=== PATIENT | female | born 1985 | race Caucasian/White ===

== ENCOUNTER 2019-05-31 09:02 | Emergency (ER) | payer OTHER, SELFPAY ==
[2019-05-31 09:11] VITALS: BP 127/76; PULSE 130; RESP 20; TEMP 37.6; O2SAT 99
--- NOTE | 2019-05-31 09:22 | ED.URI ---
HPI - URI/Sore Throat General Chief Complaint: Upper Respiratory Infection Stated Complaint: sore throat/diane/chills/fever/body aches Time Seen by Provider: 05/31/19 09:22 Source: patient and RN notes reviewed History of Present Illness HPI Narrative: Patient is a 34-year-old female presents the urgent care with complaints of sore throat, body aches, fever, chills. Patient states that started Tuesday night and was severe yesterday with a sore throat. Patient was recently diagnosed approximately 1 or 2 months ago with strep throat and was on amoxicillin at that time. Patient denies any nausea or vomiting. No other acute complaints. No acute distress noted. Patient read the plan of care. Related Data Home Medications Medication Instructions Recorded Confirmed buspirone 10 mg PO DAILY 05/31/19 05/31/19 cetirizine [Zyrtec] 10 mg PO DAILY 05/31/19 05/31/19 citalopram 20 mg PO DAILY 05/31/19 05/31/19 lisinopril-hydrochlorothiazide 1 tablet PO DAILY 05/31/19 05/31/19 Allergies Allergy/AdvReac Type Severity Reaction Status Date / Time etodolac Allergy Intermediate Hives Verified 05/31/19 09:12 Review of Systems Review of Systems: Narrative: CONSTITUTIONAL: Reports a fever, chills, sweats EYES: Denies visual changes, redness, or discharge. ENT: Reports of rhinorrhea, sore throat CARDIOVASCULAR: Denies chest pain, palpitations, or edema. RESPIRATORY: Denies cough or dyspnea. GASTROINTESTINAL: Denies abdominal pain, nausea, vomiting, or diarrhea. GENITOURINARY: Denies dysuria or hematuria. SKIN: Denies rash or itching. MUSCULOSKELETAL: Denies back pain, joint pain; reports of body aches NEUROLOGIC: Denies headache, numbness, or weakness. All other systems reviewed are negative, except as documented in HPI. FOR[facility]LY [facility], [facility] Family History Family History (Updated 10/17/15 @ 23:21 by DOCTOR UNKNOWN) Mother Hypertension Cerebrovascular accident Family history of elevated blood lipids Sibling Patient's sister is in good health Patient's brother is in good health Asthma Father Cerebrovascular accident Family history of diabetes mellitus in first degree relative Depression Other Family history of allergic disorder Family history of heart disease in male family member before age 55 Family history of kidney disease Social History Social History Smoking status: Never smoker Alcohol intake: never Comments At the time of my signature, I reviewed and agree with the nursing past medical, surgical, social, and family history. There is no relevant family history pertinent to the patient complaint. Exam Narrative: Exam Narrative: GENERAL: This is a well-nourished, well-developed patient, reports of fatigue HEAD: normocephalic, atraumatic. EYES: PERRL. Sclera clear/white. Vision is grossly intact. EARS: External ears normal, auditory canals clear and without drainage, TMs normal without perforation. Hearing grossly intact. NOSE: External nose normal with no obvious nasal discharge, nares without redness, clear rhinorrhea. THROAT: Mucous membranes moist, moderate erythema noted posterior oropharynx with moderate postnasal drainage and mild bilateral tonsillar edema/erythema without exudate or ulceration NECK: Neck supple, non-tender without lymphadenopathy CARDIOVASCULAR: Regular rate and rhythm without murmurs, gallops, or rubs. RESPIRATORY: Clear to auscultation. Breath sounds equal bilaterally. No wheezes, rales, or rhonchi. SKIN: warm, intact with no suspicious lesions or rash, good texture and turgor. NEURO: awake, alert, and oriented to person, place and time. There were no obvious focal neurologic abnormalities. EXTREMITIES: No clubbing, cyanosis, or edema. Course Vital Signs Vital signs: Vital Signs Temperature 99.6 F 05/31/19 09:11 Pulse Rate 130 H 05/31/19 09:11 Respiratory Rate 20 05/31/19 09:11 Blood Pressure 127/76 05/31/19 09:11 Pulse Oximetry 99 05/31/19 09:11 Temperature 99.6 F
== END 2019-05-31 09:36 | disposition home or self-care (01) ==
PROVIDERS: Emergency Provider Nurse Practitioner Family; PCP Nurse Practitioner Family
DX: J02.0 Streptococcal pharyngitis (principal); I10 Essential (primary) hypertension; J45.909 Unspecified asthma, uncomplicated; K21.9 Gastro-esophageal reflux disease without esophagitis
CPT/HCPCS: 87804; 87880; 99213; G0463

== ENCOUNTER 2019-06-02 05:53 | Emergency (ER) | payer OTHER, SELFPAY ==
--- NOTE | ~2019-06-02 | CT_ITS ---
EXAMINATION: CT soft tissue neck w con DATE: 06/02/2019 07:46 INDICATION: Severe sore throat TECHNIQUE: Computed tomography (CT) of the neck was performed with 75 cc of Omnipaque 350 intravenous contrast. The dose-length product (DLP) was 578.70 mGy-cm. Automated exposure control and iterative reconstruction technique were employed. COMPARISON: None FINDINGS: There is no evidence of abnormal fluid collection or fat stranding of the neck. There are n o pathologically enlarged lymph nodes. The airway is patent. No abnormal enhancement is identified. IMPRESSION: 1. No CT correlate for the patient's symptoms. Reviewed, dictated and finalized at location A.
[2019-06-02 05:56] VITALS: BP 147/86; PULSE 96; RESP 18; TEMP 36.1; O2SAT 100
[2019-06-02 06:11] VITALS: BP 147/86; PULSE 96; RESP 18; TEMP 36.1; O2SAT 100
--- NOTE | 2019-06-02 06:32 | ED.GENADULT ---
HPI - General Adult General Chief complaint: Dental/Oral Stated complaint: positive strep, getting worse Time Seen by Provider: 06/02/19 06:10 Source: patient Mode of arrival: ambulatory Limitations: no limitations History of Present Illness HPI narrative: 34 yo female who presents for evaluation of worsening sore throat. Patient states she was diagnosed with strep pharyngitis 2 days ago, and she was started on Keflex. She has been taking ibuprofen around the clock without relief. She states that her pain seems to be located on the right side. She has severe pain with eating and drinking. She is not sure if she is on the correct antibiotics, and she has been diagnosed with strep many times before and she states her pain has never been this severe. She denies vomiting. MD complaint: worsening sore throat Related Data Home Medications Medication Instructions Recorded Confirmed buspirone 10 mg PO DAILY 05/31/19 05/31/19 cetirizine [Zyrtec] 10 mg PO DAILY 05/31/19 05/31/19 citalopram 20 mg PO DAILY 05/31/19 05/31/19 lisinopril-hydrochlorothiazide 1 tablet PO DAILY 05/31/19 05/31/19 Allergies Allergy/AdvReac Type Severity Reaction Status Date / Time etodolac Allergy Intermediate Hives Verified 05/31/19 09:12 Review of Systems Review of Systems: All systems reviewed & are unremarkable except as noted in HPI and below Constitutional: Constitutional: Denies chills and Reports fever(s) ENT: Reports dysphagia, Denies dizziness, Denies nasal congestion and Reports sore throat Cardiovascular: Cardiovascular: Denies chest pain Respiratory: Respiratory: Denies cough and Denies dyspnea Gastrointestinal: Gastrointestinal: Denies abdominal pain [facility] Family History Family History (Updated 10/17/15 @ 23:21 by DOCTOR UNKNOWN) Mother Hypertension Cerebrovascular accident Family history of elevated blood lipids Sibling Patient's sister is in good health Patient's brother is in good health Asthma Father Cerebrovascular accident Family history of diabetes mellitus in first degree relative Depression Other Family history of allergic disorder Family history of heart disease in male family member before age 55 Family history of kidney disease Social History Social History Smoking status: Never smoker Alcohol intake: never Gender identity (if verbalized by the patient): Female Exam Const: General: no acute distress and alert Orientation/consciousness: patient oriented x3 HENMT: Head: normocephalic and atraumatic Ears: hearing grossly normal bilaterally, external ears normal and TM's normal bilaterally Face and sinus: face symmetric Mouth: Yes lip normal, Yes tongue normal, Yes moist mucous membranes, No audible dysphonia and No drooling Throat: uvula midline, posterior oropharynx abnormal erythema; no exudates and no uvular edema Eyes: Conjunctivae: conjunctivae normal Pupils: Equal, round and reactive pupils present EOM: EOMs intact bilaterally Neck: Neck: no meningeal signs Chest: Chest palpation & inspection: normal inspection of the chest Resp: Effort & Inspection: normal respiratory effort Auscultation: clear to auscultation bilaterally Skin: General skin exam: normal color Rashes: no rashes Neuro: General: patient oriented x3 and moves all extremities Psych: Mental Status: mental status grossly normal Affect: normal affect Course Reevaluation(s) Reevaluation #1: I have discussed with patient labs and CT . She request Magic mouth wash and change antibiotics to Z gricelda. Date: 06/02/19 Time: 08:31 Vital Signs Vital signs: Vital Signs Temperature 96.9 F L 06/02/19 05:56 Pulse Rate 96 06/02/19 05:56 Respiratory Rate 18 06/02/19 05:56 Blood Pressure 147/86 H 06/02/19 05:56 Pulse Oximetry 100 06/02/19 05:56 Temperature 96.9 F L 06/02/19 06:11 Pulse Rate 90 06/02/19 08:52 Respiratory Rate 16 06/02/19 08:52 Blood Pressure 139/90
[2019-06-02 06:53] LABS: Basophils Absolute Auto 0.1 K/mm3 (0.0-0.1); Basophils Percent Auto 0.7 % (0.2-1.2); Eosinophils Absolute Auto 0.6 K/mm3 (0-0.3); Eosinophils Percent Auto 7.2 % (0-4.4); Hematocrit 42.6 % (37.0-47.0); Hemoglobin 13.9 g/dL (12.0-15.0); Immature Granulocyte Absolute 0.08 K/mm3 (0.00-0.031); Immature Granulocyte Percent A 0.9 % (0-0.5); Lymphocytes Absolute Auto 2.02 K/mm3 (0.9-3.2); Lymphocytes Percent Auto 23.8 % (18.3-44.2); Mean Corpuscular HGB Conc 32.6 g/dl (32-36); Mean Corpuscular Hemoglobin 26.2 pg (26-34); Mean Corpuscular Volume 80.4 fl (80-100); Mean Platelet Volume 9.2 fl (7.4-10.4); Monocytes Absolute Auto 0.6 K/mm3 (0.1-0.6); Monocytes Percent Auto 7.1 % (2.6-8.5); Neutrophils Absolute Auto 5.1 K/mm3 (1.3-6.7); Neutrophils Percent Auto 60.3 % (45.5-73.1); Platelet Count Result 306 k/mm3 (150-375); Red Cell Distribution Width 15.2 % (11.5-14.5); White Blood Count 8.5 K/mm3 (4.5-10.0)
[2019-06-02] MEDS: LACTATED RINGERS 1,000 ML 999 ML IV CONT (06:56)
[2019-06-02 07:18] LABS: Alanine Aminotransferase 36 U/L (4-35); Albumin Level 4.4 g/dL (3.5-5.1); Alkaline Phosphatase 133 U/L (38-126); Aspartate Amino Transferase 36 U/L (14-36); Bilirubin,Total 0.5 mg/dL (0.2-1.3); Blood Urea Nitrogen 10 mg/dL (7-17); Calcium 9.1 mg/dL (8.4-10.2); Carbon Dioxide 25 mmol/L (22-30); Chloride 102 mmol/L (98-107); Estimated Glomerular Filt Rate > 60; Glucose 111 mg/dL (65-105); Potassium 3.8 mmol/L (3.4-5.0); Sodium 137 mmol/L (137-145)
[2019-06-02 07:21] LABS: CRP 13.8 mg/dL (<1.0)
[2019-06-02 08:52] VITALS: BP 139/90; PULSE 90; RESP 16; O2SAT 99
== END 2019-06-02 08:53 | disposition home or self-care (01) ==
PROVIDERS: Emergency Provider General Practice; PCP Nurse Practitioner Family
DX: J02.0 Streptococcal pharyngitis (principal)
CPT/HCPCS: 36415; 70491; 80053; 81025; 85025; 86140; 96361; 96365; 96372; 99284; J0131; J1100; J7120; Q9967

== ENCOUNTER 2019-11-09 01:39 | Emergency (ER) | payer OTHER, SELFPAY ==
--- NOTE | ~2019-11-09 | CT_ITS ---
EXAMINATION: CT abdomen pelvis w con DATE: 11/09/2019 03:04 INDICATION: Abdominal pain. TECHNIQUE: Computed tomography (CT) of the abdomen and pelvis was performed with 100 mL Omnipaque 350 intravenous contrast. Automated exposure control and iterative reconstruction technique were employe d. The dose-length product was 1471.73 mGy-cm. COMPARISON: CT abdomen and pelvis 07/25/2015 FINDINGS: The visualized portions of the lung bases demonstrate a stable 5 mm nodule in right middle lobe, likely benign. There are two 3 mm nodules in right middle lobe and a 3 mm nodule in right lower lobe, likely benign. No pleural effusion. The heart size is normal. No pericardial effusion. The zahra er and spleen are normal. The gallbladder is absent. The pancreas, adrenal glands, and kidneys are no rmal. There are no dilated loops of bowel. The appendix is normal. There are no pathologically enlarg ed lymph nodes. There is no free intraperitoneal fluid. There is mild thoracolumbar spondylosis. IMPRESSION: 1. No etiology for the patient's symptoms. Reviewed, dictated and finalized at location A.
[2019-11-09 01:41] VITALS: BP 149/103; PULSE 100; RESP 16; TEMP 36.3; O2SAT 100
[2019-11-09 02:06] LABS: Basophils Percent Auto 0.3 % (0.2-1.2); Eosinophils Absolute Auto 0.2 K/mm3 (0-0.3); Eosinophils Percent Auto 1.4 % (0-4.4); Hematocrit 43.4 % (37.0-47.0); Hemoglobin 14.6 g/dL (12.0-15.0); Immature Granulocyte Absolute 0.06 K/mm3 (0.00-0.031); Immature Granulocyte Percent A 0.5 % (0-0.5); Lymphocytes Absolute Auto 4.49 K/mm3 (0.9-3.2); Mean Corpuscular HGB Conc 33.6 g/dl (32-36); Mean Corpuscular Hemoglobin 27.4 pg (26-34); Mean Corpuscular Volume 81.6 fl (80-100); Mean Platelet Volume 9.6 fl (7.4-10.4); Monocytes Absolute Auto 0.5 K/mm3 (0.1-0.6); Monocytes Percent Auto 3.9 % (2.6-8.5); Neutrophils Absolute Auto 6.9 K/mm3 (1.3-6.7); Neutrophils Percent Auto 56.9 % (45.5-73.1); Platelet Count Result 313 k/mm3 (150-375); Red Blood Count 5.32 M/mm3 (4.2-5.4); Red Cell Distribution Width 13.7 % (11.5-14.5); White Blood Count 12.1 K/mm3 (4.5-10.0)
[2019-11-09 02:12] LABS: Add Urine Microscopic? YES; Appearance Urine Clear (Clear); Bilirubin Urine Negative (Negative); Blood Urine 1+ (Negative); Color Urine Yellow (Yellow); Glucose Urine UA Negative (Negative); Ketones Urine Negative (Negative); Leukocyte Esterase Ur Negative LEU/UL (Negative); Mucus Urine Rare /lpf; Nitrate Urine Negative (Negative); Protein Urine Negative (Negative); Specific Grav Ur 1.018 (1.001-1.035); Squamous Epithelial Cell Urine Occasional /hpf (Few); Urobilinogen Urine Negative mg/dL (<2.0); WBC Urine 0-3 /hpf
--- NOTE | 2019-11-09 02:18 | ED.ABDPAIN ---
HPI - Abdominal Pain General Chief Complaint: Abdominal Pain Stated Complaint: abdominal pain Time Seen by Provider: 11/09/19 01:48 Source: RN notes reviewed History of Present Illness HPI narrative: Patient presents emergency department from home for abdominal pain. Patient states that symptoms began proximally 2 hours ago. Pain is located across the bilateral upper abdomen and radiated around to the back. Described as burning in nature associated with nausea. Denies any fevers or chills chest pain shortness of breath vomiting diarrhea or any other symptoms. Patient does note previous cholecystectomy Related Data Home Medications Medication Instructions Recorded Confirmed buspirone 10 mg PO DAILY 05/31/19 05/31/19 cetirizine [Zyrtec] 10 mg PO DAILY 05/31/19 05/31/19 citalopram 20 mg PO DAILY 05/31/19 05/31/19 lisinopril-hydrochlorothiazide 1 tablet PO DAILY 05/31/19 05/31/19 Allergies Allergy/AdvReac Type Severity Reaction Status Date / Time etodolac Allergy Intermediate Hives Verified 11/09/19 01:48 Review of Systems Review of Systems: Narrative: Gen.: Denies fevers or chills ENT: Denies congestion Respiratory: Denies shortness of breath or cough CV: Denies chest pain or palpitations GI: See HPI denies burning, urgency, frequency or hematuria Musculoskeletal: Denies back pain or muscle pain Neuro: Denies numbness, tingling, weakness or focal weakness Skin: Denies rash Except as documented, all other systems reviewed and negative PMFSH Past Medical History Medical History (Updated 11/09/19 @ 05:19 by Haris Kelley DO) Patient denies significant medical history Surgical History Surgical History (Updated 11/09/19 @ 02:19 by Haris Kelley DO) History of cholecystectomy Family History Family History (Updated 10/17/15 @ 23:21 by DOCTOR UNKNOWN) Mother Hypertension Cerebrovascular accident Family history of elevated blood lipids Sibling Patient's sister is in good health Patient's brother is in good health Asthma Father Cerebrovascular accident Family history of diabetes mellitus in first degree relative Depression Other Family history of allergic disorder Family history of heart disease in male family member before age 55 Family history of kidney disease Social History Social History Smoking status: Never smoker Alcohol intake: never Gender identity (if verbalized by the patient): Female Exam Narrative: Exam Narrative: APPEARANCE: No acute distress, nontoxic, resting in bed HEENT: Normocephalic, atraumatic, OMM RESPIRATORY: No respiratory distress, clear to auscultation bilaterally with no rhonchi wheezing or rales CARDIOVASCULAR: RRR s murmur ABDOMINAL: Soft, nondistended, tender palpation epigastric, right upper quadrant left upper quadrant, no tenderness right lower quadrant left lower quadrant, no rebound or guarding MUSCULOSKELETAl: Moves all extremities. No clubbing, cyanosis or edema. NEURO: Awake and alert. Following commands, speech normal, no focal deficits SKIN:: Warm, dry. Normal Color PSYCHIATRIC: Normal affect/mood Course Course Emergency Course: Patient states that they are feeling much better at this time. States abdominal pain has resolved. Repeat abdominal exam shows the patient's abdomen to be soft and nontender. Discussed with patient results of workup and diagnosis. Discussed need for follow-up with primary care physician, reasons to return to the emergency department in proper use of medication. Patient understands and agrees to current treatment plan. Patient states she is on OTC Nexium at home for heartburns had no formal work-up will refer to GI and switch to Protonix Vital Signs Vital signs: Vital Signs Temperature 97.4 F L 11/09/19 01:41 Pulse Rate 100 11/09/19 01:41 Respiratory Rate 16 11/09/19 01:41 Blood Pressure 149/103 H 11/09/19 01:41 Pulse Oximetry 100 0
[2019-11-09] MEDS: ONDANSETRON INJ 4 MG/2 ML VIAL IV PUSH (02:29)
[2019-11-09] MEDS: MORPHINE SULFATE 4 MG/ML INJ IV PUSH (02:29)
[2019-11-09] MEDS: SODIUM CHLORIDE 0.9% IV 1,000 ML 999 ML IV CONT (02:30)
[2019-11-09 02:36] LABS: Alanine Aminotransferase 17 U/L (4-35); Albumin Level 4.4 g/dL (3.5-5.1); Alkaline Phosphatase 96 U/L (38-126); Anion Gap 12 mmol/L (8-16); Aspartate Amino Transferase 23 U/L (14-36); Bilirubin,Total 0.4 mg/dL (0.2-1.3); Blood Urea Nitrogen 15 mg/dL (7-17); Calcium 9.1 mg/dL (8.4-10.2); Carbon Dioxide 20 mmol/L (22-30); Chloride 104 mmol/L (98-107); Estimated CRCL calculation 135 ml/min; Estimated Glomerular Filt Rate > 60; Glucose 112 mg/dL (65-105); Lipase 59 U/L (23-300); Potassium 3.9 mmol/L (3.4-5.0); Sodium 136 mmol/L (137-145)
[2019-11-09 03:09] VITALS: BP 146/95; PULSE 88; RESP 18; O2SAT 97
[2019-11-09] MEDS: PROMETHAZINE HCL 25 MG/ML AMPUL 12.5 MG IV PUSH (04:02)
[2019-11-09] MEDS: SODIUM CHLORIDE 0.9% IV 50 ML 200 ML (04:04)
[2019-11-09 05:34] VITALS: BP 131/89; PULSE 91; RESP 18; O2SAT 96
== END 2019-11-09 05:35 | disposition home or self-care (01) ==
PROVIDERS: Emergency Provider Emergency Medicine; PCP Nurse Practitioner Family
DX: R10.13 Epigastric pain (principal)
CPT/HCPCS: 36415; 74177; 80053; 81001; 81025; 83690; 85025; 96361; 96374; 96375; 99284; A9270; J2270; J2405; J2550; J7030; Q9967

== ENCOUNTER 2019-12-12 02:20 | Outpatient (CLI) | payer OTHER, SELFPAY ==
[2019-12-12 18:39] LABS: SARS-CoV-2 RNA PCR Negative
== END 2019-12-12 02:21 | disposition home or self-care (01) ==
LOC: ANHCOVIDDT 02:20
PROVIDERS: PCP Nurse Practitioner Family; Visit Provider Internal Medicine Gastroenterology
DX: Z01.812 Encounter for preprocedural laboratory examination (principal); Z20.828 Contact with and (suspected) exposure to other viral communicable diseases
CPT/HCPCS: 87635; C9803; U0003

== ENCOUNTER 2019-12-14 01:02 | Day surgery (SDC) | payer OTHER, SELFPAY ==
[2019-12-10 13:38] VITALS: BMI 38.4
[2019-12-14] MEDS: LACTATED RINGERS 1,000 ML 150 ML IV CONT (09:08)
[2019-12-14 09:11] VITALS: BP 135/85; PULSE 93; RESP 18; TEMP 36.3; O2SAT 98; BMI 38.5
--- NOTE | 2019-12-14 09:34 | WPDANESEPPF ---
Anes - Initial Pre Proc Eval Procedure: Operation Date: 12/14/19 10:00 Proposed Procedures p Esophagogastroduodenoscopy - Jack Gonzalez MD Date/Time: 12/14/19 09:34 Surgeon: Jack Gonzalez MD Pre Op Diagnosis: abdomen pain Patient Data Age: 34 Gender: F Height: 5 ft 9 in Weight: 118.3 kg Last Vital Signs Temp 97.3 F L 12/14/19 09:11 Pulse 93 12/14/19 09:11 Resp 18 12/14/19 09:11 BP 135/85 12/14/19 09:11 Pulse Ox 98 12/14/19 09:11 Allergies Allergy/AdvReac Type Severity Reaction Status Date / Time etodolac Allergy Intermediate Hives Verified 12/14/19 09:08 Home Medications Medication Instructions Recorded Confirmed Type buspirone 10 mg PO TID 05/31/19 12/10/19 History cetirizine [Zyrtec] 10 mg PO DAILY 05/31/19 12/10/19 History citalopram 20 mg PO DAILY 05/31/19 12/10/19 History lisinopril-hydrochlorothiazide 1 tablet PO DAILY 05/31/19 12/10/19 History pantoprazole 40 mg tablet,delayed 40 mg PO HS #30 tablet 11/15/19 12/10/19 Rx release ondansetron HCl 4 mg tablet 4 mg PO Q8H PRN #90 tablet 11/23/19 12/10/19 Rx albuterol sulfate [ProAir HFA] 2 puff INHALATION QID PRN 12/10/19 12/10/19 History ipratropium-albuterol 3 ml INHALATION Q4H PRN 12/10/19 12/10/19 History Patient hx anesthesia problems: none Family hx anesthesia problems: none PMFSH Past Medical History Medical History (Updated 12/14/19 @ 09:34 by Rafael Rudolph MD) Anxiety Asthma GERD (gastroesophageal reflux disease) Hypertension Patient denies significant medical history Surgical History Surgical History (Updated 11/09/19 @ 02:19 by Haris Kelley DO) History of cholecystectomy Family History Family History (Updated 10/17/15 @ 23:21 by DOCTOR UNKNOWN) Mother Hypertension Cerebrovascular accident Family history of elevated blood lipids Sibling Patient's sister is in good health Patient's brother is in good health Asthma Father Cerebrovascular accident Family history of diabetes mellitus in first degree relative Depression Other Family history of allergic disorder Family history of heart disease in male family member before age 55 Family history of kidney disease Social History Social History Smoking status: Never smoker Alcohol intake: never Substance use: current Substance use type: marijuana Last use: 12/09/19 Living arrangements: with family Gender identity (if verbalized by the patient): Female Spiritual care concerns: No Anes - Eval Final PreProcedure Day of Procedure 12/14/19 09:34 Patient weight: obese Heart: regular rate and rhythm Lungs: clear to auscultation Airway: Mallampati scale class III Neurological: alert and oriented Last oral intake: >/= 8 hours ASA classification: III Emergent: no Anesthetic plan: proceed Anesthesia type and monitoring: general GIVS and standard monitoring Informed Consent: The patient's anesthetic plan and its attendant risks and benefits were discussed with the patient/family/POA. Questions were solicited and answers provided to the satisfaction of the patient/family/POA.
--- NOTE | 2019-12-14 09:48 | WPDHPUPDATE1 ---
History and Physical Update Update Date/Time: 12/14/19 09:48 History and Physical has been reviewed, including an updated exam of the patient. There are NO changes in the patient's condition. Risks, benefits, and alternatives have been discussed and questions answered. Patient agrees to proceed with procedure.
[2019-12-14 10:05] VITALS: BP 137/87; PULSE 90; RESP 25; O2SAT 99
[2019-12-14 10:15] VITALS: BP 131/73; PULSE 85; RESP 20; O2SAT 100
[2019-12-14 10:25] VITALS: BP 143/89; PULSE 78; RESP 18; O2SAT 100
== END 2019-12-14 10:30 | disposition home or self-care (01) ==
PROVIDERS: PCP Nurse Practitioner Family; Visit Provider Internal Medicine Gastroenterology
PROC: 0DJ08ZZ Inspection of Upper Intestinal Tract, Via Natural or Artificial Opening Endoscopic (ICD-10-PCS; CPT 43235; principal; 2019-12-14 10:00)
DX: K29.50 Unspecified chronic gastritis without bleeding (principal); K20.8 Other esophagitis; K21.9 Gastro-esophageal reflux disease without esophagitis; J45.909 Unspecified asthma, uncomplicated; I10 Essential (primary) hypertension; F41.9 Anxiety disorder, unspecified; Z90.49 Acquired absence of other specified parts of digestive tract
CPT/HCPCS: 43239; 87635; 88305; C9803; J2704; J7120; U0003

== ENCOUNTER 2020-03-04 08:56 | Outpatient (NON) | payer OTHER, MEDICAID, SELFPAY ==
[2020-03-04 22:42] LABS: SARS-CoV-2 RNA PCR Negative
== END 2020-03-04 08:57 ==
PROVIDERS: PCP Nurse Practitioner Family; Visit Provider Nurse Practitioner Family
DX: R51.9 Headache, unspecified (principal); J02.9 Acute pharyngitis, unspecified; Z20.828 Contact with and (suspected) exposure to other viral communicable diseases
CPT/HCPCS: 87635; C9803; U0003

== ENCOUNTER 2020-08-04 06:55 | Emergency (ER) | payer OTHER, MEDICAID, SELFPAY ==
[2020-08-04 06:58] VITALS: BP 154/97; PULSE 102; RESP 16; TEMP 36.2; O2SAT 98
--- NOTE | 2020-08-04 07:30 | ED.BACK ---
HPI - Back Pain/Injury General Chief Complaint: Back Pain/Injury Stated Complaint: LBP X1D Time Seen by Provider: 08/04/20 07:05 Source: RN notes reviewed History of Present Illness HPI Narrative: Patient presents emergency department from home for low back pain. Patient states she woke with the pain yesterday she denies any direct trauma or injury. Patient states pain shoots down the left leg with occasional shots of pain down the right leg pain is worse with movement. She states she took ibuprofen and Flexeril last night at 8 PM for the symptoms is taken no medication this morning she denies any fevers or chills, abdominal pain, numbness or tingling in the extremities bowel or bladder incontinence or any other symptoms. She states that 4 years ago she had back pain in the similar area and had to have a laminectomy at the back and spine [place] Related Data Home Medications Medication Instructions Recorded Confirmed buspirone 10 mg PO TID 05/31/19 12/10/19 cetirizine [Zyrtec] 10 mg PO DAILY 05/31/19 12/10/19 citalopram 20 mg PO DAILY 05/31/19 12/10/19 lisinopril-hydrochlorothiazide 1 tablet PO DAILY 05/31/19 12/10/19 albuterol sulfate [ProAir HFA] 2 puff INHALATION QID PRN 12/10/19 12/10/19 ipratropium-albuterol 3 ml INHALATION Q4H PRN 12/10/19 12/10/19 Allergies Allergy/AdvReac Type Severity Reaction Status Date / Time ketorolac Allergy Hives Verified 08/04/20 07:26 Review of Systems Review of Systems: Narrative: Gen.: Denies fevers or chills ENT: Denies congestion Respiratory: Denies shortness of breath or cough CV: Denies chest pain or palpitations GI: Denies abdominal pain nausea, emesis or diarrhea denies bowel or bladder incontinence Musculoskeletal: See HPI Neuro: Denies numbness, tingling, weakness or focal weakness Skin: Denies rash Except as documented, all other systems reviewed and negative PMFSH Past Medical History Medical History Anxiety Asthma GERD (gastroesophageal reflux disease) Hypertension Patient denies significant medical history Surgical History Surgical History (Updated 11/09/19 @ 02:19 by Haris Kelley DO) History of cholecystectomy Family History Family History (Updated 10/17/15 @ 23:21 by DOCTOR UNKNOWN) Mother Hypertension Cerebrovascular accident Family history of elevated blood lipids Sibling Patient's sister is in good health Patient's brother is in good health Asthma Father Cerebrovascular accident Family history of diabetes mellitus in first degree relative Depression Other Family history of allergic disorder Family history of heart disease in male family member before age 55 Family history of kidney disease Social History Social History Smoking status: Never smoker Alcohol intake: never Substance use: current Substance use type: marijuana Last use: 12/09/19 Gender identity (if verbalized by the patient): Female Spiritual care concerns: No Exam Narrative: Exam Narrative: APPEARANCE: No acute distress, nontoxic, resting in bed Eyes: EOMI HEENT: Normocephalic, atraumatic, CV: Regular rate and rhythm without murmur RESPIRATORY: No respiratory distress. Clear to auscultation bilaterally. Abdomen: Soft and nontender, no rebound or guarding MUSCULOSKELETAl: Moves all extremities, no clubbing cyanosis or edema Back: No midline lumbar tenderness to palpation or step-off, tender to palpation over bilateral paravertebral muscles L3-5 , pain increased with forward flexion NEURO: Awake and alert. Following commands, speech normal, no focal deficits, muscle strength 5 out of 5 bilateral lower extremities, bilateral patellar reflex 2+ SKIN:: Warm, dry. Normal Color no rash or lesions Course Course Emergency Course: Discussed with patient results of workup and diagnosis. Discussed need for follow-up with primary care,
[2020-08-04] MEDS: MORPHINE SULFATE (*CRX) 4 MG/ML INJ IM (07:33)
[2020-08-04] MEDS: predniSONE 20 MG TABLET 60 MG PO (07:35)
[2020-08-04] MEDS: IBUPROFEN 600 MG TABLET PO (07:38)
== END 2020-08-04 08:17 | disposition home or self-care (01) ==
PROVIDERS: Emergency Provider Emergency Medicine; PCP Nurse Practitioner Family
DX: M54.5 Low back pain (principal); F41.9 Anxiety disorder, unspecified; J45.909 Unspecified asthma, uncomplicated; K21.9 Gastro-esophageal reflux disease without esophagitis; I10 Essential (primary) hypertension
CPT/HCPCS: 96372; 99283; A9270; J2270; J7512

== ENCOUNTER 2020-08-20 14:24 | Outpatient (CLI) | payer OTHER, MEDICAID, SELFPAY ==
--- NOTE | 2020-08-20 14:31 | ECG_ITS ---
Measurements Intervals [place] Rate: 86 P: 18 [place]: 169 QRS: 15 QRSD: 75 T: 15 QT: 332 QTc: 399 Interpretive Statements SINUS RHYTHM POSSIBLE LEFT ATRIAL ENLARGEMENT LOW QRS VOLTAGE IN PRECORDIAL LEADS CONSIDER INFERIOR INFARCT, AGE INDETERMINATE ANTERIOR INFARCT, AGE INDETERMINATE BASELINE ARTIFACT- I, II, III, AVR, AVL, AVF ABNORMAL ECG Electronically Signed On 08-20-2020 15:54:36 CDT by Harley Chavez D.O.
[2020-08-20 15:20] LABS: Hematocrit 41.3 % (37.0-47.0); Hemoglobin 13.2 g/dL (12.0-15.0); Mean Corpuscular Volume 84.5 fl (80-100); Mean Platelet Volume 9.9 fl (7.4-10.4); Platelet Count Result 311 k/mm3 (150-375); Red Blood Count 4.89 M/mm3 (4.2-5.4); Red Cell Distribution Width 13.9 % (11.5-14.5)
[2020-08-20 15:31] LABS: Anion Gap 9 mmol/L (8-16); Blood Urea Nitrogen 15 mg/dL (7-17); Calcium 9.7 mg/dL (8.4-10.2); Carbon Dioxide 25 mmol/L (22-30); Chloride 104 mmol/L (98-107); Estimated Glomerular Filt Rate > 60; Glucose 97 mg/dL (65-105); Sodium 138 mmol/L (137-145)
== END 2020-08-20 14:25 | disposition home or self-care (01) ==
PROVIDERS: Anesthesiology; PCP Nurse Practitioner Family; Visit Provider Obstetrics & Gynecology
DX: Z01.812 Encounter for preprocedural laboratory examination (principal); I10 Essential (primary) hypertension; Z79.899 Other long term (current) drug therapy; Z20.822 Contact with and (suspected) exposure to COVID-19; U07.1 COVID-19; R94.31 Abnormal electrocardiogram [ECG] [EKG]
CPT/HCPCS: 36415; 80048; 85027; 86850; 86900; 86901; 93005

== ENCOUNTER → 2020-08-23 11:28 | Outpatient (CLI) | payer OTHER, MEDICAID, SELFPAY ==
--- NOTE | ~2020-08-23 | MR_ITS ---
EXAMINATION: MR lumbar spine wo con EXAM DATE: 08/23/2020 12:29 INDICATION: Lumbar back pain w radiculopathy affecting lower extremities lbp down perez legs-left worse - x 1 mo, prev surg 2017, no trauma . TECHNIQUE: Multi-sequential, multiplanar MR images of the lumbar spine were obtained without contrast . Sagittal T1, T2, T2 fat saturation images. Axial T2 weighted images. There is no prior study for comparison. FINDINGS: Evidence of prior right L5 laminotomy. The vertebral bodies are aligned in the AP dimension . Mild diffuse lumbar disc disease. Small annular fissures L4-5 and L5-S1. There are no suspicious ma rrow signal abnormalities. Paraspinal soft tissue is unremarkable. Level by level evaluation: T12-L1: Disc does not extend beyond the endplate margin. Facet arthropathy: Mild. Neural foraminal stenosis: No stenosis. Central canal stenosis: No stenosis. L1-L2: Disc does not extend beyond the endplate margin. Facet arthropathy: Mild. Neural foraminal stenosis: No stenosis. Central canal stenosis: No stenosis. L2-L3: There is a mild diffuse disc bulge. Facet arthropathy: Mild to moderate. Neural foraminal stenosis: No stenosis. Central canal stenosis: No stenosis. L3-L4: There is a mild to moderate diffuse disc bulge. Facet arthropathy: Mild to moderate. Neural foraminal stenosis: No stenosis. Central canal stenosis: Mild. L4-L5: There is a mild to moderate diffuse disc bulge. Facet arthropathy: Mild to moderate. Neural foraminal stenosis: Mild bilateral. Central canal stenosis: Mild. L5-S1: There is a mild to moderate diffuse disc bulge. Facet arthropathy: Mild. Neural foraminal stenosis: No stenosis. Central canal stenosis: No stenosis. IMPRESSION: 1. Mild to moderate lumbar spondylosis. Reviewed, dictated and finalized at location A.
== END ==
PROVIDERS: PCP Nurse Practitioner Family; Visit Provider Nurse Practitioner Family
DX: M47.26 Other spondylosis with radiculopathy, lumbar region (principal); R20.0 Anesthesia of skin; R20.2 Paresthesia of skin; R20.8 Other disturbances of skin sensation; Z98.890 Other specified postprocedural states; Z87.39 Personal history of other diseases of the musculoskeletal system and connective tissue
CPT/HCPCS: 72148

== ENCOUNTER → 2020-08-26 02:35 | Outpatient (CLI) | payer OTHER, MEDICAID, SELFPAY ==
[2020-08-26 23:31] LABS: SARS-CoV-2 RNA PCR Negative
== END ==
PROVIDERS: PCP Nurse Practitioner Family; Visit Provider Obstetrics & Gynecology
DX: Z01.812 Encounter for preprocedural laboratory examination (principal); Z20.822 Contact with and (suspected) exposure to COVID-19
CPT/HCPCS: C9803; U0003; U0005

== ENCOUNTER 2020-08-29 01:58 | Day surgery (SDC) | payer OTHER, MEDICAID, SELFPAY ==
[2020-08-19 09:37] VITALS: BMI 36.8
--- NOTE | 2020-08-27 07:11 | PM.IMHP ---
H&P: HPI History of Present Illness Date/Time: 08/27/20 07:11 35-year-old 2 para 2 admitted for robotic hysterectomy and bilateral salpingectomy. This patient has had a previous ablation which failed her heavy bleeding. She continues to have bleeding and pain. Risks and benefits reviewed including but not exclusive of , aspiration pneumonia, bleeding, transfusion, perforation injury to bowel, bladder, ureters, or other internal organs with need for open laparotomy and repair. She received the [employer] handout entitled hysterectomy as well as the DaVinci handout. She had all questions answered and asked to proceed Chief Complaint: pelvic pain and bleeding Review of Systems Review of Systems: All systems reviewed & are unremarkable except as noted in HPI and below PMFSH Past Medical History Medical History Anxiety Asthma GERD (gastroesophageal reflux disease) Hypertension Patient denies significant medical history Surgical History Surgical History History of cholecystectomy Family History Family History Mother Hypertension Cerebrovascular accident Family history of elevated blood lipids Sibling Patient's sister is in good health Patient's brother is in good health Asthma Father Cerebrovascular accident Family history of diabetes mellitus in first degree relative Depression Other Family history of allergic disorder Family history of heart disease in male family member before age 55 Family history of kidney disease Social History Social History Smoking status: Never smoker Alcohol intake: never Substance use: current Substance use type: marijuana Other substance usage details: vap Last use: yesterday Gender identity (if verbalized by the patient): Female Spiritual care concerns: No Meds Home Medications and Allergies Home Medications Medication Instructions Recorded Confirmed Type buspirone 15 mg PO BID 05/31/19 08/19/20 History cetirizine [Zyrtec] 10 mg PO DAILY 05/31/19 08/19/20 History citalopram 40 mg PO DAILY 05/31/19 08/19/20 History lisinopril-hydrochlorothiazide 1 tablet PO DAILY 05/31/19 08/19/20 History pantoprazole 40 mg tablet,delayed 40 mg PO HS #30 tablet 11/15/19 08/19/20 Rx release albuterol sulfate [ProAir HFA] 2 puff INHALATION QID PRN 12/10/19 08/19/20 History ipratropium-albuterol 3 ml INHALATION Q4H PRN 12/10/19 08/19/20 History Flexeril 10 mg PO HS 08/19/20 08/19/20 History Vraylar 1.5 mg PO DAILY 08/19/20 08/19/20 History acetaminophen-codeine 1 - 2 tab-cap PO PRN PRN 08/19/20 08/19/20 History ibuprofen 800 mg PO TID PRN 08/19/20 08/19/20 History Allergies Allergy/AdvReac Type Severity Reaction Status Date / Time ketorolac Allergy Hives Verified 08/19/20 09:46 Exam Const: General: no acute distress Eyes: General: appearance normal, both eyes and all related structures Neck: Neck: supple and no JVD Thyroid: thyroid normal Resp: Effort & Inspection: normal respiratory effort Auscultation: clear to auscultation bilaterally Cardio: Rate: regular rate Rhythm: regular rhythm GI: Inspection: non-distended GI Palp: Yes Soft to palpation, No Tenderness to palpation present (GI) and No Guarding due to palpation present (GI) Auscultation: normal bowel sounds : External Female Exam: normal external appearance Speculum Exam - Vagina: normal appearance of the vagina Speculum Exam - Cervix: normal appearance of the cervix Bimanual exam- vagina & uterus: enlarged and Uterine tenderness Bimanual Exam- Adnexa, other: normal adnexae Skin: General skin exam: no rashes or lesions noted Extrem: General: normal to inspection and no edema Psych: Mental Status: mental status grossly normal Affect: normal affect
--- NOTE | 2020-08-28 13:09 | WPDANESEPPF ---
Anes - Initial Pre Proc Eval Procedure: Operation Date: 08/29/20 07:30 Proposed Procedures p Robotic Assisted Total Vaginal Hysterectomy, Bilateral Salpingectomy - Hoang Taveras MD Date/Time: 08/28/20 13:09 Surgeon: Hoang Taveras MD Pre Op Diagnosis: heavy bleeding, failed ablation,pain Patient Data Age: 35 Gender: F Height: 5 ft 9 in Weight: 113 kg Allergies Allergy/AdvReac Type Severity Reaction Status Date / Time ketorolac Allergy Hives Verified 08/29/20 06:24 Home Medications Medication Instructions Recorded Confirmed Type buspirone 15 mg PO BID 05/31/19 08/29/20 History cetirizine [Zyrtec] 10 mg PO DAILY 05/31/19 08/29/20 History citalopram 40 mg PO DAILY 05/31/19 08/29/20 History lisinopril-hydrochlorothiazide 1 tablet PO DAILY 05/31/19 08/29/20 History pantoprazole 40 mg tablet,delayed 40 mg PO HS #30 tablet 11/15/19 08/29/20 Rx release albuterol sulfate [ProAir HFA] 2 puff INHALATION QID PRN 12/10/19 08/29/20 History ipratropium-albuterol 3 ml INHALATION Q4H PRN 12/10/19 08/29/20 History Flexeril 10 mg PO HS 08/19/20 08/29/20 History Vraylar 1.5 mg PO DAILY 08/19/20 08/29/20 History acetaminophen-codeine 1 - 2 tab-cap PO PRN PRN 08/19/20 08/29/20 History ibuprofen 800 mg PO TID PRN 08/19/20 08/29/20 History Patient hx anesthesia problems: none Family hx anesthesia problems: none PMFSH Past Medical History Medical History Anxiety Asthma GERD (gastroesophageal reflux disease) Hypertension Patient denies significant medical history Surgical History Surgical History History of cholecystectomy Family History Family History Mother Hypertension Cerebrovascular accident Family history of elevated blood lipids Sibling Patient's sister is in good health Patient's brother is in good health Asthma Father Cerebrovascular accident Family history of diabetes mellitus in first degree relative Depression Other Family history of allergic disorder Family history of heart disease in male family member before age 55 Family history of kidney disease Social History Social History Smoking status: Never smoker Alcohol intake: never Substance use: current Substance use type: marijuana Other substance usage details: vap Last use: yesterday Gender identity (if verbalized by the patient): Female Spiritual care concerns: No Anes - Eval Final PreProcedure Day of Procedure 08/28/20 13:09 Patient weight: morbidly obese Heart: regular rate and rhythm Lungs: clear to auscultation Airway: Mallampati scale class III Neurological: alert and oriented Last oral intake: >/= 8 hours ASA classification: III Emergent: no Anesthetic plan: proceed Anesthesia type and monitoring: general ETT and standard monitoring Informed Consent: The patient's anesthetic plan and its attendant risks and benefits were discussed with the patient/family/POA. Questions were solicited and answers provided to the satisfaction of the patient/family/POA.
[2020-08-29] VITALS (13 sets, daily range): BP systolic 118–148; BP diastolic 64–88; PULSE 84–113; RESP 16–22; TEMP 36.1–37.1; O2SAT 92–100
[2020-08-29] MEDS: ACETAMINOPHEN 500 MG TABLET 1000 MG PO (06:34)
[2020-08-29] MEDS: LACTATED RINGERS 1,000 ML 30 ML IV CONT ×2 (06:44→09:04)
--- NOTE | 2020-08-29 07:19 | WPDHPUPDATE1 ---
History and Physical Update Update Date/Time: 08/29/20 07:19 History and Physical has been reviewed, including an updated exam of the patient. There are NO changes in the patient's condition. Risks, benefits, and alternatives have been discussed and questions answered. Patient agrees to proceed with procedure.
[2020-08-29] MEDS: ceFAZolin 2 GM/D5W 50 ML 2 GM/50 ML BAG IVPB (07:27)
--- NOTE | 2020-08-29 08:54 | W.PM.PROC2 ---
Procedure Note - Detailed Date of Procedure 08/29/20 Pre-op Diagnosis heavy bleeding, failed ablation,pain Post-op Diagnosis same Procedure Performed Robotic total vaginal hysterectomy and bilateral salpingectomies Surgeon Hoang Taveras MD Postop diagnosis: Heavy bleeding/failed ablation/pelvic pain Procedure: Robotic total vaginal hysterectomy and bilateral salpingectomy. Lysis of adhesions Anesthesia: General endotracheal EBL: 100cc Findings: Enlarged uterus. Small anterior ventral hernia with omentum which was easily removed. The bladder was well adhesed to the anterior portion of the uterus. Normal-appearing ovaries were present. Tubes were status post tubal ligation. The uterus was somewhat enlarged with large blood vessels. Complications: None Description of procedure: The patient was prepped draped in the normal sterile fashion placed in dorsal lithotomy position. Under excellent general endotracheal anesthesia the weighted speculum was placed in the posterior fornix vagina. Anterior lip of the cervix grasped with single-tooth tenaculum and the uterus sounded to 9cm. Serial dilatation with fragmented dilators performed followed by passage of the 8. HERO and the 3. Cold cup. A 16 [place] catheter was placed and clear urine was noted. The weighted speculum was removed and the single-tooth was removed. The gloves were changed. A supraumbilical incision was made the Veress needle passed in the abdomen. The abdomen filled with CO2 gas [id number]. The 8mm trocar advanced in the abdomen. The downside visualized no injury seen. The patient placed in Trendelenburg and left and right lateral quadrant incisions made. The 8mm trocars advanced under direct visualization assuring no injury. A right upper quadrant incision made in the 10mm trocar advanced under direct visualization assuring no injury. The robot was docked. Attention was turned to the console. Adhesions were seen from the omentum into this small hernia ventrally. Sharp dissection was used with monopolar cautery and scissors. Once this could be visualized and the uterus was noted be enlarged and the tubes status post tubal ligation. Normal ovaries were seen. The ovary was teased away from the ovary with sharp dissection and allowed to remain attached at its junction with the uterus. This was repeated on the contralateral side. The left utero-ovarian ligament was then clamped, burned, cut. Anteriorly the bladder was adhesed well up the uterus and cervix. Layer by layer this was sharply dissected using monopolar cautery and pelvic the bladder could be dissected away and pushed caudally away from the cervix and uterus to the opposite round ligament which was clamped, burned, cut. Next conserving the left ovary the utero-ovarian ligament was clamped, burned, cut and brought to the level of the previously cut round ligament. In like fashion conserving the right ovary the utero-ovarian ligament was clamped, burned, cut and brought to the previously cut round ligament. The left cardinal and broad ligaments were then serially skeletonized clamping burning and cutting and bringing this down the lateral edge of the uterus and cervix until the uterine vessels could be seen. These were large tortuous. Each was individually clamped, burned cut. In like fashion the cardinal and broad ligaments were skeletonized clamped,, cut and brought down the lateral edge of the uterus and cervix on the right. The uterine vessels there were large and tortuous and again were individually clamped, burned, cut. Excellent blanching of the uterus was seen at that point. A colpotomy incision was made and the cervix uterus and tubes were brought through the vagina. Blood loss estimated at less or nearly 100cc at that point. The vagina was closed with continuous running 0V lock from lateral edge to lateral edge and back to the midline. Irrigation undertaken to clear. The raw surface areas wer
[2020-08-29] MEDS: HYDROmorphone HCL INJ (*CRX) 1 MG/ML SYR 0.25 MG IV PUSH ×5 (09:10→09:55)
[2020-08-29] MEDS: diphenhydrAMINE HCl INJ 50 MG/ML VIAL 12.5 MG IV PUSH ×2 (09:31→09:43)
[2020-08-29] MEDS: ONDANSETRON INJ 4 MG/2 ML VIAL IV PUSH (09:50)
[2020-08-29] MEDS: DEXTROSE 5%/LACTATED RINGERS 1,000 ML 125 ML IV CONT (10:59)
[2020-08-29] MEDS: MORPHINE SULFATE (*CRX) 4 MG/ML INJ (11:01)
[2020-08-29] MEDS: MORPHINE SULFATE (*CRX) 4 MG/ML INJ IV PUSH (14:35)
[2020-08-29] MEDS: IBUPROFEN 600 MG TABLET PO ×2 (16:24→23:15)
[2020-08-29] MEDS: HYDROcodone/acetaminophen (*CRX) 5-325 MG TABLET 1 TAB PO ×2 (16:24→23:16)
[2020-08-29] MEDS: DOCUSATE SODIUM 100 MG CAPSULE PO (16:24)
[2020-08-29] MEDS: HYDROcodone/acetaminophen (*CRX) 10-325 MG TABLET 1 TAB PO (19:28)
[2020-08-30] MEDS: HYDROcodone/acetaminophen (*CRX) 5-325 MG TABLET 1 TAB PO ×2 (04:48→10:15)
[2020-08-30] MEDS: IBUPROFEN 600 MG TABLET PO (04:49)
[2020-08-30 04:50] VITALS: BP 125/67; PULSE 96; RESP 16; TEMP 36.6; O2SAT 99
[2020-08-30 05:41] LABS: Basophils Percent Auto 0.3 % (0.2-1.2); Eosinophils Absolute Auto 0.2 K/mm3 (0-0.3); Eosinophils Percent Auto 1.5 % (0-4.4); Hemoglobin 11.9 g/dL (12.0-15.0); Immature Granulocyte Absolute 0.05 K/mm3 (0.00-0.031); Immature Granulocyte Percent A 0.4 % (0-0.5); Lymphocytes Absolute Auto 2.51 K/mm3 (0.9-3.2); Mean Corpuscular HGB Conc 32.2 g/dl (32-36); Mean Corpuscular Hemoglobin 26.7 pg (26-34); Mean Platelet Volume 9.5 fl (7.4-10.4); Monocytes Absolute Auto 0.8 K/mm3 (0.1-0.6); Monocytes Percent Auto 6.8 % (2.6-8.5); Neutrophils Absolute Auto 8.4 K/mm3 (1.3-6.7); Platelet Count Result 298 k/mm3 (150-375); Red Blood Count 4.46 M/mm3 (4.2-5.4); Red Cell Distribution Width 13.9 % (11.5-14.5)
--- NOTE | 2020-08-30 07:07 | PM.DS ---
DS: Admitting Diagnosis Admitting Diagnosis Admitting Diagnosis: abnormal uterine bleeding pelvic pain DS: Summary Hospital Course Hospital Course: Ute Childs was admitted after robotic assisted total laparoscopic hysterectomy and bilateral salpingectomy for abnormal uterine bleeding. The above procedure was performed with no complications. She is doing well post op. She states her pain is well controlled with PO medications. She reports minimal bleeding. She is ambulating up to the chair. Her kwon catheter was removed. She is tolerating PO without N/V. She reports passing flatus. Status at Discharge Overall status at discharge: patient is progressing back to baseline Time Spent with Patient Time attestation: Total time spent providing and/or coordinating discharge services: Time spent: Less than 30 minutes Exam Const: General: comfortable and no acute distress Limitations: no limitations Resp: Effort & Inspection: normal respiratory effort Auscultation: clear to auscultation bilaterally Cardio: Rate: regular rate Rhythm: regular rhythm GI: Inspection: non-distended GI Palp: Yes Soft to palpation, Yes Tenderness to palpation present (GI) (milder tenderness to deep palpation) and No Guarding due to palpation present (GI) Auscultation: normal bowel sounds Other: incisions C/D/I covered with dermabond Urinary Catheter: Urinary Catheter: urine clear Skin: General skin exam: normal color Extrem: General: normal to inspection Psych: Mental Status: mental status grossly normal Affect: normal affect DS: Data Data Completed and Pending Pending studies at discharge: Pending at discharge 08/29/20 08:43 Surgical [PTH] Routine Labs on day of discharge: Labs from last 24 hours 08/30/20 04:48 WBC 12.0 H RBC 4.46 Hgb 11.9 L Hct 37.0 MCV 83.0 MCH 26.7 MCHC 32.2 RDW 13.9 Plt Count 298 MPV 9.5 Immature Gran % (Auto) 0.4 Neut % (Auto) 70.0 Lymph % (Auto) 21.0 [place] % (Auto) 6.8 Eos % (Auto) 1.5 Baso % (Auto) 0.3 Lymph # (Auto) 2.51 [place] # (Auto) 0.8 H Eos # (Auto) 0.2 Baso # (Auto) 0.0 Abs Immat Gran (auto) 0.05 H Absolute Neuts (auto) 8.4 H Absolute Nucleated RBC 0.0 Nucleated RBC % 0.0 Discharge Plan Discharge Patient Disposition: Home, Self-Care Patient Instructions: Laparoscopic Hysterectomy (DC) Stand Alone Forms: General Discharge Instructions Follow-up/Referrals: Hoang Taveras MD [Physician] - Discharge Medications: New hydrocodone-acetaminophen 5-325 mg tablet 1 tablet PO Q4H PRN (Reason: pain) Qty: 30 RF: 0 No Action cetirizine [Zyrtec] 10 mg Tablet 10 mg PO DAILY RF: 0 citalopram 20 mg tablet 40 mg PO DAILY RF: 0 buspirone 10 mg tablet 15 mg PO BID RF: 0 lisinopril-hydrochlorothiazide 10-12.5 mg tablet 1 tablet PO DAILY RF: 0 pantoprazole [Protonix] 40 mg tablet,delayed release (DR/EC) 40 mg PO HS Qty: 30 RF: 3 ipratropium-albuterol 0.5 mg-3 mg(2.5 mg base)/3 mL solution for nebulization 3 ml INHALATION Q4H PRN (Reason: Shortness Of Breath Or Wheezing) RF: 0 albuterol sulfate [ProAir HFA] 90 mcg/actuation Hfa Aerosol Inhaler 2 puff INHALATION QID PRN (Reason: Shortness Of Breath Or Wheezing) RF: 0 ibuprofen 800 mg PO TID PRN (Reason: Pain) RF: 0 acetaminophen-codeine 1 - 2 tab-cap PO PRN PRN (Reason: Pain) RF: 0 Vraylar 1.5 mg PO DAILY RF: 0 Flexeril 10 mg PO HS RF: 0
--- NOTE | 2020-08-30 09:15 | WPDANESPN ---
Anes - Prog Note Post-Op Date/Time: 08/30/20 09:15 Cardiovascular status: normal Respiratory status: normal Airway patency: baseline Mental status: baseline Post-Op hydration status: normal Vital Signs: Last Vital Signs Temp 36.6 C 08/30/20 04:50 Pulse 96 08/30/20 04:50 Resp 16 08/30/20 04:50 BP 125/67 08/30/20 04:50 Pulse Ox 99 08/30/20 04:50 Pain Score (VAS): 2 I/O: Intake & Output 08/29/20 08/30/20 08/30/20 23:59 07:59 15:59 Intake Total 1850 300 Output Total 2600 750 Balance -750 -450 Laboratory Tests 08/30/20 04:48 08/30/20 04:48 WBC 12.0 H RBC 4.46 Hgb 11.9 L Hct 37.0 MCV 83.0 MCH 26.7 MCHC 32.2 RDW 13.9 Plt Count 298 MPV 9.5 Immature Gran % (Auto) 0.4 Neut % (Auto) 70.0 Lymph % (Auto) 21.0 [place] % (Auto) 6.8 Eos % (Auto) 1.5 Baso % (Auto) 0.3 Lymph # (Auto) 2.51 [place] # (Auto) 0.8 H Eos # (Auto) 0.2 Baso # (Auto) 0.0 Abs Immat Gran (auto) 0.05 H Absolute Neuts (auto) 8.4 H Absolute Nucleated RBC 0.0 Nucleated RBC % 0.0 Post-procedural complaints: pruritis Patient Feedback: Patient satisfied with anesthetic care.
[2020-08-30 10:00] VITALS: BP 115/66; PULSE 105; RESP 16; TEMP 36.7; O2SAT 98
[2020-08-30] MEDS: DOCUSATE SODIUM 100 MG CAPSULE PO (10:15)
[2020-08-30] MEDS: ENOXAPARIN 40 MG/0.4 ML SYRINGE SUB-Q (10:17)
== END 2020-08-30 11:18 | disposition home or self-care (01) ==
LOC: ANHSURGERY 07:21 → ANHOB2 10:41
PROVIDERS: PCP Nurse Practitioner Family; Visit Provider Obstetrics & Gynecology
PROC: (CPT 58552; principal; 2020-08-29 07:30)
DX: N93.9 Abnormal uterine and vaginal bleeding, unspecified (principal); N80.0 Endometriosis of uterus; K43.9 Ventral hernia without obstruction or gangrene; N73.6 Female pelvic peritoneal adhesions (postinfective); F41.9 Anxiety disorder, unspecified; G43.909 Migraine, unspecified, not intractable, without status migrainosus; K21.9 Gastro-esophageal reflux disease without esophagitis; I10 Essential (primary) hypertension; E66.01 Morbid (severe) obesity due to excess calories; Z68.38 Body mass index [BMI] 38.0-38.9, adult; Z71.3 Dietary counseling and surveillance
CPT/HCPCS: 58552; S2900; 36415; 80048; 85025; 85027; 86850; 86900; 86901; 88307; 93005; 99199; A9270; C9803; J0690; J1100; J1170; J1200; J1650; J2250; J2270; J2405; J2704; J2710; J3010; J7030; J7120; J7121; U0003; U0005

== ENCOUNTER 2020-09-12 11:42 | Outpatient (CLI) | payer OTHER, MEDICAID, SELFPAY ==
[2020-09-12 12:30] LABS: D Dimer 1.76 ug/mL (<0.48)
== END 2020-09-12 11:43 | disposition home or self-care (01) ==
PROVIDERS: PCP Nurse Practitioner Family; Visit Provider Registered Nurse
DX: R42 Dizziness and giddiness (principal); R06.02 Shortness of breath; Z90.710 Acquired absence of both cervix and uterus
CPT/HCPCS: 36415; 85380

== ENCOUNTER 2020-09-12 16:09 | Outpatient (CLI) | payer OTHER, MEDICAID, SELFPAY ==
--- NOTE | ~2020-09-12 | CT_ITS ---
EXAMINATION: CTA chest PE protocol DATE: 09/12/2020 17:23 INDICATION: Left chest pain. Shortness of breath. TECHNIQUE: Computed tomography angiography (CTA) of the chest was performed with 100 mL Omnipaque-350 intravenous contrast timed to evaluate the pulmonary arteries. Coronal maximum intensity projection 3D-reconstructions were created by the technologist. Automated exposure control and iterative reconst ruction technique were employed. The dose-length product was 1065.53 mGy-cm. COMPARISON: CT abdomen and pelvis 11/09/2019 FINDINGS: There is a stable 5 mm nodule in right middle lobe, likely benign. No pleural effusion. The heart size is normal. No pericardial effusion. There is no pulmonary embolus. There is mild thoracic spondylosis. There is a benign bone island in T12. IMPRESSION: 1. No pulmonary embolus. Reviewed, dictated and finalized at location A. IMPRESSION: 1. No pulmonary embolus.
[2020-09-12 17:15] LABS: Estimated Glomerular Filt Rate > 60
== END 2020-09-12 16:10 | disposition home or self-care (01) ==
LOC: ANHIMG 16:10
PROVIDERS: PCP Nurse Practitioner Family; Visit Provider Registered Nurse
DX: R00.0 Tachycardia, unspecified (principal); R79.89 Other specified abnormal findings of blood chemistry; R06.02 Shortness of breath
CPT/HCPCS: 36415; 71275; 85380; Q9967

== ENCOUNTER 2020-09-19 09:30 | Outpatient (CLI) | payer OTHER, MEDICAID, SELFPAY ==
--- NOTE | 2020-09-23 16:19 | P.PCNHOL_ITS ---
Holter/Event Monitor Holter/Event Monitor Date of procedure: 09/23/20 Holter/Event Procedure: 48 Hr Holter Monitor Diagnosis: Palpitations Indications: Palpitations Image/Tracing Quality: Good . Finding: the patient was monitored for 48 hours. The underlying rhythm was sinus with a minimum heart rate of 65 beats per minute, average heart rate of 99 beats per minute and a maximum heart rate of 156 beats per minute. There were 52 PVCs and 2 APCs. There is no atrial fibrillation, SVT, ventricular tachycardia, pauses or heart block. No symptoms were recorded. . Conclusion: Holter monitor is remarkable for high average heart rate; consider anemia, t hyrotoxicosis, syndrome of inappropriate sinus tachycardia etc.. Rare APCs and PVCs.
== END 2020-09-19 09:31 | disposition home or self-care (01) ==
PROVIDERS: PCP Nurse Practitioner Family; Visit Provider Registered Nurse
DX: R00.2 Palpitations (principal)
CPT/HCPCS: 93225; 93226

== ENCOUNTER 2023-01-28 11:49 | Emergency (ER) | payer OTHER, MEDICAID, SELFPAY ==
--- NOTE | 2023-01-28 12:07 | ED.URI ---
HPI - URI/Sore Throat General Chief Complaint: Upper Respiratory Infection Stated Complaint: Cough/Sore Throat Time Seen by Provider: 01/28/23 12:08 Source: patient Mode of arrival: ambulatory Limitations: no limitations History of Present Illness HPI Narrative: Ute is a 37-year-old female patient presenting to the clinic today with complaints of cough and sore throat times 3 days. Reports that her son is immunocompromised and she is wanting COVID, flu, and strep testing in the clinic today. Had a visit with a tele doc and was prescribed albuterol inhaler and Yeison Cleveland MD elicited complaint: cough, sore throat and nasal congestion Related Data Home Medications Medication Instructions Recorded Confirmed lisinopril 10 1 tablet PO DAILY 05/31/19 08/29/20 mg-hydrochlorothiazide 12.5 mg tablet albuterol sulfate 90 mcg/actuation 2 puff inhalation QID PRN 12/10/19 08/29/20 aerosol inhaler (ProAir HFA) Shortness Of Breath Or Wheezing ipratropium 0.5 mg-albuterol 3 mg 3 ml inhalation Q4H PRN Shortness 12/10/19 08/29/20 (2.5 mg base)/3 mL nebulization Of Breath Or Wheezing soln benzonatate 200 mg capsule mg PO 01/28/23 ibuprofen 800 mg tablet mg 01/28/23 methocarbamol 750 mg tablet mg 01/28/23 venlafaxine 75 mg capsule,extended mg PO 01/28/23 release 24 hr Allergies Allergy/AdvReac Type Severity Reaction Status Date / Time ketorolac Allergy Hives Verified 01/28/23 11:53 Review of Systems Review of Systems: Pertinent positives per HPI. Patient denies any fever, chills, rash, headache, visual changes, dizziness, shortness of breath, chest pain, palpitations, nausea, vomiting, diarrhea, constipation, abdominal pain, or any urinary issues. [facility] Past Medical History Medical History Anxiety Asthma GERD (gastroesophageal reflux disease) Hypertension Patient denies significant medical history Surgical History Surgical History History of cholecystectomy Family History Family History Mother Hypertension Cerebrovascular accident Family history of elevated blood lipids Sibling Patient's sister is in good health Patient's brother is in good health Asthma Father Cerebrovascular accident Family history of diabetes mellitus in first degree relative Depression Other Family history of allergic disorder Family history of heart disease in male family member before age 55 Family history of kidney disease Social History Social History Smoking status: Never smoker Alcohol intake: never Substance use: current Substance use type: marijuana Other substance usage details: vap Last use: yesterday Living arrangements: with family Gender identity (if verbalized by the patient): Female Spiritual care concerns: No Comments At the time of my signature, I reviewed and agree with the nursing past medical, surgical, social, and family history. There is no relevant family history pertinent to the patient complaint. Exam Narrative: General: Well-developed, obese, in no apparent distress Head: Normocephalic, atraumatic Eyes: Pupils equally round and reactive to light bilaterally, EOM intact, sclera and conjunctive clear, no discharge, lids normal Ears: TMs intact and clear, ear canals clear, no drainage, grossly hearing normal. Nose: Nares patent, clear nasal discharge, no inflammation, no sinus tenderness. Mouth: Oral pharynx red without lesions or masses, good dentition, MMM. Neck: Supple, trachea midline, enlargement of anterior cervical nodes, no thyroid masses or goiter palpable. Cardio: Regular rate and rhythm, s1 and s2 normal, no murmur appreciated. Resp: Clear to auscultation bilaterally, no rhonchi, rales, wheezing or rubs
[2023-01-28 12:09] VITALS: BP 150/88; PULSE 117; RESP 16; TEMP 36.2; O2SAT 99
== END 2023-01-28 12:25 | disposition home or self-care (01) ==
PROVIDERS: Emergency Provider Nurse Practitioner Family; PCP Nurse Practitioner Family
DX: J02.0 Streptococcal pharyngitis (principal); Z20.822 Contact with and (suspected) exposure to COVID-19; F12.90 Cannabis use, unspecified, uncomplicated; J45.909 Unspecified asthma, uncomplicated; K21.9 Gastro-esophageal reflux disease without esophagitis; I10 Essential (primary) hypertension
CPT/HCPCS: 87426; 87804; 87880; 99213; C9803; G0463

== ENCOUNTER 2023-03-23 05:14 | Emergency (ER) | payer OTHER, BC, MEDICAID, SELFPAY ==
[2023-03-23] VITALS (15 sets, daily range): BP systolic 140–160; BP diastolic 82–113; PULSE 84–108; RESP 14–27; TEMP 35.5–36.6; O2SAT 98–100
[2023-03-23 05:31] LABS: Basophils Percent Auto 0.4 % (0.2-1.2); Eosinophils Absolute Auto 0.2 K/mm3 (0-0.3); Eosinophils Percent Auto 1.8 % (0-4.4); Hemoglobin 15.8 g/dL (12.0-15.0); Immature Granulocyte Absolute 0.07 K/mm3 (0.00-0.031); Immature Granulocyte Percent A 0.7 % (0-0.5); Lymphocytes Absolute Auto 3.16 K/mm3 (0.9-3.2); Lymphocytes Percent Auto 33.2 % (18.3-44.2); Mean Corpuscular HGB Conc 34.3 g/dl (32-36); Mean Corpuscular Hemoglobin 29.4 pg (26-34); Mean Corpuscular Volume 85.5 fl (80-100); Mean Platelet Volume 9.1 fl (7.4-10.4); Monocytes Absolute Auto 0.5 K/mm3 (0.1-0.6); Monocytes Percent Auto 4.8 % (2.6-8.5); Neutrophils Absolute Auto 5.6 K/mm3 (1.3-6.7); Neutrophils Percent Auto 59.1 % (45.5-73.1); Platelet Count Result 321 k/mm3 (150-375); Red Blood Count 5.38 M/mm3 (4.2-5.4); White Blood Count 9.5 K/mm3 (4.5-10.0)
--- NOTE | 2023-03-23 05:33 | PC.NURSE ---
Patient's oral temperature was 96 degrees. ED CN aware.
[2023-03-23 05:42] LABS: Appearance Urine Cloudy (Clear); Bacteria Urine 1+ /hpf; Bilirubin Urine Negative (Negative); Blood Urine Trace (Negative); Color Urine Yellow (Yellow); Glucose Urine UA Negative (Negative); Ketones Urine Negative (Negative); Leukocyte Esterase Ur Negative LEU/UL (Negative); Nitrate Urine Negative (Negative); Non Pathogenic Casts 0-2; Protein Urine Negative (Negative); Specific Grav Ur 1.029 (1.001-1.035); Squamous Epithelial Cell Urine Moderate /hpf (Few); WBC Urine 0-5 /hpf
[2023-03-23 05:44] LABS: Alanine Aminotransferase 20 U/L (6-35); Alkaline Phosphatase 92 U/L (38-126); Anion Gap 11 mmol/L (8-16); Aspartate Amino Transferase 24 U/L (14-36); Bilirubin,Total 0.4 mg/dL (0.2-1.3); Blood Urea Nitrogen 17 mg/dL (7-17); Calcium 8.7 mg/dL (8.4-10.2); Carbon Dioxide 18 mmol/L (22-30); Chloride 108 mmol/L (98-107); Estimated CRCL calculation 150 ml/min; Estimated Glomerular Filt Rate > 60; Glucose 123 mg/dL (65-110); Lipase 55 U/L (23-300); Potassium 3.9 mmol/L (3.4-5.0); Sodium 137 mmol/L (137-145)
[2023-03-23 06:01] LABS: Add Urine Microscopic? YES
--- NOTE | 2023-03-23 07:17 | PC.NURSE ---
Report given to RADHA Ibarra at this time.
[2023-03-23] MEDS: ONDANSETRON INJ 4 MG/2 ML VIAL IV PUSH (08:03)
[2023-03-23] MEDS: SODIUM CHLORIDE 0.9% IV 1,000 ML 999 ML IV CONT (08:03)
[2023-03-23] MEDS: MORPHINE SULFATE (*CRX) 4 MG/ML INJ IV PUSH (08:03)
--- NOTE | 2023-03-23 08:40 | ED.GENADULT ---
HPI - General Adult General Chief complaint: Nausea/Vomiting/Diarrhea Stated complaint: N/V/D, upper left back pain Time Seen by Provider: 03/23/23 07:05 History of Present Illness HPI narrative: Patient is a 38-year-old female who presents ER with nausea/vomiting / diarrhea. Ongoing for 24 hours. 5-6 episodes of diarrhea with associated nausea. She has crampy left-sided abdominal pain going to the back. No urinary frequency urgency or dysuria. No blood in stool. No loss of consciousness. She has been on antibiotics for last week for an ear infection. She also had the flu and was on Tamiflu. No additional close contacts with GI symptoms. Related Data Home Medications Medication Instructions Recorded Confirmed lisinopril 10 1 tablet PO DAILY 05/31/19 08/29/20 mg-hydrochlorothiazide 12.5 mg tablet albuterol sulfate 90 mcg/actuation 2 puff inhalation QID PRN 12/10/19 08/29/20 aerosol inhaler (ProAir HFA) Shortness Of Breath Or Wheezing ipratropium 0.5 mg-albuterol 3 mg 3 ml inhalation Q4H PRN Shortness 12/10/19 08/29/20 (2.5 mg base)/3 mL nebulization Of Breath Or Wheezing soln benzonatate 200 mg capsule mg PO 01/28/23 ibuprofen 800 mg tablet mg 01/28/23 methocarbamol 750 mg tablet mg 01/28/23 venlafaxine 75 mg capsule,extended mg PO 01/28/23 release 24 hr Allergies Allergy/AdvReac Type Severity Reaction Status Date / Time ketorolac Allergy Hives Verified 01/28/23 11:53 Review of Systems Review of Systems: All systems reviewed & are unremarkable except as noted in HPI and below Constitutional: Constitutional: Denies chills, Reports fatigue and Denies fever(s) ENT: Reports system reviewed and no additional complaints, except as documented Cardiovascular: Cardiovascular: Reports no additional cardiovascular complaints Respiratory: Respiratory: Reports no additional respiratory complaints Gastrointestinal: Gastrointestinal: Reports abdominal pain, Reports diarrhea, Reports nausea and Denies vomiting Genitourinary: Genitourinary: Reports no additional female genitourinary complaints Integumentary/Breasts: Skin/Breast: Reports system reviewed and no additional complaints, except as docu [facility] Past Medical History Medical History Anxiety Asthma GERD (gastroesophageal reflux disease) Hypertension Patient denies significant medical history Surgical History Surgical History History of cholecystectomy Family History Family History Mother Hypertension Cerebrovascular accident Family history of elevated blood lipids Sibling Patient's sister is in good health Patient's brother is in good health Asthma Father Cerebrovascular accident Family history of diabetes mellitus in first degree relative Depression Other Family history of allergic disorder Family history of heart disease in male family member before age 55 Family history of kidney disease Social History Social History Smoking status: Never smoker Alcohol intake: never Substance use: current Substance use type: marijuana Other substance usage details: vap Last use: yesterday Living arrangements: with family Gender identity (if verbalized by the patient): Female Spiritual care concerns: No Exam Narrative: GENERAL: Well-appearing, well-nourished, and in no acute distress. HEAD: Normocephalic, atraumatic. ENT: Mucous membranes moist. CHEST: Clear to auscultation. No respiratory distress. HEART: Regular rate and rhythm. Normal peripheral pulses. ABDOMEN: Soft, nontender, nondistended. EXTREMITIES: Normal range of motion. No edema. SKIN: Warm, dry, no rash. NEURO: Alert and oriented x3. PSYCH: Normal mood and affect. Course Course Emergency Course:
== END 2023-03-23 09:05 | disposition home or self-care (01) ==
PROVIDERS: Student in an Organized Health Care Education/Training Program; Emergency Provider Emergency Medicine; PCP Nurse Practitioner Family
DX: K52.9 Noninfective gastroenteritis and colitis, unspecified (principal); J45.909 Unspecified asthma, uncomplicated; I10 Essential (primary) hypertension; K21.9 Gastro-esophageal reflux disease without esophagitis; F41.9 Anxiety disorder, unspecified; Z79.51 Long term (current) use of inhaled steroids; F12.90 Cannabis use, unspecified, uncomplicated
CPT/HCPCS: 36415; 80053; 81001; 81025; 83690; 85025; 96361; 96374; 96375; 99284; J2270; J2405; J7030

== ENCOUNTER 2024-06-20 14:06 | Emergency (ER) | payer BC, SELFPAY ==
[2024-06-20 14:07] VITALS: BP 129/79; PULSE 86; RESP 16; TEMP 36.4; O2SAT 97
--- OUTSIDE RECORDS SUMMARY | 2024-06-20 15:30 | XMS_ITS | Encounter Summary ---
Author Organization [facility] Address [address] [place] [address] Care Team Providers Care Data Mining Analyst Name Role Phone Fatemeh Lam Primary Care Provider [phone] Suly Colorado DYE RANGE OPERATOR Unavailable [phone] Encounter Details Date Type Department Care Team (Late st Contact Info) Description 08/06/2020 A & A Custom Cornholet Message Enc [facility] Medical Group Family & Internal Medicine [facility] [address] [place] [address] Fatemeh Lam FNP [facility] [place] [address] RE: Referral Request Social History Tobacco Use Types Packs/Day Years Used Date Smoking Tobacco: Never Smokeless Tobacco: Never Alcohol Use Standard Drinks/Week Comments No 0 (1 standard drink = 0.6 oz pur e alcohol) AUDIT-C Answer Date Recorded Frequency of Alcohol Consumption Never 03/19/2019 Average Number of Drinks Not on file 019 Frequency of Binge Drinking Not on file 02/20 PHQ-2 Answer Date Recorded PHQ-2 Score - If the patient scores above 3, please move on to questions 3-9 4 06/05/2020 Comments No Sex and Gender Information Value Date Recorded Sex Assigned at Female 04/09/2024 8:17 AM TRAINING AND DEVELOPMENT DIRECTOR Legal Sex Female 6:09 PM CDT Gender Identity Female 08/08/2021 1:37 PM CDT Sexual Orientation Straight 08/08/2021 1: 37 PM CDT COVID-19 Exposure Response Date Recorded In the last month, have you been in contact with someone who was confirmed or suspected to have Coronavirus / COVID-19? No / Unsure 08/05/2020 11:37 AM CDT documented as of this encounter Plan of Treatment Upcoming Encounters Date Type Department Care Team (Late st Contact Info) Description 06/25/2024 3:45 PM CDT Appointment [facility] [place] [address] Fatemeh Lam FNP [address] [place] [address] documented as of this encounter Visit Diagnoses Not on filedocumented in this encounter Additional Health Concerns Infection Onset Date Last Indicated Resolved Time COVID-19 Rule Out 02/07/2023 02/07/2023 02/07/2023 9:04 AM TRAINING AND DEVELOPMENT DIRECTOR COVID-19 Rule Out 12/27/2023 12/27/2023 12/27/2023 11:34 AM CDT COVID-19 Rule Out 12/27/2023 12/27/2023 12/29/2023 1:09 AM CDT Assessment Noted Time PHQ-9 Depression Total Score: 15 06/05/ 021 12:22 PM CDT documented as of this encounter Care Teams Data Mining Analyst Relationship Specialty Start Date End Date Fatemeh Lam FNP [address] [place] [address] PCP - General Nurse Practitioner Family 03/16/19 [facility]uly [place] [facility] [place] [address] NURSE PRACTITIONER 03/16/19 documented as of this encounter
--- OUTSIDE RECORDS SUMMARY | 2024-06-20 15:30 | XMS_ITS | Encounter Summary ---
Author Organization [facility] Address [address] [place] [address] Care Team Providers Care Gasoline Attendant Name Role Phone Fatemeh Lam KOTA Primary Care Provider [phone] Suly Colorado LEGAL BILLING ANALYST Unavailable [phone] Encounter Details Date Type Department Care Team (Late st Contact Info) Description 09/01/2022 Mind[employer] Message Enc [facility] Medical Group Multispecialty Care - [facility] [address] [facility], [address] [place] [id number] Karen Quezada APRN [address] [facility] [address] [place], [place] [id number] Back pain Social History Tobacco Use Types Packs/Day Years Used Date Smoking Tobacco: Never Smokeless Tobacco: Never Alcohol Use Standard Drinks/Week Comments No 0 (1 standard drink = 0.6 oz pur e alcohol) AUDIT-C Answer Date Recorded Frequency of Alcohol Consumption Never 03/19/2019 Average Number of Drinks Not on file 019 Frequency of Binge Drinking Not on file 02/20 PHQ-2 Answer Date Recorded Patient Health Questionnaire-2 Score 0 05/31/2022 Comments No Sex and Gender Information Value Date Recorded Sex Assigned at Female 04/09/2024 8:17 AM RECLAMATION FURNACE OPERATOR Legal Sex Female 6:09 PM CDT Gender Identity Female 08/08/2021 1:37 PM CDT Sexual Orientation Straight 08/08/2021 1: 37 PM CDT COVID-19 Exposure Response Date Recorded In the last 10 days, have yo u been in contact with someone who was confirmed or suspected to have Coronavirus/COVID-19? No / Unsure 09/02/2022 12:54 PM CDT documented as of this encounter Plan of Treatment Upcoming Encounters Date Type Department Care Team (Late st Contact Info) Description 06/25/2024 3:[address] [facility] [place] [address] Fatemeh Lam FNP [address] [place] [address] documented as of this encounter Visit Diagnoses Not on filedocumented in this encounter Additional Health Concerns Infection Onset Date Last Indicated Resolved Time COVID-19 Rule Out 02/07/2023 02/07/2023 02/07/2023 9:04 AM RECLAMATION FURNACE OPERATOR COVID-19 Rule Out 12/27/2023 12/27/2023 12/27/2023 11:34 AM CDT COVID-19 Rule Out 12/27/2023 12/27/2023 12/29/2023 1:09 AM CDT Assessment Noted Time PHQ-9 Depression Total Score: 0 06/01/19 23 11:42 AM CDT documented as of this encounter Care Teams Gasoline Attendant Relationship Specialty Start Date End Date Fatemeh Lam FNP [address] [place] [address] PCP - General Nurse Practitioner Family 03/16/19 Suly [place] NP [facility] [place] [address] NURSE PRACTITIONER 03/16/19 documented as of this encounter
--- OUTSIDE RECORDS SUMMARY | 2024-06-20 15:30 | XMS_ITS | Encounter Summary ---
Author Organization [facility] Address [address] [place] [address] Care Team Providers Care In School Suspension Aide Name Role Phone Fatemeh Lam Primary Care Provider Suly Colorado INVESTMENT FUND MANAGER Unavailable [phone] Encounter Details Date Type Department Care Team (Late st Contact Info) Description 04/08/2021 LendMeYourLiteracyt Message Enc [facility] Medical Group Family & Internal Medicine [facility] [address] [place] [address] Fatemeh Lam FNP [address] [place] [address] Medication update Social History Tobacco Use Types Packs/Day Years [...] 3, please move on to questions 3-9 0 09/12/2020 Comments No Sex and Gender Information Value Date Recorded Sex Assigned at Female 04/09/2024 8:17 AM FILAMENT SHAPER Legal Sex Female 6:09 PM CDT Gender Identity Female 08/08/2021 1:37 PM CDT Sexual Orientation Straight 08/08/2021 1: 37 PM CDT documented as of this encounter Plan of Treatment Upcoming Encounters Date Type Department Care Team (Late st Contact Info) Description 06/25/2024 3:[address] [facility] [place] [address] Fatemeh Lam FNP [address] [place] [address] documented as of this encounter Visit Diagnoses Not on filedocumented in this encounter Additional Health Concerns Infection Onset Date Last Indicated Resolved Time COVID-19 Rule Out 02/07/2023 02/07/2023 02/07/2023 9:04 AM FILAMENT SHAPER COVID-19 Rule Out 12/27/2023 12/27/2023 12/27/2023 11:34 AM CDT COVID-19 Rule Out 12/27/2023 12/27/2023 12/29/2023 1:09 AM CDT Assessment Noted Time PHQ-9 Depression Total Score: 4 09/13/19 9:12 AM CDT documented as of this encounter Care Teams In School Suspension Aide Relationship Specialty Start Date End Date Fatemeh Lam FNP [address] [place] [address] PCP - General Nurse Practitioner Family 03/16/19 Suly [place] [facility] [place] [address] NURSE PRACTITIONER 03/16/19 documented as of this encounter
--- OUTSIDE RECORDS SUMMARY | 2024-06-20 15:30 | XMS_ITS | Encounter Summary ---
Author Organization [facility] Address [address] [place] [address] Care Team Providers Care Welding Manager Name Role Phone Fatemeh Lam Primary Care Provider Suly Colorado TALENT ACQUISITION PARTNER Unavailable [phone] Encounter Details Date Type Department Care Team (Late st Contact Info) Description 03/07/2023 [employer] BVt Message Enc [facility] Medical Group Family & Internal Medicine [facility] [address] [place] [address] Fatemeh Lam FNP [address] [place] [address] [place] Social History Tobacco Use Types Packs/Day Years [...] Sex Assigned at Female 04/09/2024 8:17 AM RATING OFFICER Legal Sex Female 6:09 PM CDT Gender Identity Female 08/08/2021 1:37 PM CDT Sexual Orientation Straight 08/08/2021 1: 37 PM CDT documented as of this encounter Progress Notes * KOTA Lao - 03/07/2023 12:36 PM CST Can we print these please and make sure she has been seen recently. NG OFFICER documented in this encounter Plan of Treatment Upcoming Encounters Date Type Department Care Team (Late st Contact Info) Description 06/25/2024 3:45 PM CDT Appointment [facility] [place] [address] Fatemeh Lam FNP [address] [place] [address] documented as of this encounter Visit Diagnoses Not on filedocumented in this encounter Additional Health Concerns Infection Onset Date Last Indicated Resolved Time COVID-19 Rule Out 12/27/2023 12/27/2023 12/27/2023 11:34 AM CDT COVID-19 Rule Out 12/27/2023 12/27/2023 12/29/2023 1:09 AM CDT Assessment Noted Time PHQ-9 Depression Total Score: 0 06/01/19 23 11:42 AM CDT documented as of this encounter Care Teams Welding Manager Relationship Specialty Start Date End Date Fatemeh Lam FNP [address] [place] [address] PCP - General Nurse Practitioner Family 03/16/19 Suly Colorado NP [address] [place] [address] NURSE PRACTITIONER 03/16/19 documented as of this encounter
--- OUTSIDE RECORDS SUMMARY | 2024-06-20 15:30 | XMS_ITS | Clinical Summary ---
Author Organization [facility] Address [address] [facility] [place] [address] Care Team Providers Care Middleware Engineer Name Role Phone Fatemeh Lam Primary Care Provider [phone] Source Comments [facility] Affiliates and Associated Physician Practices is [facility] site organization consisting of ambulatory clinics and hospital sitesin [place], [place], [place] and [place]. This disclosure is being madepursuant to the Care Everywhere program and may not contain all information available regarding this patient. Last updated 17.[facility] Allergies Active Allergy Reactions Criticality Noted Date Comments Etodola 06/10/2016 Medications * Be aware that medications may not be up to date on this document. Alwaysverify current medications with the patient. Medication Sig Dispensed Refills Start Date End Date Status Albuterol Sulfate (VENTOLIN HFA IN) Active Cetirizine HCl (ZYRTEC ALLERGY PO) Active Citalopram Hydrobromide (CELEXA PO) Active busPIRone (BUSPAR) 5 MG tablet Take 5 mg by mouth 3 times daily Active labetalol (NORMODYNE; TRANDATE) 200 MG tablet Take 200 mg by mouth every 12 hours Active Active Problems No known active problems Social History Tobacco Use Types Packs/Day Years Used Date Smoking Tobacco: Never Smokeless Tobacco: Never Sex and Gender Information Value Date Recorded Sex Assigned at Female 01/08/2021 8:47 AM CDT Gender Identity Female 01/08/2021 8:47 AM CDT Sexual Orientation Straight 01/08/2021 8: 47 AM CDT Last Filed Vital Signs Vital Sign Reading Time Taken Comments Blood Pressure 134/86 12/15/2018 8:59 AM CDT Pulse 101 12/15/2018 8:59 AM CDT Temperature 36.9 C (98.4 F) 12/15/2018 8:59 AM CDT Respiratory Rate 16 12/15/2018 8:59 AM CDT Oxygen Saturation 97% 12/15/2018 8:59 AM CDT Inhaled Oxygen Concentration - - Weight 113.4 kg (250 lb) 12/15/2018 8:59 AM CDT Height 175.3 cm (5' 9 ) 12/15/2018 8:59 AM CDT Body Mass Index 36.92 12/15/2018 8:59 AM CDT Plan of Treatment Health Maintenance Due Date Last Done Comments PAP SMEAR 1986 HIV SCREENING 2001 HEPATITIS C SCREENING 02/16/2004 DTAP/TDAP/TD VACCINES (1 - Tdap) 2005 HEPATITIS B VACCINE (1 of 3 - 19+ 3-dose series) 2005 COVID-19 VACCINE (2 - season) 2023 09/22/2020 DEPRESSION SCREENING 03/21/2024 INFLUENZA VACCINE (Season Ended) 2024 02/06/2019, 12/09/2016, 12/08/2016, Additional history exists ZOSTER VACCINE (1 of 2) 02/21/2036 HIB VACCINE Aged Out No longer eligi ble based on patient's age to complete this topic HPV VACCINE Aged Out No longer eligi ble based on patient's age to complete this topic MENINGOCOCCAL (Group B) VACCINE SHARED DECISION-MAKING Aged Out No longer eligible based on patient's age to complete this topic MENINGOCOCCAL GROUPS A/C/Y/W VACCINE Aged Out No longer eligible based on patient's age to complete this topic PNEUMOCOCCAL VACCINE Aged Out No long er eligible based on patient's age to complete this topic Care Teams Middleware Engineer Relationship Specialty Start Date End Date Fatemeh Lam APRN-DREW [address] [place] [id number] PCP - General Nurse Practitioner 09/29/23
--- OUTSIDE RECORDS SUMMARY | 2024-06-20 15:30 | XMS_ITS | Encounter Summary ---
Author Organization [facility] Address [address] [place] [address] Care Team Providers Care Homicide Squad Sergeant Name Role Phone Fatemeh Lam Primary Care Provider Suly Colorado INDEPENDENT LIVING INSTRUCTOR Unavailable [phone] Encounter Details Date Type Department Care Team (Late st Contact Info) Description 03/12/2024 ProcessUnityt Message Enc [facility] Medical Group Family & Internal Medicine [facility] [address] [place] [address] Fatemeh Lam FNP [address] [place], [place] [id number] Muscle spasm Social History Tobacco Use Types Packs/Day Years Used Date Smoking Tobacco: Never Passive Smoke Exposure: Never Smokeless Tobacco: Never Alcohol Use Standard Drinks/Week Comments Not Currently 0 (1 standard drink = 0.6 oz pur e alcohol) 1-2 drinks per year max AUDIT-C Answer Date Recorded Frequency of Alcohol Consumption Never 03/19/2019 Average Number of Drinks Not on file 019 Frequency of Binge Drinking Not on file 02/20 PHQ-2 Answer Date Recorded Patient Health Questionnaire-2 Score 0 04/29/2023 Comments No Sex and Gender Information Value Date Recorded Sex Assigned at Female 04/09/2024 8:17 AM MUSEUM SERVICE SCHEDULER Legal Sex Female 6:09 PM CDT Gender Identity Female 08/08/2021 1:37 PM CDT Sexual Orientation Straight 08/08/2021 1: 37 PM CDT documented as of this encounter Plan of Treatment Upcoming Encounters Date Type Department Care Team (Late st Contact Info) Description 06/25/2024 3:[address] [place] [address] Fatemeh Lam FNP [address] [place] [address] documented as of this encounter Visit Diagnoses Not on filedocumented in this encounter Additional Health Concerns Assessment Noted Time PHQ-9 Depression Total Score: 0 04/29/19 24 1:33 PM MUSEUM SERVICE SCHEDULER documented as of this encounter Care Teams Homicide Squad Sergeant Relationship Specialty Start Date End Date Fatemeh Lam FNP [address] [place] [address] PCP - General Nurse Practitioner Family 03/16/19 Suly [place] NP [address] [place] [address] NURSE PRACTITIONER 03/16/19 documented as of this encounter
--- OUTSIDE RECORDS SUMMARY | 2024-06-20 15:30 | XMS_ITS | Encounter Summary ---
Author Organization [facility] Address [address] [place] [address] Care Team Providers Care Commercial Agent Name Role Phone Fatemeh Lam KOTA Primary Care Provider [phone] Suly Colorado OPERATIONS SUPPORT SPECIALIST Unavailable [phone] Encounter Details Date Type Department Care Team (Late st Contact Info) Description 03/07/2023 2d2ct Message Enc [facility] Medical Group Multispecialty Care - [facility] [address] [facility], [address] [place] [id number] Karen Quezada APRN [address] [facility] [address] [place], [place] [id number] ADA back Pain Social History Tobacco Use Types Packs/Day Years [...] Sex Assigned at Female 04/09/2024 8:17 AM CRACKLING PRESS OPERATOR Legal Sex Female 6:09 PM CDT Gender Identity Female 08/08/2021 1:37 PM CDT Sexual Orientation Straight 08/08/2021 1: 37 PM CDT documented as of this encounter Plan of Treatment Upcoming Encounters Date Type Department Care Team (Late st Contact Info) Description 06/25/2024 3:45 PM CDT Appointment [facility] [place] [address] Fatemeh Lam FNP [address] [place] [address] documented as of this encounter Visit Diagnoses Not on filedocumented in this encounter Additional Health Concerns Infection Onset Date Last Indicated Resolved Time COVID-19 Rule Out 12/27/2023 12/27/2023 12/27/2023 11:34 AM CDT COVID-19 Rule Out 12/27/2023 12/27/2023 12/29/2023 1:09 AM CDT Assessment Noted Time PHQ-9 Depression Total Score: 0 06/01/19 11:42 AM CDT documented as of this encounter Care Teams Commercial Agent Relationship Specialty Start Date End Date Fatemeh Lam FNP [address] [place] [address] PCP - General Nurse Practitioner Family 03/16/19 Suly [place] [facility] [place] [address] NURSE PRACTITIONER 03/16/19 documented as of this encounter
--- OUTSIDE RECORDS SUMMARY | 2024-06-20 15:30 | XMS_ITS | Encounter Summary ---
Author Organization [facility] Address [address] [place] [address] Care Team Providers Care Partner Integration Planner Name Role Phone Fatemeh Lam KOTA Primary Care Provider [phone] Suly Colorado SALES ASSISTANT DISPLAYS Unavailable [phone] Encounter Details Date Type Department Care Team (Late st Contact Info) Description 09/15/2022 OLED-T Message Enc [facility] Medical Group - [facility] [address] [place] [address] [employer], [facility] Provider Air Quality Message Social History Tobacco Use Types Packs/Day Years [...] Sex Assigned at Female 04/09/2024 8:17 AM ELECTRICIAN CONTROL EQUIPMENT Legal Sex Female 6:09 PM CDT Gender [...] PM CDT Appointment [facility] [place] [address] Fatemeh Lam FNP [address] [place] [address] documented as of this encounter Visit Diagnoses Not on filedocumented in this encounter Additional Health Concerns Infection Onset Date Last Indicated Resolved Time COVID-19 Rule Out 02/07/2023 02/07/2023 02/07/2023 9:04 AM ELECTRICIAN CONTROL EQUIPMENT COVID-19 Rule Out 12/27/2023 12/27/2023 12/27/2023 11:34 AM CDT COVID-19 Rule Out 12/27/2023 12/27/2023 12/29/2023 1:09 AM CDT Assessment Noted Time PHQ-9 Depression Total Score: 0 06/01/19 11:42 AM CDT documented as of this encounter Care Teams Partner Integration Planner Relationship Specialty Start Date End Date Fatemeh Lam FNP [address] [place] [address] PCP - General Nurse Practitioner Family 03/16/19 Suly [place] [facility] [place] [address] NURSE PRACTITIONER 03/16/19 documented as of this encounter
--- OUTSIDE RECORDS SUMMARY | 2024-06-20 15:30 | XMS_ITS | CONTINUITY OF CARE DOCUMENT ---
Author Name cy benoit Address Unknown Organization [facility] Address [address] [facility] [address] [place] [address] Phone [phone] Care Team Providers Care Chick Room Supervisor Name Role Phone Jason Gross MD Unavailable [phone] Jason Gross MD Unavailable [phone] INSURANCE PROVIDERS Payer name Policy type / Coverage type [place] ID [facility] [id number] Other [id number]
--- OUTSIDE RECORDS SUMMARY | 2024-06-20 15:30 | XMS_ITS | Encounter Summary ---
Author Organization [facility] Address [address] [place] [id number] Care Team Providers Care Jackscrew Man Name Role Phone Fatemeh Lam Primary Care Provider Suly [place] PETROLEUM BLENDING PLANT OPERATOR Unavailable [phone] Encounter Details Date Type Department Care Team (Late st Contact Info) Description 06/20/2024 GetThist Message Enc [facility] Family & Internal Medicine [facility] [address] [place] [address] Fatemeh Lam FNP [address] [place], [place] [id number] Flu test Social History Tobacco Use Types Packs/Day Years Used Date Smoking Tobacco: Never Passive Smoke Exposure: Never Smokeless Tobacco: Never Alcohol Use Standard Drinks/Week Comments Not Currently 0 (1 standard drink = 0.6 oz pur e alcohol) does not drink any longer AUDIT-C Answer Date Recorded Frequency of Alcohol Consumption Never 03/19/2019 Average Number of Drinks Not on file 019 Frequency of Binge Drinking Not on file 02/20 PHQ-2 Answer Date Recorded Patient Health Questionnaire-2 Score 0 06/13/2024 Comments No Sex and Gender Information Value Date Recorded Sex Assigned at Female 04/09/2024 8:17 AM HEALTH INSURANCE ASSESSOR Legal Sex Female 6:09 PM CDT Gender Identity Female 08/08/2021 1:37 PM CDT Sexual Orientation Straight 08/08/2021 1: 37 PM CDT documented as of this encounter Progress Notes * Nicole Meléndez MA - 06/20/2024 2:26 PM CDT Rx sent to pharmacy, [facility] for patient. 06/20/2024 2:26 PM * KOTA Lao - 06/20/2024 1:55 PM CDT We can send out tamiflu 75 mg bid x5d documented in this encounter Plan of Treatment Upcoming Encounters Date Type Department Care Team (Late st Contact Info) Description 06/25/2024 3:45 PM CDT Appointment [facility] [place] [address] Fatemeh Lam FNP [address] [place] [address] documented as of this encounter Visit Diagnoses Diagnosis Influenza B- Primary Influenza with other respiratory manifestations documented in this encounter Additional Health Concerns Assessment Noted Time PHQ-9 Depression Total Score: 0 04/29/19 24 1:33 PM HEALTH INSURANCE ASSESSOR documented as of this encounter Care Teams Jackscrew Man Relationship Specialty Start Date End Date Fatemeh Lam FNP [address] [place] [address] PCP - General Nurse Practitioner Family 03/16/19 Suly [place] NP [address] [place] [address] NURSE PRACTITIONER 03/16/19 documented as of this encounter
--- OUTSIDE RECORDS SUMMARY | 2024-06-20 15:30 | XMS_ITS | Encounter Summary ---
Author Organization [facility] Address [address] [place] [address] Care Team Providers Care Tents Assembler Name Role Phone Fatemeh Lam Primary Care Provider [phone] Suly [place] DIESEL LOCOMOTIVE FIRER Unavailable [phone] Encounter Details Date Type Department Care Team (Late st Contact Info) Description 07/12/2022 Buildingeyet Message Enc [facility] Medical Group Family & Internal Medicine [facility] [address] [place] [address] Fatemeh Lam FNP [address] [place] [address] Ear pain Social History Tobacco Use Types Packs/Day [...] Sex Assigned at Female 04/09/2024 8:17 AM JUDO INSTRUCTOR Legal Sex Female 6:09 PM CDT Gender Identity Female 08/08/2021 1:37 PM CDT Sexual Orientation Straight 08/08/2021 1: 37 PM CDT COVID-19 Exposure Response Date Recorded In the last 10 days, have yo u been in contact with someone who was confirmed or suspected to have Coronavirus/COVID-19? No / Unsure 06/15/2022 9:46 AM CDT documented as of this encounter Plan of Treatment Upcoming Encounters Date Type Department Care Team (Late st Contact Info) Description 06/25/2024 3:45 PM CDT Appointment [facility] [place] [address] Fatemeh Lam FNP [address] [place] [address] documented as of this encounter Visit Diagnoses Not on filedocumented in this encounter Additional Health Concerns Infection Onset Date Last Indicated Resolved Time COVID-19 Rule Out 02/07/2023 02/07/2023 02/07/2023 9:04 AM JUDO INSTRUCTOR COVID-19 Rule Out 12/27/2023 12/27/2023 12/27/2023 11:34 AM CDT COVID-19 Rule Out 12/27/2023 12/27/2023 12/29/2023 1:09 AM CDT Assessment Noted Time PHQ-9 Depression Total Score: 0 06/01/19 23 11:42 AM CDT documented as of this encounter Care Teams Tents Assembler Relationship Specialty Start Date End Date Fatemeh Lam FNP [address] [place] [address] PCP - General Nurse Practitioner Family 03/16/19 Suly [place] NP [facility] [place] [address] NURSE PRACTITIONER 03/16/19 documented as of this encounter
--- OUTSIDE RECORDS SUMMARY | 2024-06-20 15:30 | XMS_ITS | Clinical Summary ---
Author Organization [facility] Address [address] [place] [address] Care Team Providers Care Corporate Safety Director Name Role Phone Fatemeh Lam KOTA Primary Care Provider [phone] [place] ACCOUNT INSTALLER Unavailable [phone] Allergies Active Allergy Reactions Criticality Noted Date Comments Etodolac Rash Low 06/10/2016 Medications cetirizine 10 MG tablet Take by mouth daily. Active ipratropium-albut trina 0.5-2.5 (3) MG/3ML SolutionIndicatio ns:Wheezing,Cough ,Moderate persistent asthma, unspecified whether complicated (HHS/HCC) INHALE THE CONTENTS OF 1 VIAL VIA NEBULIZATION ROUTE EVERY 6 HOURS NEEDED 360 mL 3 021 Active albuterol sulfate HFA (PROAIR HFA) 108 (90 Base) MCG/ACT inhalerIndication s:Mild persistent asthma without complication (HHS/HCC) Inhale 2 puffs into the lungs every 6 (six) hours as needed for Wheezing. 54 g 2 024 Active rizatriptan (MAXALT) 10 MG tabletIndications :Migraine TAKE 1 TABLET BY MOUTH NEEDED FOR MIGRAINE.MAY REPEAT IN 2 HOURS IF NEEDED. MAX 2 TABS/24HOURS 10 tablet 6 024 Active ibuprofen (MOTRIN) 800 MG tabletIndications :Muscle spasm take 1 tablet by mouth every 8 hours as needed 90 tablet 024 Active valACYclovir (VALTREX) 500 MG tabletIndications :Herpes simplex vulvovaginitis Take 1 tablet (500 mg total) by mouth 2 (two) times daily. 60 tablet 2 024 Active hydrOXYzine (ATARAX) 25 MG tabletIndications :Anxiety Take 1 tablet (25 mg total) by mouth every 8 (eight) hours as needed. 30 tablet 1 024 Active ondansetron (ZOFRAN-ODT) 4 MG disintegrating tablet Take 1 tablet (4 mg total) by mouth every 8 (eight) hours as needed. 20 tablet 024 Active fluticasone propionate (FLONASE) 50 MCG/ACT nasal sprayIndications: Uncontrolled asthma ([facility]) SPRAY 1 SPRAY INTO EACH NOSTRIL EVERY DAY 48 mL 024 Active metoprolol succinate ER (TOPROL-XL) 25 MG 24 hr tablet Take 1 tablet (25 mg total) by mouth daily. NEW DOSE 90 tablet 1 025 Active lisinopril-hydroC HLOROthiazide (ZESTORETIC) 20-12.5 MG tabletIndications :Primary hypertension TAKE 1 TABLET BY MOUTH EVERY DAY 90 tablet 3 025 Active venlafaxine XR (EFFEXOR-XR) 75 MG 24 hr capsuleIndication s:Anxiety TAKE 1 CAPSULE BY MOUTH EVERY DAY IN THE MORNING 90 capsule 2 025 Active naproxen (NAPROSYN) 500 MG tabletIndications :Muscle spasm Take 1 tablet (500 mg total) by mouth 2 (two) times daily with meals. 60 tablet 025 Active pantoprazole EC (PROTONIX) 40 MG tabletIndications :GERD (gastroesophageal reflux disease) TAKE 1 TABLET BY MOUTH EVERY DAY 90 tablet 025 Active sertraline (ZOLOFT) 100 MG tabletIndications :Anxiety TAKE 1 TABLET BY MOUTH EVERY DAY IN THE MORNING 90 tablet 025 Active busPIRone (BUSPAR) 30 MG tabletIndications :Anxiety TAKE 1 TABLET BY MOUTH TWICE A DAY 180 tablet 025 Active ramelteon (ROZEREM) 8 MG tabletIndications :Insomnia TAKE 1 TABLET BY MOUTH NIGHTLY AT BEDTIME. 90 tablet 025 Active predniSONE (DELTASONE) 10 mg tabletIndications :Polyarthralgia 4 tabs x 3d, 3 tabs x3d, 2 tabs x3d, 1 tab x3d 30 tablet 025 Active oseltamivir (TAMIFLU) 75 MG capsuleIndication s:Influenza B Take 1 capsule (75 mg total) by mouth 2 (two) times daily for 5 days. 10 capsule 025 2024 Active pantoprazole EC (PROTONIX) 40 MG tabletIndications :GERD (gastroesophageal reflux disease) Take 1 tablet (40 mg total) by mouth daily. 90 tablet 2 024 2024 Discontinued busPIRone (BUSPAR) 30 MG tabletIndications :Anxiety take 1 tablet by mouth twice a day 180 tablet 024 2024 Discontinued sertraline (ZOLOFT) 100 MG tabletIndications :Anxiety TAKE 1 TABLET BY MOUTH EVERY DAY IN THE MORNING 90 tablet 024 2024 Discontinued fluticasone-salme terol (ADVAIR DISKUS) 100-50 MCG/ACT inhalerIndication s:Moderate persistent asthma, unspecified whether complicated (HHS/HCC) INHALE 1 PUFF INTO THE LUNGS TWICE A DAY 180 each 2 025 2024 Discontinued(P t. elected to discontinue med) ramelteon (ROZEREM) 8 MG tabletIndications :Insomnia Take 1 tablet (8 mg total) by mouth nightly at bedtime. 30 tablet 025 2024 Discontinued Active Problems Problem Noted Date Diagnosed Date Visual changes 06/13/2024 Raised intraocular pressure of both eyes Irritable bowel syndrome wit h both constipation and diarrhea 06/13/2024 Ptosis of eyelid, left 04/17/2024 Polycythemia 10/28/2023 Bright red blood per rectum 10/13/2023 Exotropia 09/01/2023 Overview (09/09/2023): Last Assessment & Plan: Mild exo posture that is comitant and stable. Likely decompensation, rarely symptomatic. Defer prism at this time. Send myasthenia labs, TSH normal recently. Monitor closely. 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 Excellent afferent function. Monitor closely for changes. Spec Rx old and pt over-minused. No EOM restrictions or visually significant strab measurements. Update specs. RTC STAT/ED any vision loss, diplopia, or new neurologic symptoms Mild obstructive sleep apnea 06/08/2023 Recurrent streptococcal tonsillitis 05/10/2023 Recurrent otitis media, bilateral 05/10/2023 Recurrent otitis externa of both ears 05/10/2023 Chronic pharyngitis 05/10/2023 Excessive daytime sleepiness 05/10/2023 Snoring 05/10/2023 Large tonsils 05/10/2023 Sacroiliitis 11/20/2020 History of lumbar discectomy 11/20/2020 Lumbar radiculopathy 11/20/2020 Spinal stenosis of lumbar re gion without neurogenic claudication 11/20/2020 Other intervertebral disc degeneration, lumbar r egion 11/20/2020 Other intervertebral disc displacement, lumbar r egion 11/20/2020 Decreased sensation of lower extremity Hx of laminectomy 08/05/2020 Hx of spinal stenosis 08/05/2020 History of UTI 07/13/2020 Lumbar back pain with radicu lopathy affecting right lower extremity 07/13/2020 Mood disorder 06/23/2020 Chronic migraine without aur a without status migrainosus, not intractable 06/05/2020 Chronic left shoulder pain 04/23/2019 Vitamin B12 deficiency 04/23/2019 Joint swelling 04/23/2019 Class 2 severe obesity due t o excess calories with serious comorbidity and body mass index (BMI) of 38.0 to 38.9 in adult 03/19/2019 Hypertension 03/19/2019 Asthma (HHS/HCC) 03/19/2019 Anxiety 03/19/2019 Polyarthralgia 03/19/2019 Family history of rheumatoid arthritis 9 Vitamin D deficiency 03/19/2019 Fibrosis of uterus 06/24/2017 Endometriosis 06/24/2017 Resolved Problems Problem Noted Date Diagnosed Date Resolved Date Antibiotic-induced yeast infection 01/31/2023 05/10/2023 Encounter for medical examin ation to establish care 03/19/2019 11/30/2019 Cough 03/19/2019 05/10/2023 Wheezing 03/19/2019 05/10/2023 Encounter for lipid screenin g for cardiovascular disease 03/19/2019 11/30/2019 Encounters Date Type Department Care Team Description 06/20/2024 MyChart Message Enc [facility] Family & Internal [address] [address] Fatemeh Lam FNP Flu test 06/13/2024 1:20 PM CDT Office Visit [facility] Internal [address] [address] Fatemeh Lam FNP Joint Pain (Patient c/o pain in most of her joints. Patient states this flare up has lasted a few weeks . ) 06/13/2024 - 06/13/2024 11:59 PM CDT Hospital Encounter [facility] [address] [place] [address] Fatemeh Lam FNP Discharge Disposition: Home or Self Care (Routine Discharge) 06/13/2024 Travel 06/04/2024 MyChart Message Enc [facility] Internal [address] [phone] [facility] Provider Insomnia 06/01/2024 MyChart Message Enc [facility] Family Internal [address] [address] Fatemeh Lam FNP Insomnia 05/11/[address] [address] Fatemeh Lam FNP Lab Results 05/10/2024 10:20 AM ASSOCIATE PROFESSOR OF PHYSICS Laboratory Only [facility] Internal [address] [address] Fatemeh Lam FNP 05/10/2024 Travel 04/30/2024 MyChart Message Enc [facility] Family & Internal Medicine [address] [phone] Fatemeh Lam FNP Back spasm 04/09/2024 8:15 AM ASSOCIATE PROFESSOR OF PHYSICS Office Visit [facility], [address] [address] Chavez Dotson MD Palpitations (Follow up) 04/09/2024 Travel from Last 3 Months Immunizations Name Administration Dates Next Due FLUCELVAX (ccIIV3, TRIVALENT, 0.5mL) 12/01/2023 Flucelvax 6 Months+ (Prefilled Syringe) 11/13/19 16 Influenza (Generic) 02/06/2019 Influenza Adult (Generic) 12/08/2016 Influenza Virus, Split 6-35 Mo 11/02/2014 PFIZER COVID-19 (ORIGINAL FO RMULATION, PURPLE CAP) mRNA, LNP-S, PF, 30 MCG/0.3 ML DOSE 09/22/2020 Pneumococcal (Prevnar 20) 12/01/2023 Tdap (Boostrix) 05/03/2018,04/25/2014 Tdap (Generic) 04/04/2014 Family History Medical History Relation Comments Alcohol Abuse Father Depression Father Diabetes Father Drug Abuse Father Hyperlipidemia Father Mental Health Father Arthritis Maternal Grandfather Heart Disease Maternal Grandfather Thyroid Maternal Grandfather Asthma Mother Diabetes Mother Early Hearing Loss Mother One ear. Her and her 3 sister went deaf or had severe hearing loss in one ear Hyperlipidemia Mother Hypertension Mother Cancer Paternal Grandfather Lupus Paternal Grandmother Asthma Sister Diabetes Sister Retardation/Learning Difficulties Son 1 Autism Retardation/Learning Difficulties Son 2 Leukodystrophy Relation Status Comments Father Alive Maternal Grandfather Mother Alive Paternal Grandfather Paternal Grandmother Sister Son 1 Son 2 Social History Tobacco Use Types Packs/Day Years Used Date Smoking Tobacco: Never Passive Smoke Exposure: Never Smokeless Tobacco: Never Tobacco Cessation:Counseling Given: Not Answered Alcohol Use Standard Drinks/Week Comments Not Currently [...] Sex Assigned at Female 04/09/2024 8:17 AM ASSOCIATE PROFESSOR OF PHYSICS Legal Sex Female 6:09 PM CDT Gender Identity Female 08/08/2021 1:37 PM CDT Sexual Orientation Straight 08/08/2021 1: 37 PM CDT Last Filed Vital Signs Vital Sign Reading Time Taken Comments Blood Pressure 156/98 06/13/2024 1:16 PM CDT Pulse 95 06/13/2024 1:16 PM CDT Temperature 36.7 C (98.1 F) 06/13/2024 1:16 PM CDT Respiratory Rate 18 01/17/2024 12:2 1 PM CDT Oxygen Saturation 98% 06/13/2024 1:16 PM CDT Inhaled Oxygen Concentration - - Weight 127.6 kg (281 lb 3.2 oz) 06/13/2024 1:16 PM CDT Height 175.3 cm (5' 9 ) 06/13/2024 1:16 PM CDT Body Mass Index 41.53 06/13/2024 1:16 PM CDT Plan of Treatment Upcoming Encounters Date Type Department Care Team (Late st Contact Info) Description 06/25/2024 3:45 PM CDT Appointment [facility] [place] [address] Fatemeh Lam, KOTA [address] [place] [address] Health Maintenance Due Date Last Done Comments Hepatitis C 02/21/2004 Hepatitis B Vaccines (1 of 3 - 19+ 3-dose series) 2005 Annual Physical 07/10/2021 07/10/2020 COVID-19 Vaccine (3 - 2023-2 5 season) 2023 10/13/2020, 09/22/2020 DTaP, Tdap and Td Vaccines ( 4 - Td or Tdap) 05/03/2028 05/03/2018, 04/25/2014, 04/04/2014 Pneumococcal Vaccine: Pediatrics (0 to 5 Years) and At-Risk Patients (6 to 64 Years) Completed 12/01/2023 PHQ-2 (Physician [place]) Completed 06/13/2024 HPV Vaccines Aged Out No longer eligi ble based on patient's age to complete this topic Meningococcal B Vaccine Aged Out No l onger eligible based on patient's age to complete this topic Meningococcal Vaccine Aged Out No [place] shobha eligible based on patient's age to complete this topic RSV Immunizations Under 20 Months Aged Out No longer eligible b ased on patient's age to complete this topic Procedures Procedure Name Priority Date/Time Associated Diagnosis Comments ANTINUCLEAR ANTIBODY WI RFX Routine 06/13/2024 2:27 PM CDT Polyarthralgia Family history of lupus erythematosus ENA2 (SSA & SSB) Routine 06/13/2024 2:27 PM CDT Polyarthralgia Family history of lupus erythematosus RHEUMATOID FACTOR, QUANT Routine 06/13/2024 2:27 PM CDT Polyarthralgia Family history of lupus erythematosus C-REACTIVE PROTEIN Routine 06/13/2024 2: 27 PM CDT Polyarthralgia Family history of lupus erythematosus SED RATE, ERYTHROCYTE (ESR) Routine 06/13/2024 2:27 PM CDT Polyarthralgia Family history of lupus erythematosus THYROID STIM HORMONE TSH Routine 06/13/2024 2:27 PM CDT Polyarthralgia THYROXINE, FREE (FT4) Routine 06/13/2024 2:27 PM CDT Polyarthralgia THYROID PEROXIDASE ANTIBODY Routine 06/13/2024 2:27 PM CDT Polyarthralgia VITAMIN D, 25 OH Routine 06/13/2024 2:27 PM CDT Vitamin D deficiency MAGNESIUM Routine 06/13/2024 2:27 PM CDT Polyarthralgia Anxiety COMPREHENSIVE METABOLIC PANEL Routine 06/13/2024 2:27 PM CDT Polyarthralgia VITAMIN B-12 Routine 06/13/2024 2:27 PM CDT Vitamin B12 deficiency Anxiety CYCLIC CITRULLINATED PEPTIDE (CCP)ANTIBODY(IGG) Routine 06/13/2024 2:14 PM CDT Polyarthralgia Family history of lupus erythematosus FOLIC ACID SERUM Routine 06/13/2024 2:14 PM CDT Vitamin B12 deficiency Anxiety COLLECTION VENOUS BLOOD VENIPUNCTURE Routine 06/13/2024 1:42 PM CDT Vitamin D deficiency Vitamin B12 deficiency Polyarthralgia Family history of lupus erythematosus Anxiety URINALYSIS AUTO DIP Routine 06/13/2024 Nocturia Urinary urgency COLLECTION VENOUS BLOOD VENIPUNCTURE Routine 05/10/2024 10:23 AM ASSOCIATE PROFESSOR OF PHYSICS Chronic pain of left knee Redness and swelling of knee COMPREHENSIVE METABOLIC PANEL Routine 05/10/2024 10:23 AM ASSOCIATE PROFESSOR OF PHYSICS Chronic pain of left knee Redness and swelling of knee URIC ACID BLOOD Routine 05/10/2024 10:23 AM ASSOCIATE PROFESSOR OF PHYSICS Chronic pain of left knee Redness and swelling of knee from Last 3 Months Results * ANTINUCLEAR ANTIBODY WI RFX (CATALINA) (06/13/2024 2:27 PM CDT) [place]INA 0.3 06/14/2024 3:05 PM CDT [facility] Comment: NEGATIVE: <0.7 RATIO CATALINA PROFILE AND TITER NOT PERFORMED THE [place]INA SCREEN TESTS FOR THE FOLLOWING ANTIBODIES BY EIA: SSA1 (RO), SSB1 (LA), POST, SCL70, JO1, CENTROMERE, EAR FLAP BINDER HISTONE MUST BE ORDERED SEPARATELY DNA (DS) ANTIBODY <0.6 IU/ML 025 3:05 PM CDT [facility] Comment: NEGATIVE: <10 IU/mL EQUIVOCAL: 10 to 15 IU/mL POSITIVE: >15 IU/mL THIS QUANTITATIVE ASSAY IS CALIBRATED TO THE [employer]'S WO/80 STANDARD. THE LEVEL OF dsDNA AUTOANTIBODY GERERALLY CORRELATES WITH THE LEVEL OF DISEASE ACTIVITY IN SYSTEMIC LUPUS ERYTHMATOSUS 06/13/2024 2:27 PM CDT us Fatemeh Lam [facility] Final Result Performing Organization Address [facility]/ZIP Co de Phone Number [facility] [address] [place] [address], [phone] * RHEUMATOID FACTOR, QUANT (06/13/2024 2:27 PM CDT) RHEUMATOID FACTOR <10 <15 IU/ML 06/13/2024 9:21 PM CDT [facility] 06/13/2024 2:27 PM CDT Fatemeh Lam [facility] Final Result Performing Organization Address [facility] de Phone Number [facility] [address] [place] [address], [place] [phone] * THYROID PEROXIDASE ANTIBODY (06/13/2024 2:27 PM CDT) THYROID PEROXIDASE MICROSOMAL AB <4 IU/ML 06/14/2024 3:05 PM CDT [facility] Comment: NEGATIVE: < 25 IU/ML EQUIVOCAL: 25 to 35 IU/ML POSITIVE: > 35 IU/ML 06/13/2024 2:27 PM CDT Fatemeh Bartholomewzer [facility] Final Result Performing Organization Address [facility] Co de Phone Number [facility] [address] [place] [address], [place] [phone] * ENA2 (SSA & SSB) (06/13/2024 2:27 PM CDT) SSA ANTIBODY <0.4 0.0 - 6.9 U/mL 06/20/2024 11:55 AM CDT [facility] Comment: NEGATIVE: <7 U/mL EQUIVOCAL: 7 to 10 u/mL POSITIVE: >10 U/mL SSA AND/OR SSB AUTOANTIBODIES ARE DETECTED IN 60% TO 90% OF PATIENTS WITH SJOGREN'S SYNDROME AND IN 20% TO 40% OF PATIENTS WITH SYSTEMIC LUPUS ERYTHEMATOSUS. SSB ANTIBODY <0.4 0.0 - 6.9 U/mL 06/20/2024 11:55 AM CDT [facility] Comment: NEGATIVE: <7 U/mL EQUIVOCAL: 7 to 10 u/mL POSITIVE: >10 U/mL SSA AND/OR SSB AUTOANTIBODIES ARE DETECTED IN 60% TO 90% OF PATIENTS WITH SJOGREN'S SYNDROME AND IN 20% TO 40% OF PATIENTS WITH SYSTEMIC LUPUS ERYTHEMATOSUS. 06/13/2024 2:27 PM CDT Fatemeh Lam [facility] Final Result Performing Organization Address City/[facility]/ZIP Co de Phone Number [facility] [address] [place] [address], [place] [phone] * VITAMIN B-12 (06/13/2024 2:27 PM CDT) Pathologist [facility] VITAMIN B12 S/P/B 648 193 - 986 PG/ML 06/14/2024 11:19 AM CDT [facility] 06/13/2024 2:27 PM CDT [facility] Final Result [facility] [address] [place] [address], [place] [phone] * (ABNORMAL) SED RATE, ERYTHROCYTE (ESR) (06/13/2024 2:27 PM CDT) ESR 20(H) 0 - 19 MM/HR 06/13/2024 7:35 PM CDT [facility] 06/13/2024 2:27 PM CDT Fatemeh Lam [facility] Final Result -[facility] [address] [place] [address], [place] [phone] * (ABNORMAL) COMPREHENSIVE METABOLIC PANEL (06/13/2024 2:27 PM CDT) Only the most recent of2 resultswithin the time period is included. Pathologist [facility] SODIUM S/P/B 137 136 - 145 MMOL/L 06/14/2024 11:19 AM CDT -[facility] POTASSIUM S/P/B 4.3 3.5 - 5.1 MMOL/L 06/14/2024 11:19 AM CDT [facility] CHLORIDE S/P/B 101 98 - 107 MMOL/L 06/14/2024 11:19 AM CDT -[facility] CO2 25.2 21 - 32 MMOL/L 06/14/2024 11:19 AM CDT -[facility] GLUCOSE 94 70 - 99 MG/DL 06/14/2024 11:19 AM CDT -[facility] BUN 18 7 - 18 MG/DL 06/14/2024 11:19 AM CDT [facility] CREATININE S/P/B 0.74 0.55 - 1.02 MG/DL 06/14/2024 11:19 AM CDT -[facility] CALCIUM S/P/B 9.8 8.4 - 10.5 MG/DL 06/14/2024 11:19 AM CDT [facility] BILIRUBIN TOTAL S/P/B 0.3 0.2 - 1.0 MG/DL 06/14/2024 11:19 AM CDT [facility] ALKALINE PHOSPHATASE S/P/B 115(H) 37 - 98 U/L 06/14/2024 11:19 AM CDT [place] [facility] AST 15 15 - 37 U/L 06/14/2024 11:19 AM CDT [facility] ALT 28 14 - 59 U/L 06/14/2024 11:19 AM CDT [facility] [place] TOTAL PROTEIN S/P/B 7.7 6.4 - 8.2 G/DL 06/14/2024 11:19 AM T [facility] [place] ALBUMIN S/P/B 4.2 3.4 - 5.0 G/DL 06/14/2024 11:19 AM CDT [facility] ANION GAP 10.8 5 - 15 MMOL/L 06/14/2024 11:19 AM T [facility] Comment:REFERENCE RANGE NOT ESTABLISHED OSMOLALITY (CALC) 286 MOSM/KG 025 11:19 AM T [place] [facility] Comment:REFERENCE RANGE NOT ESTABLISHED GFR ESTIMATE >90 >90 ML/MIN/1. 73 M2 06/14/2024 11:19 AM T [facility] [place] GFR NOTES GFR REFERENCE S: 06/14/2024 11:19 AM [facility] [place] [place] [facility] Comment: THE ESTIMATED GFR IS CALCULATED USING THE 2020 CKD-EPI EQUATION. THE FOLLOWING CATEGORIES FOR GRADING RENAL FUNCTION ARE RECOMMENDED BY THE INTERNATIONAL SOCIETY OF NEPHROLOGY (KDIGO 2012 CLINICAL PRACTICE GUIDELINE). G1,NORMAL OR HIGH: >89 ml/min/1.73 m2 G2,MILDLY DECREASED: 60-89 ml/min/1.73 m2 G3A,MILDLY TO MODERATELY DECREASED: 45-59 ml/min/1.73 m2 G3B,MODERATELY TO SEVERELY DECREASED: 30-44 ml/min/1.73 m2 G4,SEVERELY DECREASED: 15-29 ml/min/1.73 m2 G5,KIDNEY FAILURE: <15 ml/min/1.73 m2 06/13/2024 2:27 PM CDT us Fatemeh [facility] Final Result [facility] [address] [place] [address], * (ABNORMAL) C-REACTIVE PROTEIN (06/13/2024 2:27 PM CDT) [facility] C-REACTIVE PROTEIN 2.18(H) <0.30 mg/dL 06/14/2024 11:19 AM CDT [facility] 06/13/2024 2:27 PM CDT Fatemeh Bartholomewfarhad [facility] Final Result Performing Organization Address City/[facility]/ZIP Co de Phone Number [address] [address], * THYROXINE, FREE (FT4) (06/13/2024 2:27 PM CDT) [facility] FREE T4 1.02 0.76 - 1.46 NG/DL 06/13/2024 9:21 PM CDT [facility] 06/13/2024 2:27 PM CDT Fatemeh BizArkfarhad [facility] Final Result Performing Organization Address City/[facility]/ZIP Co de Phone Number [facility] [address] [place] [address], [phone] * THYROID STIM HORMONE TSH (06/13/2024 2:27 PM CDT) [facility] TSH 1.498 0.358 - 3.740 uIU/ML 06/14/2024 11:19 AM CDT [facility] 06/13/2024 2:27 PM CDT Fatemeh BizArkfarhad [facility] Final Result Performing Organization Address City/[facility]/ZIP Co de Phone Number [address] [place] [address], * (ABNORMAL) VITAMIN D 25 OH (06/13/2024 2:27 PM CDT) [facility] VITAMIN D 25 HYDROXY TOTAL S/P/B 14.0(L) 30 - 100 NG/ML 06/14/2024 11:19 AM CDT [facility] Comment: DEFICIENT <20 INSUFFICIENT 20-30 SUFFICIENT 30-100 06/13/2024 2:27 PM CDT Fatemeh Lam [facility] Final Result [address] [address], * MAGNESIUM (06/13/2024 2:27 PM CDT) [facility] MAGNESIUM 1.8 1.8 - 2.4 MG/DL 06/14/2024 11:19 AM CDT [facility] 06/13/2024 2:27 PM CDT Fatemeh Lam [facility] Final Result [address] [address], * CYCLIC CITRULLINATED PEPTIDE (CCP)ANTIBODY(IGG) (06/13/2024 2:14 PM CDT) [facility] CITRULLINE PEPTIDE ANTIBODY <16 UNITS [facility] Comment: Reference Range Negative: <20 Weak Positive: 20-39 Moderate Positive: 40-59 Strong Positive: >59 06/13/2024 2:14 PM CDT 06/15/2024 5:19 AM CDT Narrative Resulting Agency Comment Performing Organization Information: Site ID: [id number] Name: [employer] [facility] Address: [address] [place] [address] Director: Artie Rai MD Fat[facility] Final Result [facility] [address] [facility] [address], * FOLIC ACID SERUM (06/13/2024 2:14 PM CDT) FOLATE 10.2 8.6 - 58.9 NG/ML 06/13/2024 7:56 PM CDT [facility] 06/13/2024 2:14 PM CDT Fatemeh [facility] Final Result Performing Organization Address [facility]/ZIP Co de Phone Number [facility] [address] [place] [address], * (ABNORMAL) URINALYSIS AUTO DIP (06/13/2024) COLOR (U) PALE YELLOW YELLOW [facility] TRANSPARENCY CLEAR CLEAR [facility] GLUCOSE (U) NEGATIVE NEGATIVE MG/DL [facility] BILIRUBIN (U) NEGATIVE NEGATIVE [facility] KET[facility] MG/DL (U) NEGATIVE NEGATIVE MG/DL [facility] SPECIFIC GRAVITY (U) 1.020 1.001 - 1.035 [facility] BLOOD (U) SMALL (1+, Non Hemolyzed)(A ) NEGATIVE [facility] U PH 6.0 5.0 - 9.0 [facility] PROTEIN (U) NEGATIVE NEGATIVE mg/dL [facility] UROBILINOGEN 0.2 0.2 - 1.0 EU/dL = mg/dL [facility] NITRITES NEGATIVE NEGATIVE MG/DL [facility] LEUKOCYTES (U) NEGATIVE NEGATIVE [facility] URINE SPECIMEN OBTAINED BY CLEAN CATCH PROCEDURE / Unknown 06/13/2024 Fatemeh ESCUDERO URINE ORDERABLES Final Result Performing Organization Address City/[facility]/ZIP Co de Phone Number [facility] [address] [place] [address], [place] * URIC ACID BLOOD (05/10/2024 10:23 AM ASSOCIATE PROFESSOR OF PHYSICS) URIC ACID 5.0 2.6 - 6.0 MG/DL 05/10/2024 3:25 PM [facility]OCIATE PROF[facility]OR OF PHYSICS [facility] 05/10/2024 10:2 3 AM ASSOCIATE PROFESSOR OF PHYSICS Fatemehshilpa Bartholomewfarhad [facility] Final Result Performing Organization Address City/[facility] Co de Phone Number [facility] [address] [place] [address], from Last 3 Months Insurance Care Teams Corporate Safety Director Relationship Specialty Start Date End Date Fatemeh Lam FNP [address] [place] [address] PCP - General Nurse Practitioner Family 03/16/19 Suly [place] [facility] [place] [address] NURSE PRACTITIONER 03/16/19
--- OUTSIDE RECORDS SUMMARY | 2024-06-20 15:30 | XMS_ITS | Encounter Summary ---
Author Organization [facility] Address [address] [place] [address] Care Team Providers Care Foundation Relations Manager Name Role Phone Fatemeh Lam KOTA Primary Care Provider [phone] Sluy [place] STUDIO OWNER Unavailable [phone] Encounter Details Date Type Department Care Team ([facility] Contact Info) Description 06/04/2024 CHROMAom Message Enc [facility] Medical Group Family & Internal Medicine [address] [address] [facility] Insomnia Social History Tobacco Use Types Packs/Day Years [...] Sex Assigned at Female 04/09/2024 8:17 AM DISTANCE LEARNING PROGRAM COORDINATOR Legal Sex Female 6:09 PM CDT Gender Identity Female 08/08/2021 1:37 PM CDT Sexual Orientation Straight 08/08/2021 1: 37 PM CDT documented as of this encounter Plan of Treatment Upcoming Encounters Date Type Department Care Team (Late st Contact Info) Description 06/25/2024 3:45 PM CDT Appointment [place] [address] Fatemeh Lam FNP [address] [place] [address] documented as of this encounter Visit Diagnoses Not on filedocumented in this encounter Additional Health Concerns Assessment Noted Time PHQ-9 Depression Total Score: 0 04/29/19 24 1:33 PM DISTANCE LEARNING PROGRAM COORDINATOR documented as of this encounter Care Teams Foundation Relations Manager Relationship Specialty Start Date End Date Fatemeh Lam FNP [address] [place] [address] PCP - General Nurse Practitioner Family 03/16/19 Suly [place] [facility] [place] [address] NURSE PRACTITIONER 03/16/19 documented as of this encounter
--- OUTSIDE RECORDS SUMMARY | 2024-06-20 15:30 | XMS_ITS | Encounter Summary ---
Author Organization [facility] Address [address] [place] [address] Care Team Providers Care Worm Grower Name Role Phone Fatemeh Lam Primary Care Provider Suly [place] AUTOMOTIVE SERVICE ADVISOR Unavailable [phone] Encounter Details Date Type Department Care Team (Late st Contact Info) Description 07/11/2020 Vubiquityt Message Enc [facility] Medical Group Family & Internal Medicine [facility] [address] [place] [address] Fatemeh Lam FNP [address] [place] [address] Follow Up/Update Social History Tobacco Use Types Packs/Day Years [...] Sex Assigned at Female 04/09/2024 8:[address]ER Legal Sex Female 6:09 PM CDT Gender Identity Female 08/08/2021 1:37 PM CDT Sexual Orientation Straight 08/08/2021 1: 37 PM CDT COVID-19 Exposure Response Date Recorded In the last month, have you been in contact with someone who was confirmed or suspected to have Coronavirus / COVID-19? No / Unsure 07/10/2020 11:28 AM CDT documented as of this encounter Progress Notes * KOTA Lao - 07/11/2020 8:08 AM CDT She will need a stat ct of her abdomen and pelvis today without contrast for hematuria ( we did a ua yesterday) and flank pain documented in this encounter Plan of Treatment Upcoming Encounters Date Type Department Care Team (Late st Contact Info) Description 06/25/2024 3:[address] [facility] [place] [address] Fatemeh Lam FNP [facility] [place] [address] documented as of this encounter Visit Diagnoses Not on filedocumented in this encounter Additional Health Concerns Infection Onset Date Last Indicated Resolved Time COVID-19 Rule Out 02/07/2023 02/07/2023 02/07/2023 9:[address]ADER COVID-19 Rule Out 12/27/2023 12/27/2023 12/27/2023 11:34 AM CDT COVID-19 Rule Out 12/27/2023 12/27/2023 12/29/2023 1:09 AM CDT Assessment Noted Time PHQ-9 Depression Total Score: 15 06/05/2 021 12:22 PM CDT documented as of this encounter Care Teams Worm Grower Relationship Specialty Start Date End Date Fatemeh Lam FNP [address] [place] [address] PCP - General Nurse Practitioner Family 03/16/19 Suly [place] NP [address] [place] [address] NURSE PRACTITIONER 03/16/19 documented as of this encounter
--- OUTSIDE RECORDS SUMMARY | 2024-06-20 15:30 | XMS_ITS | Encounter Summary ---
Author Organization [facility] Address [address] [place] [address] Care Team Providers Care Press Hand Supervisor Name Role Phone Fatemeh Lam Primary Care Provider Suly [place] GLAZE CARRIER Unavailable [phone] Encounter Details Date Type Department Care Team (Late st Contact Info) Description 10/30/2020 BankFacilt Message Enc [facility] Medical Group Family & Internal Medicine [facility] [address] [place] [address] Fatemeh Lam FNP [address] [place] [address] RE: Medication Questions Social History Tobacco Use Types Packs/Day Years [...] Sex Assigned at Female 04/09/2024 8:17 AM PROJECT SURVEYOR Legal Sex Female 6:09 PM CDT Gender Identity Female 08/08/2021 1:37 PM CDT Sexual Orientation Straight 08/08/2021 1: 37 PM CDT documented as of this encounter Plan of Treatment Upcoming Encounters Date Type Department Care Team (Late st Contact Info) Description 06/25/2024 3:[address] [place] [place] [address] Fatemeh Lam FNP [address] [place] [address] documented as of this encounter Visit Diagnoses Not on filedocumented in this encounter Additional Health Concerns Infection Onset Date Last Indicated Resolved Time COVID-19 Rule Out 02/07/2023 02/07/2023 02/07/2023 9:04 AM PROJECT SURVEYOR COVID-19 Rule Out 12/27/2023 12/27/2023 12/27/2023 11:34 AM CDT COVID-19 Rule Out 12/27/2023 12/27/2023 12/29/2023 1:09 AM CDT Assessment Noted Time PHQ-9 Depression Total Score: 4 09/13/19 21 9:12 AM CDT documented as of this encounter Care Teams Press Hand Supervisor Relationship Specialty Start Date End Date Fatemeh Lam FNP [address] [place] [address] PCP - General Nurse Practitioner Family 03/16/19 Suly [place] NP [facility] [place] [address] NURSE PRACTITIONER 03/16/19 documented as of this encounter
--- OUTSIDE RECORDS SUMMARY | 2024-06-20 15:30 | XMS_ITS | Encounter Summary ---
Author Organization [facility] Address [address] [place] [address] Care Team Providers Care Drop Count Associate Name Role Phone Fatemeh Lam Primary Care Provider Suly [place] MERCURY WASHER Unavailable [phone] Encounter Details Date Type Department Care Team (Late st Contact Info) Description 08/14/2020 Tu Fábrica de Eventost Message Enc [facility] Medical Group Family & Internal Medicine [facility] [address] [place] [address] Fatemeh Lam FNP [facility] [place] [address] RE: FW: Referral Request Social History Tobacco Use Types [...] Sex Assigned at Female 04/09/2024 8:17 AM FAMILY COACH Legal Sex Female 6:09 PM CDT Gender [...] Info) Description 06/25/2024 3:45 PM CDT Appointment [facility] [place] [address] Fatemeh Lam FNP [address] [place] [address] documented as of this encounter Visit Diagnoses Not on filedocumented in this encounter Additional Health Concerns Infection Onset Date Last Indicated Resolved Time COVID-19 Rule Out 02/07/2023 02/07/2023 02/07/2023 9:04 AM FAMILY COACH COVID-19 Rule Out 12/27/2023 12/27/2023 12/27/2023 11:34 AM CDT COVID-19 Rule Out 12/27/2023 12/27/2023 12/29/2023 1:09 AM CDT Assessment Noted Time PHQ-9 Depression Total Score: 15 06/05/ 021 12:22 PM CDT documented as of this encounter Care Teams Drop Count Associate Relationship Specialty Start Date End Date Fatemeh Lam FNP [address] [place] [address] PCP - General Nurse Practitioner Family 03/16/19 Suly [place] NP [facility] [place] [address] NURSE PRACTITIONER 03/16/19 documented as of this encounter
--- OUTSIDE RECORDS SUMMARY | 2024-06-20 15:30 | XMS_ITS | Encounter Summary ---
Author Organization [facility] Address [address] [place] [address] Care Team Providers Care Associate Professor Of Violin Name Role Phone Fatemeh Lam KOTA Primary Care Provider [phone] Suly [place] SYRUP MAKER Unavailable [phone] Reason for Visit * Reason Onset Date Comments Results 10/24/2023 Encounter Details Date Type Department Care Team (Late st Contact Info) Description 10/24/2023 Wireless Generation Message Enc [facility] [address] [place], [place] [id number] Chavez Dotson MD [facility] [address] [place] [address] Monitor Social History Tobacco Use Types Packs/Day Years [...] Sex Assigned at Female 04/09/2024 8:17 AM GUEST SERVICE REPRESENTATIVE Legal Sex Female 6:09 PM CDT Gender Identity Female 08/08/2021 1:37 PM CDT Sexual Orientation Straight 08/08/2021 1: 37 PM CDT documented as of this encounter Progress Notes * Ute Olivera RN - 10/25/2023 11:48 AM CDT Symptomatic sinus tachycardia noted. Above message from Dr. Dotson. ST. Offer low dose Toprol XL 12.5mg daily if she would like. Will need to hold prior to stress testing. Above message from Lydia CARDOSO. I left a voicemail for the patient to call our office. The office number and my extension were provided. 12:41pm - I informed the patient of the above information from Dr. Dotson and Fatemeh RUSSELL. I informed the patient that Toprol will help lower the HR but could lower BP. I instructed the patient to monitor for increase in fatigue. I informed the patient that she may take Metoprolol in the morning or at night. I instructed the patient to hold Metoprolol 24 hours prior to her stress test. The patient verbalized understanding and had no further questions. Message to the ironing machine operator. documented in this encounter Plan of Treatment Upcoming Encounters Date Type Department Care Team (Late st Contact Info) Description 06/25/2024 3:45 PM CDT Appointment [facility] [place] [address] Fatemeh Lam FNP [address] [place] [address] documented as of this encounter Visit Diagnoses Not on filedocumented in this encounter Additional Health Concerns Infection Onset Date Last Indicated Resolved Time COVID-19 Rule Out 12/27/2023 12/27/2023 12/27/2023 11:34 AM CDT COVID-19 Rule Out 12/27/2023 12/27/2023 12/29/2023 1:09 AM CDT Assessment Noted Time PHQ-9 Depression Total Score: 0 04/29/19 24 1:33 PM GUEST SERVICE REPRESENTATIVE documented as of this encounter Care Teams Associate Professor Of Violin Relationship Specialty Start Date End Date Fatemeh Lam FNP [facility] [place] [address] PCP - General Nurse Practitioner Family 03/16/19 Suly [place] NP [address] [place] [address] NURSE PRACTITIONER 03/16/19 documented as of this encounter
--- OUTSIDE RECORDS SUMMARY | 2024-06-20 15:30 | XMS_ITS | Referral Summary ---
Author Organization [facility] Address [address] [place] [address] Phone Care Team Providers Care Vest Presser Name Role Phone Jacob Vázquez MD Primary Care Provider [phone] Encounters Date Type Department Care Team Description 05/31/2024 Telephone [facility] Medical Group ENT Specialists - [facility] [address] [facility] [address] [place] [address] Lalo Bolanos 04/17/2024 1:30 PM RN INFUSION Office Visit [facility] [address] [facility] [address] [place] [address] Aisha Monroy, OD Ptosis of eyelid, left (Primary Dx); Pseudopapilledema of both optic discs; Exotropia 04/13/2024 Telephone [facility] Medical [facility] Specialists - [facility] [address] [facility] [address] [place] [address] Marguerite Theodore MA Scheduling Appointments 04/11/2024 Telephone [facility] [address] [facility] [address], [address] [facility] [place] [address] Yakov Elam, OD 04/03/2024 4:02 PM RN INFUSION - 04/03/2024 11:59 PM RN INFUSION Hospital Encounter [facility] [address] [place] [address] Sore throat Discharge Disposition: Discharge to home or self care 04/03/2024 10:30 AM RN INFUSION Office Visit [facility] Medical [facility] at [address] [address] Cande Gandhi, JANAE Sore throat (Primary Dx) from Last 3 Months Allergies Active Allergy Reactions Criticality Noted Date Comments Etodolac Rash Medium 06/10/2016 Medications albuterol HFA (VENTOLIN HFA) 90 mcg/actuation inhaler Inhale. Active pantoprazole DR (PROTONIX) 40 mg EC tablet daily. Active busPIRone (BUSPAR) 30 mg tablet Take 1 tablet (30 mg total) by mouth 2 (two) times a day 4 Active clonazePAM (KlonoPIN) 0.5 mg tablet Take 1 tablet (0.5 mg total) by mouth 2 (two) times a day as needed 4 Active hydrOXYzine (ATARAX) 25 mg tablet Take 1 tablet (25 mg total) by mouth every 8 (eight) hours as needed 4 Active ipratropium-alb uteroL (DUO-NEB) 0.5-2.5 mg/3 mL nebulizer solution INHALE THE CONTENTS OF 1 VIAL VIA NEBULIZATION ROUTE EVERY 6 HOURS NEEDED 1 Active propranoloL (INDERAL) 10 mg tablet Take 1 tablet (10 mg total) by mouth 2 (two) times a day 4 Active rizatriptan (MAXALT) 10 mg tablet TAKE 1 TABLET BY MOUTH NEEDED FOR MIGRAINE.MAY REPEAT IN 2 HOURS IF NEEDED. MAX 2 TABS/24HOURS 4 Active sertraline (ZOLOFT) 100 mg tablet Take 1 tablet (100 mg total) by mouth human resources director before breakfast 4 Active triamcinolone (KENALOG) 0.1 % ointment Apply topically 2 (two) times a day 4 Active venlafaxine XR (EFFEXOR-XR) 75 mg 24 hr capsule Take 1 capsule (75 mg total) by mouth every morning Active lisinopril-hydr oCHLOROthiazide (ZESTORETIC) 20-12.5 mg per tablet Take 1 tablet by mouth daily 4 Active ergocalciferol (VITAMIN D) 50,000 unit capsule Active ibuprofen (ADVIL,MOTRIN) 800 mg tablet Take 1 tablet (800 mg total) by mouth every 8 (eight) hours as needed 4 Active metaxalone (SKELAXIN) 800 mg tablet TAKE 1 TABLET BY MOUTH 3 TIMES DAILY NEEDED FOR PAIN AND MUSCLE SPASMS 4 Active metoprolol XL (TOPROL-XL) 25 mg extended release tablet Take 0.5 tablets (12.5 mg total) by mouth daily Active lidocaine viscous (XYLOCAINE) 2 % solutionIndicat ions:Sore throat Apply 10 mL to the mouth or throat every 6 (six) hours as needed (sore throat) May mix with 30 ml of Mylanta 100 mL 5 Active Active Problems Problem Noted Date Diagnosed Date Ptosis of eyelid, left 04/17/2024 Assessment & Plan (04/17/2024 4:37 PM RN INFUSION): Acute onset of intermittent ptosis left eye (OS), as well as increased intermittent diplopia associated with bilateral tingling sensation in the fingers. Stable exam today, normal vision, no ptosis noted left eye (OS) as well as normal pupils. Visual acuity (VA) os improved with new refraction. Pt has 400 arc stereo, and normal color visio ou. Optic nerve (ON) oct is stable from photos, pt does have elevated ONH both eyes (OU) with blurred margins nasally without heme or exudate. Wood visual field (HVF) were unreliable with non specific defects centrally. Pt has had mysthenia labs which were negative. Due suspicious onh appearance, her acute onset of recent symptoms, history of poorly controlled blood pressure and BMI will send pt to ED to rule out IIH, compressive mass,thromboembolic etiology of increased diplopia and ptosis . Exotropia 09/01/2023 Assessment & Plan (04/17/2024 4:31 PM RN INFUSION): Stable on exam today Monitor Assessment & Plan (09/01/2023 3:27 PM CDT): Mild exo posture that is comitant and stable. Likely decompensation, rarely symptomatic. Defer prism at this time. Send myasthenia labs, TSH normal recently. Monitor closely. 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 RO IIH due to BMI. Assessment & Plan (09/01/2023 3:26 PM CDT): Myopic without disc edema, excellent afferent function and improved blur with new specs. Mild XT component, Base-In measurements are stable and comitant. No EOM restrictions. Recent TSH normal. Will send myasthenia labs out of abundance of caution. Discussed likely mild decompensation, but with rare symptoms will defer prism. Educated should worsen prism or strab sx could be considered. Advised to RTC STAT/ED with any sudden worsening of diplopia, pain on eye movement, vision loss, or new neurologic symptoms. Close f/u otherwise 3mo if myasthenia labs normal Assessment & Plan (06/21/2023 5:06 PM CDT): Myopic in appearance, no disc edema. Excellent afferent function. Monitor closely for changes. Spec Rx old and pt over-minused. No EOM restrictions or visually significant strab measurements. Update specs. 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 Social History Tobacco Use Types Packs/Day Years Used Date Smoking Tobacco: Never Smokeless Tobacco: Never Alcohol Use Standard Drinks/Week Comments Yes 0 (1 standard drink = 0.6 oz pur e alcohol) rarely Comments No Sex and Gender Information Value Date Recorded Sex Assigned at Not on file Legal Sex Female 11:12 AM RN INFUSION Gender Identity Not on file Sexual Orientation Not on file Last Filed Vital Signs Vital Sign Reading Time Taken Comments Blood Pressure 176/109 04/03/2024 10:56 AM RN INFUSION Pulse 96 04/03/2024 10:56 AM RN INFUSION Temperature 36.6 C (97.9 F) 04/03/2024 10:56 AM RN INFUSION Respiratory Rate 18 04/03/2024 10:5 6 AM RN INFUSION Oxygen Saturation 98% 04/03/2024 10: 56 AM RN INFUSION Inhaled Oxygen Concentration - - Weight 125.8 kg (277 lb 4.8 oz) 025 10:56 AM RN INFUSION Height 175.3 cm (5' 9.02 ) 04/03/2024 1 0:56 AM RN INFUSION Body Mass Index 40.93 04/03/2024 10:56 AM RN INFUSION Plan of Treatment Not on file Procedures Procedure Name Priority Date/Time Associated Diagnosis Comments WOOD VISUAL FIELD - OU - BOTH EYES Routine 04/17/2024 4:41 PM RN INFUSION Pseudopapilledema of both optic discs OCT, OPTIC NERVE - OU - BOTH EYES Routine 04/17/2024 4:38 PM RN INFUSION Pseudopapilledema of both optic discs THROAT CULTURE Routine 04/03/2024 4:02 PM RN INFUSION Sore throat POCT RAPID STREP Routine 04/03/2024 10:5 9 AM RN INFUSION Sore throat from Last 3 Months Results * Wood Visual Field - OU - Both Eyes (04/17/2024 4:41 PM RN INFUSION) Pattern Deviation OS 2.35 dB CONTINUUM Pattern Deviation OD 1.46 dB CONTINUUM Mean Deviation OS -2.93 dB CONTINUUM Mean Deviation OD -0.79 dB CONTINUUM Anatomical Region Laterality Modality Head Visual Field Narrative 04/17/2024 4:41 PM RN INFUSION Right Eye Fixation was good. Cooperation was good. Reliability was good. Progression has been stable. Foveal threshold was normal. Findings include normal observations, non-specific defects. Mean Deviation was -0.79 dB. Pattern Deviation was 1.46 dB. Left Eye Fixation was good. Cooperation was good. Reliability was good. Progression has been stable. Foveal threshold was normal. Findings include normal observations, non-specific defects. Mean Deviation was -2.93 dB. Pattern Deviation was 2.35 dB. Notes Stable inferior defect left eye (OS) Non specific central changes both eyes (OU) - most likely stable us Aisha Monroy OD OPHTH VISUAL FIELD Final Result * OCT, Optic Nerve - OU - Both Eyes (04/17/2024 4:38 PM RN INFUSION) RNFL OS 71 micrometers CONTINUUM RNFL OD 87 micrometers CONTINUUM Anatomical Region Laterality Modality Head Optical Coherenc e Tomography Narrative 04/17/2024 4:38 PM RN INFUSION Right Eye Reliability was poor. Temporal progression was stable. Temporal thickness was showing abnormal thinning. Superior progression was stable. Superior thickness was normal. Nasal progression was stable. Nasal thickness was showing abnormal thinning. Inferior progression was stable. Inferior thickness was showing abnormal thinning. Average RNFL thickness 87 micrometers. Left Eye Reliability was poor. Temporal progression was stable. Temporal thickness was normal. Superior progression was stable. Superior thickness was showing abnormal thinning. Nasal progression was stable. Nasal thickness was showing abnormal thinning. Inferior progression was stable. Inferior thickness was normal. Average RNFL thickness 71 micrometers. Notes Stable optic nerve (ON) oct Poor Ss ( 5/10 and 4/10) us Aisha Monroy OD OPHTH TOMOGRAPHY Final Result * Throat culture Throat (04/03/2024 4:02 PM RN INFUSION) Report Final Report: No growth of pathogens. Comment:Testing performed by : [facility], [address] [facility] [place] [address] Throat 04/03/2024 4:02 PM RN INFUSION 04/04/2024 12:24 AM RN INFUSION Narrative [facility] - 04/04/2024 7:53 PM RN INFUSION Testing performed by [facility] Microbiology Laboratory ([phone]). us Cande Gandhi DIRECTOR FURNITURE LAB MICROBIOLOGY - GENERAL ORDERABLES Final Result [facility] [id number] [address] Department [place] [address] * POCT rapid strep A (04/03/2024 10:59 AM RN INFUSION) Pathologist [facility] Rapid Strep A, POC Negative Negative Swab 04/03/2024 10:5 9 AM RN INFUSION Cande Gandhi DIRECTOR FURNITURE POINT OF CARE TEST ORDERAB LES Final Result from Last 3 Months Insurance [employer] ACCESS CHOICE [email or web address] ACCESS CHOICE Care Teams Vest Presser Relationship Specialty Start Date End Date Jacob Vázquez MD [address] [facility] [address] [place] [address] PCP - General Family Medicine 04/06/24
--- OUTSIDE RECORDS SUMMARY | 2024-06-20 15:30 | XMS_ITS | Encounter Summary ---
Author Organization [facility] Address [address] [place] [address] Care Team Providers Care Notched Blade Loader Name Role Phone Fatemeh Lam KOTA Primary Care Provider [phone] Suly [place] HEARING AID MECHANIC Unavailable [phone] Encounter Details Date Type Department Care Team (Latest Contact Info) Description 05/17/2023 Azuro Message Enc [facility] Medical Group Multispecialty Care - [facility] [address] [facility] [facility], [address] [place] [id number] Karen Quezada APRN [address] [facility] [address] [place], [place] [id number] Pain management injections Social History Tobacco Use Types Packs/Day Years [...] Sex Assigned at Female 04/09/2024 8:17 AM CHEF Legal Sex Female 6:09 PM CDT Gender Identity Female 08/08/2021 1:37 PM CDT Sexual Orientation Straight 08/08/2021 1: 37 PM CDT documented as of this encounter Plan of Treatment Upcoming Encounters Date Type Department Care Team (Late st Contact Info) Description 06/25/2024 3:45 PM CDT Appointment [facility] [place] [address] Fatemeh Lam FNP [address] [place] [address] documented as of this encounter Visit Diagnoses Not on filedocumented in this encounter Additional Health Concerns Infection Onset Date Last Indicated Resolved Time COVID-19 Rule Out 12/27/2023 12/27/2023 12/27/2023 11:34 AM CDT COVID-19 Rule Out 12/27/2023 12/27/2023 12/29/2023 1:09 AM CDT Assessment Noted Time PHQ-9 Depression Total Score: 0 04/29/19 24 1:33 PM CHEF documented as of this encounter Care Teams Notched Blade Loader Relationship Specialty Start Date End Date Fatemeh Lam FNP [address] [place] [address] PCP - General Nurse Practitioner Family 03/16/19 [facility]uly [place] [facility] [place] [address] NURSE PRACTITIONER 03/16/19 documented as of this encounter
--- OUTSIDE RECORDS SUMMARY | 2024-06-20 15:30 | XMS_ITS | Encounter Summary ---
Author Organization [facility] Address [address] [place] [address] Care Team Providers Care Registrar Assistant Name Role Phone Art Lam Primary Care Provider Suly Colorado TAPE MAKING MACHINE OPERATOR Unavailable [phone] Encounter Details Date Type Department Care Team (Late st Contact Info) Description 06/18/2022 ScreenHitst Message Enc [facility] Medical Group Family & Internal Medicine [facility] [address] [place] [address] Art Lam FNP [facility] [place] [place] [address] Blood test Social History Tobacco Use Types Packs/Day [...] Sex Assigned at Female 04/09/2024 8:17 AM PERSONNEL GENERALIST MANAGER Legal Sex Female 6:09 PM CDT Gender Identity Female 08/08/2021 1:37 PM CDT Sexual Orientation Straight 08/08/2021 1: 37 PM CDT COVID-19 Exposure Response Date Recorded In the last 10 days, have yo u been in contact with someone who was confirmed or suspected to have Coronavirus/COVID-19? No / Unsure 06/15/2022 9:46 AM CDT documented as of this encounter Progress Notes * Kristina Trotter NP - 06/21/2022 8:02 AM CDT Lab results received. Call placed to patient to discuss lab results. Left voicemail for return call. * KOTA Lao - 06/18/2022 3:18 PM CDT Have not seen any * Kristina Trotter NP - 06/18/2022 12:42 PM CDT I have not seen any results come through yet. Were they given to art? documented in this encounter Plan of Treatment Upcoming Encounters Date Type Department Care Team (Late st Contact Info) Description 06/25/2024 3:[address] [facility] [address] Art Lam FNP [address] [place] [address] documented as of this encounter Visit Diagnoses Not on filedocumented in this encounter Additional Health Concerns Infection Onset Date Last Indicated Resolved Time COVID-19 Rule Out 02/07/2023 02/07/2023 02/07/2023 9:04 AM PERSONNEL GENERALIST MANAGER COVID-19 Rule Out 12/27/2023 12/27/2023 12/27/2023 11:34 AM CDT COVID-19 Rule Out 12/27/2023 12/27/2023 12/29/2023 1:09 AM CDT Assessment Noted Time PHQ-9 Depression Total Score: 0 06/01/19 23 11:42 AM CDT documented as of this encounter Care Teams Registrar Assistant Relationship Specialty Start Date End Date Art Lam FNP [address] [place] [address] PCP - General Nurse Practitioner Family 03/16/19 Suly [place] NP [address] [place], [place] [address] [address] NURSE PRACTITIONER 03/16/19 documented as of this encounter
--- OUTSIDE RECORDS SUMMARY | 2024-06-20 15:30 | XMS_ITS | Encounter Summary ---
Author Organization [facility] Address [address] [place] [address] Care Team Providers Care Sports Betting Manager Name Role Phone Fatemeh Lam Primary Care Provider Suly Colorado FAN BLADE ALIGNER Unavailable [phone] Encounter Details Date Type Department Care Team (Late st Contact Info) Description 06/14/2022 FoundationDBt Message Enc [facility] Medical Group Family & Internal Medicine [facility] [address] [place] [address] Fatemeh Lam FNP [address] [place] [address] Ear and throat pain Social History Tobacco Use Types Packs/Day [...] Sex Assigned at Female 04/09/2024 8:17 AM EPILEPSY PHYSICIAN Legal Sex Female 6:09 PM CDT Gender [...] Info) Description 06/25/2024 3:45 PM CDT Appointment [facility] [place] [address] Fatemeh Lam FNP [address] [place] [address] documented as of this encounter Visit Diagnoses Not on filedocumented in this encounter Additional Health Concerns Infection Onset Date Last Indicated Resolved Time COVID-19 Rule Out 02/07/2023 02/07/2023 02/07/2023 9:04 AM EPILEPSY PHYSICIAN COVID-19 Rule Out 12/27/2023 12/27/2023 12/27/2023 11:34 AM CDT COVID-19 Rule Out 12/27/2023 12/27/2023 12/29/2023 1:09 AM CDT Assessment Noted Time PHQ-9 Depression Total Score: 0 06/01/19 11:42 AM CDT documented as of this encounter Care Teams Sports Betting Manager Relationship Specialty Start Date End Date Fatemeh Lam FNP [address] [place] [address] PCP - General Nurse Practitioner Family 03/16/19 Suly [place] NP [facility] [place] [address] NURSE PRACTITIONER 03/16/19 documented as of this encounter
--- OUTSIDE RECORDS SUMMARY | 2024-06-20 15:30 | XMS_ITS | Encounter Summary ---
Author Organization [facility] Address [address] [place] [address] Care Team Providers Care Training And Documentation Specialist Name Role Phone Fatemeh Lam Primary Care Provider Suly Colorado SLAB LIFTING ENGINEER Unavailable [phone] Encounter Details Date Type Department Care Team (Late st Contact Info) Description 08/08/2020 The Bully Trackert Message Enc [facility] Medical Group Family & Internal Medicine [facility] [address] [place] [address] Fatemeh Lam FNP [facility] [place] [address] RE: Referral Request Social History [...] Sex Assigned at Female 04/09/2024 8:17 AM UNIX ADMINISTRATOR Legal Sex Female 6:09 PM CDT Gender [...] Info) Description 06/25/2024 3:45 PM CDT Appointment [facility] [place] [address] Fatemeh Lam FNP [address] [place] [address] documented as of this encounter Visit Diagnoses Not on filedocumented in this encounter Additional Health Concerns Infection Onset Date Last Indicated Resolved Time COVID-19 Rule Out 02/07/2023 02/07/2023 02/07/2023 9:04 AM UNIX ADMINISTRATOR COVID-19 Rule Out 12/27/2023 12/27/2023 12/27/2023 11:34 AM CDT COVID-19 Rule Out 12/27/2023 12/27/2023 12/29/2023 1:09 AM CDT Assessment Noted Time PHQ-9 Depression Total Score: 15 06/05/ 021 12:22 PM CDT documented as of this encounter Care Teams Training And Documentation Specialist Relationship Specialty Start Date End Date Fatemeh Lam FNP [address] [place] [address] PCP - General Nurse Practitioner Family 03/16/19 [facility]uly [place] [facility] [place] [address] NURSE PRACTITIONER 03/16/19 documented as of this encounter
--- OUTSIDE RECORDS SUMMARY | 2024-06-20 15:30 | XMS_ITS | Encounter Summary ---
Author Organization [facility] Address [address] [place] [address] Phone Care Team Providers Care Air Operations Manager Name Role Phone No, Physician Primary Care Provider Sarah Montero Primary Care Provider + No, Physician Primary Care Provider [phone] Sarah Montero Primary Care Provider + No, Physician Primary Care Provider [phone] Physician, Millaecesther BERNSTEIN Primary Care Provider Un available Sarah Montero Primary Care Provider + Fatemeh Lam NP Primary Care Provider + [phone] Jacob Vázquez MD Primary Care Provider + [phone] Encounter Details Date Type Department Care Team (Latest Contact Info) Description 06/28/2017 Orders Only [facility] CONVERSION Scanning, Provider Social History Tobacco Use Types Packs/Day Years Used Date Smoking Tobacco: Never Comments Unknown Sex and Gender Information Value Date Recorded Sex Assigned at Not on file Legal Sex Female 11:12 AM METAL REED TUNER Gender Identity Not on file Sexual Orientation Not on file documented as of this encounter Plan of Treatment Not on file documented as of this encounter Procedures Procedure Name Priority Date/Time Associated Diagnosis Comments OBSTETRIC/GYNECOLOGY ULTRASONOGRAPHY REPORT 06/28/2017 3:01 PM CDT documented in this encounter Results * OBSTETRIC/GYNECOLOGY ULTRASONOGRAPHY REPORT (06/28/2017 3:01 PM CDT) Anatomical Region Laterality Modality Ultrasound us Provider Scanning IMG OB US PROCEDURES Final Res ult documented in this encounter Visit Diagnoses Not on filedocumented in this encounter Care Teams Air Operations Manager Relationship Specialty Start Date End Date No, Physician PCP - General 06/28/17 07/10/17 Sarah Montero PA PCP - General 07/11/17 07/12/17 No, Physician PCP - General 07/13/17 07/20/17 Sarah Montero PA PCP - General 07/21/17 07/21/17 No, Physician PCP - General 07/22/17 08/07/17 Vincent Rosario MD PCP - General 08/08/17 08/08/17 Sarah Montero PA PCP - General 08/09/17 04/17/23 Fatemeh Lam NP PCP - General Nurse Practitioner 04/18/23 04/05/24 Jacob Vázquez MD [address] [address] PCP - General Family Medicine 04/06/24 documented as of this encounter
--- OUTSIDE RECORDS SUMMARY | 2024-06-20 15:30 | XMS_ITS | Encounter Summary ---
Author Organization [facility] Address [address] [place] [address] Care Team Providers Care Charter Representative Name Role Phone Fatemeh Lam Primary Care Provider Suly Colorado ROLLER BILLET MILL Unavailable [phone] Encounter Details Date Type Department Care Team (Late st Contact Info) Description 08/19/2020 Onestop Internett Message Enc [facility] Medical Group Family & Internal Medicine [facility] [address] [place] [address] Fatemeh Lam FNP [address] [place] [address] RE: FW: Question Social History Tobacco Use Types Packs/Day Years [...] Sex Assigned at Female 04/09/2024 8:17 AM DEMOLITION EXPERT Legal Sex Female 6:09 PM CDT Gender [...] Info) Description 06/25/2024 3:45 PM CDT Appointment [facility] [place] [address] Fatemeh Lam FNP [address] [place] [address] documented as of this encounter Visit Diagnoses Not on filedocumented in this encounter Additional Health Concerns Infection Onset Date Last Indicated Resolved Time COVID-19 Rule Out 02/07/2023 02/07/2023 02/07/2023 9:04 AM DEMOLITION EXPERT COVID-19 Rule Out 12/27/2023 12/27/2023 12/27/2023 11:34 AM CDT COVID-19 Rule Out 12/27/2023 12/27/2023 12/29/2023 1:09 AM CDT Assessment Noted Time PHQ-9 Depression Total Score: 15 06/05/ 021 12:22 PM CDT documented as of this encounter Care Teams Charter Representative Relationship Specialty Start Date End Date Fatemeh Lam FNP [address] [place] [address] PCP - General Nurse Practitioner Family 03/16/19 Suly [place] NP [facility] [place] [address] NURSE PRACTITIONER 03/16/19 documented as of this encounter
--- OUTSIDE RECORDS SUMMARY | 2024-06-20 15:30 | XMS_ITS | Clinical Summary ---
Author Organization [facility] [employer] [facility] Address [address] [place] [address] Phone Care Team Providers Care It Admin Name Role Phone Jacob Vázquez MD Primary Care Provider [phone] Allergies Active Allergy Reactions Criticality Noted Date [...] 1 tablet (100 mg total) by mouth early childhood teacher before breakfast 4 Active triamcinolone (KENALOG) 0.1 [...] 04/17/2024 Assessment & Plan (04/17/2024 4:37 PM WATER CARTER): Acute onset of intermittent ptosis left eye [...] 09/01/2023 Assessment & Plan (04/17/2024 4:31 PM WATER CARTER): Stable on exam today Monitor Assessment & Plan (09/01/2023 3:27 PM CDT): Mild exo posture that is comitant and stable. Likely decompensation, rarely symptomatic. Defer prism at this time. Send myasthenia labs, TSH normal recently. Monitor closely. 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 [address] [facility] [address] [place] [address] Aisha Monroy, OD Ptosis of eyelid, left (Primary Dx); Pseudopapilledema of both optic discs; Exotropia 04/13/2024 Telephone [facility] Medical [facility] ENT Specialists - [address] [place] [address] Marguerite Theodore MA Scheduling Appointments 04/11/2024 Telephone [facility] [address] [facility] 6th Floor, [address] [facility] [place] [place] [address] Yakov Elam, OD 04/03/2024 4:02 PM WATER CARTER - 04/03/2024 11:59 PM WATER CARTER Hospital Encounter [facility] [address] [place] [address] Sore throat Discharge Disposition: Discharge to home or self care 04/03/2024 10:30 AM WATER CARTER Office Visit [facility] Medical Group [facility] [address] [address] Cande Gandhi, JANAE Sore throat (Primary Dx) from Last 3 Months Surgical History Surgery Date Site/Laterality Comments IA CHOLECSTOT/CHOLECSTOST W/ EXPL DRG/RMVL ST1 SPX Cholecystotomy - (Added by TW Conv) BACK SURGERY Back Surgery - (Added by TW Conv) IA DILATION & CURETTAGE DX&/ THER NONOBSTETRIC Dilation And Curettage - (Added by TW Conv) LAPAROSCOPIC ENDOMETRIOSIS FULGURATION Medical History Medical History Date Comments Personal history of other di seases of the respiratory system History of asthma - (Added b y TW Conv) Personal history of other di seases of the circulatory system History of hypertension - (A dded by TW Conv) Personal history of other di seases of the musculoskeletal system and connective tissue History of arthritis - (Adde d by TW Conv) Personal history of other di seases of the musculoskeletal system and connective tissue History of joint pain - (Add ed by TW Conv) High myopia, 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 Pseudopapilledema 2018 Family History Medical History Relation Name Comments Diabetes Father Family history of diabetes mellitus - (Added by TW Conv) Diabetes Mother Family history of diabetes mellitus - (Added by AMILCAR Conv) Hypertension Mother Family history of hypertension - (Added by AMILCAR Conv) Relation Name Status Comments Father Mother Social History Tobacco Use Types Packs/Day Years Used Date Smoking Tobacco: Never Smokeless Tobacco: Never Alcohol Use Standard Drinks/Week Comments Yes 0 (1 standard drink = 0.6 oz pur e alcohol) rarely Comments No Sex and Gender Information Value Date Recorded Sex Assigned at Not on file Legal Sex Female 11:12 AM WATER CARTER Gender Identity Not on file Sexual Orientation Not on file Obstetrics History Para Term AB IAB SAB Ectopic Multiple Livin g Live Births 1 1 Date Outcome GA Total Labor Labor/2nd/3rd Weight Sex Type Anes PTL Lorena A1 A5 Name Clin 2014 Term 3.459 kg (7 lb 10 oz) M Vag-S pont Epidura l Y Living Complications:None Last Filed Vital Signs Vital Sign Reading Time Taken Comments Blood Pressure 176/109 04/03/2024 10:56 AM WATER CARTER Pulse 96 04/03/2024 10:56 AM WATER CARTER Temperature 36.6 C (97.9 F) 04/03/2024 10:56 AM WATER CARTER Respiratory Rate 18 04/03/2024 10:5 6 AM WATER CARTER Oxygen Saturation 98% 04/03/2024 10: 56 AM WATER CARTER Inhaled Oxygen Concentration - - Weight 125.8 kg (277 lb 4.8 oz) 025 10:56 AM WATER CARTER Height 175.3 cm (5' 9.02 ) 04/03/2024 1 0:56 AM WATER CARTER Body Mass Index 40.93 04/03/2024 10:56 AM WATER CARTER Plan of Treatment Health Maintenance Due Date Last Done Comments Cervical Cancer Screening 1986 Depression Screening 1986 Hepatitis C Screening 1986 Varicella Vaccines (1 of 2 - 13+ 2-dose series) 1999 Hepatitis B Screening 02/21/2004 Regular Well Visit/Exam 18-64 02/21/2004 Pneumococcal vaccine <65 (1 of 2 - PCV) 2005 Covid-19 Vaccine ( season) 2023 10/13/2020, 09/22/2020 DTaP/Tdap/Td Vaccine (4 - Td or Tdap) 05/03/2028 05/03/2018, 04/25/2014, 04/04/2014 Influenza Vaccine Completed 12/01/2023, , 02/06/2019, Additional history exists HPV Vaccines Aged Out No longer eligi ble based on patient's age to complete this topic Procedures Procedure Name Priority Date/Time Associated Diagnosis Comments WOOD VISUAL FIELD - OU - BOTH EYES Routine 04/17/2024 4:41 PM WATER CARTER Pseudopapilledema of both optic discs OCT, OPTIC NERVE - OU - BOTH EYES Routine 04/17/2024 4:38 PM WATER CARTER Pseudopapilledema of both optic discs THROAT CULTURE Routine 04/03/2024 4:02 PM WATER CARTER Sore throat POCT RAPID STREP Routine 04/03/2024 10:5 9 AM WATER CARTER Sore throat from Last 3 Months Results * Wood Visual Field - OU - Both Eyes (04/17/2024 4:41 PM WATER CARTER) Pathologist [facility] Pattern Deviation OS 2.35 dB CONTINUUM Pattern Deviation OD 1.46 dB CONTINUUM Mean Deviation OS -2.93 dB CONTINUUM Mean Deviation OD -0.79 dB CONTINUUM Anatomical Region Laterality Modality Head Visual Field Narrative 04/17/2024 4:41 PM WATER CARTER Right Eye Fixation was good. Cooperation was [...] both eyes (OU) - most likely stable Aisha Monroy OD OPHTH VISUAL FIELD Final Result * OCT, Optic Nerve - OU - Both Eyes (04/17/2024 4:38 PM WATER CARTER) [facility] RNFL OS 71 micrometers CONTINUUM RNFL OD 87 micrometers CONTINUUM Anatomical Region Laterality Modality Head Optical Coherenc e Tomography Narrative 04/17/2024 4:38 PM WATER CARTER Right Eye Reliability was poor. Temporal progression [...] oct Poor Ss ( 5/10 and 4/10) Aisha Monroy OD OPHTH TOMOGRAPHY Final Result * Throat culture Throat (04/03/2024 4:02 PM WATER CARTER) [facility] Report Final Report: No growth of pathogens. Comment:Testing performed by : [facility], [address] [facility] [place]., [address] Throat 04/03/2024 4:02 PM WATER CARTER 04/04/2024 12:24 AM WATER CARTER Narrative AMADO - 04/04/2024 7:53 PM WATER CARTER Testing performed by [facility] Microbiology Laboratory ([phone]). Cande Gandhi NP LAB MICROBIOLOGY - GENERAL ORDERABLES Final Result [facility] [address] [address] Department [place] [address] * POCT rapid strep A (04/03/2024 10:59 AM WATER CARTER) [facility] Rapid Strep A, POC Negative Negative Swab 04/03/2024 10:5 9 AM WATER CARTER Cande Gandhi STONE GANG [place] POINT OF CARE TEST ORDERAB LES Final Result from Last 3 Months Insurance [employer] ACCESS CHOICE [employer] ACC[employer] CHOICE Care Teams It Admin Relationship Specialty Start Date End Date Jacob Vázquez MD [address] [address] PCP - General Family Medicine 04/06/24
--- OUTSIDE RECORDS SUMMARY | 2024-06-20 15:30 | XMS_ITS | Encounter Summary ---
Author Organization [facility] Address [address] [place] [address] Care Team Providers Care Franchise Sales Director Name Role Phone Fatemeh Lam Primary Care Provider Suly Colorado UPHOLSTERY BUNDLER Unavailable [phone] Encounter Details Date Type Department Care Team (Late st Contact Info) Description 01/05/2024 DubMeNowt Message Enc [facility] Medical Group Family & Internal Medicine [facility] [address] [place] [address] Fatemeh Lam FNP [address] [place], [place] [id number] Illness follow up Social History Tobacco Use Types Packs/Day Years [...] Sex Assigned at Female 04/09/2024 8:[address] CLERK Legal Sex Female 6:09 PM CDT Gender Identity Female 08/08/2021 1:37 PM CDT Sexual Orientation Straight 08/08/2021 1: 37 PM CDT documented as of this encounter Progress Notes * KOTA Lao - 01/06/2024 12:06 PM CDT Ill send adviar for her to use twice a day, everyday documented in this encounter Plan of Treatment Upcoming Encounters Date Type Department Care Team (Late st Contact Info) Description 06/25/2024 3:45 PM CDT Appointment [facility] [place] [address] Fatemeh Lam FNP [address] [place] [address] documented as of this encounter Visit Diagnoses Not on filedocumented in this encounter Additional Health Concerns Assessment Noted Time PHQ-9 Depression Total Score: 0 04/29/19 24 1:[address] CLERK documented as of this encounter Care Teams Franchise Sales Director Relationship Specialty Start Date End Date Fatemeh Lam FNP [address] [place] [address] PCP - General Nurse Practitioner Family 03/16/19 Suly [place] NP [address] [place] [address] NURSE PRACTITIONER 03/16/19 documented as of this encounter
--- OUTSIDE RECORDS SUMMARY | 2024-06-20 15:30 | XMS_ITS | Encounter Summary ---
Author Organization [facility] Address [address] [place] [address] Care Team Providers Care Equine Intern Name Role Phone Fatemeh Lam KOTA Primary Care Provider Suly Colorado ASSISTANT FARM OPERATIONS MANAGER Unavailable [phone] Encounter Details Date Type Department Care Team (Late st Contact Info) Description 09/15/2020 BookFresht Message Enc [facility] Medical Group Family & Internal Medicine [facility] [address] [place] [address] Carlee Mackay APNP [address] [place], [place] [id number] Follow Up/Update Social History Tobacco Use Types [...] Sex Assigned at Female 04/09/2024 8:17 AM FITNESS CONSULTANT Legal Sex Female 6:09 PM CDT Gender Identity Female 08/08/2021 1:37 PM CDT Sexual Orientation Straight 08/08/2021 1: 37 PM CDT COVID-19 Exposure Response Date Recorded In the last month, have you been in contact with someone who was confirmed or suspected to have Coronavirus / COVID-19? No / Unsure 09/12/2020 7:39 AM CDT documented as of this encounter Plan of Treatment Upcoming Encounters Date Type Department Care Team (Late st Contact Info) Description 06/25/2024 3:45 PM CDT Appointment [facility] [place] [address] Fatemeh Lam FNP [address] [place] [address] documented as of this encounter Visit Diagnoses Not on filedocumented in this encounter Additional Health Concerns Infection Onset Date Last Indicated Resolved Time COVID-19 Rule Out 02/07/2023 02/07/2023 02/07/2023 9:04 AM FITNESS CONSULTANT COVID-19 Rule Out 12/27/2023 12/27/2023 12/27/2023 11:34 AM CDT COVID-19 Rule Out 12/27/2023 12/27/2023 12/29/2023 1:09 AM CDT Assessment Noted Time PHQ-9 Depression Total Score: 4 09/13/19 21 9:12 AM CDT documented as of this encounter Care Teams Equine Intern Relationship Specialty Start Date End Date Fatemeh Lam FNP [address] [place] [address] PCP - General Nurse Practitioner Family 03/16/19 [facility] [place] [facility] [place] [address] NURSE PRACTITIONER 03/16/19 documented as of this encounter
--- OUTSIDE RECORDS SUMMARY | 2024-06-20 15:30 | XMS_ITS | Encounter Summary ---
Author Organization [facility] Address [address] [place] [address] Care Team Providers Care Train Driver Name Role Phone Fatemeh Lam Primary Care Provider Suly [place] FURNITURE SERVICER Unavailable [phone] Encounter Details Date Type Department Care Team (Late st Contact Info) Description 06/08/2022 College Book Rentert Message Enc [facility] Family & Internal Medicine [facility] [address] [place] [address] Fatemeh Lam FNP [address] [place] [address] Sore throat and neck pain Social History Tobacco Use Types Packs/Day [...] Sex Assigned at Female 04/09/2024 8:17 AM HYPNOTHERAPIST Legal Sex Female 6:09 PM CDT Gender Identity Female 08/08/2021 1:37 PM CDT Sexual Orientation Straight 08/08/2021 1: 37 PM CDT COVID-19 Exposure Response Date Recorded In the last 10 days, have yo u been in contact with someone who was confirmed or suspected to have Coronavirus/COVID-19? No / Unsure 06/09/2022 9:56 AM CDT documented as of this encounter Plan of Treatment Upcoming Encounters Date Type Department Care Team (Late st Contact Info) Description 06/25/2024 3:[address] [facility] [place] [address] Fatemeh Lam FNP [address] [place] [address] documented as of this encounter Visit Diagnoses Not on filedocumented in this encounter Additional Health Concerns Infection Onset Date Last Indicated Resolved Time COVID-19 Rule Out 02/07/2023 02/07/2023 02/07/2023 9:04 AM HYPNOTHERAPIST COVID-19 Rule Out 12/27/2023 12/27/2023 12/27/2023 11:34 AM CDT COVID-19 Rule Out 12/27/2023 12/27/2023 12/29/2023 1:09 AM CDT Assessment Noted Time PHQ-9 Depression Total Score: 0 06/01/19 23 11:42 AM CDT documented as of this encounter Care Teams Train Driver Relationship Specialty Start Date End Date Fatemeh Lam FNP [address] [place] [address] PCP - General Nurse Practitioner Family 03/16/19 Suly [place] NP [facility] [place] [address] NURSE PRACTITIONER 03/16/19 documented as of this encounter
--- OUTSIDE RECORDS SUMMARY | 2024-06-20 15:31 | XMS_ITS | Encounter Summary ---
Author Organization [facility] Address [address] [place] [address] Care Team Providers Care Lift Truck Operator Name Role Phone Fatemeh Lam Primary Care Provider Suly Colorado FAN MAIL EDITOR Unavailable [phone] Encounter Details Date Type Department Care Team (Late st Contact Info) Description 08/24/2021 Cantargiat Message Enc [facility] Medical [facility] Family & Internal Medicine [facility] [address] [place] [address] Fatemeh Lam FNP [address] [place], [place] [id number] Urine culture Social History Tobacco Use Types Packs/Day Years [...] Sex Assigned at Female 04/09/2024 8:17 AM MEDICATION NURSE Legal Sex Female 6:09 PM CDT Gender Identity Female 08/08/2021 1:37 PM CDT Sexual Orientation Straight 08/08/2021 1: 37 PM CDT COVID-19 Exposure Response Date Recorded In the last 10 days, have [place] u been in contact with someone who was confirmed or suspected to have Coronavirus/COVID-19? No / Unsure 08/24/2021 12:03 PM CDT documented as of this encounter Progress Notes * KOTA Loa - 08/24/2021 10:53 AM CDT She is on the correct abx She can come in for rocephin injection 1 gram IM documented in this encounter Plan of Treatment Upcoming Encounters Date Type Department Care Team (Late st Contact Info) Description 06/25/2024 3:45 PM CDT Appointment [facility] [place] [address] Fatemeh Lam FNP [address] [place] [address] documented as of this encounter Visit Diagnoses Not on filedocumented in this encounter Additional Health Concerns Infection Onset Date Last Indicated Resolved Time COVID-19 Rule Out 02/07/2023 02/07/2023 02/07/2023 9:04 AM MEDICATION NURSE COVID-19 Rule Out 12/27/2023 12/27/2023 12/27/2023 11:34 AM CDT COVID-19 Rule Out 12/27/2023 12/27/2023 12/29/2023 1:09 AM CDT Assessment Noted Time PHQ-9 Depression Total Score: 4 09/13/19 21 9:12 AM CDT documented as of this encounter Care Teams Lift Truck Operator Relationship Specialty Start Date End Date Fatemeh Lam FNP [address] [place] [address] PCP - General Nurse Practitioner Family 03/16/19 Suly [place] NP [address] [place] [address] NURSE PRACTITIONER 03/16/19 documented as of this encounter
--- OUTSIDE RECORDS SUMMARY | 2024-06-20 15:31 | XMS_ITS | Encounter Summary ---
Author Organization [facility] Address [address] [place] [address] Care Team Providers Care Fish Salter Name Role Phone Fatemeh Lam Primary Care Provider Suly Colorado DIRECTOR OF COLLECTIONS AND ARCHIVES Unavailable [phone] Encounter Details Date Type Department Care Team (Late st Contact Info) Description 09/15/2021 Nu-Med Plust Message Enc [facility] Medical Group Family & Internal Medicine [facility] [address] [place] [address] Fatemeh Lam FNP [address] [place] [address] Sleep study Social History Tobacco Use Types Packs/Day Years [...] Sex Assigned at Female 04/09/2024 8:17 AM PIPE BUFFER Legal Sex Female 6:09 PM CDT Gender [...] encounter Progress Notes * KOTA Lao - 09/16/2021 7:29 AM CDT It is not us, it is her insurance company. We did send the letter, right? documented in this encounter Plan of Treatment Upcoming Encounters Date Type Department Care Team (Late st Contact Info) Description 06/25/2024 3:45 PM CDT Appointment [facility] [place] [address] Fatemeh Lam FNP [address] [place] [address] documented as of this encounter Visit Diagnoses Not on filedocumented in this encounter Additional Health Concerns Infection Onset Date Last Indicated Resolved Time COVID-19 Rule Out 02/07/2023 02/07/2023 02/07/2023 9:04 AM PIPE BUFFER COVID-19 Rule Out 12/27/2023 12/27/2023 12/27/2023 11:34 AM CDT COVID-19 Rule Out 12/27/2023 12/27/2023 12/29/2023 1:09 AM CDT Assessment Noted Time PHQ-9 Depression Total Score: 4 09/13/19 9:12 AM CDT documented as of this encounter Care Teams Fish Salter Relationship Specialty Start Date End Date Fatemeh Lam FNP [address] [place] [address] PCP - General Nurse Practitioner Family 03/16/19 uSly [place] NP [address] [place] [address] NURSE PRACTITIONER 03/16/19 documented as of this encounter
--- OUTSIDE RECORDS SUMMARY | 2024-06-20 15:31 | XMS_ITS | Encounter Summary ---
Author Organization [facility] Address [address] [place] [address] Care Team Providers Care Ocean Freight Forwarder Name Role Phone Fatemeh Lam Primary Care Provider [phone] Suly [place] ZOO KEEPER Unavailable [phone] Encounter Details Date Type Department Care Team (Late st Contact Info) Description 12/14/2021 PageStitcht Message Enc [facility] Medical Group Family & Internal Medicine [facility] [address] [place] [address] Fatemeh Lam FNP [address] [place] [address] [place] Social History Tobacco Use Types Packs/Day Years [...] Sex Assigned at Female 04/09/2024 8:17 AM AIR GRINDER Legal Sex Female 6:09 PM CDT Gender Identity Female 08/08/2021 1:37 PM CDT Sexual Orientation Straight 08/08/2021 1: 37 PM CDT documented as of this encounter Plan of Treatment Upcoming Encounters Date Type Department Care Team (Late st Contact Info) Description 06/25/2024 3:[address] [facility] [place] [address] Fatemeh Lam FNP [address] [place] [address] documented as of this encounter Visit Diagnoses Not on filedocumented in this encounter Additional Health Concerns Infection Onset Date Last Indicated Resolved Time COVID-19 Rule Out 02/07/2023 02/07/2023 02/07/2023 9:04 AM AIR GRINDER COVID-19 Rule Out 12/27/2023 12/27/2023 12/27/2023 11:34 AM CDT COVID-19 Rule Out 12/27/2023 12/27/2023 12/29/2023 1:09 AM CDT Assessment Noted Time PHQ-9 Depression Total Score: 4 09/13/19 9:12 AM CDT documented as of this encounter Care Teams Ocean Freight Forwarder Relationship Specialty Start Date End Date Fatemeh Lam FNP [address] [place] [address] PCP - General Nurse Practitioner Family 03/16/19 [facility]uly [place] [facility] [place] [address] NURSE PRACTITIONER 03/16/19 documented as of this encounter
--- OUTSIDE RECORDS SUMMARY | 2024-06-20 15:31 | XMS_ITS | Data Portability ---
Author Organization [facility] KVNGJoon [facility] Address [address] [place] [address] Care Team Providers Care Violin Maker Hand Name Role Phone LASHAE CASTRO Nodulizer [phone] Assessment No assessment recorded. Plan of Treatment Reminders Order Date Submit Date Provider Last Modified By Organization Details Last Modified Time Details Appointments None recorded. Lab test, urine 2017 018 [facility] In-Office Order, Internal Use Only DO Not Attach Compendium DO Not Attach Compendium, Do Not Delete/merge, [id number] 8 11:25:45 CMP, serum or plasma 2016 017 [facility], [address] [place] [address], [address], [place], [address], 7 10:13:16 lipid panel, serum 2016 017 [facility], [address] [place] [address], [facility] [address], [place], [address], 7 10:13:17 microalbum in/creatin ine, mass ratio, urine 2016 017 [facility], [address] [place] [address], [address], [place], [address], 7 10:13:17 Referral orthopedic referral - Please call patient to schedule appt. thank you 2016 017 mai Gann MD, 4 [facility] , [address], [address], 7 13:47:41 Procedures None recorded. Surgeries None recorded. Imaging None recorded. Medication Orders azithromyc in 250 mg tablet 2017 018 [facility] #[id number], [address], [place], [address], 8 12:19:11 Medrol (Deni) 4 mg tablets in a dose pack 2017 018 [facility]acy #[id number], [address], [place], [address], 8 12:28:15 fluticason e propionate 50 mcg/actuat ion nasal spray,susp ension 2017 018 [facility]/Pharmacy #[id number], [address] [place], [address], 8 12:09:13 ProAir HFA 90 mcg/actuat ion aerosol inhaler 2017 018 [facility]acy #[id number], [address] [place], [address], 8 10:33:40 Qvar RediHaler 40 mcg/actuat ion HFA breath activated aerosol 2017 018 [facility]/Pharmacy #[id number], [address] [place], [address], 8 12:18:31 montelukas t 10 mg tablet 2017 018 [facility]/Pharmacy #[id number], [address] [place], [address], 8 11:51:59 cyclobenza jamaal 10 mg tablet 2017 018 [facility]/Pharmacy #[id number], [address] [place], [address], 8 11:51:17 meloxicam 15 mg tablet 2017 018 [id number], [address], [place], [address], 8 11:51:47 pantoprazo le 40 mg tablet,del ayed release 2017 018 [id number], [address], [place], [address], 8 11:52:36 Sprintec (28) 0.25 mg-0.035 mg tablet 2017 018 [id number], [address] [place], [address], 8 12:09:45 lisinopril 10 mg-hydroch lorothiazi de 12.5 mg tablet 2017 018 [id number], [address] [place], [address], 8 12:09:26 Proventil HFA 90 mcg/actuat ion aerosol inhaler 2016 017 [id number], [address] [place], [address], 8 09:50:39 lisinopril 10 mg-hydroch lorothiazi de 12.5 mg tablet 2016 017 [id number], [address] [place], [address], 8 12:09:26 gabapentin 300 mg capsule 2016 017 [id number], [address] [place], [address], 7 10:17:23 Patient TargetsNo targets recorded. Patient Instructions Encounter Date Encounter Id Patient Instructions Last Modified By Organization Details Last Modified Time 05/18/2017 [id number] RTC 6 months eewig Not available 10:17:59 Fasting labs at next visit eewig Not available 05/18/2017 10:16:24 08/02/2017 [id number] start flonase, singulair, and qvar continue zyrtec return if using proair more than 2-3 times per week f/u at next appt [email or web address] Not available 08/02/2017 11:00:51 f/u asthma [email or web address] Not available 08/02 11:00:56 Reason for Referral Orthopedic Referral for Prol apsed lumbar intervertebral disc Please call patient to schedule appt. thank you Referring Physician: Sarah Montero, Family Medicine, Encounter Date: 01/24/2017 Results Created Date Observation Date Name Description Value Unit Range Abnormal Flag Note LastModifiedBy Organization Detail LastModifiedTime 01/25/20 17 01/25/2017 CMP, serum or plasm a glucose, serum 98 mg/dL 65-99 Not Available [facility] ([facility]) [address] [place], [address], 01/25/2017 10:13:16 01/25/20 17 01/25/2017 CMP, serum or plasm a BUN 17 mg/dL 6-20 Not Available [facility] ([facility]) [address] [place], [address], 01/25/2017 10:13:16 01/25/20 17 01/25/2017 CMP, serum or plasm a creatinine, serum 0.71 mg/dL 0.57-1 .00 Not Available [facility] ([facility]) [address] [place], [address], 01/25/2017 10:13:16 01/25/20 17 01/25/2017 CMP, serum or plasm a BUN/creatini ne ratio 24 9-23 above high normal Not Available [facility] ([facility]) [address] [place], [address], 01/25/2017 10:13:16 01/25/20 17 01/25/2017 CMP, serum or plasm a sodium, serum 139 mmol/ L 134-14 4 Not Available [facility] ([facility]) [address] [place] [address], [address], 01/25/2017 10:13:16 01/25/20 17 01/25/2017 CMP, serum or plasm a potassium, serum 5.0 mmol/ L 3.5-5. 2 Not Available [facility] ([facility]) [address] [place] [address], [address], 01/25/2017 10:13:16 01/25/20 17 01/25/2017 CMP, serum or plasm a chloride, serum 97 mmol/ L 96-106 Not Available [facility] ([facility]) [address] [place] [address], [address], 01/25/2017 10:13:16 01/25/20 17 01/25/2017 CMP, serum or plasm a carbon dioxide, total 22 mmol/ L 18-29 Not Available [facility] ([facility]) [address] [place] [address], [address], 01/25/2017 10:13:16 01/25/20 17 01/25/2017 CMP, serum or plasm a calcium, serum 9.8 mg/dL 8.7-10 .2 Not Available [facility] ([facility]) [address] [place] [address], [address], 01/25/2017 10:13:16 01/25/20 17 01/25/2017 CMP, serum or plasm a protein, total, serum 7.9 g/dL 6.0-8. 5 Not Available [facility] ([facility]) [address] [place] [address], [address], 01/25/2017 10:13:16 01/25/20 17 01/25/2017 CMP, serum or plasm a albumin, serum 4.8 g/dL 3.5-5. 5 Not Available [facility] ([facility]) [address] [facility] [place], [address], 01/25/2017 10:13:16 01/25/20 17 01/25/2017 CMP, serum or plasm a globulin, total 3.1 g/dL 1.5-4. 5 Not Available [facility] ([facility]) [address] [facility] [place], [address], 01/25/2017 10:13:16 01/25/20 17 01/25/2017 CMP, serum or plasm a A/G ratio 1.5 1.2-2. 2 Not Available [facility] ([facility]) [address] [facility] [place], [address], 01/25/2017 10:13:16 01/25/20 17 01/25/2017 CMP, serum or plasm a bilirubin, total 0.2 mg/dL 0.0-1. 2 Not Available [facility] ([facility]) [address] [facility] [place], [address], 01/25/2017 10:13:16 01/25/20 17 01/25/2017 CMP, serum or plasm a alkaline phosphatase, S 103 IU/L 39-117 Not Available [facility] ([facility]) [address] [facility] [place], [address], 01/25/2017 10:13:16 01/25/20 17 01/25/2017 CMP, serum or plasm a AST (SGOT) 17 IU/L 0-40 Not Available [facility] ([facility]) [address] [facility] [place], [address], 01/25/2017 10:13:16 01/25/20 17 01/25/2017 CMP, serum or plasm a ALT (SGPT) 21 IU/L 0-32 Not Available [facility] ([facility]) [address] [place], [address], 01/25/2017 10:13:16 01/25/20 17 01/25/2017 lipid panel , serum cholesterol, total 250 mg/dL 100-19 9 above high normal Not Available [facility] ([facility]) [address] [facility], [place], [address], 01/25/2017 10:13:17 01/25/20 17 01/25/2017 lipid panel , serum triglyceride s 171 mg/dL 0-149 above high normal Not Available [facility] ([facility]) [address] [facility], [place], [address], 01/25/2017 10:13:17 01/25/20 17 01/25/2017 lipid panel , serum HDL cholesterol 49 mg/dL >39 Not Available [facility] ([facility]) [address] [facility], [place], [address], 01/25/2017 10:13:17 01/25/20 17 01/25/2017 lipid panel , serum VLDL cholesterol abby 34 mg/dL 5-40 Not Available [facility] ([facility]) [address] [facility], [place], [address], 01/25/2017 10:13:17 01/25/20 17 01/25/2017 lipid panel , serum LDL cholesterol calc 167 mg/dL 0-99 above high normal Not Available [facility] ([facility]) [address] [facility], [place], [address], 01/25/2017 10:13:17 01/25/20 17 01/25/2017 lipid panel , serum comment: [employer] Not Available [facility] ([facility]) [address] [facility], [place], [address], 01/25/2017 10:13:17 01/25/20 17 01/25/2017 lipid panel , serum T. chol/HDL ratio 5.1 ratio _unit s 0.0-4. 4 above high normal T. Chol/ HDL Ratio Men Women 1/2 Avg.R isk 3.4 3.3 Avg.R isk 5.0 4.4 2X Avg.R isk 9.6 7.1 3X Avg.R isk 23.4 11.0 Not Available [facility] ([facility]) [address] [facility], [place], [address], 01/25/2017 10:13:17 01/25/20 17 01/25/2017 micro album in/cr eatin ine, mass ratio , urine creatinine, urine 73.9 mg/dL not estab. Not Available [facility] ([facility]) [address] [place] [address], [place], [address], 01/25/2017 10:13:17 01/25/20 17 01/25/2017 micro album in/cr eatin ine, mass ratio , urine microalbumin , urine 3.6 ug/mL not estab. Not Available [facility] ([facility]) [address] [place] [address], [place], [address], 01/25/2017 10:13:17 01/25/20 17 01/25/2017 micro album in/cr eatin ine, mass ratio , urine microalb/cre at ratio 4.9 mg/g_ creat 0.0-30 .0 Not Available [facility] ([facility]) [address] [place] [address], [place], [address], 01/25/2017 10:13:17 05/21/19 18 05/20/2017 pregn jessie test, urine HCG negati ve Not Available In-Office Order Internal Use Only DO Not Attach Compendium DO Not Attach Compendium, Do Not Delete/merge, [id number] 05/18/2017 09:53:13 03/25/19 17 03/22/2016 XR, lumba r spine No observ ation record ed. BARCODE Not Available 2016 17:18:23 03/26/19 17 XR, lumba r spine No observ ation record ed. [email or web address] Not Available 2016 12:02:53 04/01/19 17 04/01/2016 MRI, lumba r spine , w/o contr ast No observ ation record ed. [email or web address] [facility] [address] [place], [address], 04/06/2016 11:53:46 04/13/19 17 04/12/2016 CT, abdom en + pelvi s, w/o contr ast No observ ation record ed. [facility] (Imaging) [address] [place], [address], 04/13/2016 14:05:12 01/22/20 17 01/21/2017 XR, lumba r spine No observ ation record ed. [facility] (Imaging) [address] [place], [address], 01/24/2017 10:14:46 Result Notes None recorded. Problems Name Problem SNOMED Code Status Onset Date Resolution Date Notes Provider Name and Address Organization Details Recorded Time Colitis 39157570 Active 2016 Sarah Montero PA-C Attn: Accounting ,[address] [place], [address] , [facility] 8 09:50:59 Body mass index 30+ - obesity 334470984 Active 2017 Sarah Montero PA-C Attn: Accounting ,[address] [place], [address] , [facility] 8 09:54:40 Gastroesophag eal reflux disease without esophagitis 997409253 Active 2017 Sarah Montero PA-C Attn: Accounting ,[address] [place], [address] , [place] [facility] 8 09:54:53 Family planning surveillance Active 2017 Sarah Montero PA-C Attn: Accounting ,[address] [place], [address] , [place] [facility] 8 10:03:16 Obesity 527714118 Active Sarah Montero PA-C Attn: Accounting ,[address] [place], [address] , [place] [facility] 8 09:50:59 Gastroesophag eal reflux disease 800861270 Active Sarah Montero PA-C Attn: Accounting ,[address] [place], [address] , [place] [facility] 8 09:50:59 Allergic disposition 593937622 Active Sarah Montero PA-C Attn: Accounting ,[address] [place], [address] , [place] [facility] 8 09:50:59 Laceration of finger 082885747 Active Sarah Montero PA-C Attn: Accounting ,[address] [place], [address] , [place] [facility] 8 09:50:59 Hyperlipidemi a 85100723 Active Sarah Montero PA-C Attn: Accounting ,[address] [place], [address] , [place] [facility] 8 09:50:59 Essential hypertension 66095586 Active 2016 Sarah Montero PA-C Attn: Accounting ,[address] [place], [address] , [place] [facility] 8 09:50:59 Pain radiating to right leg 800506960 Active 2016 Sarah Montero PA-C Attn: Accounting ,[address] [place], [address] , [place] [facility] 8 09:50:59 Prolapsed lumbar intervertebra l disc 327119724 Active 2016 Sarah Montero PA-C Attn: Accounting ,[address] [place], [address] , [place] [facility] 8 09:50:59 Tachycardia 8382739 Active 2016 Sarah Montero PA-C Attn: Accounting ,[address] [place], [address] , [place] [facility] 8 09:50:59 Pigmented skin lesion 018666024 Active 2016 Sarah Montero PA-C Attn: Accounting ,[address] , [place], [address] , [facility] 8 09:50:59 Problem Notes None recorded. Procedures Surgical History Date Name Laterality Status Provider Name and Address Organization Details Recorded Time 05/11/19 14 Cholecystectomy completed Sarah Montero PA-C Attn: Accounting, [address] , [place], [address], [facility] 08/12/2015 10:37:36 Imaging Results Imaging Date Name Status LastModified by Organiz ation Details LastModified Time 03/22/2016 XR, lumbar spine completed BARCODE Information not available 03/25/2016 17:18:23 03/26/2016 XR, lumbar spine completed wig Information not available 03/26/2016 12:02:53 04/01/2016 MRI, lumbar spine, w/o contrast completed [address] [place], [address], 04/06/2016 11:53:46 04/12/2016 CT, abdomen + pelvis, w/o contrast completed [facility] ([facility]) [address] [place], [address], 04/13/2016 14:05:12 01/21/2017 XR, lumbar spine completed [facility] ([facility]) [address] [place], [address], 01/24/2017 10:14:46 Procedure Notes None recorded. Medical Equipment None Reported. Allergies Allergen ID Allergen Name Allergen Category Reaction Reaction Severity Criticality Documentation Date Start Date Code Code System Note Provider Name and Address Organization Details Recorded Time 13832 etodolac medicatio n rash Not available Not available 08/12/2015 21913 RxNorm Not Available Not Available Not Available Medications Name Sig Start Date Stop Date Status Note LastModified by Organization Details LastModified Time cyclobenzap rine 10 mg tablet Take 1 tablet twice a day by oral route as needed for 5 days. 02/22 completed Not Available Not Available Not Available methocarbam ol 500 mg tablet active Not Available Not Available Not Available buspirone 5 mg tablet active Not Available Not Available No t Available prednisone 10 mg tablet active Not Available Not Available Not Available cetirizine 10 mg tablet TAKE 1 TABLET(S) EVERY DAY BY ORAL ROUTE. 02/22 completed OTC Not Available Not Available Not Available azithromyci n 250 mg tablet TAKE 2 TABLETS (500 MG) BY ORAL ROUTE ONCE DAILY FOR 1 DAY THEN 1 TABLET (250 MG) BY ORAL ROUTE ONCE DAILY FOR 4 DAYS 2017 active Not Available Not Available Not Avai lable ibuprofen 800 mg tablet TAKE 1 TABLET BY MOUTH 3 TIMES DAILY NEEDED WITH FOOD active Not Available Not Available No t Available fluconazole 150 mg tablet active Not Available Not Available Not Available hydrocodone 5 mg-acetamin ophen 325 mg tablet Take 1 tablet twice a day by oral route for 10 days. 01/24 completed Not Available Not Available Not Available meloxicam 15 mg tablet Take 1 tablet every day by oral route. 02/22 completed Not Available Not Available Not Available promethazin e 12.5 mg tablet 02/22 completed Not Available Not Available Not Available ondansetron HCl 4 mg tablet active Not Available Not Available Not Available Medrol (Deni) 4 mg tablets in a dose pack Take as prescribe d on package 2017 active Not Available Not Available Not Avai lable prednisone 20 mg tablet 03/30 completed Not Available Not Available Not Available acetaminoph en 300 mg-codeine 30 mg tablet active Not Available Not Available Not Available tramadol 50 mg tablet 02/22 completed Not Available Not Available Not Available meloxicam 7.5 mg tablet active Not Available Not Available Not Available oxycodone-a cetaminophe n 5 mg-325 mg tablet 02/22 completed Not Available Not Available Not Available amoxicillin 875 mg tablet 02/22 completed Not Available Not Available Not Available citalopram 20 mg tablet Take 1 tablet every day by oral route. active Not Available Not Available No t Available pantoprazol e 40 mg tablet,trinidad yed release Take 1 tablet every day by oral route. 02/22 completed Not Available Not Available Not Available ranitidine 150 mg tablet TAKE 1 TABLET(S) TWICE A DAY BY ORAL ROUTE. 01/24 completed Not Available Not Available Not Available lisinopril 10 mg tablet Take 1 tablet every day by oral route. 01/24 completed Not Available Not Available Not Available polymyxin B sulfate 10,000 unit-trimet hoprim 1 mg/mL eye drops 02/22 completed Not Available Not Available Not Available gabapentin 300 mg capsule Take 1 capsule twice a day by oral route as needed. 01/24 completed Not Available Not Available Not Available montelukast 10 mg tablet Take 1 tablet every day by oral route. 02/22 completed Not Available Not Available Not Available ergocalcife rol (vitamin D2) 1,250 mcg (50,000 unit) capsule active Not Available Not Available Not Available lisinopril 10 mg-hydrochl orothiazide 12.5 mg tablet Take 1 tablet every day by oral route. 02/22 completed Not Available Not Available Not Available ibuprofen 600 mg tablet 02/22 completed Not Available Not Available Not Available labetalol 100 mg tablet Take 1 tablet twice a day by oral route. active Not Available Not Available No t Available ondansetron 4 mg disintegrat ing tablet 02/22 completed Not Available Not Available Not Available fluticasone propionate 50 mcg/actuati on nasal spray,suspe nsion SPRAY 2 SPRAY BY INTRANASA L ROUTE EVERY DAY IN EACH NOSTRIL 02/22 completed Not Available Not Available Not Available metoclopram gunnar 10 mg tablet 02/22 completed Not Available Not Available Not Available Ventolin HFA 90 mcg/actuati on aerosol inhaler Inhale 2 puffs every 4 hours by inhalatio n route as needed. active Not Available Not Available No t Available Sprintec (28) 0.25 mg-0.035 mg tablet Take 1 tablet every day by oral route. 02/22 completed Not Available Not Available Not Available Zyrtec 10 mg capsule Take 10 mg by oral route. 05/18 completed Not Available Not Available Not Available Multi For Her 02/22 completed OTC Not Available Not Available Not Available CAR SPOTTER-PNV-DHA 28 mg iron-1 mg-200 mg capsule active Not Available Not Available Not Available Qvar RediHaler 40 mcg/actuati on HFA breath activated aerosol Inhale 2 puffs twice a day by inhalatio n route. 02/22 completed Not Available Not Available Not Available Vitals Date Recorded Body height Body mass index (BMI) Body weight Oxygen saturation Oxygen saturation in Arterial blood by Pulse oximetry Heart rate Respiratory rate Body temperature Systolic blood pressure Diastolic blood pressure Provider Name and Address Organization Details Last Updated DateTime 8 173.99 cm 39.8 kg/m2 308285. 78 g 98 % 98 % 117 /min 18 /min 99 [degF] 126 mm[Hg] 82 mm[Hg] Kristina Christina MA [facility] 8 09:39:19 Date Recorded Body height Body mass index (BMI) Body weight Oxygen saturation Oxygen saturation in Arterial blood by Pulse oximetry Heart rate Body temperature Systolic blood pressure Diastolic blood pressure Provider Name and Address Organization Details Last Updated DateTime 8 173.99 cm 39.6 kg/m2 820354. 39 g 99 % 99 % 102 /min 98.1 [degF] 116 mm[Hg] 80 mm[Hg] Anitra Roth MA [facility] 8 10:26:15 Date Recorded Body height Body mass index (BMI) Body weight Oxygen saturation Oxygen saturation in Arterial blood by Pulse oximetry Heart rate Body temperature Systolic blood pressure Diastolic blood pressure Provider Name and Address Organization Details Last Updated DateTime 8 173.99 cm 38.6 kg/m2 684986. 04 g 99 % 99 % 121 /min 98.4 [degF] 126 mm[Hg] 80 mm[Hg] Anitra Roth MA [facility] 8 12:08:26 Date Recorded Body height Body weight Body mass index (BMI) Oxygen saturation Oxygen saturation in Arterial blood by Pulse oximetry Heart rate Respiratory rate Body temperature Systolic blood pressure Diastolic blood pressure Provider Name and Address Organization Details Last Updated DateTime 7 173.99 cm 804634. 04 g 38.6 kg/m2 100 % 100 % 98 /min 80 /min 98.6 [degF] 126 mm[Hg] 80 mm[Hg] Sumaya Matamoros [facility] 7 10:44:15 Date Recorded Body height Body mass index (BMI) Body weight Oxygen saturation Oxygen saturation in Arterial blood by Pulse oximetry Heart rate Respiratory rate Body temperature Systolic blood pressure Diastolic blood pressure Provider Name and Address Organization Details Last Updated DateTime 7 173.99 cm 39.9 kg/m2 372067. 29 g 97 % 97 % 116 /min 16 /min 98 [degF] 120 mm[Hg] 90 mm[Hg] Tara Patel [facility] 7 09:57:16 Date Recorded Systolic blood pressure Diastolic blood pressure Provider Name and Address Organization Details Last Updated DateTime 01/24/2017 124 mm[Hg] 84 mm[Hg] Sarah Montero PA-C Attn: Accounting,[address] [place], [address] 01/24/2017 10:21:14 Social History Question Answer Notes LastModified by Organizat ion Details LastModified Time Tobacco Smoking Status Never Smoker Sarah Montero PA-C Attn: Accounting,[address] [place], [address] 08/12/2015 10:33:30 What Is Your Level Of Alcohol Consumption? Occasional Beer Information not available 08/12/2015 What Is Your Level Of Caffeine Consumption? None Information not available 08/12/2015 How Much Tobacco Do You Chew? None Information not available 08/12/2015 Are You Currently Employed? Yes Information not available 08/12/2015 What Type Of Diet Are You Following? REGULAR Information not available 08/12/2015 Which Illicit Or Recreational Drugs Have You Used? 0 Information not available 08/12/2015 Education 12 Information no t available 08/12/2015 Hard Of Hearing Or Deaf In One Or Both Ears? No Information not available 08/12/2015 Legally Blind In One Or Both Eyes? No Information not available 08/12/2015 Live Alone Or With Others? With Others , Mother, Child Information not available 08/12/2015 What Was The Date Of Your Most Recent Tobacco Screening? 05/18/2017 Information not available 10/12/2018 How Many Children Do You Have? 1 Information not available 08/12/2015 Do You Use Protection During Sex? No Information not available 08/12/2015 Seat Belts Used Routinely Yes Information not available 08/12/2015 Are You Sexually Active? Yes Information not available 08/12/2015 Smoke Alarm In Home Yes Information not available 08/12/2015 Are You Passively Exposed To Smoke? Yes And Mother Smoke Outside Of Home Information not available 08/12/2015 How Much Tobacco Do You Smoke? No Information not available 04/08/2016 General Stress Level Medium Information not available 08/12/2015 Sex: Unknown Functional Status Question Answer Note LastModified by Organization D etails LastModified Time What is your exercise level? Moderate Information not available 08/12/2015 Mental Status None recorded. Family History Relationship Description Onset Age of this Age Resolved Age Notes LastModified by Organization Details LastModified Time Mother Essential hypertension Not available 14:29:20 Mother Hyperlipidem ia Not available 2015 14:29:20 Mother Asthma Not available 08/12/2015 14:29:20 Father Diabetes mellitus Not available 2015 14:29:20 Father Alcohol abuse Not available 2015 14:29:20 Paternal Grandfather Leukemia 62 62 eewig Not available 08/11 10:34:16 Sister Asthma Not available 08/12/2015 14:29:20 Medical History Condition Response Coronary Artery Disease N Other N Atrial Fibrillation N High Blood Pressure N Kidney or Bladder Problems N Thyroid Problems N GI Problems N Depression N COPD N Blood Clots N Skin Problems Y Anemia N Heart Attack (GA) N Anxiety Disorder Y Diabetes N Muscle, Joint, or Bone Problems N Seizures/Epilepsy N Acid Reflux (GERD) Y Cancer N Stroke N Asthma Y Allergies Y High Cholesterol N Hepatitis N Liver Disease N Headaches N Heart Failure N Osteoporosis N Gynecological History Statement/Question Response Flow Moderate Date of LMP 10/17/2017 Frequency of Cycle (Q days) 28 Menses Monthly Y Duration of Flow (days) 4 Age at Menarche 16 Current Control Method BCPs Age at First Child 29 LMP Definite Obstetrics History GPAL:G 0 P 0 0 0 0 Immunizations Vaccine Type Date Status Note Provider Nam e and Address Organization Details Recorded Time influenza, unspecified formulation 5 completed Sarah Montero PA-C Attn: Accounting,[address] [facility], [place], [address], [facility] 05/18/2017 09:51:06 Tdap 5 completed Sarah Montero PA-C Attn: Accounting,[address] [place], [address], [facility] 05/18/2017 09:51:06 Influenza, split virus, quadrivalent, preservative 7 completed Sarah Montero PA-C Attn: Accounting[address] [place], [address], [facility] 05/18/2017 09:51:06 Past Encounters Encounter ID Performer Location Encounter Start Date Encounter Closed Date Diagnosis/Indication Diagnosis SNOMED-CT Code Diagnosis ICD10 Code Diagnosis Note [id number] JAYA Vivar (Adult Med) [address] [place] [address] 17228-253 0 08/12/2015 09:49:05 08/12/2015 10:46:49 Obesity 983869810 E66.9 Advised to get 150 minutes of exercise daily Advised to not drink calories She has a gym membership so encouraged to keep up going to the gym 4-5 days/week Advised to download the [employer] Torin in order to track her calories. [facility] 094421116 Z00.01 30YO female here to establish care. She is here to f/u on going to [place] [facility] for diarrhea. Gastroesop hageal reflux disease 705126465 K21.9 Allergic disposition 609 578137 Z91.09 [id number] JAYA Vivar (Adult Med) [address] [place] [address] 51896-005 0 09/04/2015 08:59:40 09/04/2015 10:43:49 Laceration of finger 143203385 S61.215A ER f/u Bandaid with Neosporin applied to laceration Advised to keep clean and keep open to air as much as possible when not work Advised that if it becomes erythemato us, warm, pain, begins to drain RTC RTC as needed [id number] JAYA Vivar (Adult Med) [address] [place] [address] [id number] 0 03/25/2016 13:47:35 03/25/2016 14:30:53 Obesity 715591278 E66.9 Will readdress at next visit Essential hypertension 17409498 I10 has a cuff at homestates that it is running 145/90will initiate lisinopril 10mg QD d/t her numbers in the recent monthsAdvi sed low salt dietPartia lly elevated as well d/t radiating right leg pain Pain radia ting to right leg 802242490 M79.604 no MOA - woke up 4 days ago with excruciati ng pain radiating down posterior right leg to right calfWill begin meloxicam 15mg QD - advised to stop motrin at this timefinish prednisone advise to walkcontin ue with icing ever 1.5 hoursTake Isabella as prescribed prior to bedtimeWil l begin with MRI and possibly PT - advised to contact insurance to see where she can complete MRIRTC in 4 days with and for FMLA paperwork Will determine tx course based on MRI results [id number] JAYA Vivar (Adult Med) [address] [place] [address] [id number] 0 03/30/2016 11:57:36 03/30/2016 12:43:30 Essential hypertension 75967894 I10 138/72 - WNL - c/w lisinopirl 10mghas a cuff at homestates that it is running 145/90will initiate lisinopril 10mg QD d/t her numbers in the recent monthsAdvi sed low salt dietPartia lly elevated as well d/t radiating right leg pain Pain radia ting to right leg 555880050 M79.604 MRI scheduled for tomorrowAd vised to RTC with FMLA paperworka dvise to walkcontin ue with icing ever 1.5 hoursTake Isabella as prescribed PRN Will determine tx course based on MRI resultsPat ient saw chiropract or 3 times last week with minimal relief Obesity 781337799 E66.9 Will readdress at next visit once back pain has improved [id number] JAYA Vivar [facility] (Adult Med) [address] [place] [address] [id number] 0 04/08/2016 10:30:23 04/08/2016 11:11:31 Pain radiating to right leg 059544368 M79.604 Completed FMLA paperworkC ontinue with icing ever 1.5 hoursTake Isabella as prescribed PRN Given number for Dr. Spencer's office for neurosurge ry referral Advised taht she needs to see neurosurge ry prior to determinin g when she can return to work because they need to decide the course of treatment that is appropriat e for her since she is standing all day at work Obesity 853116251 E66.9 Will readdress at next visit once back pain has improved [id number] JAYA Vivar (Peds) [address] [place] [id number] 0 01/24/2017 09:41:49 01/25/2017 09:06:13 Prolapsed lumbar intervertebral disc 906182026 M51.26 Will refer to ortho at this timec/w methocarba mol and meloxicam out of Urgent Care Patient is tachycardi ac at appointmen t - will follow but likely 2/2 back pain Essential hypertension 53489909 I10 124/84 - WNL - will change back to lisinopil 10mg and add on HCTZ 12.5mg d/t swellingha s a cuff at homeAdvise d goal is <140/90 Advised that ESTHELA-I can cause defects - patient to restart OCPs Advised low salt diet Partially elevated as well d/t radiating right leg pain Obesity 075807316 E66.9 Advised 30 minutes of exercise 5 days/week Advised to not drink her calories Advised 3 balanced meals/day with plenty of fruits and vegetables Allergic disposition 609 964495 Z91.09 Hyperlipidemia 67533935 E78.5 Will reheck labs today Tachycardia 9276414 R00. 0 Pulse 116Likely 2/2 low back painWill readdress at next visit [id number] JAYA Vivar (Adult Med) [address] [place] [address] [phone] 0 05/18/2017 09:17:27 05/18/2017 10:45:02 Essential hypertension 81790391 I10 128/82 - c/w lisinopil 10mg and add on HCTZ 12.5mg d/t swellingha s a cuff at homeAdvise d goal is <140/90 Advised that ESTHELA-I can cause defects - patient to restart OCPs Advised low salt diet Partially elevated as well d/t radiating right leg pain Family agnes nning surveillance 238904294 Z30.09 Body mass index 30+ - obesity 732770732 Z68.39 Advised 30 minutes of exercise 5 days/week Advised to not drink her calories Advised 3 balanced meals/day with plenty of fruits and vegetables Gastroesop hageal reflux disease without esophagitis 832673082 K21.9 Advised to stay away from spicy and greasy foodsAdvis ed to stay away from fatty foodsDo not eat within 2 hours of going to bedStay sitting up after mealsNo smoking Prolapsed lumbar intervertebral disc 918120920 M51.26 Patient reschedule d at neurosurge ry Patient is tachycardi ac at [facility] t - will follow but likely 2/2 anxiety Patient advised NSAIDs can increase the likelihood of cardiovasc ular events Strain of neck muscle 36 0619696 S16.1XXA Will initiate muscle relaxer PRN [id number] FELIX PRASADC Kristan (Adult Med) [address] [place] [address] [phone] 0 08/02/2017 10:11:24 08/02/2017 10:39:02 Mild intermittent asthma 596008031 J45.20 asthma triggered by allergiesl ungs CTA today start Qvar redihaler 2 puffs BIDstart singulair dailystart flonase 2 sprays dailyconti nue zyrtec-dis cussed possibly increasing to BIDfollow up if not improving in 2-3 days on new medicinesf /u on asthma at next visit [id number] JAYA Vivar (Adult Med) [address] [place] [address] [phone] 0 02/22/2018 11:49:23 02/22/2018 12:29:05 Acute bronchitis 16698233 J20.9 Take abx and steroid pack as prescribed - I consulted Dr. Ellis as to these medication s being ok during and she advised they are safeAdvise d to drink plenty of watertylen ol for painRestif sx's worsen, you develop SOB, CP please go directly to the ER f/u with OBGYN for any furthering of issues Mild inter mittent asthma 622557073 J45.20 29750613 Z33.1 18 weeks at this time - followed by OBGYN Health Concerns Section Related Observation LastModified by Organization Detai ls LastModified Time None Recorded Concern Status LastModified by Organization Details LastModified Time None Recorded Advance Directives Directive None Recorded Payers Encounter Date Sequence Insurance Name Policy Number Policy Stone Covered Member ID Stone Member ID Guarantor Name 04/08/2016 1 [facility] [id number] Ute Childs [id number] Ute Childs 01/24/2017 1 [facility] [id number] Ute Childs [id number] Ute Childs 05/18/2017 1 [facility] [id number] Ute Childs [id number] Ute Childs 08/02/2017 1 [facility] [id number] Ute Childs [id number] Ute Childs 02/22/2018 1 [facility] [id number] Ute Childs [id number] Ute Childs Notes Date Note Type Note Provider Name and Address Organization Details Recorded Time 7 text/html Back PainReported bypatient.Location:pain radiating to the legs(right posterior leg to posterior calf); states that there is a lot of tingling Quality:sharp Severity:pain level 10/10(at its worst);moderate (5-7)(right now);interference with sleep Alleviating Factors:chiropractor seems to be helping PT didn't help Aggravating Factors:movement/positio phillip Associated Symptoms:no fever; no weak limbs; no numbness of the legs/feet; no tingling; no incontinence; no shortness of breathNotes:States that her leg pain is improving when she sits still - has people helping her with taking care of her son - she is not lifting anything at this time or bending overSaw chiropractor 3 times last weekNorco 2 tabs prior to bed to be able to sleep PRN Has not yet heard from neurosurgery Here for FMLA paperwork Sarah Montero PA-C Attn: Accounting,[address] [facility] , [place], [address], [place] [facility] 04/08/2016 11:11:19 7 text/html Back PainReported bypatient.Location:pain radiating to the legs(right posterior leg to posterior calf); states that there is a lot of tingling Quality:sharp Severity:pain level 10/10(at its worst);moderate (5-7)(right now);interference with sleep Alleviating Factors:acupuncture seemed to be helping PT didn't help Aggravating Factors:movement/positio phillip Associated Symptoms:no fever; no weak limbs; no numbness of the legs/feet; no tingling; no incontinence; no shortness of breathNotes:She is currently on methocarbamol and meloxicam from Urgent careHypertension F/UReported bypatient.Associated Symptoms:no dizziness; no lightheadedness; no chest pain; no shortness of breath; no palpitations; no edema; no calf pain with exertion Lifestyle:regular exercise;high salt intake Medications:taking medications as directed; no side effects from medicationNotes:labetalo l 100mg BID by Dr. Kaiser 31YO obese Cuacasian female present c/o worsening chronic low back pain and Urgent care f/u x 3 days. She has the xray from Urgent care here in office. States that this last year she went to the [facility] for her back pain and they did a laminectomy and she was doing well and had been recently doing acupuncture for her back pain and was feeling great but then last week out of the blue her back pain returned with a vengeance like it had one year ago and she feels like she is back where she started.She states that this time instead of the pain radiating down the later side of her right leg, it is radiating down the posterior aspect of her right leg. Patient states that she and her were talking about trying to get , so her OBGYN, Dr. Kaiser had put on her labetalol 100mb BID; however, she liked the lisinopril better and now with her back pain is nowhere on her radar and she would like to restart the lisinopril and is going to contact Dr. Kaiser to restart OCPs. Sarah oMntero PA-C Attn: Accounting,[address] [facility], [place], [address], [place] [facility] 01/24/2017 15:05:31 8 text/html Back PainReported bypatient.Location:pain radiating to the legs(right posterior leg to posterior calf); states that there is a lot of tingling Quality:sharp Severity:moderate (5-7);interference with sleep Duration:chronic Context:trauma; overuse Alleviating Factors:rest; acupuncture seemed to be helping PT didn't help Aggravating Factors:movement/positio phillip Associated Symptoms:no fever; no weak limbs; no numbness of the legs/feet; no tingling; no incontinence; no shortness of breathNotes:Was supposed to have a neurosurgery appointment today but it was cancelled and rescheduledIs requesting a refill of the meloxicam 15mgStates that she and her brother recently redid all of the floors in her house and her neck is extremely painful and stiff and feels she needs a muscle relaxer. States that she is having trouble turning her neck from one side to anotherHypertension F/UReported bypatient.Associated Symptoms:no dizziness; no lightheadedness; no chest pain; no shortness of breath; no palpitations; no edema; no calf pain with exertion Lifestyle:regular exercise;high salt intake Medications:taking medications as directed; no side effects from medicationNotes:lisinopr il 10mg/HCTZ 12.5mg 31YO obese female presents for medication refill. Sarah Montero PA-C Attn: Accounting,[address] [facility], [place], [address], [place] [facility] 05/18/2017 10:18:38 8 text/html pt presents for asthma issuesstates has had asthma since childhood and is always worse during spring allergies taking zyrtec daily, sometimes 12 hour sudafedhas also used benadryl at bedtimehas used steroid nasal spray, qvar, and asmanex in the pastcurrently using proair 2-4 times per day for last 2 weeksreports sx of coughing, sob, wheezing, chest tightnesssx relieved by proair inhalerno ED or visits for asthma DINA PRASAD Attn: Accounting,[address] [place], [address], [facility] 08/02/2017 11:01:10 8 text/html Upper Respiratory SymptomsReported bypatient.Location:chest Quality:congested;hackin g cough Severity:mild Duration:2 days Context:no foreign travel; non-smoker;sick contact(son sick with bronchitis and double ear infection) Associated Symptoms:no wheezing; no change in number of pillows needed to sleep at night; no sweats; no fever; no significant weight gain; no significant weight loss; no morning cough; no vomiting; no diarrhea; no rash;yellow sputum;shortness of breath;fatigue;sore throat;nausea(from ) Sarah Montero PA-C Attn: Accounting,[address] [place], [address], [facility] 02/22/2018 12:38:16 OBGyn Episode No OBEpisode recorded.
--- OUTSIDE RECORDS SUMMARY | 2024-06-20 15:31 | XMS_ITS | Encounter Summary ---
Author Organization [facility] Address [address] [place] [address] Care Team Providers Care Training Developer Name Role Phone Fatemeh Lam Primary Care Provider Suly Colorado MACHINE BOOKKEEPER Unavailable [phone] Encounter Details Date Type Department Care Team (Late st Contact Info) Description 08/19/2021 swabrt Message Enc [facility] Family & Internal Medicine [facility] [address] [place] [address] Fatemeh Lam FNP [address] [place] [address] Uti Social History Tobacco Use Types Packs/Day Years [...] Sex Assigned at Female 04/09/2024 8:17 AM EMERGENCY VEHICLE DRIVER Legal Sex Female 6:09 PM CDT Gender Identity Female 08/08/2021 1:37 PM CDT Sexual Orientation Straight 08/08/2021 1: 37 PM CDT COVID-19 Exposure Response Date Recorded In the last 10 days, have yo u been in contact with someone who was confirmed or suspected to have Coronavirus/COVID-19? No / Unsure 08/20/2021 8:08 AM CDT documented as of this encounter Progress Notes * Nayely Babb MA - 08/21/2021 7:52 AM CDT You already addressed this in a result note. * KOTA Lao - 08/21/2021 7:28 AM CDT Was there suppose to be something attached to this? documented in this encounter Plan of Treatment Upcoming Encounters Date Type Department Care Team (Late st Contact Info) Description 06/25/2024 3:45 PM CDT Appointment [facility] [place] [address] Fatemeh Lam FNP [address] [place] [address] documented as of this encounter Visit Diagnoses Not on filedocumented in this encounter Additional Health Concerns Infection Onset Date Last Indicated Resolved Time COVID-19 Rule Out 02/07/2023 02/07/2023 02/07/2023 9:04 AM EMERGENCY VEHICLE DRIVER COVID-19 Rule Out 12/27/2023 12/27/2023 12/27/2023 11:34 AM CDT COVID-19 Rule Out 12/27/2023 12/27/2023 12/29/2023 1:09 AM CDT Assessment Noted Time PHQ-9 Depression Total Score: 4 09/13/19 9:12 AM CDT documented as of this encounter Care Teams Training Developer Relationship Specialty Start Date End Date Fatemeh Lam FNP [address] [place] [address] PCP - General Nurse Practitioner Family 03/16/19 Suly [place] NP [facility] [place] [address] NURSE PRACTITIONER 03/16/19 documented as of this encounter
--- OUTSIDE RECORDS SUMMARY | 2024-06-20 15:31 | XMS_ITS | Encounter Summary ---
Author Organization [facility] Address [address] [place] [address] Care Team Providers Care Cable Television Access Coordinator Name Role Phone Fatemeh Lam Primary Care Provider Suly Colorado CUTCH CLEANER Unavailable [phone] Encounter Details Date Type Department Care Team (Late st Contact Info) Description 10/03/2023 Telikt Message Enc [facility] Medical Group Family & Internal Medicine [facility] [address] [place] [address] Fatemeh Lam FNP [address] [place], [place] [phone] Endocrinology Social History Tobacco Use Types Packs/Day Years [...] Sex Assigned at Female 04/09/2024 8:17 AM TRANSPORTATION MANAGER Legal Sex Female 6:09 PM CDT Gender Identity Female 08/08/2021 1:37 PM CDT Sexual Orientation Straight 08/08/2021 1: 37 PM CDT documented as of this encounter Plan of Treatment Upcoming Encounters Date Type Department Care Team (Late st Contact Info) Description 06/25/2024 3:[address] [facility] [place] [address] Fatemeh Lam FNP [address] [place] [address] documented as of this encounter Visit Diagnoses Not on filedocumented in this encounter Additional Health Concerns Infection Onset Date Last Indicated Resolved Time COVID-19 Rule Out 12/27/2023 12/27/2023 12/27/2023 11:34 AM CDT COVID-19 Rule Out 12/27/2023 12/27/2023 12/29/2023 1:09 AM CDT Assessment Noted Time PHQ-9 Depression Total Score: 0 04/29/19 24 1:33 PM TRANSPORTATION MANAGER documented as of this encounter Care Teams Cable Television Access Coordinator Relationship Specialty Start Date End Date Fatemeh Lam FNP [address] [place] [address] PCP - General Nurse Practitioner Family 03/16/19 Suly [place] NP [address] [place] [address] NURSE PRACTITIONER 03/16/19 documented as of this encounter
--- OUTSIDE RECORDS SUMMARY | 2024-06-20 15:31 | XMS_ITS | Encounter Summary ---
Author Organization [facility] Address [address] [place] [address] Phone Care Team Providers Care Drawbridge Tender Name Role Phone Fatemeh Lam APRN, CNP Primary Care Provider Tu Parks MD Unavailable Encounter Details Date Type Department Care Team (Late st Contact Info) Description 03/22/2024 Telephone [facility] [address] [address] Tu Parks MD [address] [address] Social History Tobacco Use Types Packs/Day Years Used Date Smoking Tobacco: Never Smokeless Tobacco: Never Alcohol Use Standard Drinks/Week Comments Never 0 (1 standard drink = 0.6 oz pur e alcohol) Comments Unknown Sex and Gender Information Value Date Recorded Sex Assigned at Female 10/28/2023 1:45 PM CDT Legal Sex Female 1:47 PM CDT Gender Identity Female 10/28/2023 1:45 PM CDT Sexual Orientation Not on file documented as of this encounter Miscellaneous Notes * Telephone Encounter - Rosio Soto Derek - 03/22/2024 3:22 PM CST Called patient about missed appt wasn't able to reach [facility] to return call to office for reschedulingsent reminder letter out. IAL AGENT IN CHARGE documented in this encounter Plan of Treatment Not on file documented as of this encounter Visit Diagnoses Not on filedocumented in this encounter Care Teams Drawbridge Tender Relationship Specialty Start Date End Date Fatemeh Lam, FRAN, AUTOMATION AND CONTROLS SUPERVISOR [address] [place] [address] PCP - General Internal Medicine 09/23/23 Tu Parks MD [address] [place] [address] Consulting Physician Oncology 09/23/23 documented as of this encounter
--- OUTSIDE RECORDS SUMMARY | 2024-06-20 15:31 | XMS_ITS | Clinical Summary ---
Author Organization [facility] Address [address], [facility] [place] [address] Phone Care Team Providers Care Head School Custodian Name Role Phone Fatemeh Lam APRN, DREW Primary Care Provider Tu aPrks MD Unavailable [phone] Allergies Active Allergy Reactions Criticality Noted Date Comments Etodolac Rash Medium 06/10/2016 Medications cetirizine (ZyrTEC) 10 MG Tablet Take by mouth daily. Active busPIRone HCl (BUSPAR) 30 MG Tablet Take 1 Tablet by mouth 2 times daily. 05/24/2023 Active lisinopril-hydr oCHLOROthiazide (PRINZIDE, ZESTORETIC) 20-12.5 MG Tablet Take 1 Tablet by mouth daily. 04/28/2023 Active venlafaxine (EFFEXOR-XR) 75 MG CAPSULE SR 24 HR Take 1 Capsule by mouth every morning. 07/25/2023 Active pantoprazole (PROTONIX) 40 MG Tablet Delayed Response Take 40 mg by mouth daily. 08/26/2023 Active metoprolol Succinate (TOPROL-XL) 25 MG TABLET SR 24 HR Take 12.5 mg by mouth. 10/25/2023 Active hydrOXYzine (ATARAX) 25 MG Tablet Take 25 mg by mouth. 05/20/2023 Active sertraline (ZOLOFT) 100 MG Tablet Take 100 mg by mouth. 04/11/2023 Active Active Problems Problem Noted Date Diagnosed Date Polycythemia 10/28/2023 Encounters Date Type Department Care Team Description 03/22/2024 Telephone [facility] [address] [address] Tu Parks MD from Last 3 Months Family History Medical History Relation Name Comments Diabetes Father Diabetes Mother Diabetes Sister Relation Name Status Comments Child Alive Luekodystrophy Father Alive Mother Alive Sister Alive Social History Tobacco Use Types Packs/Day Years Used Date Smoking Tobacco: Never Smokeless Tobacco: Never Tobacco Cessation:Counseling Given: Not Answered Alcohol Use Standard Drinks/Week Comments Never 0 (1 standard drink = 0.6 oz pur e alcohol) Comments Unknown Sex and Gender Information Value Date Recorded Sex Assigned at Female 10/28/2023 1:45 PM CDT Legal Sex Female 1:47 PM CDT Gender Identity Female 10/28/2023 1:45 PM CDT Sexual Orientation Not on file Last Filed Vital Signs Vital Sign Reading Time Taken Comments Blood Pressure 142/84 12/22/2023 1:34 PM CDT Pulse 104 12/22/2023 1:34 PM CDT Temperature 36.7 C (98 F) 12/22/2023 1:34 PM CDT Respiratory Rate 18 12/22/2023 1:34 PM CDT Oxygen Saturation 99% 12/22/2023 1:34 PM CDT Inhaled Oxygen Concentration - - Weight 123.5 kg (272 lb 3.2 oz) 12/22/2023 1:34 PM CDT Height 175.3 cm (5' 9 ) 12/22/2023 1:34 PM CDT Body Mass Index 40.2 12/22/2023 1:34 PM CDT Plan of Treatment Health Maintenance Due Date Last Done Comments Hepatitis C Virus (HCV) Screening 1986 Hepatitis B Immunization (1 of 3 - 19+ 3-dose series) 2005 Pap Smear 2007 Cervical Cancer Screening (CCS) 02/21/2016 HPV/Cotest 02/21/2016 SARS-COV-2 Immunization ( season) 2023 10/13/2020, 09/22/2020 Respiratory Syncytial Virus (RSV) Immunization (Adult) (1 - -dose 75+ series) 2061 TdaP Immunization Completed 05/03/2018, , 04/04/2014 Influenza Immunization Completed , 12/30/2020, 02/06/2019, Additional history exists Pneumococcal Immunization Combined Aged Out 12/01/2023 No longer eligible based on patient's age to complete this topic Meningococcal Immunization (ACWY) Aged Out No longer eligible based on patient's age to complete this topic Rotavirus Immunization Aged Out No lo nger eligible based on patient's age to complete this topic Insurance [facility] MEDICAID [place] Care Teams Head School Custodian Relationship Specialty Start Date End Date Fatemeh Lam APRN, NOTCHING PRESS OPERATOR [address] [place] [address] PCP - General Internal Medicine 09/23/23 Tu Parks MD [address] [place] [phone] Consulting Physician Oncology 09/23/23
--- OUTSIDE RECORDS SUMMARY | 2024-06-20 15:31 | XMS_ITS | Encounter Summary ---
Author Organization [facility] Address [address] [place] [address] Phone Care Team Providers Care Nursing Associate Name Role Phone Fatemeh Lam APRN, CNP Primary Care Provider Tu Parks MD Unavailable Encounter Details Date Type Department Care Team (Late st Contact Info) Description 11/18/2023 Telephone [facility] [address] [address] Tu Parks MD [address] [address] Social History Tobacco Use Types [...] Telephone Encounter - Rosio Soto Derek - 11/18/2023 1:10 PM CDT Called patient regarding missed appt lvm to call office for rescheduling sent reminder letter out. documented in this encounter Plan of Treatment Not on file documented as of this encounter Visit Diagnoses Not on filedocumented in this encounter Care Teams Nursing Associate Relationship Specialty Start Date End Date Fatemeh Lam APRN, DREW [address] [place] [address] PCP - General Internal Medicine 09/23/23 Tu Parks MD [address] [place] [phone] Consulting Physician Oncology 09/23/23 documented as of this encounter
--- OUTSIDE RECORDS SUMMARY | 2024-06-20 15:31 | XMS_ITS | Encounter Summary ---
Author Organization [facility] Address Count includes the [facility] [place] [address] Care Team Providers Care Test Borer Name Role Phone Fatemeh Lam KOTA Primary Care Provider [phone] Suly [place] MEAT CLERK Unavailable [phone] Reason for Visit * Auth/Cert (Routine) Specialty Diagnoses / Procedures Referred By Contac t Referred To Contact Diagnoses Sacroiliitis Spinal stenosis of lumbar region without neurogenic claudication Sacroiliitis (CMS/HCC) [M46.1] Spinal stenosis of lumbar region without neurogenic claudication [M48.061] Procedures BLOCK SACROILIAC JOINT Candice Moreira MD [address] [facility] [address] [place] [address] Phone: tel: fax: Referral ID Status Reason Start Date Expiration Date Visits Re quested Visits Authorized [id number] 1 1 Encounter Details Date Type Department Care Team (Late st Contact Info) Description 10/18/2023 Hospital Encounter [facility] [address] [place], [place] [id number] Candice Moreira MD [facility] [address] [place] [address] Social History Tobacco Use Types Packs/Day Years [...] Sex Assigned at Female 04/09/2024 8:17 AM DEBT COUNSELOR Legal Sex Female 6:09 PM CDT Gender Identity Female 08/08/2021 1:37 PM CDT Sexual Orientation Straight 08/08/2021 1: 37 PM CDT documented as of this encounter Plan of Treatment Upcoming Encounters Date Type Department Care Team (Late st Contact Info) Description 06/25/2024 3:45 PM CDT Appointment [facility] [place] [address] Fatemeh Lam FNP [address] [place] [address] documented as of this encounter Visit Diagnoses Not on filedocumented in this encounter Additional Health Concerns Infection Onset Date Last Indicated Resolved Time COVID-19 Rule Out 12/27/2023 12/27/2023 12/27/2023 11:34 AM CDT COVID-19 Rule Out 12/27/2023 12/27/2023 12/29/2023 1:09 AM CDT Assessment Noted Time PHQ-9 Depression Total Score: 0 04/29/19 24 1:33 PM DEBT COUNSELOR documented as of this encounter Care Teams Test Borer Relationship Specialty Start Date End Date Fatemeh Lam FNP [address] [place] [address] PCP - General Nurse Practitioner Family 03/16/19 Suly [place] NP [address] [place] [address] NURSE PRACTITIONER 03/16/19 documented as of this encounter
--- OUTSIDE RECORDS SUMMARY | 2024-06-20 15:31 | XMS_ITS | Encounter Summary ---
Author Organization [facility] Address [address] [place] [address] Care Team Providers Care Public Housing Manager Name Role Phone Fatemeh Lam KOTA Primary Care Provider [phone] Suly [place] GEODETIC TECHNICIAN Unavailable [phone] Encounter Details Date Type Department Care Team (Late st Contact Info) Description 08/30/2023 American Giant Message Enc [facility] Multispecialty Care - [facility] [address] [facility], [address] [place] [id number] Karen Quezada APRN [address] [facility] [address] [place], [place] [phone] Pain management Social History Tobacco Use Types Packs/Day Years [...] Sex Assigned at Female 04/09/2024 8:17 AM WORKERS' COMPENSATION CLAIMS SUPERVISOR Legal Sex Female 6:09 PM CDT Gender Identity Female 08/08/2021 1:37 PM CDT Sexual Orientation Straight 08/08/2021 1: 37 PM CDT documented as of this encounter Plan of Treatment Upcoming Encounters Date Type Department Care Team (Late st Contact Info) Description 06/25/2024 3:45 PM CDT Appointment [facility] [place] [address] Fatemeh Lam FNP [address] [place] [address] documented as of this encounter Visit Diagnoses Not on filedocumented in this encounter Additional Health Concerns Infection Onset Date Last Indicated Resolved Time COVID-19 Rule Out 12/27/2023 12/27/2023 12/27/2023 11:34 AM CDT COVID-19 Rule Out 12/27/2023 12/27/2023 12/29/2023 1:09 AM CDT Assessment Noted Time PHQ-9 Depression Total Score: 0 04/29/19 24 1:33 PM WORKERS' COMPENSATION CLAIMS SUPERVISOR documented as of this encounter Care Teams Public Housing Manager Relationship Specialty Start Date End Date Fatemeh Lam FNP [address] [place] [address] PCP - General Nurse Practitioner Family 03/16/19 Suly [place] NP [facility] [place] [address] NURSE PRACTITIONER 03/16/19 documented as of this encounter
--- OUTSIDE RECORDS SUMMARY | 2024-06-20 15:31 | XMS_ITS | Encounter Summary ---
Author Organization [facility] Address [address] [place] [address] Care Team Providers Care Customer Sales Distributor Name Role Phone Fatemeh Lam Primary Care Provider [phone] Suly [place] LANDS RESOURCE MANAGER Unavailable [phone] Encounter Details Date Type Department Care Team (Late st Contact Info) Description 09/27/2023 NetWitnesst Message Enc [facility] Medical Group Family & Internal Medicine [facility] [address] [place] [address] Fatemeh Lam FNP [address] [place], [place] [phone] Refill Social History Tobacco Use Types Packs/Day Years [...] Sex Assigned at Female 04/09/2024 8:17 AM PRODUCTION MECHANIC TIN CANS Legal Sex Female 6:09 PM CDT Gender Identity Female 08/08/2021 1:37 PM CDT Sexual Orientation Straight 08/08/2021 1: 37 PM CDT documented as of this encounter Progress Notes * KOTA Lao - 09/28/2023 12:55 PM CDT Ill send it * Nayely Babb MA - 09/28/2023 12:00 PM CDT No 1000 mg either * KOTA Lao - 09/28/2023 11:47 AM CDT You can send the 1000 mg take 2 tabs bid dsp 120 with refill * Nayely Babb MA - 09/28/2023 9:56 AM CDT Can not find 500 mg * KOTA Lao - 09/28/2023 9:10 AM CDT Acyclovir 500 mg bid dsp 60 1 refill documented in this encounter Plan of Treatment Upcoming Encounters Date Type Department Care Team (Late st Contact Info) Description 06/25/2024 3:45 PM CDT Appointment [place] [address] Fatemeh Lam FNP [address] [place] [address] documented as of this encounter Visit Diagnoses Not on filedocumented in this encounter Additional Health Concerns Infection Onset Date Last Indicated Resolved Time COVID-19 Rule Out 12/27/2023 12/27/2023 12/27/2023 11:34 AM CDT COVID-19 Rule Out 12/27/2023 12/27/2023 12/29/2023 1:09 AM CDT Assessment Noted Time PHQ-9 Depression Total Score: 0 04/29/19 24 1:33 PM PRODUCTION MECHANIC TIN CANS documented as of this encounter Care Teams Customer Sales Distributor Relationship Specialty Start Date End Date Fatemeh Lam FNP [address] [place] [address] PCP - General Nurse Practitioner Family 03/16/19 [place] [address] [place], [place] [address] [place] [address] NURSE PRACTITIONER 03/16/19 documented as of this encounter
[2024-06-20] MEDS: SODIUM CHLORIDE 0.9% IV 1,000 ML 999 ML IV CONT (15:45)
[2024-06-20] MEDS: ONDANSETRON INJ 4 MG/2 ML VIAL IV PUSH (15:45)
--- NOTE | 2024-06-20 16:11 | ED.NAVMDI ---
HPI - Nausea/Vomiting/Diarrhea General Chief complaint: Nausea/Vomiting/Diarrhea Stated complaint: N/V Time Seen by Provider: 06/20/24 14:51 Source: patient Mode of arrival: EMS Limitations: no limitations History of Present Illness HPI Narrative: Patient is a 39-year-old female, with past medical history of POTS, who presents to the ED via EMS with report of N/V. Patient reports she began feeling ill overnight with sore throat, headache, body aches, fevers. Tested herself this morning and was positive for Influenza B. Began having nausea and vomiting throughout the day and was unable to keep down any food or drink. Notes that when she becomes dehydrated, this causes problems with her POTS. Does still feel nauseous currently. Denies significant abdominal pain. Related Data Home Medications ?Medication ?Instructions ?Recorded ?Confirmed ?Last Taken ?Type lisinopril 10 1 tablet PO DAILY 05/31/19 08/29/20 08/28/20 History mg-hydrochlorothiazide 12.5 mg tablet albuterol sulfate 90 mcg/actuation 2 puff inhalation QID PRN 12/10/19 08/29/20 08/28/20 History aerosol inhaler (ProAir HFA) Shortness Of Breath Or Wheezing ipratropium 0.5 mg-albuterol 3 mg 3 ml inhalation Q4H PRN Shortness 12/10/19 08/29/20 Unknown History (2.5 mg base)/3 mL nebulization Of Breath Or Wheezing soln benzonatate 200 mg capsule mg PO 01/28/23 Unknown History ibuprofen 800 mg tablet mg 01/28/23 Unknown History methocarbamol 750 mg tablet mg 01/28/23 Unknown History venlafaxine 75 mg capsule,extended mg PO 01/28/23 Unknown History release 24 hr Allergies Allergy/AdvReac Type Severity Reaction Status Date / Time ketorolac Allergy Hives Verified 06/20/24 14:10 Review of Systems Review of Systems: All systems reviewed & are unremarkable except as noted in HPI. All systems reviewed & are unremarkable except as noted in HPI and below PMFSH Past Medical History Medical History Anxiety Asthma GERD (gastroesophageal reflux disease) Hypertension Patient denies significant medical history Surgical History Surgical History History of cholecystectomy Family History Family History Mother Hypertension Cerebrovascular accident Family history of elevated blood lipids Sibling Patient's sister is in good health Patient's brother is in good health Asthma Father Cerebrovascular accident Family history of diabetes mellitus in first degree relative Depression Other Family history of allergic disorder Family history of heart disease in male family member before age 55 Family history of kidney disease Social History Social History Smoking status: Never smoker Alcohol intake: never Substance use: current Substance use type: marijuana Other substance usage details: vap Last use: yesterday Living arrangements: with family Gender identity (if verbalized by the patient): Female Spiritual care concerns: No Exam Narrative: GENERAL: Well appearing, morbidly obese with BMI of 40.7, non-toxic, in no acute distress. HEAD: Normocephalic, atraumatic. RESPIRATORY: Airway patent, respirations nonlabored. Clear to auscultation bilaterally, no rales, rhonchi, wheezing. CARDIOVASCULAR: Regular rate and rhythm without murmurs, rubs, or gallops. ABDOMINAL: Soft, no significant focal tenderness in abdomen, nondistended. Normoactive BS. MUSCULOSKELETAL: Moves all extremities. No gross deformities. SKIN: Warm, dry, normal color. NEURO: A&O X3. Speech clear. PSYCHIATRIC: Appropriate mood and affect. Normal interaction. Course Vital Signs Vital signs: Vital Signs Temperature 97.5 F L 06/20/24 14:07 Pulse Rate 86 06/20/24 14:07 Respiratory Rate 16 06/20/24 14:07 Blood Pressure 129/79 06/20/24 14:07 Pulse Oximetry 97 06/20/24 14:07 Temperature 97.5 F L 06/20/24 14:07 Pulse Rate 86 06/20/24 14:07 Respiratory Rate 16 06/20/24 14:07 Blood Pressure 129/79 06/20/24 14:07 Pulse Oximetry 97 06/20/24 14:07 MDM - Nausea/Vomiting/Diarrhea MDM Narrative Medical decision making narrative: Patient presented to ED with nausea, vomiting, diagnosed herself via home test with influenza B this morning. Vital signs are stable upon arrival. No tachycardia. Afebrile. Will give fluids and nausea medicine, re-evaluate. Patient feeling much better after 1 L full bolus and Zofran. Ready to go home. Will send home with prescription for oral Zofran. Advised plenty of rest and fluids, given return precautions. D/C in stable condition. Medical Records Attestation: I reviewed the patient's medical records. Discharge Plan Discharge Clinical Impression: Influenza B Nausea and vomiting Qualifiers: Vomiting type: unspecified Qualified Code(s): R11.2 - Nausea with vomiting, unspecified Patient Disposition: Home, Self-Care Condition: Stable Instructions: Antibiotic Form, Influenza (ED), Acute Nausea and Vomiting (ED) Additional Instructions: Isolate at home as you are contagious. Utilize Zofran as needed for further nausea. Stay well-hydrated at home. Recommend electrolyte rich fluids, Gatorade, Pedialyte, body armor. Recommend Tylenol and Ibuprofen for discomfort and/or fevers. Recommend phit-xyy-sdapjqo cough and cold medicines for symptom relief, Delsym, Mucinex, DayQuil, NyQuil, Sudafed, Robitussin, TheraFlu. Follow with primary care doctor upon resolution of symptoms. Return to the ED if you experience chest pain, difficulty breathing, unable to keep down food or drink, severe pain, or any other symptoms of concern. Patient Language: Tamazight Prescriptions: New ondansetron 4 mg tablet,disintegrating 4 mg PO Q8H PRN (Reason: nausea and vomiting) Qty: 15 0RF No Action lisinopril-hydrochlorothiazide 10-12.5 mg tablet 1 tablet PO DAILY benzonatate 200 mg capsule PO venlafaxine 75 mg capsule,extended release 24hr PO ibuprofen 800 mg tablet methocarbamol 750 mg tablet amoxicillin 500 mg capsule 500 mg PO Q12H 10 Days Qty: 20 0RF pantoprazole [Protonix] 40 mg tablet,delayed release (DR/EC) 40 mg PO HS Qty: 30 3RF ipratropium-albuterol 0.5 mg-3 mg(2.5 mg base)/3 mL solution for nebulization 3 ml INHALATION Q4H PRN (Reason: Shortness Of Breath Or Wheezing) Patient Comments: Pt as not used in months albuterol sulfate [ProAir HFA] 90 mcg/actuation Hfa Aerosol Inhaler 2 puff INHALATION QID PRN (Reason: Shortness Of Breath Or Wheezing) dicyclomine 20 mg tablet 20 mg PO QID Qty: 20 0RF ondansetron 4 mg tablet,disintegrating 4 mg PO Q6H PRN (Reason: nausea and vomiting) Qty: 10 0RF Follow-up/Referrals: SCOUT,FRAN TORRES [Primary Care Provider] - Time of Disposition: 16:51
--- OUTSIDE RECORDS SUMMARY | 2024-06-20 16:23 | XMS_ITS | Encounter Summary ---
Author Organization [facility] Address [address] [place] [address] Care Team Providers Care Delivery Table Feeder Name Role Phone Fatemeh Lam KOTA Primary Care Provider [phone] Suly [place] EXCELLENCE COACH Unavailable [phone] Encounter Details Date Type Department Care Team ([facility] Contact Info) Description 06/04/2024 POKKT Message Enc [facility] Medical Group Family & Internal Medicine [address] [address] [facility] Insomnia Social History Tobacco Use Types [...] Sex Assigned at Female 04/09/2024 8:17 AM TELEPHONE TECHNICIAN Legal Sex Female 6:09 PM CDT Gender Identity Female 08/08/2021 1:37 PM CDT Sexual Orientation Straight 08/08/2021 1: 37 PM CDT documented as of this encounter Plan of Treatment Upcoming Encounters Date Type Department Care Team (Late st Contact Info) Description 06/25/2024 3:45 PM CDT Appointment [facility] [place] [address] Fatemeh Lam FNP [address] [place] [address] documented as of this encounter Visit Diagnoses Not on filedocumented in this encounter Additional Health Concerns Assessment Noted Time PHQ-9 Depression Total Score: 0 04/29/19 24 1:33 PM TELEPHONE TECHNICIAN documented as of this encounter Care Teams Delivery Table Feeder Relationship Specialty Start Date End Date Fatemeh Lam FNP [address] [place] [address] PCP - General Nurse Practitioner Family 03/16/19 Suly [place] [facility] [place] [address] NURSE PRACTITIONER 03/16/19 documented as of this encounter
--- OUTSIDE RECORDS SUMMARY | 2024-06-20 16:23 | XMS_ITS | Encounter Summary ---
Author Organization [facility] Address [address] [place] [address] Care Team Providers Care Analyst Geochemical Prospecting Name Role Phone Fatemeh Lam Primary Care Provider [phone] Suly [place] REAL ESTATE TEACHER Unavailable [phone] Encounter Details Date Type Department Care Team (Late st Contact Info) Description 06/14/2022 Kalila Medicalt Message Enc [facility] Medical Group Family & Internal Medicine [facility] [address] [place] [address] Fatemeh Lam FNP [address] [place] [address] Ear and throat pain Social [...] Sex Assigned at Female 04/09/2024 8:17 AM BALL MAKER Legal Sex Female 6:09 PM CDT Gender [...] Info) Description 06/25/2024 3:45 PM CDT Appointment [facility] [place] [address] Fatemeh Lam FNP [address] [place] [address] documented as of this encounter Visit Diagnoses Not on filedocumented in this encounter Additional Health Concerns Infection Onset Date Last Indicated Resolved Time COVID-19 Rule Out 02/07/2023 02/07/2023 02/07/2023 9:04 AM BALL MAKER COVID-19 Rule Out 12/27/2023 12/27/2023 12/27/2023 11:34 AM CDT COVID-19 Rule Out 12/27/2023 12/27/2023 12/29/2023 1:09 AM CDT Assessment Noted Time PHQ-9 Depression Total Score: 0 06/01/19 11:42 AM CDT documented as of this encounter Care Teams Analyst Geochemical Prospecting Relationship Specialty Start Date End Date Fatemeh Lam FNP [address] [place] [address] PCP - General Nurse Practitioner Family 03/16/19 Suly [place] NP [facility] [place] [address] NURSE PRACTITIONER 03/16/19 documented as of this encounter
--- OUTSIDE RECORDS SUMMARY | 2024-06-20 16:23 | XMS_ITS | CONTINUITY OF CARE DOCUMENT ---
Author Name cy benoit Address Unknown Organization [facility] Address [address] [address] [facility] [address] [place] [address] Phone [phone] Care Team Providers Care Nurse'S Aides Teacher Name Role Phone Jason Gross MD Unavailable [phone] Jason Gross MD Unavailable [phone] INSURANCE PROVIDERS Payer name Policy type / Coverage type [place] red republican ID [facility] [id number] Other [id number]
--- OUTSIDE RECORDS SUMMARY | 2024-06-20 16:23 | XMS_ITS | Encounter Summary ---
Author Organization [facility] Address [address] [place] [address] Care Team Providers Care Box Maker Wood Name Role Phone Fatemeh Lam KOTA Primary Care Provider Suly Colorado EXPRESSIVE MUSIC THERAPIST Unavailable [phone] Encounter Details Date Type Department Care Team (Late st Contact Info) Description 09/15/2020 ENDOGENXt Message Enc [facility] Medical Group Family & Internal Medicine [facility] [address] [place] [address] Carlee Mackay APNP [address] [place], [place] [phone] Follow Up/Update Social History Tobacco Use Types [...] Sex Assigned at Female 04/09/2024 8:17 AM DRAFTER MARINE Legal Sex Female 6:09 PM CDT Gender [...] Info) Description 06/25/2024 3:45 PM CDT Appointment [facility] [place] [address] Fatemeh Lam FNP [address] [place] [address] documented as of this encounter Visit Diagnoses Not on filedocumented in this encounter Additional Health Concerns Infection Onset Date Last Indicated Resolved Time COVID-19 Rule Out 02/07/2023 02/07/2023 02/07/2023 9:04 AM DRAFTER MARINE COVID-19 Rule Out 12/27/2023 12/27/2023 12/27/2023 11:34 AM CDT COVID-19 Rule Out 12/27/2023 12/27/2023 12/29/2023 1:09 AM CDT Assessment Noted Time PHQ-9 Depression Total Score: 4 09/13/19 21 9:12 AM CDT documented as of this encounter Care Teams Box Maker Wood Relationship Specialty Start Date End Date Fatemeh Lam FNP [address] [place] [address] PCP - General Nurse Practitioner Family 03/16/19 [facility]uly [place] [facility] [place] [address] NURSE PRACTITIONER 03/16/19 documented as of this encounter
--- OUTSIDE RECORDS SUMMARY | 2024-06-20 16:23 | XMS_ITS | Encounter Summary ---
Author Organization [facility] Address [address] [place] [address] Care Team Providers Care Bullet Maker Name Role Phone Fatemeh Lam KOTA Primary Care Provider [phone] Suly [place] CARDIAC SPECIALIST Unavailable [phone] Encounter Details Date Type Department Care Team (Late st Contact Info) Description 03/07/2023 CXt Message Enc [facility] Medical Group Multispecialty Care - [facility] [address], [address] [place] [id number] Karen Quezada APRN [address] [facility] [address] [place], [place] [id number] ADA back Pain Social History Tobacco Use [...] Sex Assigned at Female 04/09/2024 8:17 AM COOKER CHIP Legal Sex Female 6:09 PM CDT Gender Identity Female 08/08/2021 1:37 PM CDT Sexual Orientation Straight 08/08/2021 1: 37 PM CDT documented as of this encounter Plan of Treatment Upcoming Encounters Date Type Department Care Team (Late st Contact Info) Description 06/25/2024 3:45 PM CDT Appointment [place] [address] Fatemeh Lam FNP [address] [place] [address] documented as of this encounter Visit Diagnoses Not on filedocumented in this encounter Additional Health Concerns Infection Onset Date Last Indicated Resolved Time COVID-19 Rule Out 12/27/2023 12/27/2023 12/27/2023 11:34 AM CDT COVID-19 Rule Out 12/27/2023 12/27/2023 12/29/2023 1:09 AM CDT Assessment Noted Time PHQ-9 Depression Total Score: 0 06/01/19 11:42 AM CDT documented as of this encounter Care Teams Bullet Maker Relationship Specialty Start Date End Date Fatemeh Lam FNP [address] [place] [address] PCP - General Nurse Practitioner Family 03/16/19 Suly [place] [facility] [place] [address] NURSE PRACTITIONER 03/16/19 documented as of this encounter
--- OUTSIDE RECORDS SUMMARY | 2024-06-20 16:23 | XMS_ITS | Encounter Summary ---
Author Organization [facility] Address [address] [place] [address] Care Team Providers Care Safety And Security Manager Name Role Phone Fatemeh Lam Primary Care Provider Suly [place] MOVIE PRODUCER Unavailable [phone] Encounter Details Date Type Department Care Team (Late st Contact Info) Description 06/08/2022 Car Rentals Markett Message Enc [facility] Medical Group Family & Internal Medicine [facility] [address] [place] [address] Fatemeh Lam FNP [address] [place] [address] Sore throat and neck pain [...] Sex Assigned at Female 04/09/2024 8:17 AM STRIPPER COLOR Legal Sex Female 6:09 PM CDT Gender [...] Info) Description 06/25/2024 3:45 PM CDT Appointment [facility] [place] [address] Fatemeh Lam FNP [address] [place] [address] documented as of this encounter Visit Diagnoses Not on filedocumented in this encounter Additional Health Concerns Infection Onset Date Last Indicated Resolved Time COVID-19 Rule Out 02/07/2023 02/07/2023 02/07/2023 9:04 AM STRIPPER COLOR COVID-19 Rule Out 12/27/2023 12/27/2023 12/27/2023 11:34 AM CDT COVID-19 Rule Out 12/27/2023 12/27/2023 12/29/2023 1:09 AM CDT Assessment Noted Time PHQ-9 Depression Total Score: 0 06/01/19 23 11:42 AM CDT documented as of this encounter Care Teams Safety And Security Manager Relationship Specialty Start Date End Date Fatemeh Lam FNP [address] [place] [address] PCP - General Nurse Practitioner Family 03/16/19 Suly [place] NP [facility] [place] [address] NURSE PRACTITIONER 03/16/19 documented as of this encounter
--- OUTSIDE RECORDS SUMMARY | 2024-06-20 16:23 | XMS_ITS | Encounter Summary ---
Author Organization [facility] Address [address] [place] [address] Care Team Providers Care Dry Kiln Loader Name Role Phone Fatemeh Lam Primary Care Provider Suly [place] FIRE PREVENTION CHIEF Unavailable [phone] Encounter Details Date Type Department Care Team (Late st Contact Info) Description 07/11/2020 Acacia Interactivet Message Enc [facility] Medical Group Family & Internal Medicine [facility] [address] [place] [address] Fatemeh Lam FNP [address] [place] [address] Follow Up/Update Social History Tobacco [...] Sex Assigned at Female 04/09/2024 8:17 AM CLINICAL SERVICES DIRECTOR Legal Sex Female 6:09 PM CDT [...] Info) Description 06/25/2024 3:45 PM CDT Appointment [facility] [address] Fatemeh Lam FNP [place] [facility] [place] [address] documented as of this encounter Visit Diagnoses Not on filedocumented in this encounter Additional Health Concerns Infection Onset Date Last Indicated Resolved Time COVID-19 Rule Out 02/07/2023 02/07/2023 02/07/2023 9:04 AM CLINICAL SERVICES DIRECTOR COVID-19 Rule Out 12/27/2023 12/27/2023 12/27/2023 11:34 AM CDT COVID-19 Rule Out 12/27/2023 12/27/2023 12/29/2023 1:09 AM CDT Assessment Noted Time PHQ-9 Depression Total Score: 15 06/05/2 021 12:22 PM CDT documented as of this encounter Care Teams Dry Kiln Loader Relationship Specialty Start Date End Date Fatemeh Lam FNP [address] [place] [address] PCP - General Nurse Practitioner Family 03/16/19 Suly [place] NP [address] [place] [address] NURSE PRACTITIONER 03/16/19 documented as of this encounter
--- OUTSIDE RECORDS SUMMARY | 2024-06-20 16:23 | XMS_ITS | Encounter Summary ---
Author Organization [facility] Address [address] [place] [address] Care Team Providers Care Machine Cell Tuber Name Role Phone Fatemeh Lam Primary Care Provider Suly [place] CELL GENETICIST Unavailable [phone] Encounter Details Date Type Department Care Team (Late st Contact Info) Description 07/12/2022 u.sitt Message Enc [facility] Medical Group Family & Internal Medicine [facility] [address] [place] [address] Fatemeh Lam FNP [address] [place] [address] Ear pain Social History Tobacco [...] Sex Assigned at Female 04/09/2024 8:17 AM OPERATIONS AGENT Legal Sex Female 6:09 PM CDT Gender [...] Info) Description 06/25/2024 3:45 PM CDT Appointment [facility] [place] [address] Fatemeh Lam FNP [address] [place] [address] documented as of this encounter Visit Diagnoses Not on filedocumented in this encounter Additional Health Concerns Infection Onset Date Last Indicated Resolved Time COVID-19 Rule Out 02/07/2023 02/07/2023 02/07/2023 9:04 AM OPERATIONS AGENT COVID-19 Rule Out 12/27/2023 12/27/2023 12/27/2023 11:34 AM CDT COVID-19 Rule Out 12/27/2023 12/27/2023 12/29/2023 1:09 AM CDT Assessment Noted Time PHQ-9 Depression Total Score: 0 06/01/19 23 11:42 AM CDT documented as of this encounter Care Teams Machine Cell Tuber Relationship Specialty Start Date End Date Fatemeh Lam FNP [address] [place] [address] PCP - General Nurse Practitioner Family 03/16/19 Suly [place] NP [facility] [place] [address] NURSE PRACTITIONER 03/16/19 documented as of this encounter
--- OUTSIDE RECORDS SUMMARY | 2024-06-20 16:23 | XMS_ITS | Encounter Summary ---
Author Organization [facility] Address [address] [place] [address] Care Team Providers Care Java Analyst Name Role Phone Fatemeh Lam Primary Care Provider [phone] Suly [place] MANAGER SOLUTION Unavailable [phone] Encounter Details Date Type Department Care Team (Late st Contact Info) Description 08/19/2020 Placelingt Message Enc [facility] Medical Group Family & Internal Medicine [facility] [address] [place] [address] Fatemeh Lam FNP [address] [place] [address] RE: FW: Question Social History [...] Sex Assigned at Female 04/09/2024 8:17 AM CAGE FIGHTER Legal Sex Female 6:09 PM CDT Gender [...] PM CDT Appointment [facility] [address] Fatemeh Lam FNP [address] [place] [address] documented as of this encounter Visit Diagnoses Not on filedocumented in this encounter Additional Health Concerns Infection Onset Date Last Indicated Resolved Time COVID-19 Rule Out 02/07/2023 02/07/2023 02/07/2023 9:04 AM CAGE FIGHTER COVID-19 Rule Out 12/27/2023 12/27/2023 12/27/2023 11:34 AM CDT COVID-19 Rule Out 12/27/2023 12/27/2023 12/29/2023 1:09 AM CDT Assessment Noted Time PHQ-9 Depression Total Score: 15 06/05/ 021 12:22 PM CDT documented as of this encounter Care Teams Java Analyst Relationship Specialty Start Date End Date Fatemeh Lam FNP [address] [place] [address] PCP - General Nurse Practitioner Family 03/16/19 Suly [place] NP [facility] [place] [address] NURSE PRACTITIONER 03/16/19 documented as of this encounter
--- OUTSIDE RECORDS SUMMARY | 2024-06-20 16:23 | XMS_ITS | Encounter Summary ---
Author Organization [facility] Address [address] [place] [address] Care Team Providers Care Monitor Tech Name Role Phone Art Lam Primary Care Provider [phone] Suly [place] ROCK WOOL INSULATOR Unavailable [phone] Encounter Details Date Type Department Care Team (Late st Contact Info) Description 06/18/2022 Exposed Vocalst Message Enc [facility] Medical Group Family & Internal Medicine [facility] [address] [place] [address] Art Lam FNP [facility] [place] [address] Blood test Social History Tobacco [...] Sex Assigned at Female 04/09/2024 8:17 AM AGRONOMY INSTRUCTOR Legal Sex Female 6:09 PM CDT [...] Info) Description 06/25/2024 3:45 PM CDT Appointment [facility] [place] [address] Art Lam FNP [address] [place] [address] documented as of this encounter Visit Diagnoses Not on filedocumented in this encounter Additional Health Concerns Infection Onset Date Last Indicated Resolved Time COVID-19 Rule Out 02/07/2023 02/07/2023 02/07/2023 9:04 AM AGRONOMY INSTRUCTOR COVID-19 Rule Out 12/27/2023 12/27/2023 12/27/2023 11:34 AM CDT COVID-19 Rule Out 12/27/2023 12/27/2023 12/29/2023 1:09 AM CDT Assessment Noted Time PHQ-9 Depression Total Score: 0 06/01/19 23 11:42 AM CDT documented as of this encounter Care Teams Monitor Tech Relationship Specialty Start Date End Date Art Lam FNP [address] [place] [address] PCP - General Nurse Practitioner Family 03/16/19 Suly [place] NP [address] [place], [place] [address] [place] [address] NURSE PRACTITIONER 03/16/19 documented as of this encounter
--- OUTSIDE RECORDS SUMMARY | 2024-06-20 16:23 | XMS_ITS | Encounter Summary ---
Author Organization [facility] Address [address] [place] [address] Phone Care Team Providers Care X Ray Tech Name Role Phone No, Physician Primary Care Provider Sarah Montero Primary Care Provider + No, Physician Primary Care Provider [phone] Sarah Montero Primary Care Provider + No, Physician Primary Care Provider Physician, Millaecesther BERNSTEIN Primary Care Provider Un available Sarah Montero Primary Care Provider + Fatemeh Lam NP Primary Care Provider [phone] Jacob Vázquez MD Primary Care Provider [phone] Encounter Details Date Type Department Care Team (Latest Contact Info) Description 06/28/2017 Orders Only [facility] CONVERSION Scanning, Provider Social History Tobacco Use Types Packs/Day Years Used Date Smoking Tobacco: Never Comments Unknown Sex and Gender Information Value Date Recorded Sex Assigned at Not on file Legal Sex Female 11:12 AM SPRING BENDER Gender Identity Not on file Sexual Orientation [...] on filedocumented in this encounter Care Teams X Ray Tech Relationship Specialty Start Date End Date No, [...] Practitioner 04/18/23 04/05/24 Jacob Vázquez MD [address] [address] PCP - General Family Medicine 04/06/24 documented as of this encounter
--- OUTSIDE RECORDS SUMMARY | 2024-06-20 16:23 | XMS_ITS | Encounter Summary ---
Author Organization [facility] Address [address] [place] [address] Care Team Providers Care Brush Cutter Name Role Phone Fatemeh Lam Primary Care Provider [phone] Suly [place] BILLING REP Unavailable [phone] Encounter Details Date Type Department Care Team (Late st Contact Info) Description 06/20/2024 Real Estate Cozmeticst Message Enc [facility] Medical Group Family & Internal Medicine [facility] [address] [place] [address] Fatemeh Lam FNP [address] [place], [place] [id number] Flu test Social History Tobacco Use Types [...] Sex Assigned at Female 04/09/2024 8:[address] USHER Legal Sex Female 6:09 PM CDT Gender Identity Female 08/08/2021 1:37 PM CDT Sexual Orientation Straight 08/08/2021 1: 37 PM CDT documented as of this encounter Progress Notes * Nicole Meléndez MA - 06/20/2024 2:26 PM CDT Rx sent to pharmacy, [facility] for patient. 06/20/2024 2:26 PM * KOTA Lao - 06/20/2024 1:55 PM CDT We can send out tamiflu 75 mg bid x5d documented in this encounter Plan of Treatment Upcoming Encounters Date Type Department Care Team (Late st Contact Info) Description 06/25/2024 3:45 PM CDT Appointment [facility] [place] [address] Fatemeh Lam FNP [address] [place] [address] documented as of this encounter Visit Diagnoses Diagnosis Influenza B- Primary Influenza with other respiratory manifestations documented in this encounter Additional Health Concerns Assessment Noted Time PHQ-9 Depression Total Score: 0 04/29/19 24 1:[address] USHER documented as of this encounter Care Teams Brush Cutter Relationship Specialty Start Date End Date Fatemeh Lam FNP [address] [place] [address] PCP - General Nurse Practitioner Family 03/16/19 Suly [place] NP [address] [place] [address] NURSE PRACTITIONER 03/16/19 documented as of this encounter
--- OUTSIDE RECORDS SUMMARY | 2024-06-20 16:23 | XMS_ITS | Encounter Summary ---
Author Organization [facility] Address [address] [place] [address] Care Team Providers Care Fuel Operator Name Role Phone Fatemeh Lam KOTA Primary Care Provider [phone] Suly [place] CEMENT GRINDING MILL OPERATOR Unavailable Encounter Details Date Type Department Care Team (Late st Contact Info) Description 09/15/2022 [email or web address] Message Enc [facility] Medical Group - [facility] [address] [place] [address] CookistosvenWebshoz, [facility] Provider Air Quality Message Social History Tobacco [...] Sex Assigned at Female 04/09/2024 8:17 AM FIRE WATCHMAN Legal Sex Female 6:09 PM CDT Gender [...] PM CDT Appointment [facility] [place] [address] Fatemeh Lam FNP [address] [place] [address] documented as of this encounter Visit Diagnoses Not on filedocumented in this encounter Additional Health Concerns Infection Onset Date Last Indicated Resolved Time COVID-19 Rule Out 02/07/2023 02/07/2023 02/07/2023 9:04 AM FIRE WATCHMAN COVID-19 Rule Out 12/27/2023 12/27/2023 12/27/2023 11:34 AM CDT COVID-19 Rule Out 12/27/2023 12/27/2023 12/29/2023 1:09 AM CDT Assessment Noted Time PHQ-9 Depression Total Score: 0 06/01/19 11:42 AM CDT documented as of this encounter Care Teams Fuel Operator Relationship Specialty Start Date End Date Fatemeh Lam FNP [address] [place] [address] PCP - General Nurse Practitioner Family 03/16/19 Suly [place] [facility] [place] [address] NURSE PRACTITIONER 03/16/19 documented as of this encounter
--- OUTSIDE RECORDS SUMMARY | 2024-06-20 16:23 | XMS_ITS | Referral Summary ---
Author Organization [facility] Address [address] [place] [address] Phone Care Team Providers Care Post Acute Care Nurse Practitioner Name Role Phone Jacob Vázquez MD Primary Care Provider Encounters Date Type Department Care Team Description 05/31/2024 Telephone [facility] Medical Group ENT Specialists - [facility] [address] [facility] [address] [place] [address] Lalo Bolanos 04/17/2024 1:30 PM PUTTY AND CAULKING SUPERVISOR Office Visit [facility] [address] [place] [address] Aisha Monroy, OD Ptosis of eyelid, left (Primary Dx); Pseudopapilledema of both optic discs; Exotropia 04/13/2024 Telephone [facility] Medical [facility] ENT Specialists - [facility] [address] [facility] [facility] [address] [place] [address] Marguerite Theodore MA Scheduling Appointments 04/11/2024 Telephone [facility]hthalmology [address] 6th [address], [address] [facility] [place] [address] Yakov Elam, OD 04/03/2024 4:02 PM PUTTY AND CAULKING SUPERVISOR - 04/03/2024 11:59 PM PUTTY AND CAULKING SUPERVISOR Hospital Encounter [facility] [address] [place] [address] Sore throat Discharge Disposition: Discharge to home or self care 04/03/2024 10:30 AM PUTTY AND CAULKING SUPERVISOR Office Visit [facility] Medical [facility] at [address] [address] Cande Gandhi, JANAE Sore throat [...] 1 tablet (100 mg total) by mouth guest history clerk before breakfast 4 Active triamcinolone (KENALOG) 0.1 [...] 04/17/2024 Assessment & Plan (04/17/2024 4:37 PM PUTTY AND CAULKING SUPERVISOR): Acute onset of intermittent ptosis left eye [...] 09/01/2023 Assessment & Plan (04/17/2024 4:31 PM PUTTY AND CAULKING SUPERVISOR): Stable on exam today Monitor Assessment & Plan (09/01/2023 3:27 PM CDT): Mild exo posture that is comitant and stable. Likely decompensation, rarely symptomatic. Defer prism at this time. Send myasthenia labs, TSH normal recently. Monitor closely. 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 Assessment & Plan (04/17/2024 4:34 PM PUTTY AND CAULKING SUPERVISOR): Suspicious ONH appearance with mild visual field [...] on file Legal Sex Female 11:12 AM PUTTY AND CAULKING SUPERVISOR Gender Identity Not on file Sexual Orientation Not on file Last Filed Vital Signs Vital Sign Reading Time Taken Comments Blood Pressure 176/109 04/03/2024 10:56 AM PUTTY AND CAULKING SUPERVISOR Pulse 96 04/03/2024 10:56 AM PUTTY AND CAULKING SUPERVISOR Temperature 36.6 C (97.9 F) 04/03/2024 10:56 AM PUTTY AND CAULKING SUPERVISOR Respiratory Rate 18 04/03/2024 10:5 6 AM PUTTY AND CAULKING SUPERVISOR Oxygen Saturation 98% 04/03/2024 10: 56 AM PUTTY AND CAULKING SUPERVISOR Inhaled Oxygen Concentration - - Weight 125.8 kg (277 lb 4.8 oz) 025 10:56 AM PUTTY AND CAULKING SUPERVISOR Height 175.3 cm (5' 9.02 ) 04/03/2024 1 0:56 AM PUTTY AND CAULKING SUPERVISOR Body Mass Index 40.93 04/03/2024 10:56 AM PUTTY AND CAULKING SUPERVISOR Plan of Treatment Not on file Procedures Procedure Name Priority Date/Time Associated Diagnosis Comments WOOD VISUAL FIELD - OU - BOTH EYES Routine 04/17/2024 4:41 PM PUTTY AND CAULKING SUPERVISOR Pseudopapilledema of both optic discs OCT, OPTIC NERVE - OU - BOTH EYES Routine 04/17/2024 4:38 PM PUTTY AND CAULKING SUPERVISOR Pseudopapilledema of both optic discs THROAT CULTURE Routine 04/03/2024 4:02 PM PUTTY AND CAULKING SUPERVISOR Sore throat POCT RAPID STREP Routine 04/03/2024 10:5 9 AM PUTTY AND CAULKING SUPERVISOR Sore throat from Last 3 Months Results * Wood Visual Field - OU - Both Eyes (04/17/2024 4:41 PM PUTTY AND CAULKING SUPERVISOR) Pattern Deviation OS 2.35 dB CONTINUUM Pattern Deviation OD 1.46 dB CONTINUUM Mean Deviation OS -2.93 dB CONTINUUM Mean Deviation OD -0.79 dB CONTINUUM Anatomical Region Laterality Modality Head Visual Field Narrative 04/17/2024 4:41 PM PUTTY AND CAULKING SUPERVISOR Right Eye Fixation was good. Cooperation was [...] OU - Both Eyes (04/17/2024 4:38 PM PUTTY AND CAULKING SUPERVISOR) RNFL OS 71 micrometers CONTINUUM RNFL OD 87 micrometers CONTINUUM Anatomical Region Laterality Modality Head Optical Coherenc e Tomography Narrative 04/17/2024 4:38 PM PUTTY AND CAULKING SUPERVISOR Right Eye Reliability was poor. Temporal progression [...] * Throat culture Throat (04/03/2024 4:02 PM PUTTY AND CAULKING SUPERVISOR) Report Final Report: No growth of pathogens. Comment:Testing performed by : [facility], [address] [facility] [place] [address] Throat 04/03/2024 4:02 PM PUTTY AND CAULKING SUPERVISOR 04/04/2024 12:24 AM PUTTY AND CAULKING SUPERVISOR Narrative [facility] - 04/04/2024 7:53 PM PUTTY AND CAULKING SUPERVISOR Testing performed by [facility] Microbiology Laboratory ([phone]). us Cande Gandhi RADIOLOGY TRANSPORTER LAB MICROBIOLOGY - GENERAL ORDERABLES Final Result AMADO [address] [address] Department [place] [address] * POCT rapid strep A (04/03/2024 10:59 AM PUTTY AND CAULKING SUPERVISOR) Pathologist [facility] Rapid Strep A, POC Negative Negative Swab 04/03/2024 10:5 9 AM PUTTY AND CAULKING SUPERVISOR Cande Gandhi RADIOLOGY TRANSPORTER POINT OF CARE TEST ORDERAB LES Final Result from Last 3 Months Insurance ANTHEM ACCESS CHOICE ANTHTastemaker ACCESS CHOICE Care Teams Post Acute Care Nurse Practitioner Relationship Specialty Start Date End Date Jacob Vázquez MD [address] [facility] [address] [place] [address] PCP - General Family Medicine 04/06/24
--- OUTSIDE RECORDS SUMMARY | 2024-06-20 16:23 | XMS_ITS | Clinical Summary ---
Author Organization [facility] Address [address] [facility] [place] [address] Care Team Providers Care Parts Counter Associate Name Role Phone Fatemeh Lam Primary Care Provider [phone] Source Comments [facility],non-[facility] Affiliates and Associated Physician Practices is [facility] organization consisting of ambulatory clinics and hospital sitesin [place], [place], [place] and [place]. This disclosure is being madepursuant to the Care Everywhere program and may not contain all information available regarding this patient. Last updated 17.[facility] Allergies Active Allergy Reactions Criticality Noted Date [...] age to complete this topic Care Teams Parts Counter Associate Relationship Specialty Start Date End Date Fatemeh Lam APRN-DREW [address] [place] [id number] PCP - General Nurse Practitioner 09/29/23
--- OUTSIDE RECORDS SUMMARY | 2024-06-20 16:23 | XMS_ITS | Encounter Summary ---
Author Organization [facility] Address [address] [place] [address] Care Team Providers Care Clipper Machine Name Role Phone Fatemeh Lam Primary Care Provider Suly [place] ENERGY OPERATIONS VICE PRESIDENT Unavailable [phone] Encounter Details Date Type Department Care Team (Late st Contact Info) Description 08/08/2020 BIO-IVT Groupt Message Enc [facility] Medical Group Family & Internal Medicine [facility] [address] [place] [address] Fatemeh Lam FNP [facility] [place] [address] RE: Referral Request Social History [...] Sex Assigned at Female 04/09/2024 8:17 AM MOBILE PRODUCT MANAGER Legal Sex Female 6:09 PM CDT [...] Info) Description 06/25/2024 3:45 PM CDT Appointment [facility] [place] [address] Fatemeh Lam FNP [address] [place] [address] documented as of this encounter Visit Diagnoses Not on filedocumented in this encounter Additional Health Concerns Infection Onset Date Last Indicated Resolved Time COVID-19 Rule Out 02/07/2023 02/07/2023 02/07/2023 9:04 AM MOBILE PRODUCT MANAGER COVID-19 Rule Out 12/27/2023 12/27/2023 12/27/2023 11:34 AM CDT COVID-19 Rule Out 12/27/2023 12/27/2023 12/29/2023 1:09 AM CDT Assessment Noted Time PHQ-9 Depression Total Score: 15 06/05/ 021 12:22 PM CDT documented as of this encounter Care Teams Clipper Machine Relationship Specialty Start Date End Date Fatemeh Lam FNP [address] [place] [address] PCP - General Nurse Practitioner Family 03/16/19 [place]uly [place] [facility] [place] [address] NURSE PRACTITIONER 03/16/19 documented as of this encounter
--- OUTSIDE RECORDS SUMMARY | 2024-06-20 16:23 | XMS_ITS | Encounter Summary ---
Author Organization [facility] Address [address] [place] [address] Care Team Providers Care Stapler Coil Unit Name Role Phone Fatemeh Lam KOTA Primary Care Provider [phone] Suly [place] GLOBAL REGULATORY LEAD Unavailable [phone] Reason for Visit * Reason Onset Date Comments Results 10/24/2023 Encounter Details Date Type Department Care Team (Late st Contact Info) Description 10/24/2023 Cyclos Semiconductor Message Enc [facility] [address] [place], [place] [id number] Chavez Dotson MD [facility]. [facility] [address] [place] [address] Monitor Social History Tobacco Use [...] Sex Assigned at Female 04/09/2024 8:17 AM COMMUNITY ENGAGEMENT COORDINATOR Legal Sex Female 6:09 PM CDT [...] had no further questions. Message to the appraiser timber. documented in this encounter Plan of Treatment Upcoming Encounters Date Type Department Care Team (Late st Contact Info) Description 06/25/2024 3:45 PM CDT Appointment [facility] [place] [address] Fatemeh Lam FNP [address] [place] [address] documented as of this encounter Visit Diagnoses Not on filedocumented in this encounter Additional Health Concerns Infection Onset Date Last Indicated Resolved Time COVID-19 Rule Out 12/27/2023 12/27/2023 12/27/2023 11:34 AM CDT COVID-19 Rule Out 12/27/2023 12/27/2023 12/29/2023 1:09 AM CDT Assessment Noted Time PHQ-9 Depression Total Score: 0 04/29/19 24 1:33 PM COMMUNITY ENGAGEMENT COORDINATOR documented as of this encounter Care Teams Stapler Coil Unit Relationship Specialty Start Date End Date Fatemeh Lam FNP [facility]1 [place] [address] PCP - General Nurse Practitioner Family 03/16/19 Suly [place] NP [address] [place] [address] NURSE PRACTITIONER 03/16/19 documented as of this encounter
--- OUTSIDE RECORDS SUMMARY | 2024-06-20 16:23 | XMS_ITS | Encounter Summary ---
Author Organization [facility] Address [address] [place] [address] Care Team Providers Care Ambulatory Care Nurse Name Role Phone Fatemeh Lam Primary Care Provider Suly Colorado WASTE DISPOSAL PLANT OPERATOR Unavailable [phone] Encounter Details Date Type Department Care Team (Late st Contact Info) Description 03/12/2024 NCLCt Message Enc [facility] Medical Group Family & Internal Medicine [facility] [address] [place] [address] Fatemeh Lam FNP [address] [place], [place] [id number] Muscle spasm Social History Tobacco Use Types [...] Sex Assigned at Female 04/09/2024 8:17 AM TELEVISION NEWS PHOTOGRAPHER Legal Sex Female 6:09 PM CDT Gender Identity Female 08/08/2021 1:37 PM CDT Sexual Orientation Straight 08/08/2021 1: 37 PM CDT documented as of this encounter Plan of Treatment Upcoming Encounters Date Type Department Care Team (Late st Contact Info) Description 06/25/2024 3:[address] [place] [address] Fatemeh Lam FNP [address] [place] [address] documented as of this encounter Visit Diagnoses Not on filedocumented in this encounter Additional Health Concerns Assessment Noted Time PHQ-9 Depression Total Score: 0 04/29/19 24 1:33 PM TELEVISION NEWS PHOTOGRAPHER documented as of this encounter Care Teams Ambulatory Care Nurse Relationship Specialty Start Date End Date Fatemeh Lam FNP [address] [place] [address] PCP - General Nurse Practitioner Family 03/16/19 Suly [place] NP [address] [place] [address] NURSE PRACTITIONER 03/16/19 documented as of this encounter
--- OUTSIDE RECORDS SUMMARY | 2024-06-20 16:23 | XMS_ITS | Encounter Summary ---
Author Organization [facility] Address [address] [place] [address] Care Team Providers Care Residential Sales Associate Name Role Phone Fatemeh Lam KOTA Primary Care Provider [phone] Suly [place] RICE DRYER MECHANIC Unavailable [phone] Encounter Details Date Type Department Care Team (Late st Contact Info) Description 09/01/2022 Flixel Photost Message Enc [facility] Medical Group Multispecialty Care - [facility] [address] [facility], [address] [place] [address] Karen Quezada APRN 3 [facility] [address] [place], [place] [phone] Back pain Social History Tobacco Use Types [...] Sex Assigned at Female 04/09/2024 8:17 AM COMMODITY BUYER Legal Sex Female 6:09 PM CDT Gender [...] Info) Description 06/25/2024 3:45 PM CDT Appointment [facility] [place] [address] Fatemeh Lam FNP [address] [place] [address] documented as of this encounter Visit Diagnoses Not on filedocumented in this encounter Additional Health Concerns Infection Onset Date Last Indicated Resolved Time COVID-19 Rule Out 02/07/2023 02/07/2023 02/07/2023 9:04 AM COMMODITY BUYER COVID-19 Rule Out 12/27/2023 12/27/2023 12/27/2023 11:34 AM CDT COVID-19 Rule Out 12/27/2023 12/27/2023 12/29/2023 1:09 AM CDT Assessment Noted Time PHQ-9 Depression Total Score: 0 06/01/19 23 11:42 AM CDT documented as of this encounter Care Teams Residential Sales Associate Relationship Specialty Start Date End Date Fatemeh Lam FNP [address] [place] [address] PCP - General Nurse Practitioner Family 03/16/19 Suly Colorado NP [facility] [place] [address] NURSE PRACTITIONER 03/16/19 documented as of this encounter
--- OUTSIDE RECORDS SUMMARY | 2024-06-20 16:23 | XMS_ITS | Encounter Summary ---
Author Organization [facility] Address [address] [place] [address] Care Team Providers Care Event Management Consultant Name Role Phone Fatemeh Lam Primary Care Provider Suly [place] BRASS ROLLER Unavailable [phone] Encounter Details Date Type Department Care Team (Late st Contact Info) Description 08/06/2020 Aunt Kitchent Message Enc [facility] Medical Group Family & Internal Medicine [facility] [address] [place] [address] Fatemeh Lam FNP [facility]1 [place] [address] RE: Referral Request Social History [...] Sex Assigned at Female 04/09/2024 8:17 AM SHEET CATCHER Legal Sex Female 6:09 PM CDT Gender [...] Info) Description 06/25/2024 3:45 PM CDT Appointment [facility] [place] [address] Fatemeh Lam FNP [address] [place] [address] documented as of this encounter Visit Diagnoses Not on filedocumented in this encounter Additional Health Concerns Infection Onset Date Last Indicated Resolved Time COVID-19 Rule Out 02/07/2023 02/07/2023 02/07/2023 9:04 AM SHEET CATCHER COVID-19 Rule Out 12/27/2023 12/27/2023 12/27/2023 11:34 AM CDT COVID-19 Rule Out 12/27/2023 12/27/2023 12/29/2023 1:09 AM CDT Assessment Noted Time PHQ-9 Depression Total Score: 15 06/05/ 021 12:22 PM CDT documented as of this encounter Care Teams Event Management Consultant Relationship Specialty Start Date End Date Fatemeh Lam FNP [address] [place] [address] PCP - General Nurse Practitioner Family 03/16/19 Suly [place] [facility] [place] [place] [address] NURSE PRACTITIONER 03/16/19 documented as of this encounter
--- OUTSIDE RECORDS SUMMARY | 2024-06-20 16:23 | XMS_ITS | Encounter Summary ---
Author Organization [facility] Address [address] [place] [address] Care Team Providers Care Senior Executive Compensation Analyst Name Role Phone Fatemeh Lam KOTA Primary Care Provider [phone] Suly [place] GUN PERFORATOR Unavailable [phone] Encounter Details Date Type Department Care Team (Latest Contact Info) Description 05/17/2023 twago - teamwork across global offices Message Enc [facility] Medical Group Multispecialty Care - [facility] 3 [facility], [address] [place] [phone] Karen Quezada APRN 3 [facility] [address] [place], [place] [phone] Pain management injections Social History Tobacco Use [...] Sex Assigned at Female 04/09/2024 8:17 AM BILINGUAL TEACHER ASSISTANT Legal Sex Female 6:09 PM CDT Gender Identity Female 08/08/2021 1:37 PM CDT Sexual Orientation Straight 08/08/2021 1: 37 PM CDT documented as of this encounter Plan of Treatment Upcoming Encounters Date Type Department Care Team (Late st Contact Info) Description 06/25/2024 3:45 PM CDT Appointment [facility] [place] [address] Fatemeh Lam FNP [address] [place] [address] documented as of this encounter Visit Diagnoses Not on filedocumented in this encounter Additional Health Concerns Infection Onset Date Last Indicated Resolved Time COVID-19 Rule Out 12/27/2023 12/27/2023 12/27/2023 11:34 AM CDT COVID-19 Rule Out 12/27/2023 12/27/2023 12/29/2023 1:09 AM CDT Assessment Noted Time PHQ-9 Depression Total Score: 0 04/29/19 24 1:33 PM BILINGUAL TEACHER ASSISTANT documented as of this encounter Care Teams Senior Executive Compensation Analyst Relationship Specialty Start Date End Date Fatemeh Lam FNP [address] [place] [address] PCP - General Nurse Practitioner Family 03/16/19 Suly [place] [facility] [place] [address] NURSE PRACTITIONER 03/16/19 documented as of this encounter
--- OUTSIDE RECORDS SUMMARY | 2024-06-20 16:23 | XMS_ITS | Encounter Summary ---
Author Organization [facility] Address [address] [place] [address] Care Team Providers Care Boxing Machine Operator Name Role Phone Fatemeh Lam Primary Care Provider [phone] Suly [place] FRONT FACER Unavailable [phone] Encounter Details Date Type Department Care Team (Late st Contact Info) Description 08/14/2020 Decision Rockett Message Enc [facility] Medical Group Family & Internal Medicine [facility] [address] [place] [address] Fatemeh Lam FNP [facility]1 [place] [address] RE: FW: Referral Request Social [...] Sex Assigned at Female 04/09/2024 8:17 AM SKI EDGE PAINTER Legal Sex Female 6:09 PM CDT Gender [...] Info) Description 06/25/2024 3:45 PM CDT Appointment [facility] [place] [address] Fatemeh Lam FNP [address] [place] [address] documented as of this encounter Visit Diagnoses Not on filedocumented in this encounter Additional Health Concerns Infection Onset Date Last Indicated Resolved Time COVID-19 Rule Out 02/07/2023 02/07/2023 02/07/2023 9:04 AM SKI EDGE PAINTER COVID-19 Rule Out 12/27/2023 12/27/2023 12/27/2023 11:34 AM CDT COVID-19 Rule Out 12/27/2023 12/27/2023 12/29/2023 1:09 AM CDT Assessment Noted Time PHQ-9 Depression Total Score: 15 06/05/ 021 12:22 PM CDT documented as of this encounter Care Teams Boxing Machine Operator Relationship Specialty Start Date End Date Fatemeh Lam FNP [address] [place] [address] PCP - General Nurse Practitioner Family 03/16/19 Suly [place] NP [facility] [place] [address] NURSE PRACTITIONER 03/16/19 documented as of this encounter
--- OUTSIDE RECORDS SUMMARY | 2024-06-20 16:23 | XMS_ITS | Encounter Summary ---
Author Organization [facility] Address [address] [place] [address] Care Team Providers Care Mail Processor Name Role Phone Fatemeh Lam Primary Care Provider Suly [place] SOUND CONTROLLER Unavailable [phone] Encounter Details Date Type Department Care Team (Late st Contact Info) Description 01/05/2024 LawnStartert Message Enc [facility] Medical Group Family & Internal Medicine [facility] [address] [place] [address] Fatemeh Lam FNP [address] [place], [place] [phone] Illness follow up Social History Tobacco Use [...] Sex Assigned at Female 04/09/2024 8:17 AM WEBMETHODS CONSULTANT Legal Sex Female 6:09 PM CDT [...] Appointment [facility] [place] [address] Fatemeh Lam FNP [address] [place] [address] documented as of this encounter Visit Diagnoses Not on filedocumented in this encounter Additional Health Concerns Assessment Noted Time PHQ-9 Depression Total Score: 0 04/29/19 24 1:33 PM WEBMETHODS CONSULTANT documented as of this encounter Care Teams Mail Processor Relationship Specialty Start Date End Date Fatemeh Lam FNP [address] [place] [address] PCP - General Nurse Practitioner Family 03/16/19 Suly [place] NP [address] [place] [address] NURSE PRACTITIONER 03/16/19 documented as of this encounter
--- OUTSIDE RECORDS SUMMARY | 2024-06-20 16:23 | XMS_ITS | Clinical Summary ---
Author Organization [facility] Address [address] [place] [address] Phone Care Team Providers Care Chief Relay Tester Name Role Phone Jacob Vázquez MD Primary Care Provider Allergies Active Allergy Reactions Criticality Noted Date [...] 1 tablet (100 mg total) by mouth electrification adviser before breakfast 4 Active triamcinolone (KENALOG) 0.1 [...] 04/17/2024 Assessment & Plan (04/17/2024 4:37 PM CHIEF TECHNOLOGY OFFICER): Acute onset of intermittent ptosis left eye [...] 09/01/2023 Assessment & Plan (04/17/2024 4:31 PM CHIEF TECHNOLOGY OFFICER): Stable on exam today Monitor Assessment & Plan (09/01/2023 3:27 PM CDT): Mild exo posture that is comitant and stable. Likely decompensation, rarely symptomatic. Defer prism at this time. Send myasthenia labs, TSH normal recently. Monitor closely. 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 Assessment & Plan (04/17/2024 4:34 PM CHIEF TECHNOLOGY OFFICER): Suspicious ONH appearance with mild visual field [...] Type Department Care Team Description 05/31/[address] [facility] Medical Group [facility]NT Specialists - [facility] [address] [facility] [address] [place] [address] Lalo Bolanos 04/17/2024 1:30 PM CHIEF TECHNOLOGY OFFICER Office Visit [facility] [address] [facility] [address] [place] [address] Aisha Monroy, OD Ptosis of eyelid, left (Primary Dx); Pseudopapilledema of both optic discs; Exotropia 04/13/[address] [facility] Medical Group ENT Specialists - [address] [place] [address] Marguerite Theodore MA Scheduling Appointments 04/11/[address] [facility] Ophthalmology [address] [facility] 6th Floor, [address] [facility] [place] [address] Yakov Elam, OD 04/03/2024 4:02 PM CHIEF TECHNOLOGY OFFICER - 04/03/2024 11:59 PM CHIEF TECHNOLOGY OFFICER Hospital Encounter [facility] [id number] [place] [address] Sore throat Discharge Disposition: Discharge to home or self care 04/03/2024 10:30 AM CHIEF TECHNOLOGY OFFICER Office Visit [facility] Medical Group [facility] at [address] [address] Cande Gandhi, JANAE Sore throat (Primary Dx) from Last 3 Months Surgical History Surgery Date Site/Laterality Comments [place] CHOLECSTOT/CHOLECSTOST W/ EXPL DRG/RMVL ST1 SPX Cholecystotomy - (Added by TW Conv) BACK SURGERY Back Surgery - (Added by TW Conv) [place] DILATION & CURETTAGE DX&/ THER NONOBSTETRIC Dilation [...] on file Legal Sex Female 11:12 AM CHIEF TECHNOLOGY OFFICER Gender Identity Not on file Sexual Orientation [...] Comments Blood Pressure 176/109 04/03/2024 10:56 AM CHIEF TECHNOLOGY OFFICER Pulse 96 04/03/2024 10:56 AM CHIEF TECHNOLOGY OFFICER Temperature 36.6 C (97.9 F) 04/03/2024 10:56 AM CHIEF TECHNOLOGY OFFICER Respiratory Rate 18 04/03/2024 10:5 6 AM CHIEF TECHNOLOGY OFFICER Oxygen Saturation 98% 04/03/2024 10: 56 AM CHIEF TECHNOLOGY OFFICER Inhaled Oxygen Concentration - - Weight 125.8 kg (277 lb 4.8 oz) 025 10:56 AM CHIEF TECHNOLOGY OFFICER Height 175.3 cm (5' 9.02 ) 04/03/2024 1 0:56 AM CHIEF TECHNOLOGY OFFICER Body Mass Index 40.93 04/03/2024 10:56 AM CHIEF TECHNOLOGY OFFICER Plan of Treatment Health Maintenance Due Date [...] - BOTH EYES Routine 04/17/2024 4:41 PM CHIEF TECHNOLOGY OFFICER Pseudopapilledema of both optic discs OCT, OPTIC NERVE - OU - BOTH EYES Routine 04/17/2024 4:38 PM CHIEF TECHNOLOGY OFFICER Pseudopapilledema of both optic discs THROAT CULTURE Routine 04/03/2024 4:02 PM CHIEF TECHNOLOGY OFFICER Sore throat POCT RAPID STREP Routine 04/03/2024 10:5 9 AM CHIEF TECHNOLOGY OFFICER Sore throat from Last 3 Months Results * Wood Visual Field - OU - Both Eyes (04/17/2024 4:41 PM CHIEF TECHNOLOGY OFFICER) Pathologist [facility] Pattern Deviation OS 2.35 dB CONTINUUM Pattern Deviation OD 1.46 dB CONTINUUM Mean Deviation OS -2.93 dB CONTINUUM Mean Deviation OD -0.79 dB CONTINUUM Anatomical Region Laterality Modality Head Visual Field Narrative 04/17/2024 4:41 PM CHIEF TECHNOLOGY OFFICER Right Eye Fixation was good. Cooperation was [...] OU - Both Eyes (04/17/2024 4:38 PM CHIEF TECHNOLOGY OFFICER) [facility] RNFL OS 71 micrometers CONTINUUM RNFL OD 87 micrometers CONTINUUM Anatomical Region Laterality Modality Head Optical Coherenc e Tomography Narrative 04/17/2024 4:38 PM CHIEF TECHNOLOGY OFFICER Right Eye Reliability was poor. Temporal progression [...] * Throat culture Throat (04/03/2024 4:02 PM CHIEF TECHNOLOGY OFFICER) [facility] Report Final Report: No growth of pathogens. Comment:Testing performed by : [facility], [address] [place] [address] Throat 04/03/2024 4:02 PM CHIEF TECHNOLOGY OFFICER 04/04/2024 12:24 AM CHIEF TECHNOLOGY OFFICER Narrative AMADO - 04/04/2024 7:53 PM CHIEF TECHNOLOGY OFFICER Testing performed by [facility] Microbiology Laboratory ([phone]). Cande Gandhi NP LAB MICROBIOLOGY - GENERAL ORDERABLES Final Result [facility] [address] [address] [place] [address] * POCT rapid strep A (04/03/2024 10:59 AM CHIEF TECHNOLOGY OFFICER) [facility] Rapid Strep A, POC Negative Negative Swab 04/03/2024 10:5 9 AM CHIEF TECHNOLOGY OFFICER Cande Gandhi SEAM RUBBING MACHINE OPERATOR POINT OF CARE TEST ORDERAB LES Final Result from Last 3 Months Insurance Artimi ACCESS CHOICE Artimi ACCESS CHOICE Care Teams Chief Relay Tester Relationship Specialty Start Date End Date Jacob Vázquez MD [address] [address] PCP - General Family Medicine 04/06/24
--- OUTSIDE RECORDS SUMMARY | 2024-06-20 16:23 | XMS_ITS | Encounter Summary ---
Author Organization [facility] Address [address] [place] [address] Care Team Providers Care Aviation Consultant Name Role Phone Fatemeh Lam Primary Care Provider Suly [place] AUTOMOTIVE WELDER Unavailable [phone] Encounter Details Date Type Department Care Team (Late st Contact Info) Description 03/07/2023 L & C Groceryt Message Enc [facility] Medical Group Family & Internal Medicine [facility] [address] [place] [address] Fatemeh Lam FNP [address] [place] [address] [place] Social History Tobacco Use [...] Sex Assigned at Female 04/09/2024 8:17 AM SECURITY GUARD Legal Sex Female 6:09 PM CDT Gender Identity Female 08/08/2021 1:37 PM CDT Sexual Orientation Straight 08/08/2021 1: 37 PM CDT documented as of this encounter Progress Notes * KOTA Lao - 03/07/2023 12:36 PM CST Can we print these please and make sure she has been seen recently. RITY GUARD documented in this encounter Plan of Treatment Upcoming Encounters Date Type Department Care Team (Late st Contact Info) Description 06/25/2024 3:45 PM CDT Appointment [facility] [place] [address] Fatemeh Lam FNP [address] [place] [address] documented as of this encounter Visit Diagnoses Not on filedocumented in this encounter Additional Health Concerns Infection Onset Date Last Indicated Resolved Time COVID-19 Rule Out 12/27/2023 12/27/2023 12/27/2023 11:34 AM CDT COVID-19 Rule Out 12/27/2023 12/27/2023 12/29/2023 1:09 AM CDT Assessment Noted Time PHQ-9 Depression Total Score: 0 06/01/19 23 11:42 AM CDT documented as of this encounter Care Teams Aviation Consultant Relationship Specialty Start Date End Date Fatemeh Lam FNP [address] [place] [address] PCP - General Nurse Practitioner Family 03/16/19 Suly oClor[place] NP [address] [place] [address] NURSE PRACTITIONER 03/16/19 documented as of this encounter
--- OUTSIDE RECORDS SUMMARY | 2024-06-20 16:24 | XMS_ITS | Encounter Summary ---
Author Organization [facility] Address [address] [place] [address] Care Team Providers Care Fruit Pitter Name Role Phone Fatemeh Lam Primary Care Provider Suly [place] TIE MAKER Unavailable [phone] Encounter Details Date Type Department Care Team (Late st Contact Info) Description 10/30/2020 REEL Qualifiedt Message Enc [facility] Medical Group Family & Internal Medicine [facility] [address] [place] [address] Fatemeh Lam FNP [address] [place] [address] RE: Medication Questions Social History [...] Sex Assigned at Female 04/09/2024 8:17 AM COMPRESSOR STATIONS SUPERINTENDENT Legal Sex Female 6:09 PM CDT Gender Identity Female 08/08/2021 1:37 PM CDT Sexual Orientation Straight 08/08/2021 1: 37 PM CDT documented as of this encounter Plan of Treatment Upcoming Encounters Date Type Department Care Team (Late st Contact Info) Description 06/25/2024 3:[address] [place] [address] Fatemeh Lam FNP [address] [place] [address] documented as of this encounter Visit Diagnoses Not on filedocumented in this encounter Additional Health Concerns Infection Onset Date Last Indicated Resolved Time COVID-19 Rule Out 02/07/2023 02/07/2023 02/07/2023 9:04 AM COMPRESSOR STATIONS SUPERINTENDENT COVID-19 Rule Out 12/27/2023 12/27/2023 12/27/2023 11:34 AM CDT COVID-19 Rule Out 12/27/2023 12/27/2023 12/29/2023 1:09 AM CDT Assessment Noted Time PHQ-9 Depression Total Score: 4 09/13/19 21 9:12 AM CDT documented as of this encounter Care Teams Fruit Pitter Relationship Specialty Start Date End Date Fatemeh Lam FNP [address] [place] [address] PCP - General Nurse Practitioner Family 03/16/19 Suly [place] NP [facility] [place] [address] NURSE PRACTITIONER 03/16/19 documented as of this encounter
--- OUTSIDE RECORDS SUMMARY | 2024-06-20 16:24 | XMS_ITS | Clinical Summary ---
Author Organization [facility] Address [address], [facility] [address] [place] [address] Phone Care Team Providers Care Sheet Rock Hanger Name Role Phone Fatemeh Lam APRN, DREW Primary Care Provider Tu Parks MD Unavailable [phone] Allergies Active Allergy Reactions Criticality Noted Date [...] Description 03/22/2024 Telephone [facility] [address] [address] Tu Parks MD from Last [...] patient's age to complete this topic Insurance [facility] MEDICAID [place] Care Teams Sheet Rock Hanger Relationship Specialty Start Date End Date Fatemeh Lam APRN, GENERAL FOUNDRY WORKER [address] [place] [address] PCP - General Internal Medicine 09/23/23 Tu Parks MD [address] [place] [phone] Consulting Physician Oncology 09/23/23
--- OUTSIDE RECORDS SUMMARY | 2024-06-20 16:24 | XMS_ITS | Encounter Summary ---
Author Organization [facility] Address [address] [place] [address] Care Team Providers Care Ladle Repairer Name Role Phone Fatemeh Lam Primary Care Provider Suly [place] ART FRAMING MANAGER Unavailable [phone] Encounter Details Date Type Department Care Team (Late st Contact Info) Description 09/15/2021 Process Data Controlt Message Enc [facility] Medical Group Family & Internal Medicine [facility] [address] [place] [address] Fatemeh Lam FNP [address] [place] [address] Sleep study Social History Tobacco [...] Sex Assigned at Female 04/09/2024 8:17 AM FARM PRODUCT PURCHASER Legal Sex Female 6:09 PM CDT Gender [...] Info) Description 06/25/2024 3:45 PM CDT Appointment [facility] [place] [address] Fatemeh Lam FNP [address] [place] [address] documented as of this encounter Visit Diagnoses Not on filedocumented in this encounter Additional Health Concerns Infection Onset Date Last Indicated Resolved Time COVID-19 Rule Out 02/07/2023 02/07/2023 02/07/2023 9:04 AM FARM PRODUCT PURCHASER COVID-19 Rule Out 12/27/2023 12/27/2023 12/27/2023 11:34 AM CDT COVID-19 Rule Out 12/27/2023 12/27/2023 12/29/2023 1:09 AM CDT Assessment Noted Time PHQ-9 Depression Total Score: 4 09/13/19 9:12 AM CDT documented as of this encounter Care Teams Ladle Repairer Relationship Specialty Start Date End Date Fatemeh Lam FNP [address] [place] [address] PCP - General Nurse Practitioner Family 03/16/19 Suly [place] NP [address] [place] [address] NURSE PRACTITIONER 03/16/19 documented as of this encounter
--- OUTSIDE RECORDS SUMMARY | 2024-06-20 16:24 | XMS_ITS | Encounter Summary ---
Author Organization [facility] Address [address] [place] [address] Phone Care Team Providers Care Tree Marker Name Role Phone Fatemeh Lam APRN, CNP Primary Care Provider Tu Parks MD Unavailable [phone] Encounter Details Date Type Department Care Team (Late st Contact Info) Description 11/18/2023 Telephone [facility] [address] [address] Tu Parks MD [address] [address] Social History Tobacco Use Types [...] on filedocumented in this encounter Care Teams Tree Marker Relationship Specialty Start Date End Date Fatemeh Lam APRN, DREW [address] [place] [address] PCP - General Internal Medicine 09/23/23 Tu Parks MD [address] [place] [phone] Consulting Physician Oncology 09/23/23 documented as of this encounter
--- OUTSIDE RECORDS SUMMARY | 2024-06-20 16:24 | XMS_ITS | Encounter Summary ---
Author Organization [facility] Address [address] [place] [address] Care Team Providers Care Career Guidance Counselor Name Role Phone Fatemeh Lam Primary Care Provider Suly [place] SCREENING TECH Unavailable [phone] Encounter Details Date Type Department Care Team (Late st Contact Info) Description 08/24/2021 R&T Enterprisest Message Enc [facility] Medical Group Family & Internal Medicine [facility] [address] [place] [address] Fatemeh Lam FNP [address] [place], [place] [phone] Urine culture Social History Tobacco Use Types [...] Sex Assigned at Female 04/09/2024 8:17 AM PASSPORT APPLICATION EXAMINER Legal Sex Female 6:09 PM CDT Gender [...] encounter Progress Notes * KOTA Lao - 08/24/2021 10:53 AM CDT She is on the correct abx She can come in for rocephin injection 1 gram IM documented in this encounter Plan of Treatment Upcoming Encounters Date Type Department Care Team (Late st Contact Info) Description 06/25/2024 3:45 PM CDT Appointment [facility] [place] [address] Fatemeh Lam FNP [address] [place] [address] documented as of this encounter Visit Diagnoses Not on filedocumented in this encounter Additional Health Concerns Infection Onset Date Last Indicated Resolved Time COVID-19 Rule Out 02/07/2023 02/07/2023 02/07/2023 9:04 AM PASSPORT APPLICATION EXAMINER COVID-19 Rule Out 12/27/2023 12/27/2023 12/27/2023 11:34 AM CDT COVID-19 Rule Out 12/27/2023 12/27/2023 12/29/2023 1:09 AM CDT Assessment Noted Time PHQ-9 Depression Total Score: 4 09/13/19 21 9:12 AM CDT documented as of this encounter Care Teams Career Guidance Counselor Relationship Specialty Start Date End Date Fatemeh Lam FNP [address] [place] [address] PCP - General Nurse Practitioner Family 03/16/19 Suly [place] NP [address] [place] [address] NURSE PRACTITIONER 03/16/19 documented as of this encounter
--- OUTSIDE RECORDS SUMMARY | 2024-06-20 16:24 | XMS_ITS | Encounter Summary ---
Author Organization [facility] Address [address] [place] [address] Care Team Providers Care Knockup Worker Name Role Phone Fatemeh Lam Primary Care Provider Suly [place] BLUEPRINT TRACER Unavailable [phone] Encounter Details Date Type Department Care Team (Late st Contact Info) Description 08/19/2021 Solar Capture Technologiest Message Enc [facility] Medical Group Family & Internal Medicine [facility] [address] [place] [address] Fatemeh Lam FNP [address] [place] [address] Uti Social History Tobacco Use [...] Sex Assigned at Female 04/09/2024 8:17 AM DISPATCHER REFINERY Legal Sex Female 6:09 PM CDT Gender [...] Info) Description 06/25/2024 3:45 PM CDT Appointment [facility] [place] [address] Fatemeh Lam FNP [address] [place] [address] documented as of this encounter Visit Diagnoses Not on filedocumented in this encounter Additional Health Concerns Infection Onset Date Last Indicated Resolved Time COVID-19 Rule Out 02/07/2023 02/07/2023 02/07/2023 9:04 AM DISPATCHER REFINERY COVID-19 Rule Out 12/27/2023 12/27/2023 12/27/2023 11:34 AM CDT COVID-19 Rule Out 12/27/2023 12/27/2023 12/29/2023 1:09 AM CDT Assessment Noted Time PHQ-9 Depression Total Score: 4 09/13/19 9:12 AM CDT documented as of this encounter Care Teams Knockup Worker Relationship Specialty Start Date End Date Fatemeh Lam FNP [address] [place] [address] PCP - General Nurse Practitioner Family 03/16/19 Suly [place] NP [facility] [place] [address] NURSE PRACTITIONER 03/16/19 documented as of this encounter
--- OUTSIDE RECORDS SUMMARY | 2024-06-20 16:24 | XMS_ITS | Encounter Summary ---
Author Organization [facility] Address [address] [place] [address] Care Team Providers Care Operations Representative Name Role Phone Fatemeh Lam KOTA Primary Care Provider [phone] Suly [place] MACHINE FELLER Unavailable [phone] Encounter Details Date Type Department Care Team (Late st Contact Info) Description 08/30/2023 Synaptic Digital Message Enc [facility] Medical Group Multispecialty Care - [facility] [address] [facility], [address] [place] [phone] Karen Quezada APRN [address] [facility] [address] [place], [place] [phone] Pain management Social History Tobacco Use Types [...] Sex Assigned at Female 04/09/2024 8:17 AM PUTTY PATCHER Legal Sex Female 6:09 PM CDT Gender Identity Female 08/08/2021 1:37 PM CDT Sexual Orientation Straight 08/08/2021 1: 37 PM CDT documented as of this encounter Plan of Treatment Upcoming Encounters Date Type Department Care Team (Late st Contact Info) Description 06/25/2024 3:45 PM CDT Appointment [place] [facility] [address] Fatemeh Lam FNP [address] [place] [address] documented as of this encounter Visit Diagnoses Not on filedocumented in this encounter Additional Health Concerns Infection Onset Date Last Indicated Resolved Time COVID-19 Rule Out 12/27/2023 12/27/2023 12/27/2023 11:34 AM CDT COVID-19 Rule Out 12/27/2023 12/27/2023 12/29/2023 1:09 AM CDT Assessment Noted Time PHQ-9 Depression Total Score: 0 04/29/19 24 1:33 PM PUTTY PATCHER documented as of this encounter Care Teams Operations Representative Relationship Specialty Start Date End Date Fatemeh Lam FNP [address] [place] [address] PCP - General Nurse Practitioner Family 03/16/19 Suly [place] NP [facility] [place] [address] NURSE PRACTITIONER 03/16/19 documented as of this encounter
--- OUTSIDE RECORDS SUMMARY | 2024-06-20 16:24 | XMS_ITS | Encounter Summary ---
Author Organization [facility] Address [address] [place] [address] Care Team Providers Care Machine Fixer Name Role Phone Fatemeh Lam Primary Care Provider Suly [place] COMBAT ENGINEER Unavailable [phone] Encounter Details Date Type Department Care Team (Late st Contact Info) Description 10/03/[address] [facility] Medical Group Family & Internal Medicine [facility] [address] [place] [address] Fatemeh Lam FNP [address] [place], [place] [phone] Endocrinology Social History Tobacco Use Types Packs/Day [...] Sex Assigned at Female 04/09/2024 8:17 AM PRODUCT MGMT DEV MANAGER Legal Sex Female 6:09 PM CDT Gender Identity Female 08/08/2021 1:37 PM CDT Sexual Orientation Straight 08/08/2021 1: 37 PM CDT documented as of this encounter Plan of Treatment Upcoming Encounters Date Type Department Care Team (Late st Contact Info) Description 06/25/2024 3:[address] [facility] [place] [address] Fatemeh Lam FNP [address] [place] [address] documented as of this encounter Visit Diagnoses Not on filedocumented in this encounter Additional Health Concerns Infection Onset Date Last Indicated Resolved Time COVID-19 Rule Out 12/27/2023 12/27/2023 12/27/2023 11:34 AM CDT COVID-19 Rule Out 12/27/2023 12/27/2023 12/29/2023 1:09 AM CDT Assessment Noted Time PHQ-9 Depression Total Score: 0 04/29/19 24 1:33 PM PRODUCT MGMT DEV MANAGER documented as of this encounter Care Teams Machine Fixer Relationship Specialty Start Date End Date Fatemeh Lam FNP [address] [place] [address] PCP - General Nurse Practitioner Family 03/16/19 Suly [place] NP [address] [place] [address] NURSE PRACTITIONER 03/16/19 documented as of this encounter
--- OUTSIDE RECORDS SUMMARY | 2024-06-20 16:24 | XMS_ITS | Clinical Summary ---
Author Organization [facility] Address [address] [place] [address] Care Team Providers Care Pourer Name Role Phone Fatemeh Lam KOTA Primary Care Provider [phone] Suly [place] BAG PRESSER Unavailable [phone] Allergies Active Allergy Reactions Criticality Noted Date [...] (FLONASE) 50 MCG/ACT nasal sprayIndications: Uncontrolled asthma ([facility]) SPRAY 1 SPRAY INTO EACH NOSTRIL EVERY [...] Care Team Description 06/20/2024 MyChart Message Enc [facility] Family & Internal [address] [address] Fatemeh Lam FNP Flu test 06/13/2024 1:20 PM CDT Office Visit [facility] Internal [address] [address] Fatemeh Lam FNP Joint Pain (Patient c/o pain in most of her joints. Patient states this flare up has lasted a few weeks . ) 06/13/2024 - 06/13/2024 11:59 PM CDT Hospital Encounter [facility] [address] [place] [address] Fatemeh Lam FNP Discharge Disposition: Home or Self Care (Routine Discharge) 06/13/2024 Travel 06/04/2024 MyChart Message Enc [facility] Internal [address] [address] [facility] Provider Insomnia 06/01/2024 MyChart Message Enc [facility] Family Internal [address] [address] Fatemeh Lam FNP Insomnia 05/11/[address] [address] Fatemeh Lam FNP Lab Results 05/10/2024 10:20 AM SORTER/ASSAY TECH Laboratory Only [facility] Internal [address] [address] Fatemeh Lam FNP 05/10/2024 Travel 04/30/2024 MyChart Message Enc [facility] Medical Group Family & Internal Medicine [address] [address] Fatemeh Lam FNP Back spasm 04/09/2024 8:15 AM SORTER/ASSAY TECH Office Visit [facility], [address] [address] Chavez Dotson MD Palpitations (Follow up) 04/09/2024 [...] Sex Assigned at Female 04/09/2024 8:17 AM SORTER/ASSAY TECH Legal Sex Female 6:09 PM CDT Gender [...] 06/25/2024 3:45 PM CDT Appointment [facility] [place] [address] Fatemeh Lam, KOTA [address] [place] [address] Health Maintenance Due Date Last Done Comments [...] to 64 Years) Completed 12/01/2023 PHQ-2 (Physician [place]) Completed 06/13/2024 HPV Vaccines Aged Out No [...] VENOUS BLOOD VENIPUNCTURE Routine 05/10/2024 10:23 AM SORTER/ASSAY TECH Chronic pain of left knee Redness and swelling of knee COMPREHENSIVE METABOLIC PANEL Routine 05/10/2024 10:23 AM SORTER/ASSAY TECH Chronic pain of left knee Redness and swelling of knee URIC ACID BLOOD Routine 05/10/2024 10:23 AM SORTER/ASSAY TECH Chronic pain of left knee Redness and [...] (RO), SSB1 (LA), POST, SCL70, JO1, CENTROMERE, CARD CUTTER HISTONE MUST BE ORDERED SEPARATELY DNA (DS) [...] 06/13/2024 2:27 PM CDT us Fatemeh Lam [facility] Final Result Performing Organization Address [facility]/ZIP Co de Phone Number [facility] [address] [place] [address], [phone] * RHEUMATOID FACTOR, QUANT (06/13/2024 2:27 PM CDT) RHEUMATOID FACTOR <10 <15 IU/ML 06/13/2024 9:21 PM CDT [facility] 06/13/2024 2:27 PM CDT Fatemeh Lam [facility] Final Result Performing Organization Address [facility] de Phone Number [facility] [address] [place] [address], [place] [phone] * THYROID PEROXIDASE ANTIBODY (06/13/2024 2:27 PM CDT) THYROID PEROXIDASE MICROSOMAL AB <4 IU/ML 06/14/2024 3:05 PM CDT [facility] Comment: NEGATIVE: < 25 IU/ML EQUIVOCAL: 25 to 35 IU/ML POSITIVE: > 35 IU/ML 06/13/2024 2:27 PM CDT Fatemeh Bartholomewzer [facility] Final Result Performing Organization Address [facility] Co de Phone Number [facility] [address] [place] [address], [place] [phone] * ENA2 (SSA & SSB) (06/13/2024 2:27 [...] ERYTHEMATOSUS. 06/13/2024 2:27 PM CDT Fatemeh Lam [facility] Final Result Performing Organization Address City/[facility]/ZIP Co de Phone Number [facility] [address] [place] [address], [place] [phone] * VITAMIN B-12 (06/13/2024 2:27 PM CDT) Pathologist [facility] VITAMIN B12 S/P/B 648 193 - 986 PG/ML 06/14/2024 11:19 AM CDT [facility] 06/13/2024 2:27 PM CDT [facility] Final Result [facility] [address] [place] [address], [place] [phone] * (ABNORMAL) SED RATE, ERYTHROCYTE (ESR) (06/13/2024 2:27 PM CDT) ESR 20(H) 0 - 19 MM/HR 06/13/2024 7:35 PM CDT [facility] 06/13/2024 2:27 PM CDT Fatemeh Lam [facility] Final Result -[place] [address] [place] [address], [place] [phone] * (ABNORMAL) COMPREHENSIVE METABOLIC PANEL (06/13/2024 2:27 PM CDT) Only the most recent of2 resultswithin the time period is included. Pathologist [facility] SODIUM S/P/B 137 136 - 145 MMOL/L 06/14/2024 11:19 AM CDT -[facility] POTASSIUM S/P/B 4.3 3.5 - 5.1 MMOL/L 06/14/2024 11:19 AM CDT [facility] CHLORIDE S/P/B 101 98 - 107 MMOL/L 06/14/2024 11:19 AM CDT -[facility] CO2 25.2 21 - 32 MMOL/L 06/14/2024 11:19 AM CDT -[facility] GLUCOSE 94 70 - 99 MG/DL 06/14/2024 11:19 AM CDT -[facility] BUN 18 7 - 18 MG/DL 06/14/2024 11:19 AM CDT [facility] CREATININE S/P/B 0.74 0.55 - 1.02 MG/DL 06/14/2024 11:19 AM CDT -[facility] CALCIUM S/P/B 9.8 8.4 - 10.5 MG/DL 06/14/2024 11:19 AM CDT [facility] BILIRUBIN TOTAL S/P/B 0.3 0.2 - 1.0 MG/DL 06/14/2024 11:19 AM CDT [facility] ALKALINE PHOSPHATASE S/P/B 115(H) 37 - 98 U/L 06/14/2024 11:19 AM CDT [place] AST 15 15 - 37 U/L 06/14/2024 11:19 AM CDT [facility] ALT 28 14 - 59 U/L 06/14/2024 11:19 AM CDT [facility] TOTAL PROTEIN S/P/B 7.7 6.4 - 8.2 G/DL 06/14/2024 11:19 AM T [facility] ALBUMIN S/P/B 4.2 3.4 - 5.0 G/DL 06/14/2024 11:19 AM CDT [facility] ANION GAP 10.8 5 - 15 MMOL/L 06/14/2024 11:19 AM T [facility] Comment:REFERENCE RANGE NOT ESTABLISHED OSMOLALITY (CALC) 286 MOSM/KG 025 11:19 AM T [place] Comment:REFERENCE RANGE NOT ESTABLISHED GFR ESTIMATE >90 >90 ML/MIN/1. 73 M2 06/14/2024 11:19 AM T [facility] GFR NOTES GFR REFERENCE S: 06/14/2024 11:[address] [facility] [place] [facility] Comment: THE ESTIMATED GFR IS [...] CDT us Fatemeh [facility] Final Result [facility] [address] [place] [address], * (ABNORMAL) C-REACTIVE PROTEIN (06/13/2024 2:27 PM CDT) [facility] C-REACTIVE PROTEIN 2.18(H) <0.30 mg/dL 06/14/2024 11:19 AM CDT [facility] 06/13/2024 2:27 PM CDT Fatemeh Bartholomewfarhad [facility] Final Result Performing Organization Address City/[facility]/ZIP Co de Phone Number [address] [address], * THYROXINE, FREE (FT4) (06/13/2024 2:27 PM CDT) [facility] FREE T4 1.02 0.76 - 1.46 NG/DL 06/13/2024 9:21 PM CDT [facility] 06/13/2024 2:27 PM CDT Fatemeh Ensendafarhad [facility] Final Result Performing Organization Address City/[facility]/ZIP Co de Phone Number [facility] [address] [place] [address], [phone] * THYROID STIM HORMONE TSH (06/13/2024 2:27 PM CDT) [facility] TSH 1.498 0.358 - 3.740 uIU/ML 06/14/2024 11:19 AM CDT [facility] 06/13/2024 2:27 PM CDT Fatemeh Ensendafarhad [facility] Final Result Performing Organization Address City/[facility]/ZIP Co de Phone Number [address] [place] [address], * (ABNORMAL) VITAMIN D 25 OH (06/13/2024 2:27 PM CDT) [facility] VITAMIN D 25 HYDROXY TOTAL S/P/B 14.0(L) 30 - 100 NG/ML 06/14/2024 11:19 AM CDT [facility] Comment: DEFICIENT <20 INSUFFICIENT 20-30 SUFFICIENT 30-100 06/13/2024 2:27 PM CDT Fatemeh Lam [facility] Final Result [address] [address], * MAGNESIUM (06/13/2024 2:27 PM CDT) [facility] MAGNESIUM 1.8 1.8 - 2.4 MG/DL 06/14/2024 11:19 AM CDT [facility] 06/13/2024 2:27 PM CDT Fatemeh Lam [facility] Final Result [address] [address], * CYCLIC CITRULLINATED PEPTIDE (CCP)ANTIBODY(IGG) (06/13/2024 2:14 PM CDT) [facility] CITRULLINE PEPTIDE ANTIBODY <16 UNITS [facility] Comment: Reference Range Negative: <20 Weak Positive: 20-39 Moderate Positive: 40-59 Strong Positive: >59 06/13/2024 2:14 PM CDT 06/15/2024 5:19 AM CDT Narrative Resulting Agency Comment Performing Organization Information: Site ID: [id number] Name: [facility] Address: [address] [facility] [place] [address] Director: Artie Rai MD Fatemeh [facility] Final Result [facility] [address] [facility] [place] [address], * FOLIC ACID SERUM (06/13/2024 2:14 PM CDT) FOLATE 10.2 8.6 - 58.9 NG/ML 06/13/2024 7:56 PM CDT [facility] 06/13/2024 2:14 PM CDT Fatemeh [facility] Final Result Performing Organization Address [facility]/ZIP Co de Phone Number [facility] [address] [place] [address], * (ABNORMAL) URINALYSIS AUTO DIP (06/13/2024) COLOR (U) PALE YELLOW YELLOW [facility] TRANSPARENCY CLEAR CLEAR [facility] GLUCOSE (U) NEGATIVE NEGATIVE MG/DL [facility] BILIRUBIN (U) NEGATIVE NEGATIVE [facility] MG/DL (U) NEGATIVE NEGATIVE MG/DL [facility] SPECIFIC GRAVITY (U) 1.020 1.001 - 1.035 [facility] BLOOD (U) SMALL (1+, Non Hemolyzed)(A ) NEGATIVE [facility] U PH 6.0 5.0 - 9.0 [facility] PROTEIN (U) NEGATIVE NEGATIVE mg/dL [facility] UROBILINOGEN 0.2 0.2 - 1.0 EU/dL = mg/dL [facility] NITRITES NEGATIVE NEGATIVE MG/DL [facility] LEUKOCYTES (U) NEGATIVE NEGATIVE MG-SO [facility] URINE SPECIMEN OBTAINED BY CLEAN CATCH PROCEDURE / Unknown 06/13/2024 Fatemeh ESCUDERO URINE ORDERABLES Final Result Performing Organization Address City/[facility]/ZIP Co de Phone Number [facility] [address] [place] [address], [place] * URIC ACID BLOOD (05/10/2024 10:23 AM SORTER/ASSAY TECH) URIC ACID 5.0 2.6 - 6.0 MG/DL 05/10/2024 3:25 PM SORTER/ASSAY TECH [facility] 05/10/2024 10:2 3 AM SORTER/ASSAY TECH Fatemheshilpa Bartholomewfarhad [facility] Final Result Performing Organization Address City/[facility] Co de Phone Number [facility] [address] [place] [address], from Last 3 Months Insurance Care Teams Pourer Relationship Specialty Start Date End Date Fatemeh Lam FNP [address] [place] [address] PCP - General Nurse Practitioner Family 03/16/19 [place] [facility] [place] [address] NURSE PRACTITIONER 03/16/19
--- OUTSIDE RECORDS SUMMARY | 2024-06-20 16:24 | XMS_ITS | Encounter Summary ---
Author Organization [facility] Address [address] [place] [address] Care Team Providers Care Faculty Criminal Justice Name Role Phone Fatemeh Lam Primary Care Provider Suly [place] ROUSTABOUT PUSHER Unavailable [phone] Encounter Details Date Type Department Care Team (Late st Contact Info) Description 09/27/2023 Repairogent Message Enc [facility] Family & Internal Medicine [facility] [address] [place] [address] Fatemeh Lam FNP [address] [place], [place] [phone] Refill Social History Tobacco Use Types Packs/Day [...] Sex Assigned at Female 04/09/2024 8:17 AM BENDER HAND Legal Sex Female 6:09 PM CDT Gender [...] Info) Description 06/25/2024 3:45 PM CDT Appointment [place] [address] Fatemeh Lam FNP [address] [place] [address] documented as of this encounter Visit Diagnoses Not on filedocumented in this encounter Additional Health Concerns Infection Onset Date Last Indicated Resolved Time COVID-19 Rule Out 12/27/2023 12/27/2023 12/27/2023 11:34 AM CDT COVID-19 Rule Out 12/27/2023 12/27/2023 12/29/2023 1:09 AM CDT Assessment Noted Time PHQ-9 Depression Total Score: 0 04/29/19 24 1:33 PM BENDER HAND documented as of this encounter Care Teams Faculty Criminal Justice Relationship Specialty Start Date End Date Fatemeh Lam FNP [address] [place] [address] PCP - General Nurse Practitioner Family 03/16/19 [place] [address] [place], [place] [address] [place] [address] NURSE PRACTITIONER 03/16/19 documented as of this encounter
--- OUTSIDE RECORDS SUMMARY | 2024-06-20 16:24 | XMS_ITS | Encounter Summary ---
Author Organization [facility] Address [address] [place] [address] Phone Care Team Providers Care Church Supervisor Name Role Phone Fatemeh Lam APRN, CNP Primary Care Provider Tu Parks MD Unavailable Encounter Details Date Type Department Care Team (Late st Contact Info) Description 03/22/2024 Telephone [facility] [address] [address] Tu Parks MD [address] [address] Social History Tobacco Use Types [...] about missed appt wasn't able to reach [facility] to return call to office for reschedulingsent reminder letter out. CTURAL STEEL DETAILER documented in this encounter Plan of Treatment Not on file documented as of this encounter Visit Diagnoses Not on filedocumented in this encounter Care Teams Church Supervisor Relationship Specialty Start Date End Date Fatemeh Lam, FRAN, TRIM MACHINE OPERATOR [address] [place] [address] PCP - General Internal Medicine 09/23/23 Tu Parks MD [address] [place] [address] Consulting Physician Oncology 09/23/23 documented as of this encounter
--- OUTSIDE RECORDS SUMMARY | 2024-06-20 16:24 | XMS_ITS | Encounter Summary ---
Author Organization [facility] Address [address] [place] [address] Care Team Providers Care Survey Manager Name Role Phone Fatemeh Lam Primary Care Provider Suly Colorado MANAGER DAIRY Unavailable [phone] Encounter Details Date Type Department Care Team (Late st Contact Info) Description 12/14/2021 Expertt Message Enc [facility] Medical Group Family & Internal Medicine [facility] [address] [place] [address] Fatemeh Lam FNP [address] [place] [address] [place] Social History Tobacco Use [...] Sex Assigned at Female 04/09/2024 8:17 AM UNDERWRITING SERVICE REPRESENTATIVE Legal Sex Female 6:09 PM CDT Gender Identity Female 08/08/2021 1:37 PM CDT Sexual Orientation Straight 08/08/2021 1: 37 PM CDT documented as of this encounter Plan of Treatment Upcoming Encounters Date Type Department Care Team (Late st Contact Info) Description 06/25/2024 3:[address] [facility] [place] [address] Fatemeh Lam FNP [address] [place] [address] documented as of this encounter Visit Diagnoses Not on filedocumented in this encounter Additional Health Concerns Infection Onset Date Last Indicated Resolved Time COVID-19 Rule Out 02/07/2023 02/07/2023 02/07/2023 9:04 AM UNDERWRITING SERVICE REPRESENTATIVE COVID-19 Rule Out 12/27/2023 12/27/2023 12/27/2023 11:34 AM CDT COVID-19 Rule Out 12/27/2023 12/27/2023 12/29/2023 1:09 AM CDT Assessment Noted Time PHQ-9 Depression Total Score: 4 09/13/19 9:12 AM CDT documented as of this encounter Care Teams Survey Manager Relationship Specialty Start Date End Date Fatemeh Lam FNP [address] [place] [address] PCP - General Nurse Practitioner Family 03/16/19 [facility]uly [place] [facility] [place] [address] NURSE PRACTITIONER 03/16/19 documented as of this encounter
--- OUTSIDE RECORDS SUMMARY | 2024-06-20 16:24 | XMS_ITS | Encounter Summary ---
Author Organization [facility] Address [facility] [place] [address] Care Team Providers Care Pesticide Control Inspector Name Role Phone Fatemeh Lam KOTA Primary Care Provider [phone] Suly Colorado DIRECTOR OF CAREER SERVICES Unavailable [phone] Reason for Visit * Auth/Cert (Routine) Specialty Diagnoses / Procedures Referred By Contac t Referred To Contact Diagnoses Sacroiliitis Spinal stenosis of lumbar region without neurogenic claudication Sacroiliitis (CMS/HCC) [M46.1] Spinal stenosis of lumbar region without neurogenic claudication [M48.061] Procedures BLOCK SACROILIAC JOINT Candice Moreira MD [address] [facility] [address] [place] [address] Phone: tel: fax: Referral ID Status Reason Start Date Expiration Date Visits Re quested Visits Authorized [id number] 1 1 Encounter Details Date Type Department Care Team (Late st Contact Info) Description 10/18/2023 Hospital Encounter [facility] [address] [place], [place] [id number] Candice Moreira MD [facility] [address] [place] [address] Social History Tobacco Use Types Packs/Day [...] Sex Assigned at Female 04/09/2024 8:17 AM PLASTERING SUPERVISOR Legal Sex Female 6:09 PM CDT Gender Identity Female 08/08/2021 1:37 PM CDT Sexual Orientation Straight 08/08/2021 1: 37 PM CDT documented as of this encounter Plan of Treatment Upcoming Encounters Date Type Department Care Team (Late st Contact Info) Description 06/25/2024 3:45 PM CDT Appointment [facility] [place] [address] Fatemeh Lam FNP [address] [place] [address] documented as of this encounter Visit Diagnoses Not on filedocumented in this encounter Additional Health Concerns Infection Onset Date Last Indicated Resolved Time COVID-19 Rule Out 12/27/2023 12/27/2023 12/27/2023 11:34 AM CDT COVID-19 Rule Out 12/27/2023 12/27/2023 12/29/2023 1:09 AM CDT Assessment Noted Time PHQ-9 Depression Total Score: 0 04/29/19 24 1:33 PM PLASTERING SUPERVISOR documented as of this encounter Care Teams Pesticide Control Inspector Relationship Specialty Start Date End Date Fatemeh Lam FNP [address] [place] [address] PCP - General Nurse Practitioner Family 03/16/19 Suly Colorado NP [address] [place] [address] NURSE PRACTITIONER 03/16/19 documented as of this encounter
--- OUTSIDE RECORDS SUMMARY | 2024-06-20 16:24 | XMS_ITS | Encounter Summary ---
Author Organization [facility] Address [address] [place] [address] Care Team Providers Care Swing Grinder Name Role Phone Fatemeh Lam Primary Care Provider Suly Colorado HAMMER REPAIRER Unavailable [phone] Encounter Details Date Type Department Care Team (Late st Contact Info) Description 04/08/2021 Fighterst Message Enc [facility] Medical Group Family & Internal Medicine [facility] [address] [place] [address] Fatemeh Lam FNP [address] [place] [address] Medication update Social History Tobacco [...] Sex Assigned at Female 04/09/2024 8:17 AM PLUG CUTTER Legal Sex Female 6:09 PM CDT Gender Identity Female 08/08/2021 1:37 PM CDT Sexual Orientation Straight 08/08/2021 1: 37 PM CDT documented as of this encounter Plan of Treatment Upcoming Encounters Date Type Department Care Team (Late st Contact Info) Description 06/25/2024 3:[address] [facility] [place] [address] Fatemeh Lam FNP [address] [place] [address] documented as of this encounter Visit Diagnoses Not on filedocumented in this encounter Additional Health Concerns Infection Onset Date Last Indicated Resolved Time COVID-19 Rule Out 02/07/2023 02/07/2023 02/07/2023 9:04 AM PLUG CUTTER COVID-19 Rule Out 12/27/2023 12/27/2023 12/27/2023 11:34 AM CDT COVID-19 Rule Out 12/27/2023 12/27/2023 12/29/2023 1:09 AM CDT Assessment Noted Time PHQ-9 Depression Total Score: 4 09/13/19 9:12 AM CDT documented as of this encounter Care Teams Swing Grinder Relationship Specialty Start Date End Date Fatemeh Lam FNP [address] [place] [address] PCP - General Nurse Practitioner Family 03/16/19 [facility]uly [place] [facility] [place] [address] NURSE PRACTITIONER 03/16/19 documented as of this encounter
--- NOTE | 2024-06-20 16:43 | PC.NURSE ---
Reports feeling better after IVF.
== END 2024-06-20 17:10 | disposition home or self-care (01) ==
PROVIDERS: Emergency Provider Physician Assistant; PCP Nurse Practitioner Family
DX: J10.2 Influenza due to other identified influenza virus with gastrointestinal manifestations (principal); R11.2 Nausea with vomiting, unspecified; J45.909 Unspecified asthma, uncomplicated; I10 Essential (primary) hypertension; E66.01 Morbid (severe) obesity due to excess calories; Z68.41 Body mass index [BMI] 40.0-44.9, adult; G90.A Postural orthostatic tachycardia syndrome [POTS]; K21.9 Gastro-esophageal reflux disease without esophagitis; F41.9 Anxiety disorder, unspecified; Z90.49 Acquired absence of other specified parts of digestive tract; Z79.899 Other long term (current) drug therapy
CPT/HCPCS: 96361; 96374; 99284; J2405; J7030

== ENCOUNTER 2024-08-26 20:35 | Emergency (ER) | payer BC, SELFPAY ==
--- NOTE | ~2024-08-26 | CT_ITS ---
CT of the Abdomen and Pelvis: Indication: Sepsis Technique: 2.5 mm axial scans were obtained through the abdomen and pelvis following intravenous adm inistration of 100 cc of Omnipaque 350. Dose reduction technique was used on this scan by utilizing a utomated exposure control and iterative reconstruction technique. The dose-length product (DLP) was 1 669.35 mGy-cm. COMPARISON: 07/04/2024 Findings: Scans through the lung bases demonstrate a few tiny stable right middle lobe pulmonary nod ules.. There is diffuse hepatic steatosis. Gallbladder absent. The spleen, pancreas, adrenals and kidneys ar e within normal limits. No evidence of aortic aneurysm. No lymphadenopathy. No bowel obstruction or bowel wall thickening. There is no evidence to suggest acute appendicitis. Images through the pelvis were performed. Urinary bladder unremarkable. No pelvic mass seen. Status p ost hysterectomy. No ascites. Impression: No acute abnormality. Diffuse hepatic steatosis. Reviewed, dictated and finalized at location . Impression: No acute abnormality. Diffuse hepatic steatosis.
--- NOTE | ~2024-08-26 | XR_ITS ---
Portable chest x-ray Comparison: 07/04/2024 Clinical History: Sepsis Findings: Lungs are clear, without focal consolidation or pleural effusion. Cardiomediastinal silho uette is stable. Bones and soft tissues are unremarkable. Impression: Normal chest. Reviewed, dictated and finalized at location . Impression: Normal chest.
--- OUTSIDE RECORDS SUMMARY | 2024-08-26 20:37 | XMS_ITS | Encounter Summary ---
Author Organization [facility] Address [address] [place] [address] Phone Care Team Providers Care Election Assistant Name Role Phone Ftaemeh Lam APRN, CNP Primary Care Provider Tu Parks MD Unavailable Encounter Details Date Type Department Care Team (Late st Contact Info) Description 03/22/2024 Telephone [facility] [address] [address] Tu Parks MD [address] [address] Social History Tobacco Use Types [...] about missed appt wasn't able to reach [facility] to return call to office for reschedulingsent reminder letter out. ACT REPRESENTATIVE documented in this encounter Plan of Treatment Not on file documented as of this encounter Visit Diagnoses Not on filedocumented in this encounter Care Teams Election Assistant Relationship Specialty Start Date End Date Fatemeh Lam, FRAN, INVESTIGATION LIEUTENANT [address] [place] [address] PCP - General Internal Medicine 09/23/23 Tu Parks MD [address] [place] [address] Consulting Physician Oncology 09/23/23 documented as of this encounter
--- OUTSIDE RECORDS SUMMARY | 2024-08-26 20:37 | XMS_ITS | Clinical Summary ---
Author Organization [facility] Address [address], [facility] [address] [place] [address] Phone Care Team Providers Care Service Observer Name Role Phone Fatemeh Lam APRN, RN INTERNAL MEDICINE Primary Care Provider Tu Parks MD Unavailable [phone] Allergies Active Allergy Reactions Criticality Noted Date [...] Problem Noted Date Diagnosed Date Polycythemia 10/28/2023 Family History Medical History Relation Name Comments [...] 1:34 PM CDT Height 175.3 cm (5' 9) 12/22/2023 1:34 PM CDT Body Mass Index [...] Syncytial Virus (RSV) Immunization (Adult) (1 - 1-dose 75+ series) 2061 TdaP Immunization Completed 05/03/2018, , 04/04/2014 Influenza Immunization Completed , 12/30/2020, 02/06/2019, Additional history exists Pneumococcal Immunization Combined Aged Out 12/01/2023 No longer eligible based on patient's age to complete this topic Human Papillomavirus (HPV) Immunization Aged Out No longer eligible based on patient's age to complete this topic Meningococcal Immunization (ACWY) Aged Out No longer eligible based on patient's age to complete this topic Rotavirus Immunization Aged Out No lo nger eligible based on patient's age to complete this topic Insurance [facility] Care Teams Service Observer Relationship Specialty Start Date End Date Fatemeh Lam, MACHINE WOODWORKING SANDER, RN INTERNAL MEDICINE [address] [place] [address] PCP - General Internal Medicine 09/23/23 Tu Parks MD [address] [place] [phone] Consulting Physician Oncology 09/23/23
--- OUTSIDE RECORDS SUMMARY | 2024-08-26 20:37 | XMS_ITS | Continuity of Care Document ---
Author Organization [facility] Address [address] [employer] [place] [address] [place] [address] Phone Care Team Providers Care Erp Engineer Name Role Phone Jacob Vázquez MD Unavailable Unavailable Advance Directives Directive Yes / No Effective Date File Name No Information Encounters Encounter Description Practice Location Reason(s) For Visit Diagnoses Date Provider Providers Copied on Encounter [facility] [place], [address] [place], [id number], [place] tel:[phone] [facility] [place] No Information Gurpreet James. [address] [place], [place], [id number], [place]. tel:[phone] Family History Family Member Type Diagnosis Age At Onset No Information Payers Payer name Insurance type Covered alliance party ID Authoriza tion(s) No Information Social History Type Description Quantity Date Captured Comments Sex Female Smoking Status No Information Chief Complaint And Reason For Visit No Information Plan Of Treatment Date Type Action Status No Information History Of Present Illness Encounter Date Complaint History Of Prese nt Illness No Information Instructions Date Instruction Additional Infor mation No Information Assessments Type Assessment Date No Information
--- OUTSIDE RECORDS SUMMARY | 2024-08-26 20:37 | XMS_ITS | Clinical Summary ---
Author Organization [facility] [employer] Address [address] [facility] [place] [address] Care Team Providers Care Grinder Set Up Operator Universal Name Role Phone Fatemeh Lam Primary Care Provider [phone] Source Comments [facility] [employer],non-[facility] Affiliates and Associated Physician Practices is amultiple site organization consisting of ambulatory clinics and hospital sitesin [place], [place], [place] and [place]. This disclosure is being madepursuant to the Care Everywhere program and may not contain all information available regarding this patient. Last updated 17.[facility] [employer] Allergies Active Allergy Reactions Criticality Noted Date Comments Etodolac 06/10/2016 Medications * Be aware that medications may not be up to date on this document. Alwaysverify current medications with the patient. Albuterol Sulfate (VENTOLIN HFA IN) Ac tive Cetirizine HCl (ZYRTEC ALLERGY PO) Active Citalopram Hydrobromide (CELEXA PO) Active busPIRone (BUSPAR) 5 MG tablet Take 5 mg by mouth 3 times daily Active labetalol (NORMODYNE; TRANDATE) 200 MG tablet Take 200 mg by mouth every 12 hours Active Active Problems No known active problems Social History Tobacco Use Types Packs/Day Years Used Date Smoking Tobacco: Never Smokeless Tobacco: Never Comments No Sex and Gender Information Value Date Recorded Sex Assigned at Female 01/08/2021 8:47 AM CDT Legal Sex Female 8:16 AM CDT Gender Identity Female 01/08/2021 8:47 [...] 8:59 AM CDT Height 175.3 cm (5' 9) 12/15/2018 8:59 AM CDT Body Mass Index [...] patient's age to complete this topic Insurance [facility] MEDICAID - OUT OF STATE [facility] Care Teams Grinder Set Up Operator Universal Relationship Specialty Start Date End Date Fatemeh Lam APRN-DREW [address] [place] [address] PCP - General Nurse Practitioner 09/29/23
--- OUTSIDE RECORDS SUMMARY | 2024-08-26 20:37 | XMS_ITS | Encounter Summary ---
Author Organization [facility] Address [address] [place] [address] Phone Care Team Providers Care Finger Grip Machine Operator Name Role Phone Fatemeh Lam APRN, CNP Primary Care Provider Tu Parks MD Unavailable [phone] Encounter Details Date Type Department Care Team (Late st Contact Info) Description 11/18/2023 Telephone [facility] [address] [address] Tu Parks MD [address] [address] Social History Tobacco Use Types [...] on filedocumented in this encounter Care Teams Finger Grip Machine Operator Relationship Specialty Start Date End Date Fatemeh Lam APRN, DREW [address] [place] [address] PCP - General Internal Medicine 09/23/23 Tu Parks MD [address] [place] [phone] Consulting Physician Oncology 09/23/23 documented as of this encounter
--- OUTSIDE RECORDS SUMMARY | 2024-08-26 20:37 | XMS_ITS | CONTINUITY OF CARE DOCUMENT ---
Author Name cy benoit Address Unknown Organization [facility] Address [address] [facility] [address] [place] [address] Phone [phone] Care Team Providers Care Green Belt Name Role Phone Jason Gross MD Unavailable [phone] Jason Gross MD Unavailable [phone] INSURANCE PROVIDERS Payer name Policy type / Coverage type [employer] red green party ID [facility] [id number] Other [id number]
--- OUTSIDE RECORDS SUMMARY | 2024-08-26 20:37 | XMS_ITS | Clinical Summary ---
Author Organization [facility] Address [address] [place] [address] Phone Care Team Providers Care 3Rd Grade Teacher Name Role Phone Jacob Vázquez MD Primary [...] 1 tablet (100 mg total) by mouth maintenance shop laborer before breakfast 4 Active triamcinolone (KENALOG) 0.1 [...] 04/17/2024 Assessment & Plan (04/17/2024 4:37 PM ROCKET ASSEMBLY OPERATOR): Acute onset of intermittent ptosis left eye [...] 09/01/2023 Assessment & Plan (04/17/2024 4:31 PM ROCKET ASSEMBLY OPERATOR): Stable on exam today Monitor Assessment & Plan (09/01/2023 3:27 PM CDT): Mild exo posture that is comitant and stable. Likely decompensation, rarely symptomatic. Defer prism at this time. Send myasthenia labs, TSH normal recently. Monitor closely. 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 Assessment & Plan (04/17/2024 4:34 PM ROCKET ASSEMBLY OPERATOR): Suspicious ONH appearance with mild visual field [...] Type Department Care Team Description 05/31/2024 Telephone [facility] Special[facility] - [address] [place] [address] Lalo Bolanos from Last 3 Months Surgical History Surgery Date Site/Laterality Comments CO CHOLECSTOT/CHOLECSTOST W/ EXPL DRG/RMVL ST1 SPX Cholecystotomy - (Added by TW Conv) BACK SURGERY Back Surgery - (Added by TW Conv) CO DILATION & CURETTAGE DX&/ THER NONOBSTETRIC Dilation [...] diabetes mellitus - (Added by TW Conv) Hypertension Mother Family history of hypertension - (Added by TW Conv) Relation Name Status Comments Father Mother Social History Tobacco Use Types Packs/Day Years Used Date Smoking Tobacco: Never Smokeless Tobacco: Never Alcohol Use Standard Drinks/Week Comments Yes 0 (1 standard drink = 0.6 oz pur e alcohol) rarely Comments No Sex and Gender Information Value Date Recorded Sex Assigned at Not on file Legal Sex Female 11:12 AM ROCKET ASSEMBLY OPERATOR Gender Identity Not on file Sexual Orientation Not on file Obstetrics History Para Term AB IAB SAB Ectopic Multiple Livin g Live Births 1 1 1 1 1 Date Outcome GA Total Labor Labor/2nd/3rd Weight Sex Type Anes PTL Lorena A1 A5 Name Clin 2014 Term 3.459 kg (7 lb 10 oz) M Vag-S pont Epidura l Y Living Complications:None Last Filed Vital Signs Vital Sign Reading Time Taken Comments Blood Pressure 176/109 04/03/2024 10:56 AM ROCKET ASSEMBLY OPERATOR Pulse 96 04/03/2024 10:56 AM ROCKET ASSEMBLY OPERATOR Temperature 36.6 C (97.9 F) 04/03/2024 10:56 AM ROCKET ASSEMBLY OPERATOR Respiratory Rate 18 04/03/2024 10:5 6 AM ROCKET ASSEMBLY OPERATOR Oxygen Saturation 98% 04/03/2024 10: 56 AM ROCKET ASSEMBLY OPERATOR Inhaled Oxygen Concentration - - Weight 125.8 kg (277 lb 4.8 oz) 025 10:56 AM ROCKET ASSEMBLY OPERATOR Height 175.3 cm (5' 9.02) 04/03/2024 1 0:56 AM ROCKET ASSEMBLY OPERATOR Body Mass Index 40.93 04/03/2024 10:56 AM ROCKET ASSEMBLY OPERATOR Plan of Treatment Health Maintenance Due Date [...] patient's age to complete this topic Insurance [employer] CHOICE ANTHEM ACCESS CHOICE Care Teams 3Rd Grade Teacher Relationship Specialty Start Date End Date Jacob Vázquez MD [address] [facility] [address] [place] [phone] PCP - General Family Medicine 04/06/24
--- OUTSIDE RECORDS SUMMARY | 2024-08-26 20:37 | XMS_ITS | Encounter Summary ---
Author Organization [facility] Address [address] [place] [address] Phone Care Team Providers Care Plunger Scoop Operator Name Role Phone No, Physician Primary Care Provider Sarah Monetro Primary Care Provider + No, Physician Primary Care Provider [phone] Sarah Montero Primary Care Provider + No, Physician Primary Care Provider Physician, Millaecesther BERNSTEIN Primary Care Provider Un available Sarah Montero Primary Care Provider + Fatemeh Lam NP Primary Care Provider [phone] Jacob Vázquez MD Primary Care Provider + [phone] Encounter Details Date Type Department Care Team (Latest Contact Info) Description 06/28/2017 Orders Only [facility] CONVERSION Scanning, Provider Social History Tobacco Use Types Packs/Day Years Used Date Smoking Tobacco: Never Comments Unknown Sex and Gender Information Value Date Recorded Sex Assigned at Not on file Legal Sex Female 11:12 AM BELT WEAVER Gender Identity Not on file Sexual Orientation [...] on filedocumented in this encounter Care Teams Plunger Scoop Operator Relationship Specialty Start Date End Date No, [...] Practitioner 04/18/23 04/05/24 Jacob Vázquez MD [address] [address] PCP - General Family Medicine 04/06/24 documented as of this encounter
--- OUTSIDE RECORDS SUMMARY | 2024-08-26 20:37 | XMS_ITS | Referral Summary ---
Author Organization [facility] of [facility] Address [address] [place] [address] Phone Care Team Providers Care Steel Pan Form Placing Supervisor Name Role Phone Jacob Vázquez MD Primary Care Provider Encounters Date Type Department Care Team Description 05/31/2024 Telephone [facility] - [address] [place] [address] Lalo Bolanos from Last 3 Months Allergies Active Allergy [...] 1 tablet (100 mg total) by mouth botany professor before breakfast 4 Active triamcinolone (KENALOG) 0.1 [...] 04/17/2024 Assessment & Plan (04/17/2024 4:37 PM MANAGER INDUSTRIAL): Acute onset of intermittent ptosis left eye [...] 09/01/2023 Assessment & Plan (04/17/2024 4:31 PM MANAGER INDUSTRIAL): Stable on exam today Monitor Assessment & Plan (09/01/2023 3:27 PM CDT): Mild exo posture that is comitant and stable. Likely decompensation, rarely symptomatic. Defer prism at this time. Send myasthenia labs, TSH normal recently. Monitor closely. 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 Assessment & Plan (04/17/2024 4:34 PM MANAGER INDUSTRIAL): Suspicious ONH appearance with mild visual field [...] on file Legal Sex Female 11:12 AM MANAGER INDUSTRIAL Gender Identity Not on file Sexual Orientation Not on file Last Filed Vital Signs Vital Sign Reading Time Taken Comments Blood Pressure 176/109 04/03/2024 10:56 AM MANAGER INDUSTRIAL Pulse 96 04/03/2024 10:56 AM MANAGER INDUSTRIAL Temperature 36.6 C (97.9 F) 04/03/2024 10:56 AM MANAGER INDUSTRIAL Respiratory Rate 18 04/03/2024 10:5 6 AM MANAGER INDUSTRIAL Oxygen Saturation 98% 04/03/2024 10: 56 AM MANAGER INDUSTRIAL Inhaled Oxygen Concentration - - Weight 125.8 kg (277 lb 4.8 oz) 025 10:56 AM MANAGER INDUSTRIAL Height 175.3 cm (5' 9.02) 04/03/2024 1 0:56 AM MANAGER INDUSTRIAL Body Mass Index 40.93 04/03/2024 10:56 AM MANAGER INDUSTRIAL Plan of Treatment Not on file Insurance [employer] ACCESS CHOICE ANTHEM ACCESS CHOICE Care Teams Steel Pan Form Placing Supervisor Relationship Specialty Start Date End Date Jacob Vázquez MD [address] [facility] [address] [place], [place] [id number] PCP - General Family Medicine 04/06/24
--- OUTSIDE RECORDS SUMMARY | 2024-08-26 20:37 | XMS_ITS | Data Portability ---
Author Organization [facility] KVNGJoon [facility] Address [address] [place] [address] Care Team Providers Care Flue Cleaner Name Role Phone LASHAE CASTRO Supervisor Liquid Yeast Assessment No assessment recorded. Plan of Treatment Reminders Order Date Submit Date Provider Last Modified By Organization Details Last Modified Time Details Appointments None recorded. Lab test, urine 2017 018 [facility] In-Office Order, Internal Use Only DO Not Attach Compendium DO Not Attach Compendium, Do Not Delete/merge, [id number] 8 11:25:45 CMP, serum or plasma 2016 017 [facility], [address] [place] [address], [address], [place], [address], 7 10:13:16 lipid panel, serum 2016 017 [facility], [address] [place] [address], [facility] [address], [place], [address], 7 10:13:17 microalbum in/creatin ine, mass ratio, urine 2016 017 [facility], [address] [place] [address], [address], [place], [address], 7 10:13:17 Referral orthopedic referral - Please call patient to schedule appt. thank you 2016 017 mai Gann MD, 4 [facility] , [address], [address], 7 13:47:41 Procedures None recorded. Surgeries None recorded. Imaging None recorded. Medication Orders azithromyc in 250 mg tablet 2017 018 [facility] #[id number], [address], [place], [address], 8 12:19:11 Medrol (Deni) 4 mg tablets in a dose pack 2017 018 [facility]acy #[id number], [address], [place], [address], 8 12:28:15 fluticason e propionate 50 mcg/actuat ion nasal spray,susp ension 2017 018 [facility]/Pharmacy #[id number], [address] [place], [address], 8 12:09:13 ProAir HFA 90 mcg/actuat ion aerosol inhaler 2017 018 [facility]/Pharmacy #[id number], [address] [place], [address], 8 10:33:40 Qvar RediHaler 40 mcg/actuat ion HFA breath activated aerosol 2017 018 [facility]/Pharmacy #[id number], [address] [place], [address], 8 12:18:31 montelukas t 10 mg tablet 2017 018 [facility]/Pharmacy #[id number], [address] [place], [address], 8 11:51:59 cyclobenza jamaal 10 mg tablet 2017 018 [facility]/Pharmacy #[id number], [address] [place], [address], 8 11:51:17 meloxicam 15 mg tablet 2017 018 [id number], [address], [place], [address], 8 11:51:47 pantoprazo le 40 mg tablet,del ayed release 2017 018 [id number], [address], [place], [address], 8 11:52:36 Sprintec (28) 0.25 mg-0.035 mg tablet 2017 018 [id number], [address] [place], [address], 8 12:09:45 lisinopril 10 mg-hydroch lorothiazi de 12.5 mg tablet 2017 018 [id number], [address] [place], [address], 8 12:09:26 Proventil HFA 90 mcg/actuat ion aerosol inhaler 2016 017 [id number] [address] [place], [address], 8 09:50:39 lisinopril 10 mg-hydroch lorothiazi de 12.5 mg tablet 2016 017 [id number], [address] [place], [address], 8 12:09:26 gabapentin 300 mg capsule 2016 017 [id number], [address] [place], [address], 7 10:17:23 Patient TargetsNo targets recorded. Patient Instructions Encounter Date Encounter Id Patient Instructions Last Modified By Organization Details Last Modified Time 05/18/2017 [id number] RTC 6 months eewig Not available 10:17:59 Fasting labs at next visit eewig Not available 05/18/2017 10:16:24 08/02/2017 [id number] start flonase, singulair, and qvar continue zyrtec [...] 98 mg/dL 65-99 Not Available [facility] ([facility]) [address] [place], [address], 01/25/2017 10:13:16 01/25/20 17 01/25/2017 CMP, serum or plasm a BUN 17 mg/dL 6-20 Not Available [facility] ([facility]) [address] [place], [address], 01/25/2017 10:13:16 01/25/20 17 01/25/2017 CMP, serum or plasm a creatinine, serum 0.71 mg/dL 0.57-1 .00 Not Available [facility] ([facility]) [address] [place], [address], 01/25/2017 10:13:16 01/25/20 17 01/25/2017 CMP, serum or plasm a BUN/creatini ne ratio 24 9-23 above high normal Not Available [facility] ([facility]) [address] [place], [address], 01/25/2017 10:13:16 01/25/20 17 01/25/2017 CMP, serum or plasm a sodium, serum 139 mmol/ L 134-14 4 Not Available [facility] ([facility]) [address] [place] [address], [address], 01/25/2017 10:13:16 01/25/20 17 01/25/2017 CMP, serum or plasm a potassium, serum 5.0 mmol/ L 3.5-5. 2 Not Available [facility] ([facility]) [address] [place] [address], [address], 01/25/2017 10:13:16 01/25/20 17 01/25/2017 CMP, serum or plasm a chloride, serum 97 mmol/ L 96-106 Not Available [facility] ([facility]) [address] [place] [address], [address], 01/25/2017 10:13:16 01/25/20 17 01/25/2017 CMP, serum or plasm a carbon dioxide, total 22 mmol/ L 18-29 Not Available [facility] ([facility]) [address] [place] [address], [address], 01/25/2017 10:13:16 01/25/20 17 01/25/2017 CMP, serum or plasm a calcium, serum 9.8 mg/dL 8.7-10 .2 Not Available [facility] ([facility]) [address] [place] [address], [address], 01/25/2017 10:13:16 01/25/20 17 01/25/2017 CMP, serum or plasm a protein, total, serum 7.9 g/dL 6.0-8. 5 Not Available [facility] ([facility]) [address] [place] [address], [address], 01/25/2017 10:13:16 01/25/20 17 01/25/2017 CMP, serum or plasm a albumin, serum 4.8 g/dL 3.5-5. 5 Not Available [facility] ([facility]) [address] [facility] [place], [address], 01/25/2017 10:13:16 01/25/20 17 01/25/2017 CMP, serum or plasm a globulin, total 3.1 g/dL 1.5-4. 5 Not Available [facility] ([facility]) [address] [facility] [place], [address], 01/25/2017 10:13:16 01/25/20 17 01/25/2017 CMP, serum or plasm a A/G ratio 1.5 1.2-2. 2 Not Available [facility] ([facility]) [address] [facility] [place], [address], 01/25/2017 10:13:16 01/25/20 17 01/25/2017 CMP, serum or plasm a bilirubin, total 0.2 mg/dL 0.0-1. 2 Not Available [facility] ([facility]) [address] [facility] [place], [address], 01/25/2017 10:13:16 01/25/20 17 01/25/2017 CMP, serum or plasm a alkaline phosphatase, S 103 IU/L 39-117 Not Available [facility] ([facility]) [address] [facility] [place], [address], 01/25/2017 10:13:16 01/25/20 17 01/25/2017 CMP, serum or plasm a AST (SGOT) 17 IU/L 0-40 Not Available [facility] ([facility]) [address] [facility] [place], [address], 01/25/2017 10:13:16 01/25/20 17 01/25/2017 CMP, serum or plasm a ALT (SGPT) 21 IU/L 0-32 Not Available [facility] ([facility]) [address] [place], [address], 01/25/2017 10:13:16 01/25/20 17 01/25/2017 lipid panel , serum cholesterol, total 250 mg/dL 100-19 9 above high normal Not Available [facility] ([facility]) [address] [facility], [place], [address], 01/25/2017 10:13:17 01/25/20 17 01/25/2017 lipid panel , serum triglyceride s 171 mg/dL 0-149 above high normal Not Available [facility] ([facility]) [address] [facility], [place], [address], 01/25/2017 10:13:17 01/25/20 17 01/25/2017 lipid panel , serum HDL cholesterol 49 mg/dL >39 Not Available [facility] ([facility]) [address] [facility], [place], [address], 01/25/2017 10:13:17 01/25/20 17 01/25/2017 lipid panel , serum VLDL cholesterol abby 34 mg/dL 5-40 Not Available [facility] ([facility]) [address] [facility], [place], [address], 01/25/2017 10:13:17 01/25/20 17 01/25/2017 lipid panel , serum LDL cholesterol calc 167 mg/dL 0-99 above high normal Not Available [facility] ([facility]) [address] [facility], [place], [address], 01/25/2017 10:13:17 01/25/20 17 01/25/2017 lipid panel , serum comment: PERSONAL SUPPORT WORKER Not Available [facility] ([facility]) [address] [facility], [place], [address], 01/25/2017 10:13:17 01/25/20 17 01/25/2017 lipid panel , serum T. chol/HDL ratio 5.1 ratio _unit s 0.0-4. 4 above high normal T. Chol/ HDL Ratio Men Women 1/2 Avg.R isk 3.4 3.3 Avg.R isk 5.0 4.4 2X Avg.R isk 9.6 7.1 3X Avg.R isk 23.4 11.0 Not Available [facility] ([facility]) [address] [facility], [place], [address], 01/25/2017 10:13:17 01/25/20 17 01/25/2017 micro album in/cr eatin ine, mass ratio , urine creatinine, urine 73.9 mg/dL not estab. Not Available [facility] ([facility]) [address] [place] [address], [place], [address], 01/25/2017 10:13:17 01/25/20 17 01/25/2017 micro album in/cr eatin ine, mass ratio , urine microalbumin , urine 3.6 ug/mL not estab. Not Available [facility] ([facility]) [address] [place] [address], [place], [address], 01/25/2017 10:13:17 01/25/20 17 01/25/2017 micro album in/cr eatin ine, mass ratio , urine microalb/cre at ratio 4.9 mg/g_ creat 0.0-30 .0 Not Available [facility] ([facility]) [address] [place] [address], [place], [address], 01/25/2017 10:13:17 05/21/19 18 05/20/2017 pregn jessie test, urine HCG negati ve Not Available In-Office Order Internal Use Only DO Not Attach Compendium DO Not Attach Compendium, Do Not Delete/merge, [id number] 05/18/2017 09:53:13 03/25/19 17 03/22/2016 XR, lumba r spine No observ ation record ed. BARCODE Not Available 2016 17:18:23 03/26/19 17 XR, lumba r spine No observ ation record ed. eewig Not Available 2016 12:02:53 04/01/19 17 04/01/2016 MRI, lumba r spine , w/o contr ast No observ ation record ed. [email or web address] [facility] [address] [place], [address], 04/06/2016 11:53:46 04/13/19 17 04/12/2016 CT, abdom en + pelvi s, w/o contr ast No observ ation record ed. [facility] (Imaging) [address] [place], [address], 04/13/2016 14:05:12 01/22/20 17 01/21/2017 XR, lumba r spine No observ ation record ed. [facility] (Imaging) [address] [place], [address], 01/24/2017 10:14:46 Result Notes None recorded. Problems Name Problem SNOMED Code Status Onset Date Resolution Date Notes Provider Name and Address Organization Details Recorded Time Colitis 34921152 Active 2016 Sarah Montero PA-C Attn: Accounting ,[address] [place], [address] , [facility] 8 09:50:59 Body mass index 30+ - obesity 896820127 Active 2017 Sarah Montero PA-C Attn: Accounting ,[address] [place], [address] , [facility] 8 09:54:40 Gastroesophag eal reflux disease without esophagitis 747883375 Active 2017 Sarah Montero PA-C Attn: Accounting ,[address] [place], [address] , [place] [facility] 8 09:54:53 Family planning surveillance Active 2017 Sarah Montero PA-C Attn: Accounting ,[address] [place], [address] , [place] [facility] 8 10:03:16 Obesity 660254763 Active Sarah Montero PA-C Attn: Accounting ,[address] [place], [address] , [place] [facility] 8 09:50:59 Gastroesophag eal reflux disease 898566329 Active Sarah Montero PA-C Attn: Accounting ,[address] [place], [address] , [place] [facility] 8 09:50:59 Allergic disposition 700623617 Active Sarah Montero PA-C Attn: Accounting ,[address] [place], [address] , [place] [facility] 8 09:50:59 Laceration of finger 922413615 Active Sarah Montero PA-C Attn: Accounting ,[address] [place], [address] , [place] [facility] 8 09:50:59 Hyperlipidemi a 67653099 Active Sarah Montero PA-C Attn: Accounting ,[address] [place], [address] , [place] [facility] 8 09:50:59 Essential hypertension 30937912 Active 2016 Sarah Montero PA-C Attn: Accounting ,[address] [place], [address] , [place] [facility] 8 09:50:59 Pain radiating to right leg 805461312 Active 2016 Sarah Montero PA-C Attn: Accounting ,[address] [place], [address] , [place] [facility] 8 09:50:59 Prolapsed lumbar intervertebra l disc 168564560 Active 2016 Sarah Montero PA-C Attn: Accounting ,[address] [place], [address] , [place] [facility] 8 09:50:59 Tachycardia 3254923 Active 2016 Sarah Montero PA-C Attn: Accounting ,[address] [place], [address] , [place] [facility] 8 09:50:59 Pigmented skin lesion 456936024 Active 2016 Sarah Montero PA-C Attn: Accounting ,[address] [place], [address] , [facility] 8 09:50:59 Problem Notes None recorded. Procedures Surgical History Date Name Laterality Status Provider Name and Address Organization Details Recorded Time 05/11/19 14 Cholecystectomy completed Sarah Montero PA-C Attn: Accounting, [place], [address], [facility] 08/12/2015 10:37:36 Imaging Results None recorded. Procedure Notes None recorded. Medical Equipment None Reported. Allergies Allergen ID Allergen Name Allergen Category Reaction Reaction Severity Criticality Documentation Date Start Date Code Code System Note Provider Name and Address Organization Details Recorded Time 87366 etodolac medicatio n rash Not available Not available 08/12/2015 28066 RxNorm Sumaya Matamoros MA [facility], [facility] 6 10:24:25 Medications Name Sig Start Date Stop Date [...] OTC Not Available Not Available Not Available LOFT PATTERNMAKER-PNV-DHA 28 mg iron-1 mg-200 mg capsule active Not Available Not Available Not Available Qvar RediHaler 40 mcg/actuati on HFA breath activated aerosol Inhale 2 puffs twice a day by inhalatio n route. 02/22 completed Not Available Not Available Not Available Vitals Date Recorded Body height Body weight Body mass index (BMI) Oxygen saturation Oxygen saturation in Arterial blood by Pulse oximetry Heart rate Respiratory rate Body temperature Systolic blood pressure Diastolic blood pressure Provider Name and Address Organization Details Last Updated DateTime 7 173.99 cm 509518. 04 g 38.6 kg/m2 100 % 100 % 98 /min 80 /min 98.6 [degF] 126 mm[Hg] 80 mm[Hg] Sumaya Matamoros [place] [facility] 7 10:44:15 Date Recorded Body height Body mass index (BMI) Body weight Oxygen saturation Oxygen saturation in Arterial blood by Pulse oximetry Heart rate Respiratory rate Body temperature Systolic blood pressure Diastolic blood pressure Provider Name and Address Organization Details Last Updated DateTime 8 173.99 cm 39.8 kg/m2 014600. 78 g 98 % 98 % 117 /min 18 /min 99 [degF] 126 mm[Hg] 82 mm[Hg] Kristinaamina Christina MA [facility] 8 09:39:19 Date Recorded Body height Body mass index (BMI) Body weight Oxygen saturation Oxygen saturation in Arterial blood by Pulse oximetry Heart rate Body temperature Systolic blood pressure Diastolic blood pressure Provider Name and Address Organization Details Last Updated DateTime 8 173.99 cm 39.6 kg/m2 748086. 39 g 99 % 99 % 102 /min 98.1 [degF] 116 mm[Hg] 80 mm[Hg] Anitra Roth MA [facility] 8 10:26:15 Date Recorded Systolic blood pressure Diastolic blood pressure Provider Name and Address Organization Details Last Updated DateTime 01/24/2017 124 mm[Hg] 84 mm[Hg] Sarah Montero PA-C Attn: Accounting,[address] [place], [address], [facility] 01/24/2017 10:21:14 Date Recorded Body height Body mass index (BMI) Body weight Oxygen saturation Oxygen saturation in Arterial blood by Pulse oximetry Heart rate Respiratory rate Body temperature Systolic blood pressure Diastolic blood pressure Provider Name and Address Organization Details Last Updated DateTime 7 173.99 cm 39.9 kg/m2 363633. 29 g 97 % 97 % 116 /min 16 /min 98 [degF] 120 mm[Hg] 90 mm[Hg] Tara Patel [facility] 7 09:57:16 Date Recorded Body height Body mass index (BMI) Body weight Oxygen saturation Oxygen saturation in Arterial blood by Pulse oximetry Heart rate Body temperature Systolic blood pressure Diastolic blood pressure Provider Name and Address Organization Details Last Updated DateTime 8 173.99 cm 38.6 kg/m2 249297. 04 g 99 % 99 % 121 /min 98.4 [degF] 126 mm[Hg] 80 mm[Hg] Anitra Roth MA [facility] 8 12:08:26 Social History Question Answer Notes LastModified by Organizat ion Details LastModified Time Tobacco Smoking Status Never Smoker Sarah Montero PA-C Attn: Accounting,[address] [facility], [place], [address], [facility] 08/12/2015 10:33:30 What Is Your Level Of Caffeine Consumption? None Information not available 08/12/2015 How Much Tobacco Do You Chew? None Information not available 08/12/2015 What Type Of [...] Functional Status Question Answer Note LastModified by Organizat ion Details LastModified Time What is your level of alcohol consumption? Occasional beer Information not available 08/12/2015 Are you currently employed? 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 Moderate Information not available 08/12/2015 Mental Status None recorded. Family History Relationship Description Onset Age of this Age Resolved Age Notes LastModified by Organization Details LastModified Time Mother Essential hypertension Not available 14:29:20 Mother Hyperlipidem ia Not available 2015 14:29:20 Mother Asthma Not available 08/12/2015 14:29:20 Father Diabetes mellitus Not available 2015 14:29:20 Father Harmful pattern of use of alcohol Not available 2015 14:29:20 Paternal Grandfather Leukemia 62 62 eewig Not available 08/11 10:34:16 Sister Asthma Not available 08/12/2015 14:29:20 Medical History Condition Response Coronary Artery Disease N Other N Atrial Fibrillation N High Blood Pressure N Depression N COPD N Blood Clots N Anxiety Disorder Y Muscle, Joint, or Bone Problems N Acid Reflux (GERD) Y Cancer N Stroke N High Cholesterol N Liver Disease N Headaches N Kidney or Bladder Problems N Thyroid Problems N GI Problems N Skin Problems Y Anemia N Heart Attack (AK) N Diabetes N Seizures/Epilepsy N Asthma Y Allergies Y Hepatitis N Heart Failure N Osteoporosis N Gynecological [...] completed Sarah Montero PA-C Attn: Accounting,[address] [place], [address], [facility] 05/18/2017 09:51:06 Tdap 5 completed Sarah Montero PA-C Attn: Accounting,[address] [place], [address], [facility] 05/18/2017 09:51:06 Influenza, split virus, quadrivalent, preservative 7 completed Sarah Montero PA-C Attn: Accounting,[address] [place], [address], [facility] 05/18/2017 09:51:06 Past Encounters Encounter ID Performer Location Encounter Start Date Encounter Closed Date Diagnosis/Indication Diagnosis SNOMED-CT Code Diagnosis ICD10 Code Diagnosis Note [id number] Candice Ramires MD [facility] (Adult Med) [address] [place] [phone] 08/12/2015 09:49:05 08/12/2015 10:46:49 Obesity 124150454 E66.9 Advised to get 150 minutes of exercise daily Advised to not drink calories She has a gym membership so encouraged to keep up going to the gym 4-5 days/week Advised to download the Telepo Torin in order to track her calories. Adult heal th examination 327385144 Z00.01 30YO female here to establish care. She is here to f/u on going to [facility] for diarrhea. Gastroesop hageal reflux disease 249964655 K21.9 Allergic disposition 609 137209 Z91.09 [id number] Candice Ramires MD [facility] (Adult Med) [address] [place] [phone] 09/04/2015 08:59:40 09/04/2015 10:43:49 Laceration of finger 496067997 S61.215A ER f/u Bandaid with Neosporin applied to laceration Advised to keep clean and keep open to air as much as possible when not work Advised that if it becomes erythemato us, warm, pain, begins to drain RTC RTC as needed [id number] Candice Ramires MD [facility] (Adult Med) [address] [place] [phone] 03/25/2016 13:47:35 03/25/2016 14:30:53 Obesity 311835755 E66.9 Will readdress at next visit Essential hypertension 10756433 I10 has a cuff at homestates that it is running 145/90will initiate lisinopril 10mg QD d/t her numbers in the recent monthsAdvi sed low salt dietPartia lly elevated as well d/t radiating right leg pain Pain radia ting to right leg 693252104 M79.604 no MOA - woke up 4 days ago with excruciati ng pain radiating down posterior right leg to right calfWill begin meloxicam 15mg QD - advised to stop motrin at this timefinish prednisone advise to walkcontin ue with icing ever 1.5 hoursTake Cutler as prescribed prior to bedtimeWil l begin with MRI and possibly PT - advised to contact insurance to see where she can complete MRIRTC in 4 days with and for FMLA paperwork Will determine tx course based on MRI results [id number] MD [facility] (Adult Med) [address] [place] [id number] 03/30/2016 11:57:36 03/30/2016 12:43:30 Essential hypertension 64669439 I10 138/72 - WNL - c/w lisinopirl 10mghas a cuff at homestates that it is running 145/90will initiate lisinopril 10mg QD d/t her numbers in the recent monthsAdvi sed low salt dietPartia lly elevated as well d/t radiating right leg pain Pain radia ting to right leg 270274022 M79.604 MRI scheduled for tomorrowAd vised to RTC with FMLA paperworka dvise to walkcontin ue with icing ever 1.5 hoursTake Cutler as prescribed PRN Will determine tx course based on MRI resultsPat ient saw chiropract or 3 times last week with minimal relief Obesity 627426056 E66.9 Will readdress at next visit once back pain has improved [id number] MD [facility] (Adult Med) [address] [place] [phone] 04/08/2016 10:30:23 04/08/2016 11:11:31 Pain radiating to right leg 184799814 M79.604 Completed FMLA paperworkC ontinue with icing ever 1.5 hoursTake Cutler as prescribed PRN Given number for Dr. Spencer's office for neurosurge ry referral Advised taht she needs to see neurosurge ry prior to determinin g when she can return to work because they need to decide the course of treatment that is appropriat e for her since she is standing all day at work Obesity 134174160 E66.9 Will readdress at next visit once back pain has improved [id number] MD [facility] (Peds) [address] [place] [phone] 01/24/2017 09:41:49 01/25/2017 09:06:13 Prolapsed lumbar intervertebral disc 295246235 M51.26 Will refer to ortho at this timec/w methocarba mol and meloxicam out of Urgent Care Patient is tachycardi ac at appointmen t - will follow but likely 2/2 back pain Essential hypertension 66518271 I10 124/84 - WNL - will change back to lisinopil 10mg and add on HCTZ 12.5mg d/t swellingha s a cuff at homeAdvise d goal is <140/90 Advised that ESTHELA-I can cause defects - patient to restart OCPs Advised low salt diet Partially elevated as well d/t radiating right leg pain Obesity 533759323 E66.9 Advised 30 minutes of exercise 5 days/week Advised to not drink her calories Advised 3 balanced meals/day with plenty of fruits and vegetables Allergic disposition 609 176348 Z91.09 Hyperlipidemia 04400215 E78.5 Will reheck labs today Tachycardia 6707485 R00. 0 Pulse 116Likely 2/2 low back painWill readdress at next visit [id number] MD [facility] (Adult Med) [address] [place] [phone] 05/18/2017 09:17:27 05/18/2017 10:45:02 Essential hypertension 65015544 I10 128/82 - c/w lisinopil 10mg and add on HCTZ 12.5mg d/t swellingha s a cuff at homeAdvise d goal is <140/90 Advised that ESTHELA-I can cause defects - patient to restart OCPs Advised low salt diet Partially elevated as well d/t radiating right leg pain Family agnes nning surveillance 161261512 Z30.09 Body mass index 30+ - obesity 011069648 Z68.39 Advised 30 minutes of exercise 5 days/week Advised to not drink her calories Advised 3 balanced meals/day with plenty of fruits and vegetables Gastroesop hageal reflux disease without esophagitis 430198485 K21.9 Advised to stay away from spicy and greasy foodsAdvis ed to stay away from fatty foodsDo not eat within 2 hours of going to bedStay sitting up after mealsNo smoking Prolapsed lumbar intervertebral disc [id number] M51.26 Patient reschedule d at neurosurge ry Patient is tachycardi ac at appointmen t - will follow but likely 2/2 anxiety Patient advised NSAIDs can increase the likelihood of cardiovasc ular events Strain of neck muscle 36 [id number] S16.1XXA Will initiate muscle relaxer PRN [id number] KEENA SANTIAGO, PERSONAL SUPPORT WORKER-C Kristan (Adult Med) [address] [place] [address] 0 08/02/2017 10:11:24 08/02/2017 10:39:02 Mild intermittent asthma [id number] J45.20 asthma triggered by allergiesl ungs CTA today start Qvar redihaler 2 puffs BIDstart singulair dailystart flonase 2 sprays dailyconti nue zyrtec-dis cussed possibly increasing to BIDfollow up if not improving in 2-3 days on new medicinesf /u on asthma at next visit [id number] MD Kristan Le (Adult Med) [address] [place] [id number] 02/22/2018 11:49:23 02/22/2018 12:29:05 Acute bronchitis 60953609 J20.9 Take abx and steroid pack as prescribed - I consulted Dr. Ellis as to these medication s being ok during and she advised they are safeAdvise d to drink plenty of watertylen ol for painRestif sx's worsen, you develop SOB, CP please go directly to the ER f/u with OBGYN for any furthering of issues Mild inter mittent asthma [id number] J45.20 [id number] Z33.1 18 weeks at this time - followed by OBGYN Health Concerns Section Related Observation LastModified by Organization Detai ls LastModified Time None Recorded Concern Status LastModified by Organization Details LastModified Time None Recorded Advance Directives Directive None Recorded Payers Encounter Date Sequence Insurance Name Policy Number Policy Stone Covered Member ID Stone Member ID Guarantor Name 04/08/2016 1 [facility] [id number] Ute Childs [id number] Ute Childs 01/24/2017 1 [facility] [id number] Ute Childs [id number] Ute Childs 05/18/2017 1 [facility] [id number] Ute Childs [id number] Ute Childs 08/02/2017 1 [facility] [id number] Ute Childs [id number] Ute Childs 02/22/2018 1 [facility] [id number] Ute Childs [id number] Ute Childs Notes Date Note Type Note [...] not yet heard from neurosurgery Here for [place] paperwork Sarah Montero PA-C Attn: Accounting[address] [place], [address], [facility] 04/08/2016 11:11:19 7 text/html Back [...] this last year she went to the [facility] for her back pain and [...] contact Dr. Kaiser to restart OCPs. Sarah Montero PA-C Attn: Accounting[address] [place], [address], [facility] 01/24/2017 15:05:31 8 text/html Back PainReported bypatient.Location:pain [...] refill. Sarah Montero PA-C Attn: Accounting[address] [place], [address], [facility] 05/18/2017 10:18:38 8 text/html pt presents for [...] tightnesssx relieved by proair inhalerno ED or UC visits for asthma DINA PRASAD Attn: Accounting[address] [place], [address], [facility] 08/02/2017 11:01:10 8 text/html Upper Respiratory SymptomsReported [...] ) Sarah Montero PA-C Attn: Accounting[address] [place], [address], [facility] 02/22/2018 12:38:16 OBGyn Episode No OBEpisode recorded.
[2024-08-26 20:46] VITALS: BP 122/94; PULSE 124; RESP 30; TEMP 36.3; O2SAT 100
--- NOTE | 2024-08-26 21:45 | PC.NURSE ---
Pt had x1 incontinent BM, loose.
--- NOTE | 2024-08-26 22:00 | ECG_ITS ---
Test Date: 2024-08-26 23:19:55 Measurements Intervals [place] Rate: 109 P: 21 UT: 132 QRS: 8 QRSD: 90 T: 32 QT: 332 QTc: 449 Interpretive Statements SINUS TACHYCARDIA POSSIBLE LEFT ATRIAL ENLARGEMENT LOW QRS VOLTAGE IN PRECORDIAL LEADS CONSIDER INFERIOR INFARCT, AGE INDETERMINATE ABNORMAL ECG No previous ECG available for comparison Electronically Signed On 08-27-2024 06:03:10 CDT by Harley Chavez D.O.
[2024-08-26] MEDS: SODIUM CHLORIDE 0.9% IV 1,000 ML 999 ML IV CONT (22:10)
[2024-08-26] MEDS: ONDANSETRON INJ 4 MG/2 ML VIAL IV PUSH (22:16)
[2024-08-26 22:17] LABS: Basophils Absolute Auto 0.2 K/mm3 (0.0-0.1); Basophils Percent Auto 0.5 % (0.2-1.2); Eosinophils Absolute Auto 0.4 K/mm3 (0-0.3); Eosinophils Percent Auto 1.3 % (0-4.4); Hematocrit 54.2 % (37.0-47.0); Hemoglobin 18.2 g/dL (12.0-15.0); Immature Granulocyte Absolute 0.45 K/mm3 (0.00-0.031); Immature Granulocyte Percent A 1.4 % (0-0.5); Lymphocytes Absolute Auto 3.51 K/mm3 (0.9-3.2); Lymphocytes Percent Auto 11.1 % (18.3-44.2); Mean Corpuscular HGB Conc 33.6 g/dl (32-36); Mean Corpuscular Hemoglobin 28.5 pg (26-34); Mean Corpuscular Volume 84.8 fl (80-100); Mean Platelet Volume 9.6 fl (7.4-10.4); Monocytes Absolute Auto 1.8 K/mm3 (0.1-0.6); Monocytes Percent Auto 5.6 % (2.6-8.5); Neutrophils Absolute Auto 25.4 K/mm3 (1.3-6.7); Neutrophils Percent Auto 80.1 % (45.5-73.1); Platelet Count Result 472 k/mm3 (150-375); Red Blood Count 6.39 M/mm3 (4.2-5.4); Red Cell Distribution Width 13.2 % (11.5-14.5); White Blood Count 31.7 K/mm3 (4.5-10.0)
[2024-08-26 22:30] LABS: Alanine Aminotransferase 39 U/L (6-35); Albumin Level 5.4 g/dL (3.5-5.1); Alkaline Phosphatase 135 U/L (38-126); Anion Gap 25 mmol/L (4-12); Aspartate Amino Transferase 51 U/L (14-36); Bilirubin,Total 0.9 mg/dL (0.2-1.3); Blood Urea Nitrogen 21 mg/dL (7-17); Calcium 10.6 mg/dL (8.4-10.2); Carbon Dioxide 10 mmol/L (22-30); Chloride 101 mmol/L (98-107); Estimated CRCL calculation 86 ml/min; Estimated Glomerular Filt Rate 56; Glucose 219 mg/dL (65-110); Lipase 62 U/L (23-300); Sodium 136 mmol/L (137-145); Total Protein 10.1 g/dL (6.3-8.2)
--- OUTSIDE RECORDS SUMMARY | 2024-08-26 23:08 | XMS_ITS | Continuity of Care Document ---
Author Organization [facility] Address [address] [place] [address] [place] [address] Phone Care Team Providers Care Fixer Supervisor Name Role Phone Jacob Vázquez MD Unavailable Unavailable Advance Directives Directive Yes / No Effective Date File Name No Information Encounters Encounter Description Practice Location Reason(s) For Visit Diagnoses Date Provider Providers Copied on Encounter [facility], [address] [place], [place], [id number], [place] tel:[phone] [facility] No Information Gurpreet James. [address] [place], [place], [id number], [place]. tel:[phone] Family History Family Member Type Diagnosis Age At Onset No Information Payers Payer name Insurance type Covered libertarian ID Authoriza tion(s) No Information Social History [...]
--- OUTSIDE RECORDS SUMMARY | 2024-08-26 23:08 | XMS_ITS | Encounter Summary ---
Author Organization [facility] Address [address] [place] [address] Phone Care Team Providers Care Regulation Supervisor Name Role Phone No, Physician Primary Care Provider Sarah Montero Primary Care Provider + No, Physician Primary Care Provider [phone] Sarah Montero Primary Care Provider + No, Physician Primary Care Provider [phone] Physician, Millaecestehr BERNSTEIN Primary Care Provider Un available Sarah Montero Primary Care Provider + Fatemeh Lam NP Primary Care Provider + [phone] Jacob Vázquez MD Primary Care Provider + [phone] Encounter Details Date Type Department Care Team (Latest Contact Info) Description 06/28/2017 Orders Only [facility] CONVERSION Scanning, Provider Social History Tobacco Use Types Packs/Day Years Used Date Smoking Tobacco: Never Comments Unknown Sex and Gender Information Value Date Recorded Sex Assigned at Not on file Legal Sex Female 11:12 AM INSURANCE MARKETING SPECIALIST Gender Identity Not on file Sexual Orientation [...] on filedocumented in this encounter Care Teams Regulation Supervisor Relationship Specialty Start Date End Date No, [...] Practitioner 04/18/23 04/05/24 Jacob Vázquez MD [address] [address] PCP - General Family Medicine 04/06/24 documented as of this encounter
--- OUTSIDE RECORDS SUMMARY | 2024-08-26 23:09 | XMS_ITS | Encounter Summary ---
Author Organization [facility] Address [address] [place] [address] Phone Care Team Providers Care Tape Weaver Name Role Phone Fatemeh Lam APRN, CNP Primary Care Provider Tu Parks MD Unavailable Encounter Details Date Type Department Care Team (Late st Contact Info) Description 11/18/2023 Telephone [facility] [address] [address] Tu Parks MD [address] [address] Social History Tobacco Use Types [...] on filedocumented in this encounter Care Teams Tape Weaver Relationship Specialty Start Date End Date Fatemeh Lam APRN, DREW [address] [place] [address] PCP - General Internal Medicine 09/23/23 Tu Parks MD [address] [place] [phone] Consulting Physician Oncology 09/23/23 documented as of this encounter
--- OUTSIDE RECORDS SUMMARY | 2024-08-26 23:09 | XMS_ITS | Encounter Summary ---
Author Organization [facility] Address [address] [place] [address] Phone Care Team Providers Care Ip Network Architect Name Role Phone Fatemeh Lam APRN, CNP Primary Care Provider Tu Parks MD Unavailable [phone] Encounter Details Date Type Department Care Team (Late st Contact Info) Description 03/22/2024 Telephone [facility] [address] [address] Tu Parks MD [address] [address] Social History Tobacco Use Types [...] encounter Miscellaneous Notes * Telephone Encounter - Roiso Soto Derek - 03/22/2024 3:22 PM CST Called patient about missed appt wasn't able to reach [facility] to return call to office for reschedulingsent reminder letter out. R STACKER documented in this encounter Plan of Treatment Not on file documented as of this encounter Visit Diagnoses Not on filedocumented in this encounter Care Teams Ip Network Architect Relationship Specialty Start Date End Date Fatemeh Lam, FRAN, PLATE MAKER [address] [place] [address] PCP - General Internal Medicine 09/23/23 Tu Parks MD [address] [place] [phone] Consulting Physician Oncology 09/23/23 documented as of this encounter
--- OUTSIDE RECORDS SUMMARY | 2024-08-26 23:09 | XMS_ITS | Clinical Summary ---
Author Organization [facility] Address [address] [place] [address] Care Team Providers Care Plastic Parts Fabricator Trimmer Name Role Phone Fatemeh Lam Primary Care Provider [phone] Source Comments [facility],non-[facility] Affiliates and Associated Physician Practices is amultiple site organization consisting of ambulatory clinics and hospital sitesin [place], [place], [place] and [place]. This disclosure is being madepursuant to the Care Everywhere program and may not contain all information available regarding this patient. Last updated 17.[facility] Allergies Active Allergy Reactions Criticality Noted Date [...] patient's age to complete this topic Insurance [facility] MEDICAID - OUT OF STATE [facility] Care Teams Plastic Parts Fabricator Trimmer Relationship Specialty Start Date End Date Fatemeh Lam APRN-DREW [address] [place] [address] PCP - General Nurse Practitioner 09/29/23
--- OUTSIDE RECORDS SUMMARY | 2024-08-26 23:09 | XMS_ITS | CONTINUITY OF CARE DOCUMENT ---
Author Name cy benoit Address Unknown Organization [facility] Address [address] [facility] [address] [place] [address] Phone [phone] Care Team Providers Care Deputy Manager Name Role Phone Jason Gross MD Unavailable [phone] Jason Gross MD Unavailable [phone] INSURANCE PROVIDERS Payer name Policy type / Coverage type Rangely red democrat ID [facility] [id number] Other [id number]
--- OUTSIDE RECORDS SUMMARY | 2024-08-26 23:09 | XMS_ITS | Clinical Summary ---
Author Organization [facility] Address [address], [facility] [address] [place] [address] Phone Care Team Providers Care Aircraft Electronics Technical Officer Name Role Phone Fatemeh Lam APRN, CLINICAL TEAM MANAGER Primary Care Provider Tu Parks MD Unavailable [phone] Allergies Active Allergy Reactions Criticality Noted Date [...] patient's age to complete this topic Insurance [facility] Care Teams Aircraft Electronics Technical Officer Relationship Specialty Start Date End Date Fatemeh Lam, SUSTAINABLE SYSTEMS ANALYST, CLINICAL TEAM MANAGER [address] [place] [address] PCP - General Internal Medicine 09/23/23 Tu Parks MD [address] [place] [phone] Consulting Physician Oncology 09/23/23
--- OUTSIDE RECORDS SUMMARY | 2024-08-26 23:09 | XMS_ITS | Clinical Summary ---
Author Organization [facility] Address [address] [place] [address] Phone Care Team Providers Care Core Drill Operator Name Role Phone Jacob Vázquez MD Primary [...] 1 tablet (100 mg total) by mouth telesales consultant before breakfast 4 Active triamcinolone (KENALOG) 0.1 [...] Assessment & Plan (04/17/2024 4:37 PM MANAGER MED SURG): Acute onset of intermittent ptosis left eye [...] Assessment & Plan (04/17/2024 4:31 PM MANAGER MED SURG): Stable on exam today Monitor Assessment & Plan (09/01/2023 3:27 PM CDT): Mild exo posture that is comitant and stable. Likely decompensation, rarely symptomatic. Defer prism at this time. Send myasthenia labs, TSH normal recently. Monitor closely. 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 Assessment & Plan (04/17/2024 4:34 PM MANAGER MED SURG): Suspicious ONH appearance with mild visual field [...] Type Department Care Team Description 05/31/2024 Telephone [facility] - [address] [place] [address] Lalo Bolanos from Last 3 Months Surgical History Surgery Date Site/Laterality Comments [place] CHOLECSTOT/CHOLECSTOST W/ EXPL DRG/RMVL ST1 SPX Cholecystotomy - (Added by TW Conv) BACK SURGERY Back Surgery - (Added by TW Conv) [place] DILATION & CURETTAGE DX&/ THER NONOBSTETRIC Dilation [...] file Legal Sex Female 11:12 AM MANAGER MED SURG Gender Identity Not on file Sexual Orientation [...] Blood Pressure 176/109 04/03/2024 10:56 AM MANAGER MED SURG Pulse 96 04/03/2024 10:56 AM MANAGER MED SURG Temperature 36.6 C (97.9 F) 04/03/2024 10:56 AM MANAGER MED SURG Respiratory Rate 18 04/03/2024 10:5 6 AM MANAGER MED SURG Oxygen Saturation 98% 04/03/2024 10: 56 AM MANAGER MED SURG Inhaled Oxygen Concentration - - Weight 125.8 kg (277 lb 4.8 oz) 025 10:56 AM MANAGER MED SURG Height 175.3 cm (5' 9.02) 04/03/2024 1 0:56 AM MANAGER MED SURG Body Mass Index 40.93 04/03/2024 10:56 AM MANAGER MED SURG Plan of Treatment Health Maintenance Due Date [...] patient's age to complete this topic Insurance [employer] [facility] Address: [address] [place] [address] ANTHEM ACCESS [facility] Address: [address] [place] [address] Care Teams Core Drill Operator Relationship Specialty Start Date End Date Jacob Vázquez MD [address] [facility] [address] [place] [id number] PCP - General Family Medicine 04/06/24
--- OUTSIDE RECORDS SUMMARY | 2024-08-26 23:09 | XMS_ITS | Referral Summary ---
Author Organization [facility] Address [address] [place] [address] Phone Care Team Providers Care Residential Collections Name Role Phone Jacob Vázquez MD Primary Care Provider [phone] Encounters Date Type Department Care Team Description 05/31/2024 Telephone [facility] - [address] [place] [address] Lalo Bolanos from Last 3 [...] 1 tablet (100 mg total) by mouth cafeteria server before breakfast 4 Active triamcinolone (KENALOG) 0.1 [...] Assessment & Plan (04/17/2024 4:37 PM MANAGER GRANT): Acute onset of intermittent ptosis left eye [...] Assessment & Plan (04/17/2024 4:31 PM MANAGER GRANT): Stable on exam today Monitor Assessment & Plan (09/01/2023 3:27 PM CDT): Mild exo posture that is comitant and stable. Likely decompensation, rarely symptomatic. Defer prism at this time. Send myasthenia labs, TSH normal recently. Monitor closely. 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 Assessment & Plan (04/17/2024 4:34 PM MANAGER GRANT): Suspicious ONH appearance with mild visual field [...] file Legal Sex Female 11:12 AM MANAGER GRANT Gender Identity Not on file Sexual Orientation Not on file Last Filed Vital Signs Vital Sign Reading Time Taken Comments Blood Pressure 176/109 04/03/2024 10:56 AM MANAGER GRANT Pulse 96 04/03/2024 10:56 AM MANAGER GRANT Temperature 36.6 C (97.9 F) 04/03/2024 10:56 AM MANAGER GRANT Respiratory Rate 18 04/03/2024 10:5 6 AM MANAGER GRANT Oxygen Saturation 98% 04/03/2024 10: 56 AM MANAGER GRANT Inhaled Oxygen Concentration - - Weight 125.8 kg (277 lb 4.8 oz) 025 10:56 AM MANAGER GRANT Height 175.3 cm (5' 9.02) 04/03/2024 1 0:56 AM MANAGER GRANT Body Mass Index 40.93 04/03/2024 10:56 AM MANAGER GRANT Plan of Treatment Not on file Insurance [employer] ACCESS CHOICE ANTHEM ACCESS CHOICE Care Teams Residential Collections Relationship Specialty Start Date End Date Jacob Vázquez MD [address] [facility] [address] [place], [place] [id number] PCP - General Family Medicine 04/06/24
[2024-08-26 23:22] LABS: Acetaminophen < 10 ug/mL (10-30); Ethanol < 10 mg/dL (<10); SPREG INTERNAL CONTROL Positive; Salicylate < 1.0 mg/dL (2-20); Serum Qual hCG Negative
--- NOTE | 2024-08-27 00:29 | ED_ITS ---
HPI - Abdominal Pain General Chief Complaint: Abdominal Pain Stated Complaint: Abdomen pain, nausea, vomiting, diarrhea Time Seen by Provider: 08/26/24 23:00 History of Present Illness HPI narrative: Patient is a 39-year-old female who presents emergency department this evening complaining of nausea, vomiting and diarrhea which started at 4:00 p.m.. Patient states that she has had too many episodes of diarrhea for her to recall. She did present to the ED via EMS and upon her arrival, EMS did inform that she has had a large bowel movement in the ambulance. Patient states that she had similar symptoms back in June and they did not find anything. Denies any chest pain or shortness of breath. No additional symptoms or concerns at this time. Related Data Home Medications ?Medication ?Instructions ?Recorded ?Confirmed ?Last Taken ?Type lisinopril 10 1 tablet PO DAILY 05/31/19 08/29/20 08/28/20 History mg-hydrochlorothiazide 12.5 mg tablet albuterol sulfate 90 mcg/actuation 2 puff inhalation QID PRN 12/10/19 08/29/20 08/28/20 History aerosol inhaler (ProAir HFA) Shortness Of Breath Or Wheezing ipratropium 0.5 mg-albuterol 3 mg 3 ml inhalation Q4H PRN Shortness 12/10/19 08/29/20 Unknown History (2.5 mg base)/3 mL nebulization Of Breath Or Wheezing soln benzonatate 200 mg capsule mg PO 01/28/23 Unknown History ibuprofen 800 mg tablet mg 01/28/23 Unknown History methocarbamol 750 mg tablet mg 01/28/23 Unknown History venlafaxine 75 mg capsule,extended mg PO 01/28/23 Unknown History release 24 hr albuterol sulfate 90 mcg/actuation 2 puff inhalation PRN PRN 07/04/24 07/04/24 Unknown History aerosol inhaler shortness of breath or wheezing buspirone 30 mg tablet 30 mg PO Q12H 07/04/24 07/04/24 Unknown History cetirizine 10 mg tablet (24Hour 10 mg PO DAILY 07/04/24 07/04/24 07/04/24 History Allergy) lisinopril 20 1 tablet PO DAILY 07/04/24 07/04/24 Unknown History mg-hydrochlorothiazide 12.5 mg tablet metoprolol succinate 25 mg 25 mg PO DAILY 07/04/24 07/04/24 07/04/24 History tablet,extended release 24 hr pantoprazole 40 mg granules 40 mg PO DAILY 07/04/24 07/04/24 07/04/24 History delayed-release for susp in packet (Protonix) sertraline 100 mg tablet 100 mg PO HS 07/04/24 07/04/24 07/03/24 History venlafaxine 75 mg capsule,extended 75 mg PO QPM 07/04/24 07/04/24 07/03/24 History release 24 hr Allergies Allergy/AdvReac Type Severity Reaction Status Date / Time ketorolac Allergy Hives Verified 07/16/24 12:16 Review of Systems 2 Review of Systems: All systems are reviewed and are negative unless stated otherwise in the HPI. [facility] Past Medical History Medical History Anxiety Asthma GERD (gastroesophageal reflux disease) Hypertension Patient denies significant medical history Kidney stones Irritable bowel syndrome Obstructive sleep apnea Polysomnogram approximately 05/2023. Intolerant to CPAP Migraine Asthma Mild intermittent GERD (gastroesophageal reflux disease) Essential hypertension Morbid obesity with BMI of 40.0-44.9, adult POTS (postural orthostatic tachycardia syndrome) Surgical History Surgical History History of cholecystectomy History of H/O hysterectomy for benign disease Hysterectomy due to endometriosis and fibroids. She still has her ovaries. H/O lumbosacral spine surgery L5-S1 Hx of cholecystectomy Family History Family History Mother Hypertension Cerebrovascular accident Family history of elevated blood lipids Sibling Patient's sister is in good health Patient's brother is in good health Asthma Father Cerebrovascular accident Family history of diabetes mellitus in first degree relative Depression Mother Diabetes mellitus Hyperlipidemia Hypertension Father Diabetes mellitus Hyperlipidemia Hypertension Other Family history of allergic disorder Family history of heart disease in male family member before age 55 Family history of kidney disease Social History Social History Smoking status: Never smoker Alcohol intake: never Substance use: current Substance use type: marijuana Other substance usage details: vap Last use: yesterday Living arrangements: with family Gender identity (if verbalized by the patient): Female Spiritual care concerns: No Exam 2 Narrative: General: Alert, awake, afebrile, in no acute distress. HEENT: PERRL, no rhinorrhea, no post nasal drip, oropharynx clear. Neck: Trachea midline, no JVD, no lymphadenopathy. Cardiovascular: Regular rate and rhythm, no murmurs, rubs or gallops, no peripheral edema. Respiratory: Clear to auscultation bilaterally, no tachypnea, no wheezing, no rhonchi, no rubs, no respiratory distress. Abdomen: Soft, no tenderness to palpation over all 4 quadrants, nondistended, no rebound, no guarding, no peritoneal signs. Musculoskeletal: No joint swelling or deformity, normal muscle tone. Skin: No rashes or petechia, no signs of infection. Psychiatric: Alert and oriented, normal behavior and judgment for situation. Neurological: Alert and oriented to person, place, and time. Follows all commands. No focal deficits, speech is clear and fluent. Course Vital Signs Vital signs: Vital Signs Temperature 97.4 F L 08/26/24 20:46 Pulse Rate 124 H 08/26/24 20:46 Respiratory Rate 30 H 08/26/24 20:46 Blood Pressure 122/94 H 08/26/24 20:46 Pulse Oximetry 100 08/26/24 20:46 Oxygen Delivery Room Air 08/26/24 20:46 Temperature 97.4 F L 08/26/24 20:46 Pulse Rate 124 H 08/26/24 20:46 Respiratory Rate 30 H 08/26/24 20:46 Blood Pressure 122/94 H 08/26/24 20:46 Pulse Oximetry 100 08/26/24 20:46 Oxygen Delivery Room Air 08/26/24 20:46 MDM - Abdominal Pain MDM Narrative Medical decision making narrative: The patient was evaluated by myself in the emergency department. History is obtained from patient who is an independent historian and physical exam was performed. External medical records were reviewed at this time. IV was established and pertinent tests were ordered. Patient was administered 2 L IV fluid bolus with normal saline, 4 mg IV Zofran, 10 mg of IV Reglan and 25 mg of IV Benadryl. EKG was obtained which revealed sinus tachycardia rate of 109 beats per minute, evidence of acute ischemia. EKG was independently interpreted by me and is currently pending official cardiology read. Laboratory results obtained revealing a leukocytosis of 31.7, AST 51, ALT 39, glucose 219, anion gap 25 otherwise unremarkable. Urinalysis unremarkable. Imaging studies obtained included CT abdomen pelvis with IV contrast which was independently interpreted by me revealing possible diarrheal illness with colonic liquid contents otherwise unremarkable, which is pending final radiology interpretation. Differential diagnosis considerations include gastroenteritis, dehydration, electrolyte derangements, colitis/appendicitis/pancreatitis/diverticulitis. Comorbidities impacting this visit include none. I have evaluated and discussed social determinants of health with the patient that could potentially impact subsequent diagnosis and treatment plans. At this time, I did recommend hospital admission for IV hydration, however, patient refused stating that she feels much better and she would like to go home. Repeat vital signs revealed heart rate of 100, respiratory rate of 20 otherwise within normal limits. On repeat assessment of the patient, reevaluation revealed that the patient is doing well and is in no acute distress. Patient symptoms have improved since she arrived to our emergency department. Repeat vital signs were all reviewed and noted to be stable. Differential diagnosis and treatment plan were discussed with the patient at bedside. Patient agrees with discussion and after shared medical decision making agrees with discharge. All questions were answered to the patient's satisfaction. Patient will follow up with her PCP in 3-5 days. Script for Zofran was sent to patient's pharmacy to use as needed for nausea/vomiting. Patient was provided with strict return precautions and instructed to return to the emergency department if any new or worsening symptoms develop. The patient was discharged in stable condition. Lab Data 08/26/24 21:57 08/26/24 21:57 Labs: Lab Results 08/26/24 08/26/24 08/26/24 Range/Units 21:56 21:56 21:57 WBC 31.7 H (4.5-10.0) K/mm3 RBC 6.39 H (4.2-5.4) M/mm3 Hgb 18.2 H D (12.0-15.0) g/dL Hct 54.2 H (37.0-47.0) % MCV 84.8 (80-100) fl MCH 28.5 (26-34) pg MCHC 33.6 (32-36) g/dl RDW 13.2 (11.5-14.5) % Plt Count 472 H (150-375) k/mm3 MPV 9.6 (7.4-10.4) fl Immature Gran % (Auto) 1.4 H (0-0.5) % Neut % (Auto) 80.1 H (45.5-73.1) % Lymph % (Auto) 11.1 L (18.3-44.2) % [place] % (Auto) 5.6 (2.6-8.5) % Eos % (Auto) 1.3 (0-4.4) % Baso % (Auto) 0.5 (0.2-1.2) % Lymph # (Auto) 3.51 H (0.9-3.2) K/mm3 [place] # (Auto) 1.8 H (0.1-0.6) K/mm3 Eos # (Auto) 0.4 H (0-0.3) K/mm3 Baso # (Auto) 0.2 H (0.0-0.1) K/mm3 Abs Immat Gran (auto) 0.45 H (0.00-0.031) K/mm3 Absolute Neuts (auto) 25.4 H (1.3-6.7) K/mm3 Absolute Nucleated RBC 0.000 (0.0-0.012) K/mm3 Nucleated RBC % 0.0 (0.0-0.2) % Sodium 136 L (137-145) mmol/L Potassium 5.0 (3.4-5.0) mmol/L Chloride 101 (98-107) mmol/L Carbon Dioxide 10 L (22-30) mmol/L Anion Gap 25 H (4-12) mmol/L BUN 21 H (7-17) mg/dL Creatinine 1.09 H (0.7-1.0) mg/dL Estim Creat Clear Calc 86 ml/min Estimated GFR 56 L (59 - ) Glucose 219 H (65-110) mg/dL Calcium 10.6 H (8.4-10.2) mg/dL Total Bilirubin 0.9 (0.2-1.3) mg/dL AST 51 H (14-36) U/L ALT 39 H (6-35) U/L Alkaline Phosphatase 135 H (38-126) U/L Total Protein 10.1 H (6.3-8.2) g/dL Albumin 5.4 H (3.5-5.1) g/dL Lipase 62 (23-300) U/L Serum HCG, Qual Negative Urine Color (Yellow) Urine Appearance (Clear) Urine pH (5.0-9.0) Ur Specific [place] (1.001-1.035) Urine Protein (Negative) mg/dL Urine Glucose (UA) (Negative) mg/dL Urine Ketones (Negative) mg/dL Ur Blood (Man) (Negative) Urine Nitrate (Negative) Urine Bilirubin (Negative) Urine Urobilinogen (<2.0) mg/dL Leukocyte Esterase Rfl (Negative) WILNER/UL POC Urine HCG, Qual (Negative) Salicylates < 1.0 L Cancelled (2-20) mg/dL Urine Opiates Screen (Negative) Urine Methadone Screen (Negative) Acetaminophen < 10 L (10-30) ug/mL Ur Barbiturates Screen (Negative) Ur Phencyclidine Scrn (Negative) Ur Amphetamine Screen (Negative) U Benzodiazepines Scrn (Negative) Urine Cocaine Screen (Negative) U Cannabinoids Screen (Negative) Ethyl Alcohol < 10 (<10) mg/dL SARS-CoV-2 RNA (RT-PCR) (Negative) 08/27/24 08/27/24 08/27/24 Range/Units 00:05 01:44 01:49 WBC (4.5-10.0) K/mm3 RBC (4.2-5.4) M/mm3 Hgb (12.0-15.0) g/dL Hct (37.0-47.0) % MCV (80-100) fl MCH (26-34) pg MCHC (32-36) g/dl RDW (11.5-14.5) % Plt Count (150-375) k/mm3 MPV (7.4-10.4) fl Immature Gran % (Auto) (0-0.5) % Neut % (Auto) (45.5-73.1) % Lymph % (Auto) (18.3-44.2) % [place] % (Auto) (2.6-8.5) % Eos % (Auto) (0-4.4) % Baso % (Auto) (0.2-1.2) % Lymph # (Auto) (0.9-3.2) K/mm3 [place] # (Auto) (0.1-0.6) K/mm3 Eos # (Auto) (0-0.3) K/mm3 Baso # (Auto) (0.0-0.1) K/mm3 Abs Immat Gran (auto) (0.00-0.031) K/mm3 Absolute Neuts (auto) (1.3-6.7) K/mm3 Absolute Nucleated RBC (0.0-0.012) K/mm3 Nucleated RBC % (0.0-0.2) % Sodium (137-145) mmol/L Potassium (3.4-5.0) mmol/L Chloride (98-107) mmol/L Carbon Dioxide (22-30) mmol/L Anion Gap (4-12) mmol/L BUN (7-17) mg/dL Creatinine (0.7-1.0) mg/dL Estim Creat Clear Calc ml/min Estimated GFR (59 - ) Glucose (65-110) mg/dL Calcium (8.4-10.2) mg/dL Total Bilirubin (0.2-1.3) mg/dL AST (14-36) U/L ALT (6-35) U/L Alkaline Phosphatase (38-126) U/L Total Protein (6.3-8.2) g/dL Albumin (3.5-5.1) g/dL Lipase (23-300) U/L Serum HCG, Qual Urine Color Yellow (Yellow) Urine Appearance Clear (Clear) Urine pH 5.5 (5.0-9.0) Ur Specific [place] > 1.045 H (1.001-1.035) Urine Protein Negative (Negative) mg/dL Urine Glucose (UA) Negative (Negative) mg/dL Urine Ketones Negative (Negative) mg/dL Ur Blood (Man) Negative (Negative) Urine Nitrate Negative (Negative) Urine Bilirubin Negative (Negative) Urine Urobilinogen 0.2 (<2.0) mg/dL Leukocyte Esterase Rfl Negative (Negative) WILNER/UL POC Urine HCG, Qual Negative (Negative) Salicylates (2-20) mg/dL Urine Opiates Screen Negative (Negative) Urine Methadone Screen Negative (Negative) Acetaminophen (10-30) ug/mL Ur Barbiturates Screen Negative (Negative) Ur Phencyclidine Scrn Negative (Negative) Ur Amphetamine Screen Negative (Negative) U Benzodiazepines Scrn Negative (Negative) Urine Cocaine Screen Negative (Negative) U Cannabinoids Screen Negative (Negative) Ethyl Alcohol (<10) mg/dL SARS-CoV-2 RNA (RT-PCR) Negative (Negative) Discharge Plan Discharge Clinical Impression: Nausea vomiting and diarrhea, Gastroenteritis, Abdominal pain, Dehydration Patient Disposition: Home Condition: Improved Instructions: Antibiotic Form, Dehydration (DC), Gastroenteritis (DC) Additional Instructions: Please follow-up with the family doctor within next 3-5 days. Return emergency room for new or worsening symptoms develop. Use the prescribed nausea medication as needed for nausea/vomiting. Patient Language: Telugu Prescriptions: New ondansetron 4 mg tablet,disintegrating 4 mg PO Q8H PRN (Reason: nausea and vomiting) Qty: 14 0RF No Action lisinopril-hydrochlorothiazide 10-12.5 mg tablet 1 tablet PO DAILY benzonatate 200 mg capsule PO venlafaxine 75 mg capsule,extended release 24hr PO ibuprofen 800 mg tablet methocarbamol 750 mg tablet amoxicillin 500 mg capsule 500 mg PO Q12H 10 Days Qty: 20 0RF pantoprazole [Protonix] 40 mg tablet,delayed release (DR/EC) 40 mg PO HS Qty: 30 3RF ipratropium-albuterol 0.5 mg-3 mg(2.5 mg base)/3 mL solution for nebulization 3 ml INHALATION Q4H PRN (Reason: Shortness Of Breath Or Wheezing) Patient Comments: Pt as not used in months albuterol sulfate [ProAir HFA] 90 mcg/actuation Hfa Aerosol Inhaler 2 puff INHALATION QID PRN (Reason: Shortness Of Breath Or Wheezing) dicyclomine 20 mg tablet 20 mg PO QID Qty: 20 0RF ondansetron 4 mg tablet,disintegrating 4 mg PO Q6H PRN (Reason: nausea and vomiting) Qty: 10 0RF ondansetron 4 mg tablet,disintegrating 4 mg PO Q8H PRN (Reason: nausea and vomiting) Qty: 15 0RF albuterol sulfate 90 mcg/actuation HFA aerosol inhaler 2 puff INHALATION PRN PRN (Reason: shortness of breath or wheezing) lisinopril-hydrochlorothiazide 20-12.5 mg tablet 1 tablet PO DAILY buspirone 30 mg tablet 30 mg PO Q12H sertraline 100 mg tablet 100 mg PO HS venlafaxine 75 mg capsule,extended release 24hr 75 mg PO QPM metoprolol succinate 25 mg tablet extended release 24 hr 25 mg PO DAILY pantoprazole [Protonix] [address] for susp in packet 40 mg PO DAILY cetirizine [24Hour Allergy] 10 mg tablet 10 mg PO DAILY ondansetron 4 mg tablet,disintegrating 4 mg PO Q8H PRN (Reason: nausea and vomiting) Qty: 10 0RF Follow-up/Referrals: SCOUT,FRAN TORRES [Primary Care Provider] - 3 Days Time of Disposition: 02:50
[2024-08-27 01:00] LABS: SARS-CoV-2 RNA PCR Negative (Negative)
[2024-08-27 01:53] LABS: Add Urine Microscopic? NO; Appearance Urine Clear (Clear); Bilirubin Urine Negative (Negative); Blood Urine Negative (Negative); Color Urine Yellow (Yellow); Glucose Urine UA Negative (Negative); Ketones Urine Negative (Negative); Leukocyte Esterase Ur Negative LEU/UL (Negative); Nitrate Urine Negative (Negative); Protein Urine Negative (Negative); Specific Grav Ur > 1.045 (1.001-1.035); Urobilinogen Urine 0.2 mg/dL (<2.0); pH Urine 5.5 (5.0-9.0)
[2024-08-27 02:00] LABS: BEDSIDEPREGUCG Negative (Negative)
[2024-08-27] MEDS: SODIUM CHLORIDE 0.9% IV 1,000 ML 999 ML IV CONT (02:08)
[2024-08-27 02:09] LABS: Amphetamine Screen Urine Negative (Negative); Barbiturate Screen Urine Negative (Negative); Benzodiazepines Screen Urine Negative (Negative); Cannabinoid Screen Urine Negative (Negative); Cocaine Screen Urine Negative (Negative); Methadone Screen Urine Negative (Negative); Opiate Screen Urine Negative (Negative); Phencyclidine Screen Urine Negative (Negative)
[2024-08-27] MEDS: METOCLOPRAMIDE HCL INJ 10 MG/2 ML VIAL IV PUSH (02:25)
[2024-08-27] MEDS: diphenhydrAMINE HCl INJ 50 MG/ML VIAL 25 MG IV PUSH (02:25)
--- NOTE | 2024-08-27 03:30 | PC.NURSE ---
Pt states medication effective, no longer nausea.
[2024-08-27 04:11] VITALS: BP 144/82; PULSE 100; RESP 18; O2SAT 97
== END 2024-08-27 04:16 | disposition home or self-care (01) ==
PROVIDERS: Emergency Provider Emergency Medicine; PCP Nurse Practitioner Family
DX: K52.9 Noninfective gastroenteritis and colitis, unspecified (principal); E86.0 Dehydration; R11.2 Nausea with vomiting, unspecified; R10.9 Unspecified abdominal pain
CPT/HCPCS: 36415; 71045; 74177; 80053; 80143; 80179; 80307; 81003; 81025; 82077; 83690; 84703; 85025; 87635; 93005; 96361; 96374; 96375; 99284; J1200; J2405; J2765; J7030; Q9967